=== PATIENT | female | born 1950 | race Caucasian/White ===

== ENCOUNTER 2017-04-03 13:59 | Outpatient (CLI) | payer MEDICARE | END 2017-04-03 14:00 | disposition home or self-care (01) | LOC: DTY/OP 13:59 | PROVIDERS: ATTEND Internal Medicine | DX: E11.59 Type 2 diabetes mellitus with other circulatory complications (principal) | CPT/HCPCS: 97802 ==

== ENCOUNTER 2017-09-07 11:53 | Inpatient (IN) | payer MEDICARE ==
[2017-09-07] MEDS ORDERED: Naloxone HCl 0.4 mg/ml Vial ONE (12:05)
[2017-09-07 12:20] LABS: #Eosinphils 0.2 thou/uL (0.0-0.7); #Lymphocytes 1.4 thou/uL (1.20-3.40); #Monocytes 0.6 thou/uL (0.11-0.59); #Neutrophils 5.9 thou/uL (1.40-6.50); %Basophils 0.2 % (0.0-1.0); %Eosinophils 2.1 % (0.0-10.0); %Lymphocytes 17.6 % (21.0-51.0); %Monocytes 7.4 % (0.0-10.0); %Neutrophils 72.7 % (42.0-75.0); Hemoglobin 11.9 g/dL (12.0-16.0); Mean Corpuscular HGB CONC 33.5 g/dL (32.0-36.0); Mean Corpuscular Hemoglobin 30.1 pg (27.0-31.0); Mean Corpuscular Volume 89.8 fl (81.0-99.0); Mean Platelet Volume 7.8 fL (7.4-10.4); Platelet Count 218 thou/uL (130-400); RBC Distribution Width 12.2 % (11.5-14.5); Red Blood Cell (RBC) Count 3.94 mill/uL (4.20-5.40); White Blood Cell (WBC) Count 8.1 thou/uL (4.8-10.8)
[2017-09-07 12:40] LABS: Prothrombin Time 13.1 SEC (12.0-14.7)
[2017-09-07 12:42] LABS: ALT (SGPT) 38 U/L (8-55); AST (SGOT) 39 U/L (5-34); Albumin 3.9 g/dL (3.4-4.8); Alkaline Phosphatase 139 U/L (40-150); Anion Gap 18 mmol/L (10-20); BUN (Urea Nitrogen) 17 mg/dL (9.8-20.1); Bilirubin, Total 0.5 mg/dL (0.2-1.2); Calc. Creatinine Clearance 0 mL/min (70-130); Carbon Dioxide 22 mmol/L (23-31); Chloride 100 mmol/L (98-107); Estimated GFR-MDRD 72; Globulin 3.6 g/dL (2.4-3.5); Glucose 199 mg/dL (80-115); Magnesium 1.6 mg/dL (1.6-2.6); Potassium 3.9 mmol/L (3.5-5.1); Protein, Total 7.5 g/dL (6.0-8.3); Sodium 136 mmol/L (136-145)
[2017-09-07 12:42] LABS: Actual Bicarbonate (HCO3a) 26.3 mEq/L (22-26); Base Excess (BEa) 0.7 mEq/L (0 (+/-) 2.5); CO2 Tension 46.1 mmHg (35.0-45.0); Hematocrit-ABG 37.2 % (36.0-47.0); Hemoglobin (Hb) 11.1 g/dL (12.0-16.0); pH, Arterial 7.37 (7.35-7.45)
[2017-09-07 12:43] LABS: ALV-art Gradient -28.385 (0-20); Analyzer IN Cardio ER; Calcium, Ionized 1.1 mmol/L (1.12-1.30); Puncture Site RRA
[2017-09-07 12:45] LABS: Bilirubin Negative (Negative); Blood, Urine Negative (Negative); Clarity CLEAR (Clear); Glucose, Urine (Dipstick) Negative (Negative); Leukocyte Negative (Negative); Nitrite Negative (Negative); Protein, Urine (Dipstick) Negative (Neg-Trace); Specific Gravity, Urine 1.011 (1.002-1.036); Urobilinogen 0.2 mg/dL (0.2-1.0); pH, Urine 6.5 (5.0-9.0)
[2017-09-07] MEDS ORDERED: Aspirin 300 MG Suppository ONE (13:43)
[2017-09-07 14:08] LABS: Amphetamine Not Detected (NotDetected); Barbiturates Screen Not Detected (NotDetected); Benzodiazepine Screen Not Detected (NotDetected); Cocaine Metabolite Screen Not Detected (NotDetected); Medtox Control Line Valid? VALID (VALID); Medtox Reader # READER 1; Methadone Not Detected (NotDetected); Methamphetamine Not Detected (NotDetected); Opiate Screen Not Detected (NotDetected); Oxycodone Screen Not Detected (NotDetected); Phencyclidine (PCP) Not Detected (NotDetected); THC/Cannabinoid Screen Not Detected (NotDetected); Tricyclic Screen Not Detected (NotDetected)
[2017-09-07 14:15] LABS: CKMB 0.7 ng/mL (0-6.6); Troponin I Less than 0.010 ng/mL (< 0.028)
--- NOTE | 2017-09-07 14:35 | CT ---
CT BRAIN: Date: 09-07-17 Comparison: 04-11-15 Technique: Noncontrast enhanced CT of the brain obtained. FINDINGS: There is interval encephalomalacia changes seen in the left occipital region where previous stroke wa s visualized. No evidence of acute intracranial masses, hemorrhages, or strokes seen. No evidence of sub or epidura l hematoma is seen. No evidence of subarachnoid hemorrhage is seen. No other intracranial masses or l esions seen. IMPRESSION: Left rib occipital stroke. Findings discussed with Dr. Browne at 12:16 p.m. on 09-07-17. Code CR POS: [facility]
--- NOTE | 2017-09-07 14:45 | RAD ---
AP CHEST: History: Mental status change. Syncope. Date: 09-07-17 Comparison: 08-14-16 FINDINGS: Sternotomy wires are seen. Cardiomegaly is noted. No evidence of effusions, pneumonia or pneumothorax seen. IMPRESSION: Cardiomegaly. No acute intrathoracic abnormalities seen. POS: [facility]
[2017-09-07] MEDS ORDERED: Ondansetron HCl/PF 4 MG/2 ML Vial IVP PRN (15:55)
[2017-09-07] MEDS ORDERED: Ondansetron ODT 4 MG TAB SL PRN (15:55)
[2017-09-07 15:58] VITALS: BMI 46.8
[2017-09-07 16:56] LABS: Troponin I Less than 0.010 ng/mL (< 0.028)
--- NOTE | 2017-09-07 17:29 | CON ---
DATE OF CONSULTATION: 09/07/2017 HISTORY OF PRESENT ILLNESS: Edmundo is a 67-year-old morbidly obese female who has seen Dr. Ngo in the past. He presents now with metabolic encephalopathy. History is difficult to assess, but ambulance brought here. She is living in [facility] and son was in denominational, he was notified after the patient was brought to the hospit al. He comes to the ER when we got additional information. He spoke to his mother yesterday. She a ppeared to be appropriate. Apparently, they were unable to wake her up today. In the ER, she was se en by the ER physician. Chest x-ray and CT of the head so far negative. Additional lab obtained, bl ood gas, pO2 is 169, pCO2 was 37. There is no respiratory acidosis. This is on 2 liters. Electroly kirill are normal. Blood sugar was 99. Liver function was normal. Thyroid function was normal. [place] ia level was normal. I reviewed all her past medical records. In fact, she was recently in the hosp ital over here about a year ago and saw Cardiology. 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 Patient is unable to give any information, stormou gh after a period of time, she did open her eyes, did move both extremities. PAST MEDICAL HISTORY: Diabetes, obesity, COPD, carotid disease, bypass, hypertension, hyperlipidemia , DVT in the past. PAST SURGICAL HISTORY: CABG, back surgery. Previous sternal dehiscence, treated conservatively, say s about a year ago. She apparently sees mainly doctors at [facility]. MEDICATIONS: Medicine from home includes atorvastatin, Ecotrin, aspirin, Tylenol #3, Prilosec, Norva sc 5, gabapentin 600, Coreg 12.5, tramadol, all from previous medical records. ALLERGIES: Apparently from previous medical records, none to speak of. SOCIAL HISTORY: History from previous records include that she has been smoking. REVIEW OF SYSTEMS: Otherwise unobtainable. PHYSICAL EXAMINATION: HEENT: Pupils are equal. GENERAL: Obese. VITAL SIGNS: Sats are 98% on O2, pulse 80, blood pressure 130/80. CHEST: No wheezing or crackles. CARDIAC: Normal S1, S2. No gallops. ABDOMEN: Soft. No masses. LABORATORY DATA: White count 8000, H and H 11 and 35, platelet count is normal. I do not see any bi g left shift. Blood gas as noted, pCO2 is 46, pH 7.37, pO2 169. Electrolytes normal. Glucose 93. IMPRESSION: 1. Metabolic encephalopathy. 2. Morbid obesity. 3. Sleep apnea. 4. Diabetes. 5. Coronary artery disease and coronary artery bypass grafting. 6. Sternal wound dehiscence. PLAN: Minimize sedation and was transferred to the ICU/MICU for close observation. Son is at the be dside. Continue nocturnal CPAP, BiPAP. May empirically put on antibiotics I doubt she is septic. C ontinue home medication. We will notify Dr. Ngo. Forty-five minutes critical care time.
[2017-09-07 19:10] LABS: Troponin I Less than 0.010 ng/mL (< 0.028)
--- NOTE | 2017-09-07 19:39 | CON ---
DATE OF CONSULTATION: 09/07/2017 CHIEF COMPLAINT: Difficulty with vision and also altered mental status. HISTORY OF PRESENT ILLNESS: The patient was actually able to give me full medical history when I saw her and I reviewed Dr. Garces's note from this afternoon when he stated that the patient was unable to give any history, she seems to have improved since this morning. This afternoon, the patient report s for the past few weeks, she has had difficulty with her vision and she is unable to focus her eyes and also has been losing her balance. She has an eye doctor who is looking after her and she was randy d that not much can be done for her eyes. 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 The patient stated to me that she has been feeling generalized weakness, which has got ten worse today and she was brought here by her family from the assisted living and her son nader tristan was at the hospital. He was not here at the time of my visit. The patient states that she has rosamaria e dizziness, but it is mostly her eyes feel like they are blurry and she feels like her head is disco nnected from her body. PREVIOUS MEDICAL HISTORY: Diabetes, COPD, carotid artery disease, coronary artery bypass with bello ry artery disease, hypertension, hyperlipidemia, DVT and CVA in 2014 in the left occipital area. PREVIOUS SURGICAL HISTORY: Coronary artery bypass graft and back surgery. MEDICATIONS: She is on atorvastatin, aspirin, Tylenol, Prilosec, Norvasc, gabapentin, Coreg. Curren tly, she has also received some naloxone earlier. FAMILY HISTORY: Her parents young. Father had congestive heart failure, at 75. Mo ther from massive coronary artery disease at the age of 62. SOCIAL HISTORY: She is in an assisted living facility. She does not smoke or drink. REVIEW OF SYSTEMS: Pulmonary: Positive for shortness of breath. Cardiac: Negative for any chest p ain or palpitations. Gastrointestinal: Normal. Genitourinary: Normal. Neurologic: Positive for vision issues, poor coordination, difficulty walking and ophthalmologic blindness in the right eye. Dermatologic: Normal. Endocrine: Normal. PHYSICAL EXAMINATION: GENERAL APPEARANCE: A well-built, well-nourished lady, slightly obese, appears to be short of breath . She is on oxygen. CHEST: Clear vesicular breathing. CARDIOVASCULAR: S1 and S2 heard. No murmurs. Carotids are clear. ABDOMEN: Soft and nontender. NEUROLOGICAL: Higher intellectual functions, normal orientation to time, place and person, appropria te conversation. Cranial nerve II difficult to assess even pupils. She closes her eye. They do not feel right when I shine the light and she is unable to track because of discomfort due to vision. N ormal sensation of face. No facial asymmetry. Normal hearing bilaterally. Normal elevation of makayla te. Tongue is midline. MOTOR: Bulk normal, tone normal, strength 5/5 in iliopsoas, hamstrings, quadriceps, ankle dorsiflexi on, plantar flexion, deltoid, biceps, triceps, wrist extension and flexion, finger extension and flex ion. There was slightly decreased effort in performing left ankle dorsiflexion. Deep tendon reflexe s were present at 1+. She complained of discomfort when I was testing left knee jerk. SENSORY: Normal touch, pinprick, proprioception, vibration and temperature except for slightly decre ased vibration distally in lower extremities. Cerebellar: Normal [id number] and iuxs-fg-[id number]. LABORATORY RESULTS: White count 8.1, hemoglobin 11.9, hematocrit 35.4 and platelet count 218. Sodiu m 136, potassium 3.9, chloride 100, bicarbonate 22, anion gap 18, BUN 17, creatinine 0.8, glucose 199 and her BNP is 135.7. IMPRESSION: The patient is a 67-year-old lady with prior occipital stroke. Her CT report states she has a left occipital stroke and she has been having some difficulty with her vision lately and also lack of coordination. She also reported to me she usually keeps her oxygen at all times. Today, she was not using her oxygen and then just felt she did not remember being disoriented, but she has had short term memory loss since her previous stroke and has had episodes of confusion on and off. Her n eurological examination shows deficits from her prior stroke, mainly left consistent with loss of vis ion in the right eye, but added problem at this time is difficulty to even track and focus her vision . I suspect she might have had another posterior circulation event, which needs to be explored furth er. RECOMMENDATIONS: 1. Continue aspirin for stroke prophylaxis for now. 2. MRI of the brain. 3. Complete her stroke workup including carotid Dopplers and echocardiogram and I will have my colle ague, Dr. Harrington, follow up from tomorrow.
[2017-09-07] MEDS: Enoxaparin Sodium 40 MG/0.4 ML SYRINGE SC SCH (20:41)
[2017-09-07] MEDS: Acetaminophen 325 MG TAB PO PRN (21:17)
--- NOTE | 2017-09-07 23:15 | ULT ---
CAROTID ARTERIAL DOPPLER ULTRASOUND: Date: 09-07-17 Comparison: None. History: Altered mental status. Technique: Multiplanar grayscale sonographic imaging of the arterial structures of the neck obtained with color flow and spectral analysis. FINDINGS: There is mild atherosclerotic plaque at the level of the proximal ICA bilaterally. Antegrade blood fl ow and normal arterial waveforms are documented within the carotid and vertebral system bilaterally. VESSEL PSV (CM/SEC) EDV (CM/SEC) Right CCA 95 19 Right ICA 85 24 Right ECA 83 7 Left CCA 98 20 Left ICA 59 19 Left ECA 59 7 ICA/CCA ratio is 0.9 on the right and 0.6 on the left. IMPRESSION: No hemodynamically significant stenosis on the basis of sonographic velocity criteria. POS: [facility]
--- NOTE | 2017-09-08 00:40 | HP ---
DATE OF ADMISSION: 09/07/2017 ADMITTING PHYSICIAN: Dr. Puneet Sagastume. PRIMARY CARE PHYSICIAN: Dr. Sofia. CHIEF COMPLAINT: Altered mental status, found down. HISTORY OF PRESENT ILLNESS: The patient is a 67-year-old patient, morbidly obese, history of CVA, CA D. The patient lives at [facility]. The patient complained of mental sta tus changes and was found down at the assisted living facility after the staff heard a loud crash. T he patient is completely lucid during my interview. She says she does not remember the loss of consc iousness. She denies chest pain, shortness of breath. She does report that she has been suffering f rom increased memory loss and fatigue lately. She is a patient of Dr. Sofia and is in the process o f a workup for cardiovascular disease. The patient was given Narcan in the emergency department and has increased alertness. She denies using any opiates with her home medication regimen. REVIEW OF SYSTEMS: The following complete review of systems was negative, unless otherwise mentioned in the HPI or below: Constitutional: Weight loss or gain, sense of well-being, ability to conduct usual activities, exerc ise tolerance. Skin/Breast: Rash, itching, changes in hair growth or loss, nail changes, breast lumps, tenderness, swelling, nipple discharge. Eyes: Vision, double vision, tearing, blind spots, pain. ENT/Mouth: Headaches (location, time of onset, duration, precipitating factors), vertigo, lightheade dness, injury. Vision, double vision, tearing, blind spots, pain, nose bleeding, colds, obstruction, discharge, dental difficulties, gingival bleeding, dentures, neck stiffness, pain, tenderness, masses in thyroid or other areas. Cardiovascular: Precordial pain, substernal distress, palpitations, syncope, dyspnea on exertion, or thopnea, nocturnal paroxysmal dyspnea, edema, cyanosis, hypertension, heart murmurs, varicosities, ph lebitis, claudication. Respiratory: Pain, shortness of breath, wheezing, stridor, cough, hemoptysis, fever or night sweats. Gastrointestinal: Poor appetite, dysphagia, indigestion, abdominal pain, heartburn, eructation, naus ea, vomiting, hematemesis, jaundice, constipation, or diarrhea, abnormal stools (kimberley-colored, tarry, bloody, greasy, foul smelling), flatulence, hemorrhoids, recent changes in bowel habits. Genitourinary: Urgency, frequency, dysuria, nocturia, hematuria, polyuria, oliguria, unusual (or javier nge in) color of urine, stones, hesitancy, change in size of stream, dribbling, acute retention or in continence, libido, potency. Musculoskeletal: Pain, swelling, redness or heat of muscles or joints, limitation, of motion, muscul ar weakness, atrophy, cramps. Neurologic/Psychiatric: Convulsions, paralyses, tremor, incoordination, paresthesias, difficulties w ith memory of speech, sensory or motor disturbances, or muscular coordination (ataxia, tremor), emoti onal problems, anxiety, depression, previous psychiatric care, unusual perceptions, hallucinations. Allergy/Immunologic: Skin rash, anemia, bleeding tendency, polydipsia, polyuria, intolerance to heat or cold. PAST MEDICAL HISTORY: Significant for morbid obesity, COPD, diabetes, carotid artery disease, CABG, hypertension, dyslipidemia, DVT in the past. PAST SURGICAL HISTORY: Positive for CABG with sternal dehiscence, multiple spinal surgeries. FAMILY HISTORY: Reviewed and noncontributory to this case. SOCIAL HISTORY: She lives in assisted living facility. Former smoker. No alcohol, no illicit drugs . ALLERGIES: No known drug allergies. HOME MEDICATIONS: Include Lipitor 10 mg q. day, aspirin 81 mg q. day, ascorbic acid 1 gram q. day, a mlodipine 5 mg q. day, Celexa 5 mg q. day, iron sulfate 325 mg q. day, Lasix 40 q. day, gabapentin 60 0 mg twice a day, albuterol Atrovent nebulizer b.i.d., metformin 1000 mg b.i.d., Exelon 1.5 mg b.i.d. , Ultram 50 mg b.i.d., Ambien 5 mg at bedtime. PHYSICAL EXAMINATION: VITAL SIGNS: Temperature 98.2, pulse 63, respirations 14, satting 97% on 2 liters, blood pressure 11 6/61. GENERAL: She is nontoxic. Alert and oriented x3. HEENT: Head: Normocephalic, atraumatic. Eyes: Pupils are equal, reactive to light. Extraocular m uscles are intact. CARDIAC: Systolic ejection murmur 2/6. Normal S1, S2. CHEST: No wheezing, no rhonchi, no crackles. ABDOMEN: Morbidly obese, nontender. EXTREMITIES: No clubbing, cyanosis or edema. NEUROLOGIC: Full range of motion of all extremities. Cranial nerves II-XII grossly intact. LABORATORY DATA AND IMAGES: CBC: White count 8.1, hemoglobin 11.9, hematocrit 35.4, platelets 218. Coag studies: PT 13.1, INR 1.0. Blood gas: A pH 7.37, pCO2 of 46, pO2 of 169. Chem-7: Sodium 13 6, potassium 3.9, chloride 100, CO2 of 22, BUN 17, creatinine 0.8, glucose 199. Lactic acid 2.3, AST 39, ALT 38, CK-MB of 0.7, troponin I of 0.01 less than, BNP of 135.7. Urinalysis: Yellow, clear, n egative for ketones, nitrites and leukocytes. Urine drug screen: No opiates, no oxycodone, no metha done, completely clear urine drug study. ASSESSMENT: 1. Possible medication overdose. 2. Morbid obesity. 3. Sleep apnea. 4. Diabetes. 5. Coronary artery disease and congestive heart failure. PLAN: The patient has been admitted to [facility]. She is completely lucid at this time. Nevertheless, w e will obtain an MRI to rule out an ischemic event. The patient has a history of carotid disease. S he will be seen and assessed by the Cardiology Service, Dr. Sofia, who is her social media content manager. We will let him decide if she needs a repeat carotids and echo. We will refrain from using any opiates for this patient and her chronic pain. We will place her on Accu-Cheks before meals and bedtime. We zamzam l have a PT/OT evaluation. Deep venous thrombosis prophylaxis with Lovenox.
[2017-09-08 05:02] LABS: Anion Gap 13 mmol/L (10-20); BUN (Urea Nitrogen) 16 mg/dL (9.8-20.1); Calc. Creatinine Clearance 148 mL/min (70-130); Calcium 8.2 mg/dL (7.8-10.44); Carbon Dioxide 25 mmol/L (23-31); Chloride 105 mmol/L (98-107); Estimated GFR-MDRD 81; Glucose 140 mg/dL (80-115); Potassium 3.5 mmol/L (3.5-5.1); Sodium 139 mmol/L (136-145)
[2017-09-08 05:16] LABS: Band 5 % (5-11); Eosinophils 3 % (0-10); Hemoglobin 10.7 g/dL (12.0-16.0); Lymphocytes 25 % (21-51); MDiff Complete? YES; Mean Corpuscular Hemoglobin 29.7 pg (27.0-31.0); Mean Platelet Volume 7.6 fL (7.4-10.4); Monocytes 5 % (0-10); Neutrophil 60 % (42-75); Platelet Count 190 thou/uL (130-400); RBC Distribution Width 12.2 % (11.5-14.5); White Blood Cell (WBC) Count 7.5 thou/uL (4.8-10.8)
--- NOTE | 2017-09-08 09:42 | PRG ---
DATE OF SERVICE: 09/08/2017 She is awake and alert, has no complaints. PHYSICAL EXAMINATION: VITAL SIGNS: Temperature 97.5, pulse 64, respirations 20, O2 sat 98%, blood pressure 126/64. HEENT: Unremarkable. NECK: No JVD. CHEST: Clear. CARDIAC: S1 and S2 regular. ABDOMEN: Soft. EXTREMITIES: No edema. LABORATORY DATA: White blood cell count 7.5, hematocrit 32.4, platelet count 190. Sodium 139, potas sium 3.5, chloride 105, CO2 25, BUN 16, creatinine 0.7, glucose 140. ASSESSMENT: 1. Altered mental status, etiology unclear, but problem seems to have resolved. 2. Obstructive sleep apnea with symptoms well controlled on CPAP. RECOMMENDATIONS: 1. Continue CPAP at 13 cm of water. Her vegetable cutter is Dr. Beltre at [facility]. She will follow up with him after discharge. 2. From my standpoint, she can be moved to the floor and discharged home anytime.
[2017-09-08] MEDS ORDERED: Clotrimazole/Betamethasone Cream 45 GM TUBE TOP PRN (10:47)
[2017-09-08] MEDS ORDERED: Zolpidem Tartrate 5 MG TAB PO PRN (10:47)
[2017-09-08] MEDS ORDERED: Nitroglycerin 0.4 MG TAB (25 Tab Bottle) SL PRN (10:47)
--- NOTE | 2017-09-08 10:56 | PDOC.PN ---
- Subjective Encounter Start Date: 09/08/17 Encounter Start Time: 10:53 Patient seen and examined, friend at bedside, states she feels well now, recently had an increase in her metformin to 1000mg po BID. Patient also states she was taking lorazepam, gabapentin, ambien and an SSRI. Patient currently states she feels much better but still remains weaker than normal. All questions answered. - Objective Resuscitation Status: Resuscitation Status FULL:Full Resuscitation MAR Reviewed: Yes Vital Signs & Weight: Vital Signs (12 hours) Temp Pulse Resp BP Pulse Ox 09/08/17 08:00 97.5 F L 64 22 H 98 09/08/17 07:38 97.5 F L 64 22 H 124/64 98 09/08/17 06:10 62 16 123/69 100 09/08/17 04:04 97.8 F 59 L 15 120/61 99 09/08/17 02:03 59 L 15 97 09/08/17 02:01 58 L 16 96/39 L 100 09/08/17 00:05 98.1 F 58 L 19 121/54 L 99 I&O: 09/07/17 09/08/17 09/09/17 06:59 06:59 06:59 Intake Total 1700 Output Total 1175 Balance 525 Result Diagrams: 09/08/17 04:33 09/08/17 04:33 Additional Labs: Accuchecks 09/08/17 09/07/17 09/07/17 06:11 21:19 16:42 POC Glucose 137 H 136 H 130 H Phys Exam - Physical Examination Constitutional: NAD obese HEENT: PERRLA, moist MMs Neck: no nodes, no JVD Respiratory: no wheezing, no rales, no rhonchi Cardiovascular: RRR, no significant murmur Gastrointestinal: soft, non-tender, no distention Musculoskeletal: pulses present, edema present (trace B/L LE) Neurological: non-focal, normal sensation Dx/Plan (1) Altered mental state Code(s): R41.82 - ALTERED MENTAL STATUS, UNSPECIFIED Status: Acute (2) Cardiomyopathy Code(s): I42.9 - CARDIOMYOPATHY, UNSPECIFIED Status: Chronic (3) Family history of diabetes mellitus (DM) Code(s): Z83.3 - FAMILY HISTORY OF DIABETES MELLITUS Status: Chronic (4) HLD (hyperlipidemia) Code(s): E78.5 - HYPERLIPIDEMIA, UNSPECIFIED Status: Chronic (5) HTN (hypertension) Code(s): I10 - ESSENTIAL (PRIMARY) HYPERTENSION Status: Chronic - Plan * Patient clinically stable * MRI done, if MRI negative can move to regular floor with telemetry monitoring * PT/OT evaluation * patient likely had multiple reasons for AMS, recent increase in metformin along with multiple agents which can cause neurological changes (gabapentin, zolpidem, benzodiazepines and SSRIs) monitor for now * labs in AM * DC plans in 24-48hrs if patient clinicalyl improved, image studies negative and labs are acceptable * case and plan d/w patient at length, she understands and agrees with this plan
[2017-09-08] MEDS: Gabapentin 300 MG CAP PO SCH ×4 (11:02→23:33)
--- NOTE | 2017-09-08 12:29 | MRI ---
BRAIN MRI WITHOUT CONTRAST: DATE: 09/08/17. COMPARISON: 04/10/15. HISTORY: Altered mental status, evaluate for acute infarction. TECHNIQUE: Multiplanar multisequence MR imaging of the brain is obtained without contrast. FINDINGS: The axial gradient echo imaging demonstrates no evidence for intracranial hemorrhage. There is encephalomalacia within the occipital lobe on the left, evidence of prior left occipital inf arction. Arterial flow voids at the axial level of the skull base appear unremarkable on the T2 weighted imagi ng. Regional bone marrow signal intensity appears within normal limits. Extensive multifocal periventricular deep and subcortical white matter T2 and FLAIR hyperintensity no landy, evidence of small-vessel disease. The diffusion weighted imaging demonstrates no evidence for acute infarction. IMPRESSION: Small-vessel disease and old left occipital infarction. No MR evidence of acute infarction or intrac ranial hemorrhage. POS: [facility]
--- NOTE | 2017-09-08 13:08 | CON ---
DATE OF CONSULTATION: 09/08/2017 CHIEF COMPLAINT: Altered mental status, concern for syncope. PRIMARY BARTENDER MANAGER: Christopher Sofia M.D. HISTORY OF PRESENT ILLNESS: Ms. Wyatt is a pleasant 67-year-old white female very well known to erika who comes to the hospital for being altered. She was found down at her home. She lives in assist ed living facility close to the hospital, she was brought in. She was still confused and she was bro ught in with normal blood sugars and normal heart rate and blood pressure. Cardiology is being consu lted to evaluate if this was syncope or cardiogenic syncope. She has significant history of coronary disease with bypass grafting in the past. More recently, she has had a heart catheterization that s howed severe diffuse disease distally, the bypass is non-revascularizable disease. No good options f or any other revascularization at that time. Her LV function had dropped a little bit at that point, but actually has been much better. Last time it was evaluated in 07/2016 and it was abo ut 40-50%. She denies any chest pain, tightness or pressure. She admits to being confused. She sta kirill she does not remember much of it. She is back to her baseline as I am talking to her right now, she looks exactly the same as she does when she comes to visit me in the office. PAST MEDICAL HISTORY: 1. Type 2 diabetes. 2. Chronic obstructive pulmonary disease. 3. Obstructive sleep apnea. 4. Morbid obesity. 5. Carotid artery disease, mild. 6. Coronary artery disease, status post bypass grafting. 7. Hypertension. 8. Hyperlipidemia. 9. Deep venous thrombosis in the past. 10. 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 PAST SURGICAL HISTORY: 1. Back surgery. 2. Coronary artery bypass grafting in 2014. 3. Sternal wound dehiscence since treated medically. OUTPATIENT MEDICATIONS: 1. Ambien. 2. Xyzal. 3. Rivastigmine. 4. Lorazepam. 5. Ketoconazole cream. 6. Vitamin C. 7. Gabapentin 600 mg t.i.d. 8. Stool softener p.r.n. 9. Ferrous sulfate 325 a day. 10. Flexeril 10 mg q.p.m. p.r.n. 11. Lotrisone cream. 12. Calcium carbonate. 13. Losartan 12.5 mg p.o. daily. 14. Tylenol with codeine. 15. Duloxetine 60 mg. 16. Coreg 12.5 mg p.o. b.i.d. 17. Atorvastatin 10 mg a day. 18. Aspirin 81 a day. 19. Vitamin C. 20. Amlodipine 5 mg a day. 21. Omeprazole 20 mg a day. 22. Lasix 40 mg a day. 23. Metformin recently increased to 1000 mg p.o. b.i.d. Her first dose of 1000 mg was about 12 hour s before her episode. ALLERGIES: IODINE, CODEINE and PENICILLIN. SOCIAL HISTORY: Former smoker. She used to be an ICU nurse. No alcohol or drugs. FAMILY HISTORY: Noncontributory. REVIEW OF SYSTEMS: A 12 point review of systems was done and is all negative unless stated in the hi story of present illness. PHYSICAL EXAMINATION: VITAL SIGNS: Temperature 97.6, pulse 62, respiration rate 20, satting 99% on 2 liters, blood pressur e 121/56. GENERAL: Awake, alert, oriented x3, in no distress. HEENT: Normocephalic. NECK: Supple. LUNGS: Lungs are clear. CARDIOVASCULAR: S1, S2. There is a grade 3/6 systolic murmur right upper sternal border. ABDOMEN: Prominent but soft. Positive bowel sounds. EXTREMITIES: No edema. SKIN: Warm and dry. LABORATORY WORK: Shows a white count of 8.1, hemoglobin of 11.9, hematocrit 35, platelet count 218. Coags were unremarkable. ABG was reviewed. Chemistries were reviewed. Troponins were negative x3. Lactic acid was a little bit high at 2.3. BNP was just under 35. Toxicology; UDS was unremarkable . ASSESSMENT AND PLAN: 1. Altered mental status, unlikely to be syncope, this sounds more like a metabolic encephalopathy. At this point I would recommend against restarting the metformin. She may need an alternative oral hypoglycemic regimen as this happened right after she increased her dose to 1000 twice a day. Feliberto sutherland, she is back to her normal baseline with really no therapies except holding her metformin. From the cardiac perspective she has been on telemetry while she was altered and showed normal sinus rhyth m, normal blood pressures, so this is again unlikely to be cardiogenic syncope, most likely a metabol ic encephalopathy. Would continue to treat as such. 2. Coronary artery disease, stable at this time and asymptomatic, non-revascularizable on most recen t catheterization about 2 years ago. 3. History of cerebrovascular accident: Her residual deficits from her occipital cerebrovascular ac cident are unchanged from my evaluation today. 4. MRI is pending at this time. Thank you for letting us participate in the care of your patient. We will follow.
--- NOTE | 2017-09-08 15:51 | PQF ---
DATE: 09-08-17 ATTN: DR. MAITE BARROW Please exercise your independent, professional judgment in responding to the clarification form. Clinical indicators are provided on the bottom of this form for your review Please check appropriate box(s): [ x ] Encephalopathy: Type: [ x ] Acute [ ] Subacute [ ] Chronic Etiology: [ x ] Metabolic [ ] Toxic [ x ] Drug induced: suspected secondary to metformin + gabapentin + SSRI + benzo [ ] Transient Alteration of Awareness [ ] Other diagnosis [ ] Unable to determine In addition, please specify: Present on Admission (POA): [ ] Yes [ ] No [ x ] Unable to determine For continuity of documentation, please document condition throughout progress notes and discharge summary. Thank You. CLINICAL INDICATORS - SIGNS / SYMPTOMS / LABS H&P: POSSIBLE MEDICATION OVERDOSE CONSULT NOTE DR. HADDAD 09-07-17: METABOLIC ENCEPHALOPATHY PN 09-08-17: AMS CONSULT NOTE DR. HICKMAN 09-08-17: UNLIKELY TO BE SYNCOPE, THIS SOUNDS MORE LIKE A METABOLIC ENCEPHALOPATHY RISK FACTORS: H&P: POSSIBLE MEDICATION OVERDOSE, HX OF DM2, CONSULT NOTE DR. HICKMAN 09-08-17: AT THIS POINT I WOULD RECOMMEND AGAINST RESTARTING THE METFORMIN TREATMENTS: CONSULT NEURO (ER) NS IVF (This form is maintained as a part of the permanent medical record) 2015 [employer]. All Rights Reserved [email or web address] Office: [phone] RAINE
[2017-09-08] MEDS: Ketoconazole 2% Cream 15 gm Tube TOP SCH (16:47)
--- NOTE | 2017-09-08 21:04 | PRG ---
DATE OF SERVICE: 09/08/2017 SUBJECTIVE: Ms. Wyatt is a pleasant 67-year-old with a prior history of stroke, presented with the a ltered mental status. The patient reported to me that she has a history of stroke in 2015 that resul landy in blindness in her right side. She lives in assisted living facility where she was planning to go eat, but she went inside in her room and back to her apartment, where she felt lightheaded and diz zy and then passed out. She was found by someone to be confused and disoriented, for which she was b rought to the hospital. She states that she has no recollection how she got to the hospital. She morrissey s no prior history of passing out or seizure-like episodes. She states that recently her primary car e physician, Dr. Love has increased her metformin due to her A1c level being too high and this even t happened after she had taken the metformin. PHYSICAL EXAMINATION: VITAL SIGNS: Blood pressure of 121/56, pulse of 62, temperature of 97.6, respirations are 20, and O2 sats of 99% on 2 liter nasal cannula. GENERAL: Well-developed, well-nourished female in no apparent distress. RESPIRATORY: Clear to auscultation bilaterally. CARDIOVASCULAR: Regular rate and rhythm. NEUROLOGICAL: Mental status: The patient is awake, alert, oriented x3. Speech and language: Fluen t speech. Cranial nerves: Pupils are 3 mm and reactive. She has a right homonymous hemianopsia. E xternal muscles are intact. Face is symmetric. Motor exam showed normal tone and bulk with a 5/5 st rength in lower extremities. IMAGING STUDIES: MRI brain without contrast was reviewed, which showed no acute intracranial abnorma lity. It showed encephalomalacia involving the left occipital region, which explains her right homon ymous hemianopsia. IMPRESSION: 1. Altered mental status, likely toxic metabolic encephalopathy. 2. Right homonymous hemianopsia secondary to prior stroke. ASSESSMENT AND PLAN: Ms. Wyatt is a pleasant 67-year-old female, who presented with the co nfusion and altered mental status. This has since been resolved. This is likely secondary to toxic metabolic encephalopathy. I have reviewed her MRI brain, which does not show any new acute ischemic event. I would recommend continuing current medical management. No further neurological workup need ed. I will sign off. Please call us if there are any questions or concern.
[2017-09-08] MEDS: Enoxaparin Sodium 40 MG/0.4 ML SYRINGE SC SCH (21:52)
[2017-09-08] MEDS: Carvedilol 6.25 MG TAB PO SCH (21:52)
[2017-09-08] MEDS: Rivastigmine 1.5 MG CAP PO SCH (21:53)
[2017-09-08] MEDS: Calcium Carbonate 600 MG TAB PO SCH (21:57)
[2017-09-09] MEDS: DULoxetine 60 MG CAP PO SCH (09:20)
[2017-09-09] MEDS: Ascorbic Acid 500 mg Chewable Tablet PO SCH (09:20)
[2017-09-09] MEDS: Atorvastatin Calcium 10 MG TAB PO SCH (09:20)
[2017-09-09] MEDS: Gabapentin 300 MG CAP PO SCH ×3 (09:20→20:47)
[2017-09-09] MEDS: Losartan 25 MG TAB PO SCH (09:21)
[2017-09-09] MEDS: Loratadine 10 MG TAB PO SCH (09:21)
[2017-09-09] MEDS: Docusate 100 MG CAP PO SCH (09:22)
[2017-09-09] MEDS: Carvedilol 6.25 MG TAB PO SCH ×3 (09:22→21:10)
[2017-09-09] MEDS: Furosemide 40 MG TAB PO SCH (09:23)
[2017-09-09] MEDS: Ferrous Sulfate 325 MG TAB PO SCH (09:23)
[2017-09-09] MEDS: Aspirin 81 mg Enteric Coated Tablet PO SCH (09:23)
[2017-09-09] MEDS: Amlodipine 5 MG TAB PO SCH (09:23)
[2017-09-09] MEDS: Calcium Carbonate 600 MG TAB PO SCH ×2 (09:23→20:53)
[2017-09-09] MEDS: Rivastigmine 1.5 MG CAP PO SCH ×2 (09:24→20:46)
--- NOTE | 2017-09-09 09:34 | PRG ---
DATE OF SERVICE: 09/09/2017 She feels well and has no complaints. She wants to go home. PHYSICAL EXAMINATION: VITAL SIGNS: Temperature is 97.5, pulse 61, respiration 22, O2 sat 97% on 2 liters, blood pressure 1 08/50. Currently, she is resting comfortably on her CPAP. HEENT: Unremarkable. NECK: No JVD. LUNGS: Clear. CARDIAC: S1 and S2 regular. ABDOMEN: Soft and nontender. EXTREMITIES: No edema. MRI showed no acute abnormality. She does have encephalomalacia involving her left occipital region which apparently is consistent with a prior stroke. ASSESSMENT: 1. Encephalopathy, which has improved. 2. Obstructive sleep apnea which is currently stable. PLAN: Okay to discharge from a pulmonary standpoint, no further recommendations. Please recall if f urther assistance needed.
[2017-09-09] MEDS: Acetaminophen 325 MG TAB PO PRN (09:36)
--- NOTE | 2017-09-09 15:49 | PDOC.PN ---
- Subjective Encounter Start Date: 09/09/17 Encounter Start Time: 10:00 Patient seen and eamined, no new issues or complaints, states she is stable today with no major complaints. - Objective Resuscitation Status: Resuscitation Status FULL:Full Resuscitation Vital Signs & Weight: Vital Signs (12 hours) Temp Pulse Pulse Pulse Resp BP BP 09/09/17 15:00 97.1 F L 63 17 09/09/17 11:23 60 76 142/74 H 09/09/17 11:00 98.1 F 67 19 09/09/17 09:23 72 09/09/17 09:22 154/62 H 09/09/17 08:00 97.5 F L 61 22 H 09/09/17 07:00 97.5 F L 61 22 H 09/09/17 05:31 09/09/17 04:00 98.1 F 63 20 BP BP Pulse Ox Pulse Ox Pulse Ox 09/09/17 15:00 139/63 100 09/09/17 11:23 119/65 98 94 L 09/09/17 11:00 114/64 98 09/09/17 09:23 09/09/17 09:22 09/09/17 08:00 97 09/09/17 07:00 108/50 L 97 09/09/17 05:31 98 09/09/17 04:00 135/76 98 Weight Admit Weight 272 lb 12.8 oz Weight 271 lb 2.697 oz I&O: 09/08/17 09/09/17 09/10/17 06:59 06:59 06:59 Intake Total 1700 350 Output Total 1175 1975 Balance 525 -1625 Result Diagrams: 09/08/17 04:33 09/08/17 04:33 Additional Labs: Accuchecks 09/09/17 09/09/17 09/08/17 10:56 05:37 21:52 POC Glucose 191 H 176 H 168 H 09/08/17 16:34 POC Glucose 145 H Phys Exam - Physical Examination Constitutional: NAD HEENT: PERRLA, moist MMs, sclera anicteric Neck: no nodes, no JVD, supple Respiratory: no wheezing, no rales, no rhonchi Cardiovascular: RRR, no significant murmur, no rub Gastrointestinal: soft, non-tender, no distention Musculoskeletal: pulses present, edema present (trace) Neurological: non-focal, normal sensation Dx/Plan (1) Altered mental state Code(s): R41.82 - ALTERED MENTAL STATUS, UNSPECIFIED Status: Acute (2) Cardiomyopathy Code(s): I42.9 - CARDIOMYOPATHY, UNSPECIFIED Status: Chronic (3) Family history of diabetes mellitus (DM) Code(s): Z83.3 - FAMILY HISTORY OF DIABETES MELLITUS Status: Chronic (4) HLD (hyperlipidemia) Code(s): E78.5 - HYPERLIPIDEMIA, UNSPECIFIED Status: Chronic (5) HTN (hypertension) Code(s): I10 - ESSENTIAL (PRIMARY) HYPERTENSION Status: Chronic - Plan * can move out of ICU today to regular telemetry floor * will repeat labs in AM * will hold off on restarting metformin for now * can likely DC in AM if cultures negative and cleared from cardio, ok to DC per neuro and critical care team * case and plan d/w patient at length, she understands and agrees with this plan
--- NOTE | 2017-09-09 17:16 | ULT ---
RIGHT UPPER QUADRANT ULTRASOUND 09/09/17 HISTORY: Abdominal pain. TECHNIQUE: Multiplanar crockett scale sonographic imaging of the right upper quadrant obtained. FINDINGS: The imaged pancreas is unremarkable. The distal body/tail is partially obscured by bowel gas. The hepatic parenchyma is echogenic and heterogeneous suggesting hepatocellular disease such as steat osis. This limits assessment for focal liver lesion and intrahepatic biliary dilatation. The CBD measures 5 mm, within normal limits. The gallbladder is surgically absent. Right kidney measu res 11.5 cm in craniocaudal dimension and demonstrates no stone, hydronephrosis or mass. IMPRESSION: Increased echogenicity of hepatic parenchyma suggests hepatocellular disease, such as steatosis. Gall bladder nonvisualized, consistent with the provided history of prior cholecystectomy. POS: GABRIELLE
--- NOTE | 2017-09-09 17:19 | PDOC.CTH ---
Cardiology Progress Note - Subjective No new issues. She is back to baseline. - Objective Vital Signs Temp Pulse Pulse Pulse Resp BP BP 09/09/17 15:00 97.1 F L 63 17 09/09/17 14:11 67 09/09/17 11:23 60 76 142/74 H 09/09/17 11:00 98.1 F 67 19 09/09/17 09:23 72 09/09/17 09:22 154/62 H 09/09/17 08:00 97.5 F L 61 22 H 09/09/17 07:00 97.5 F L 61 22 H 09/09/17 05:31 BP BP Pulse Ox Pulse Ox Pulse Ox 09/09/17 15:00 139/63 100 09/09/17 14:11 97 09/09/17 11:23 119/65 98 94 L 09/09/17 11:00 114/64 98 09/09/17 09:23 09/09/17 09:22 09/09/17 08:00 97 09/09/17 07:00 108/50 L 97 09/09/17 05:31 98 Admit Weight 272 lb 12.8 oz Weight 271 lb 2.697 oz 09/08/17 09/09/17 09/10/17 06:59 06:59 06:59 Intake Total 1700 350 Output Total 1175 1975 Balance 525 -1625 - Physical Examination General/Neuro: alert & oriented x3, NAD Neck: no JVD present Lungs: unlabored respirations Heart: RRR Abdomen: NT/ND Extremities: + edema B (trace) - Telemetry Telemetry Rhythm: S Homer - Labs Result Diagrams: 09/08/17 04:33 09/08/17 04:33 Troponin/CKMB CK-MB (CK-2) 0.7 ng/mL (0-6.6) 09/07/17 12:22 Troponin I Less than 0.010 ng/mL (< 0.028) 09/07/17 18:35 - Assessment/Plan 1. AMS 2. CAD 3. S/P CABG 4. S/P CVA, occipital with residual right eye blindness. PLAN: - No new cardiac issues identified. - May discharge at any time from cardiac perspective.
[2017-09-09] MEDS: Enoxaparin Sodium 40 MG/0.4 ML SYRINGE SC SCH (20:53)
[2017-09-10] MEDS: Calcium Carbonate 600 MG TAB PO SCH (08:45)
[2017-09-10] MEDS: Loratadine 10 MG TAB PO SCH (08:45)
[2017-09-10] MEDS: DULoxetine 60 MG CAP PO SCH (08:45)
[2017-09-10] MEDS: Docusate 100 MG CAP PO SCH (08:45)
[2017-09-10] MEDS: Rivastigmine 1.5 MG CAP PO SCH (08:45)
[2017-09-10] MEDS: Gabapentin 300 MG CAP PO SCH (08:45)
[2017-09-10] MEDS: Atorvastatin Calcium 10 MG TAB PO SCH (08:45)
[2017-09-10] MEDS: Ferrous Sulfate 325 MG TAB PO SCH (08:45)
[2017-09-10] MEDS: Ascorbic Acid 500 mg Chewable Tablet PO SCH (08:45)
[2017-09-10] MEDS: Aspirin 81 mg Enteric Coated Tablet PO SCH (08:45)
[2017-09-10] MEDS: Furosemide 40 MG TAB PO SCH (08:45)
[2017-09-10] MEDS: Ketoconazole 2% Cream 15 gm Tube TOP SCH (08:46)
[2017-09-10] MEDS: Amlodipine 5 MG TAB PO SCH (08:49)
[2017-09-10] MEDS: Losartan 25 MG TAB PO SCH (08:49)
[2017-09-10] MEDS: Carvedilol 6.25 MG TAB PO SCH (08:49)
--- NOTE | 2017-09-10 10:29 | PDOC.PN ---
- Subjective Encounter Start Date: 09/10/17 Encounter Start Time: 10:28 CC; Altered mental status sub: Pt - Objective Resuscitation Status: Resuscitation Status FULL:Full Resuscitation Vital Signs & Weight: Vital Signs (12 hours) Temp Pulse Resp BP BP BP Pulse Ox 09/10/17 08:49 59 L 114/58 L 09/10/17 08:00 97.3 F L 59 L 18 96 09/10/17 07:28 97.3 F L 59 L 23 H 110/42 L 100 09/10/17 04:00 96.8 F L 58 L 24 H 107/57 L 98 09/10/17 02:35 15 09/10/17 00:26 97.3 F L 66 20 116/57 L 100 Weight Admit Weight 272 lb 12.8 oz Weight 270 lb 6.4 oz I&O: 09/09/17 09/10/17 09/11/17 06:59 06:59 06:59 Intake Total 350 2650 Output Total 1975 2110 550 Balance -1625 540 -550 Result Diagrams: 09/08/17 04:33 09/08/17 04:33 Additional Labs: Accuchecks 09/10/17 09/09/17 09/09/17 06:11 20:22 16:33 POC Glucose 156 H 167 H 136 H 09/09/17 10:56 POC Glucose 191 H Dx/Plan - Plan Constitutional: NAD HEENT: PERRLA, moist MMs, sclera anicteric Neck: no nodes, no JVD, supple Respiratory: no wheezing, no rales, no rhonchi Cardiovascular: RRR, no significant murmur, no rub Gastrointestinal: soft, non-tender, no distention Musculoskeletal: pulses present, edema present (trace) Neurological: non-focal, normal sensation Dx/Plan (1) Altered mental state Code(s): R41.82 - ALTERED MENTAL STATUS, UNSPECIFIED Status: Acute (2) Cardiomyopathy Code(s): I42.9 - CARDIOMYOPATHY, UNSPECIFIED Status: Chronic (3) Family history of diabetes mellitus (DM) Code(s): Z83.3 - FAMILY HISTORY OF DIABETES MELLITUS Status: Chronic (4) HLD (hyperlipidemia) Code(s): E78.5 - HYPERLIPIDEMIA, UNSPECIFIED Status: Chronic (5) HTN (hypertension) Code(s): I10 - ESSENTIAL (PRIMARY) HYPERTENSION Status: Chronic - Plan * can move out of ICU today to regular telemetry floor * will repeat labs in AM * will hold off on restarting metformin for now * can likely DC in AM if cultures negative and cleared from cardio, ok to DC per neuro and critical care team * case and plan d/w patient at length, she understands and agrees with this plan
[2017-09-10 11:11] VITALS: BP 113/60; TEMP 97.4
[2017-09-10 11:30] LABS: Anion Gap 14 mmol/L (10-20); BUN (Urea Nitrogen) 12 mg/dL (9.8-20.1); Calc. Creatinine Clearance 141 mL/min (70-130); Calcium 9.7 mg/dL (7.8-10.44); Carbon Dioxide 25 mmol/L (23-31); Chloride 101 mmol/L (98-107); Estimated GFR-MDRD 77; Glucose 252 mg/dL (80-115); Sodium 136 mmol/L (136-145)
--- NOTE | 2017-09-10 15:18 | DIS ---
DATE OF ADMISSION: 09/07/2017 DATE OF DISCHARGE: 09/10/2017 DISCHARGE DIAGNOSES: 1. Altered mental status probably secondary to the medication. 2. Obstructive sleep apnea. 3. History of hypertension. 4. Cardiomyopathy. 5. Hyperlipidemia. 6. History of hypertension. DISCHARGE CONDITION: Stable. DISPOSITION: Home. DISCHARGE MEDICATION: See med rec form. HISTORY OF PRESENT ILLNESS: See HPI. CONSULTANTS DURING THE HOSPITAL STAY: 1. Pulmonary. 2. Cardiology. PROCEDURES DURING HOSPITAL STAY: 1. MRI brain. 2. CT head. 3. Carotid ultrasound. CULTURES: No growth seen. HOSPITAL COURSE: The patient is a 67-year-old female admitted with altered mental status. 1. Altered mental status. The patient had a CT head done, which which showed possible stroke, so john vargas had MRI brain done, which was negative for an acute stroke and showed old occipital infarct, so patient was advised to follow up as outpatient. Mental status is improved at the time of discharge and advised to follow with Neurology as an outpatient. 2. Status post coronary artery bypass graft. Patient was seen by Cardiology in the hospital. They recommended no further treatment and okay to discharge the patient home. 3. Obstructive sleep apnea and the patient was seen by Pulmonary regional engagement consultant and the patient was uli landy with CPAP. The patient is stable at the time of discharge. PHYSICAL EXAMINATION: VITAL SIGNS: On the day of discharge, temperature 97.4, heart rate 58, respiration rate 18, pulse ox 96 on 2 liters. GENERAL: The patient appears comfortable. HEENT: ENT patent. Nose normal. Ears normal. CARDIOVASCULAR: S1, S2 present. Regular rate and rhythm. RESPIRATORY: No wheezing, no rhonchi. GASTROINTESTINAL: Abdomen is soft, nontender, no guarding. MUSCULOSKELETAL: No edema. CRANIAL NERVOUS SYSTEM: Awake, follows commands. The patient is stable at the time of discharge. DISCHARGE CONDITION: Stable. DISPOSITION: To senior living. Discharge time 40 minutes.
== END 2017-09-10 14:16 | disposition home health service (06) | DRG 92 ==
LOC: ERS 11:53 → IMCU/EMU 13:56
PROVIDERS: ADMIT Internal Medicine Addiction Medicine; ATTEND Internal Medicine Addiction Medicine
PROC: 5A09357 Assistance with Respiratory Ventilation, Less than 24 Consecutive Hours, Continuous Positive Airway Pressure (ICD-10-PCS; principal; 2017-09-07)
DX: G92 Toxic encephalopathy (principal); Z68.42 Body mass index [BMI] 45.0-49.9, adult; I42.9 Cardiomyopathy, unspecified; E66.01 Morbid (severe) obesity due to excess calories; I69.398 Other sequelae of cerebral infarction; H53.461 Homonymous bilateral field defects, right side; T38.3X5A Adverse effect of insulin and oral hypoglycemic [antidiabetic] drugs, initial encounter; E11.9 Type 2 diabetes mellitus without complications; I25.10 Atherosclerotic heart disease of native coronary artery without angina pectoris; G47.33 Obstructive sleep apnea (adult) (pediatric); E78.5 Hyperlipidemia, unspecified; J44.9 Chronic obstructive pulmonary disease, unspecified; I10 Essential (primary) hypertension; Z87.891 Personal history of nicotine dependence; Z88.5 Allergy status to narcotic agent; Z88.0 Allergy status to penicillin; Z88.8 Allergy status to other drugs, medicaments and biological substances; Z79.84 Long term (current) use of oral hypoglycemic drugs; Z79.82 Long term (current) use of aspirin; Z79.899 Other long term (current) drug therapy; Z95.1 Presence of aortocoronary bypass graft
CPT/HCPCS: 36415; 36416; 51702; 70450; 70551; 71045; 76705; 80048; 80053; 80306; 81003; 82140; 82553; 82805; 83605; 83735; 83880; 84443; 84484; 85007; 85025; 85027; 85610; 87040; 87086; 93005; 93880; 94660; 96361; 96374; G8978-GP-CK; G8979-GP-CI; G8987-GO-CJ; G8988-GO-CI; G8996-GN-CI; G8996-GN-CJ; G8997-GN-CI; J2310; J7620

== ENCOUNTER 2017-10-08 14:52 | Observation (INO) | payer MEDICARE ==
[2017-10-08 16:18] LABS: #Eosinphils 0.2 thou/uL (0.0-0.7); #Lymphocytes 1.5 thou/uL (1.20-3.40); #Monocytes 0.7 thou/uL (0.11-0.59); #Neutrophils 6.3 thou/uL (1.40-6.50); %Basophils 0.5 % (0.0-1.0); %Eosinophils 2.7 % (0.0-10.0); %Lymphocytes 16.6 % (21.0-51.0); %Monocytes 7.6 % (0.0-10.0); %Neutrophils 72.6 % (42.0-75.0); Hemoglobin 10.9 g/dL (12.0-16.0); Mean Corpuscular Hemoglobin 29.5 pg (27.0-31.0); Mean Corpuscular Volume 89.5 fl (81.0-99.0); Mean Platelet Volume 7.6 fL (7.4-10.4); Platelet Count 217 thou/uL (130-400); RBC Distribution Width 12.3 % (11.5-14.5); White Blood Cell (WBC) Count 8.7 thou/uL (4.8-10.8)
[2017-10-08 16:40] LABS: ALT (SGPT) 40 U/L (8-55); AST (SGOT) 42 U/L (5-34); Albumin 3.9 g/dL (3.4-4.8); Alkaline Phosphatase 126 U/L (40-150); Anion Gap 15 mmol/L (10-20); BUN (Urea Nitrogen) 12 mg/dL (9.8-20.1); Bilirubin, Total 0.4 mg/dL (0.2-1.2); Calc. Creatinine Clearance 0 mL/min (70-130); Calcium 9.3 mg/dL (7.8-10.44); Carbon Dioxide 27 mmol/L (23-31); Chloride 99 mmol/L (98-107); Estimated GFR-MDRD 71; Globulin 3.2 g/dL (2.4-3.5); Glucose 172 mg/dL (80-115); Potassium 3.8 mmol/L (3.5-5.1); Protein, Total 7.1 g/dL (6.0-8.3); Sodium 137 mmol/L (136-145)
[2017-10-08] MEDS ORDERED: Promethazine HCl 25 MG/ML VIAL ONE ×2 (18:25→19:30)
[2017-10-08] MEDS ORDERED: diphenhydrAMINE 50 MG/ML VIAL ONE ×2 (18:25→19:30)
[2017-10-08 18:42] LABS: CKMB 0.7 ng/mL (0-6.6); Troponin I Less than 0.010 ng/mL (< 0.028)
[2017-10-08 18:59] LABS: Bilirubin Negative (Negative); Blood, Urine Negative (Negative); Clarity CLEAR (Clear); Glucose, Urine (Dipstick) Negative (Negative); Leukocyte Small (Negative); Nitrite Negative (Negative); Protein, Urine (Dipstick) Negative (Neg-Trace); Specific Gravity, Urine 1.009 (1.002-1.036); Urobilinogen 0.2 mg/dL (0.2-1.0); pH, Urine 6.5 (5.0-9.0)
[2017-10-08 19:03] LABS: Bacteria/HPF 3+ HPF (None Seen); Hyaline Casts/LPF 0-3 HYALINE CAST LPF (0-3 Hyaline); RBC/HPF 0-3 HPF (0-3); Squamous Epithelial 0-3 HPF (0-3)
[2017-10-08] MEDS ORDERED: methylPREDNISolone Sod Succ/PF 125 MG/2 ML VIAL ONE (20:20)
[2017-10-08] MEDS ORDERED: Magnesium Sulfate 2 GM/100 ML BAG ONE (20:21)
--- NOTE | 2017-10-08 20:42 | CT ---
CT OF THE BRAIN WITHOUT CONTRAST 10/08/17 INDICATION: History of headache. COMPARISON: Prior exam dated 09/07/17. FINDINGS: No acute infarct, hemorrhage, or hydrocephalus is present. There is a stable occipital lobe infarct w ith associated encephalomalacia. Septum pellucidum and third ventricle are midline. Skull and extracr anial soft tissues are normal appearing. IMPRESSION: 1. No acute osseous abnormality. 2. Stable remote appearing left occipital infarct with encephalomalacia. POS: GABRIELLE
[2017-10-08] MEDS ORDERED: Gabapentin 300 MG CAP PO SCH (21:00)
[2017-10-08] MEDS ORDERED: Morphine 4 MG/ML VIAL ONE (23:46)
[2017-10-09] MEDS ORDERED: Ketorolac Tromethamine 10 MG TAB PO SCH (01:30)
[2017-10-09 01:55] LABS: CSF Source CSF; Clarity Clear (Clear); Tube # 3
[2017-10-09 01:56] LABS: RBC Count - Manual 890 /cumm (None Seen); WBC/NonHematics Count - Manual 2 /cumm (0-5)
[2017-10-09] MEDS ORDERED: HYDROcodone/Acetaminophen 10/325 mg Tablet ONE (03:07)
[2017-10-09] MEDS ORDERED: Ondansetron ODT 4 MG TAB SL PRN (06:12)
[2017-10-09] MEDS ORDERED: Ondansetron HCl/PF 4 MG/2 ML Vial IVP PRN (06:12)
[2017-10-09] MEDS ORDERED: Sodium Chloride 0.9% 1,000 ML IV SCH (06:12)
[2017-10-09] MEDS ORDERED: Ketorolac Tromethamine 30 MG/ML VIAL IVP PRN ×2 (06:13→07:29)
[2017-10-09 06:22] VITALS: BMI 47.7
[2017-10-09] MEDS ORDERED: Ondansetron ODT 4 MG TAB PO PRN (07:28)
[2017-10-09] MEDS ORDERED: Acetaminophen 325 MG TAB PO PRN (07:28)
[2017-10-09] MEDS ORDERED: Zolpidem Tartrate 5 MG TAB PO PRN (07:28)
[2017-10-09] MEDS ORDERED: Dextrose 5% in Water 1,000 ML IV PRN (07:32)
[2017-10-09] MEDS ORDERED: Dextrose 50% Abboject 50 ML SYRINGE SLOW IVP PRN (07:32)
--- NOTE | 2017-10-09 08:32 | HP ---
PRIMARY CARE PROVIDER: Chanda Love. Referred to the [facility] by [facility] after referral from Dr. Love's office. HISTORY OF PRESENT ILLNESS: The patient states she had 2 or 3 syncopal episodes over 24 hours. She had feelings of weakness. She is unable to give any history of falling, trauma, or incontinence. It started during lunch yesterday. A friend helped her back to her room. She eventually was at Dr. James graves's office. leg man were called. She believes she was only out for a few minutes. She states she h as had a frontal headache for the past 12-18 hours, pressure sensation, photophobia. It is pertinent that she is blind in the right eye, occurred during coronary artery bypass graft 2-3 years ago. She states she has had a low-grade fever of 99.8. PAST MEDICAL HISTORY: Pertinent for coronary artery disease, post-coronary artery bypass graft; COPD ; former smoker; diabetes mellitus, type 2, on oral hypoglycemic agents; hypertension; dyslipidemia; past history of DVT. PAST SURGICAL HISTORY: Includes coronary artery bypass graft, cholecystectomy, hysterectomy; dental implants, lumbar surgery x4. CURRENT MEDICATIONS: Metformin at 1000 mg twice a day, albuterol, ipratropium 3 mL nebs b.i.d., Neur ontin 600 mg 3 a day, Lipitor 10 mg a day, aspirin 81 mg a day, amlodipine 5 mg a day, Ambien 5 mg at bedtime, rivastigmine 3 mg twice a day, omeprazole 20 mg a day, losartan 12.5 mg a day, lorazepam 1 mg in the evening, Lasix 40 mg a day, escitalopram 5 mg a day, Cymbalta 60 mg a day, Flexeril 10 mg q .p.m. p.r.n., Coreg 12.5 mg twice a day, Tylenol with Codeine #3 one every 6 hours as needed. ALLERGIES: CODEINE, PENICILLIN G., IODINE, causing an allergic reaction. FAMILY HISTORY: Mother of coronary artery disease in her 60s. Father of coronary artery d isease in his 70s. SOCIAL HISTORY: , stopped smoking in 2014, drinks no alcohol. CODE STATUS: FULL CODE status. Her son, Jose Luis Marshall, is next of kin. REVIEW OF SYSTEMS: See present illness. General: Syncopal episodes, weak, fever of 99.8. Eyes: B nini in the right eye, blurry vision on the left at times. No flashing lights. Ears, Nose, and Thro at: No ear pain or drainage. No nasal bleeding. No trouble swallowing. Cardiac: No chest pain, o rthopnea, or paroxysmal nocturnal dyspnea. Respirations: Always short of breath, worse with exertio n, on O2 24/7. Occasional dry cough. Gastrointestinal: Nausea yesterday, no emesis, no abdominal p ain, diarrhea, or melena. Genitourinary: Some dysuria, no hematuria. Musculoskeletal: Off and on swelling in her legs. She has neuropathic pain in her legs, for which she takes gabapentin. Neurolo gical: Stroke in the past during coronary artery bypass graft that left her blind in the right eye. No focal weakness. No seizures. Psychiatric: Anxiety. Skin: No bruises or bleeding. She has a yeast infection in her groin, which is being improved with therapy. Heme/Lymph: No tender or swolle n lymph nodes in axilla, inguinal, or cervical area. PHYSICAL EXAMINATION: GENERAL: She is an alert, cooperative, photophobic. VITAL SIGNS: Blood pressure 130/68, O2 sat 97 on 2 liters per nasal cannula, respirations 18, pulse 80, temperature 98.2. HEENT: Examination of her head, eyes, ears, nose, and throat reveals she is blind in the right eye. Pupils are equal and round. Extraocular movements are grossly intact. Sclerae white. Tympanic mem branes are clear. Nose is clear. Oral mucous membranes are wet. NECK: No jugular venous distention, adenopathy, or thyromegaly. CHEST: Clear to auscultation and percussion. HEART: Regular rate and rhythm. First and second heart sounds are clear, but diminished. No apprec iated murmurs or gallops. ABDOMEN: Soft, protuberant. No hepatosplenomegaly, masses, rebound, or bruits. EXTREMITIES: Reveal trace edema with no cyanosis or clubbing in her legs. PULSES: Carotid, radial, femoral pulses intact. Pedal pulses diminished symmetrically. SKIN: Warm and dry. She does have a rash consistent with monilia in her groin and under her pannicu becky. HEME/LYMPH: No tender or swollen lymph nodes palpable in the axillary, inguinal, or cervical area. NEUROLOGICAL: Blind in the right eye. Facies symmetric. Extraocular movements are intact. Cranial nerve 7 function intact. Hearing intact. Deep tendon reflexes grossly symmetric, markedly diminish ed. Moves all extremities. Decreased sensation in her legs. STUDIES: Brain CT, reviewed by me, no acute infarct, large area of encephalomalacia, left occipital area. EKG: Regular rate and rhythm. First-degree block, no acute ST-T abnormality, reviewed by me. LABORATORY DATA: CSF fluid, glucose 88, protein 39, red blood cells 90, white cells 2. Fluid color colorless, clarity clear. Urine, 4-6 white cells with small leukocyte esterase and negative nitrite. Comprehensive metabolic profile, blood sugar 172, AST 42, otherwise normal. Alkaline phosphatase n ormal. CBC: White count 8.7, hemoglobin 10.9, platelet count 217. ADMITTING DIAGNOSES: 1. Syncope. 2. Headache. 3. Probably traumatic/bloody spinal tap. 4. Diabetes mellitus, type 2, uncontrolled. 5. Hypertension. 6. Coronary artery disease. 7. Chronic obstructive pulmonary disease. 8. Chronic respiratory failure, hypoxemic, on O2 at home. PLAN: The patient recently in the hospital with altered mental status, secondary to medications. Sh e will be placed in the hospital. Carotid ultrasounds will be done. Neurology has been consulted. Urine drug screen will be done. Accu-Cheks will be done. Selected home medicines will be continued. Toradol will be used for headache. Because of the bloody tap. Aspirin will be held for right now.
[2017-10-09] MEDS: Amlodipine 5 MG TAB PO SCH (08:57)
[2017-10-09] MEDS: Atorvastatin Calcium 10 MG TAB PO SCH (08:58)
[2017-10-09] MEDS: Gabapentin 300 MG CAP PO SCH ×3 (08:58→20:55)
[2017-10-09] MEDS: metFORMIN XR 500 MG TAB PO SCH ×2 (08:58→20:55)
--- NOTE | 2017-10-09 10:26 | RAD ---
FLUOROSCOPIC GUIDED LUMBAR PUNCTURE: INDICATIONS: Headache with photophobia. TECHNIQUE: Informed consent was obtained. Pre-procedure marine firer images were performed of the lumbar spine. The s ite was prepped and draped in the usual sterile fashion. Buffered 1% Lidocaine was administered to t he overlying subcutaneous tissues. Under fluoroscopic guidance, an initial attempt was made to asses s the L2-L3 intervertebral level, which proved to be difficult due to adjacent segment degeneration. Intrathecal access could not be obtained. Following this, an attempt was then made to access the th ecal sac via a laminectomy defect at L4-L5. A 22 gauge spinal needle was guided down through the weeks inectomy defect into the thecal sac, with spontaneous return of normal appearing CSF (12 mL of CSF wa s obtained). The CSF was normal in color. The inner stylet was replaced, and the needle was removed . The patient's needle access sites were cleansed and bandaged. Total fluoroscopic time was 1.8 min utes. Total exposure was 4833.6 mGy per m2. FINDINGS: There are small riblets at the suspected T12 level. There are five lumbar type vertebrae. There are laminectomy defects at L4, L5, and S1. There are bilateral pedicle screws extending from L3 through S1. There are intervertebral disk cages at L3-L4 and at L5-S1 with solid osseous incorporation. Th ere is prominent adjacent segment degeneration at L2-L3, consisting of facet osteoarthritic change, p ars defects, and facet osteoarthritic change. There is very slight retrolisthesis of L2 on L3. Ther e are scattered vascular calcifications. There is mild degenerative change of both SI joints. There are multiple phleboliths in the lower pelvis. There are cholecystectomy clips within the right uppe r quadrant of the abdomen. IMPRESSION: 1. Successful fluoroscopic guided lumbar puncture with retrieval of 12 mL of normal appearing cerebr ospinal fluid. 2. Postoperative lumbar spine, consisting of an L3 through S1 interbody fusion. There is advanced a djacent segment degeneration at L2-L3 with bilateral pars defects at L2-L3. There is mild retrolisth esis of L2 on L3. No acute fracture is demonstrated. POS: BH
--- NOTE | 2017-10-09 10:41 | ULT ---
ULTRASOUND DOPPLER DUPLEX CAROTID: Date: 10/09/17 HISTORY: 67-year-old female with syncope. TECHNIQUE: Sahu scale, color flow, and spectral analysis of major arteries of the neck. FINDINGS: There is a small, focal calcified plaque at the right carotid bulb, at the origin of the right senior internal auditor al carotid artery. There is mild plaque, both calcified and noncalcified, in the left proximal senior internal auditor al carotid artery. The highest peak systolic velocities in the internal carotid arteries are 75 cm/sec on the right and 65 cm/sec on the left. The ICA/CCA ratios are 1.0 on the right and 0.9 on the left. The vertebral artery flow is antegrade bilaterally. IMPRESSION: 1. Mild atherosclerosis of bilateral proximal internal carotid arteries. 2. No evidence of hemodynamically significant stenosis. POS: GABRIELLE
[2017-10-09] MEDS: HumaLOG 300 UNITS/3 ML VIAL SC PRN ×3 (10:48→23:57)
[2017-10-09 14:07] LABS: Amphetamine Not Detected (NotDetected); Barbiturates Screen Not Detected (NotDetected); Benzodiazepine Screen Not Detected (NotDetected); Cocaine Metabolite Screen Not Detected (NotDetected); Medtox Control Line Valid? VALID (VALID); Medtox Reader # READER 4; Methadone Not Detected (NotDetected); Methamphetamine Not Detected (NotDetected); Opiate Screen Detected (NotDetected); Oxycodone Screen Not Detected (NotDetected); Phencyclidine (PCP) Not Detected (NotDetected); THC/Cannabinoid Screen Not Detected (NotDetected); Tricyclic Screen Not Detected (NotDetected)
[2017-10-09] MEDS ORDERED: Dexamethasone 10 MG/ML VIAL SLOW IVP SCH (17:00)
[2017-10-09] MEDS ORDERED: Metoclopramide HCl 10 MG/2 ML VIAL IVP SCH (17:00)
[2017-10-09] MEDS: Dihydroergotamine Mesylate 1 MG/ML AMP SLOW IVP SCH (17:34)
--- NOTE | 2017-10-09 22:58 | CON ---
DATE OF CONSULTATION: 10/09/2017 CONSULTING PHYSICIAN: Hospitalist Service. HISTORY OF PRESENT ILLNESS: Ms. Wyatt is a past patient of Dr. Alfaro. She has a history of prior o ccipital infarct. Over the last few days, she has had several syncopal episodes while sitting down o n most occasions. When she awakens from these, she is having severe right-sided headache. This is a ssociated with some nausea, dizziness, light and sound sensitivity. She reports having at least 5 bl ackouts before coming to the hospital. She has no reported witnessed seizure activity. She had a CT scan of the brain done on admission showing her old left occipital stroke. A carotid ultrasound was unremarkable. Her lab work was all in normal limits. Her CSF showed 2 white cells and 890 red cell s with a protein of 39. She has past history of diabetes and her CSF sugar was a bit elevated. NEUROLOGIC: She is alert and appropriate. Her speech is fluent and clear. She has a right homonomo us field cut. Her exam is otherwise nonfocal. SUMMARY: She is wearing sunglasses while keeping the lights off in the room. I suspect that she is having a migraine headache, it is possible temporal arteritis would be a consid eration that needs to be ruled out. She may or may not be having some non-convulsive seizures relate d to her prior stroke, which could be an instigating factor for the headaches as well. I will start her on valproic acid in the Eric protocol.
[2017-10-10] MEDS: Dihydroergotamine Mesylate 1 MG/ML AMP SLOW IVP SCH ×2 (00:33→06:06)
[2017-10-10 05:22] LABS: #Lymphocytes 0.9 thou/uL (1.20-3.40); #Monocytes 0.3 thou/uL (0.11-0.59); #Neutrophils 9.8 thou/uL (1.40-6.50); %Eosinophils 0.3 % (0.0-10.0); %Lymphocytes 8.1 % (21.0-51.0); %Monocytes 2.3 % (0.0-10.0); %Neutrophils 89.3 % (42.0-75.0); Hemoglobin 11.5 g/dL (12.0-16.0); Mean Corpuscular HGB CONC 32.1 g/dL (32.0-36.0); Mean Corpuscular Hemoglobin 29.4 pg (27.0-31.0); Mean Corpuscular Volume 91.8 fl (81.0-99.0); Mean Platelet Volume 7.7 fL (7.4-10.4); Platelet Count 253 thou/uL (130-400); RBC Distribution Width 12.5 % (11.5-14.5); Red Blood Cell (RBC) Count 3.92 mill/uL (4.20-5.40); White Blood Cell (WBC) Count 10.9 thou/uL (4.8-10.8)
[2017-10-10 05:37] LABS: Anion Gap 14 mmol/L (10-20); BUN (Urea Nitrogen) 17 mg/dL (9.8-20.1); Calc. Creatinine Clearance 138 mL/min (70-130); Calcium 9.5 mg/dL (7.8-10.44); Carbon Dioxide 24 mmol/L (23-31); Chloride 104 mmol/L (98-107); Estimated GFR-MDRD 70; Glucose 285 mg/dL (80-115); Potassium 4.6 mmol/L (3.5-5.1); Sodium 137 mmol/L (136-145)
[2017-10-10] MEDS: HumaLOG 300 UNITS/3 ML VIAL SC PRN (06:07)
[2017-10-10 07:32] VITALS: TEMP 97.9
--- NOTE | 2017-10-10 08:45 | DIS ---
TRANSFER OF CARE NOTE PRIMARY CARE PROVIDER: Dr. Chanda Love DATE OF ADMISSION: 10/09/2017 DATE OF DISCHARGE: 10/10/2017 DISCHARGE DISPOSITION: Discharged home. FINAL DIAGNOSES: 1. Syncope. 2. Migraine headache. 3. Diabetes mellitus type 2. 4. Hypertension. 5. Coronary artery disease. 6. Dyslipidemia. 7. Sleep apnea. DISCHARGE MEDICATIONS: Same as her home medicines, Lasix 40 mg a day, escitalopram 5 mg a day, docus ate 100 mg a day, duloxetine 60 mg a day, Coreg 12.5 mg twice a day, Tylenol #3 with codeine 1 every 6 hours as needed for pain, losartan 12.5 mg twice a day, lorazepam 1 mg at bedtime p.r.n., Ambien 5 mg at bedtime p.r.n., rivastigmine 3 mg p.o. b.i.d., omeprazole 20 mg a day, DuoNeb 3 mL twice a day p.r.n., Neurontin 600 mg 3 times a day, Lipitor 10 mg a day, aspirin 81 mg a day, amlodipine 5 mg a d ay, metformin 1000 mg a day. ALLERGIES: PENICILLIN, CODEINE, and IODINE. PENDING AT TIME OF DISCHARGE: Nothing. CODE STATUS: FULL. HOSPITAL COURSE: The patient admitted to the [facility] through [facility] to the observation status after being referred from Dr. Love's office for 2-3 syncopal e pisodes. She had a headache at the time of arrival. In the emergency room, she had a spinal tap whi ch revealed clear fluid, 2 white cells, 890 red cells. Blood sugar 88 with a CSF protein 39. At the time of her LP her blood sugars were running in the 300 range. Comp metabolic profile was normal ex cept for an AST of 42 and a blood sugar 172. Her white count 8.7, hemoglobin 10.9, platelet count 21 7. Toxicology revealed opiates. She is on Tylenol #3. Urine was unremarkable. Dr. Mg was con sulted. The patient received dihydroergotamine 0.5 mL q.6h. for headache, dexamethasone 10 mg once I V push and valproic acid 2000. Her photophobic headache is resolved. She has some neck pain. Her r hythm has been normal. Her carotid Doppler is unremarkable. She is being discharged at this time fo r follow up with Dr. Love in 1 week, to have followup arranged with Dr. Mg. PROCEDURES: No procedures were done.
[2017-10-10] MEDS: metFORMIN XR 500 MG TAB PO SCH (08:53)
[2017-10-10] MEDS: Amlodipine 5 MG TAB PO SCH (08:53)
[2017-10-10] MEDS: Atorvastatin Calcium 10 MG TAB PO SCH (08:53)
[2017-10-10] MEDS: Gabapentin 300 MG CAP PO SCH (08:54)
[2017-10-10] MEDS ORDERED: DULoxetine 60 MG CAP PO SCH (09:00)
[2017-10-10] MEDS ORDERED: Aspirin 81 mg Enteric Coated Tablet PO SCH (09:00)
[2017-10-10] MEDS ORDERED: Furosemide 40 MG TAB PO SCH (09:00)
[2017-10-10] MEDS ORDERED: Carvedilol 6.25 MG TAB PO SCH (09:00)
[2017-10-10] MEDS ORDERED: Docusate 100 MG CAP PO SCH (09:00)
[2017-10-10] MEDS ORDERED: Losartan 25 MG TAB PO SCH (09:00)
[2017-10-10 13:52] VITALS: BP 141/73
== END 2017-10-10 10:28 | disposition home or self-care (01) ==
LOC: ERS 14:52 → ERHOLD 10-09 00:35 → 2SE 10-09 06:07
PROVIDERS: ADMIT Internal Medicine; ATTEND Internal Medicine
DX: R55 Syncope and collapse (principal); G43.909 Migraine, unspecified, not intractable, without status migrainosus; I10 Essential (primary) hypertension; I25.10 Atherosclerotic heart disease of native coronary artery without angina pectoris; E78.5 Hyperlipidemia, unspecified; G47.30 Sleep apnea, unspecified; J44.9 Chronic obstructive pulmonary disease, unspecified; E11.65 Type 2 diabetes mellitus with hyperglycemia; J96.11 Chronic respiratory failure with hypoxia; Z79.84 Long term (current) use of oral hypoglycemic drugs; Z79.82 Long term (current) use of aspirin; Z79.899 Other long term (current) drug therapy; Z99.81 Dependence on supplemental oxygen; Z88.0 Allergy status to penicillin; Z88.5 Allergy status to narcotic agent; Z91.041 Radiographic dye allergy status; Z95.1 Presence of aortocoronary bypass graft; Z90.49 Acquired absence of other specified parts of digestive tract; Z90.710 Acquired absence of both cervix and uterus; Z98.890 Other specified postprocedural states; Z87.891 Personal history of nicotine dependence; Z86.718 Personal history of other venous thrombosis and embolism
CPT/HCPCS: 62270; 70450; 80048; 80053; 80306; 82550; 82553; 82945; 82962 ×2; 83605; 84157; 84484; 85025 ×2; 87070; 87205; 89051; 93005; 93880; 94640 ×2; 96365; 96366; 96367 ×2; 96375 ×2; 96376 ×3; 97116 ×2; 97139 ×2; 97530 ×3; 99285; G0378; G8978; G8979; G8987; G8988; 36415; 36416; 81003; 81015; G8996-GN-CH; G8997-GN-CH; G8998-GN-CH; J1100; J1110; J1200; J1885; J2270; J2550; J2765; J2930; J3475; J7050; J7620

== ENCOUNTER 2017-10-23 00:44 | Inpatient (IN) | payer MEDICARE ==
[2017-10-23 01:13] LABS: Actual Bicarbonate (HCO3a) 30.1 mEq/L (22-26); Base Excess (BEa) 5.1 mEq/L (0 (+/-) 2.5); CO2 Tension 46.3 mmHg (35.0-45.0); O2 Tension (PaO2) 97.6 mmHg (80.0-100.0); pH, Arterial 7.43 (7.35-7.45)
[2017-10-23 01:14] LABS: Hematocrit-ABG 35.8 % (36.0-47.0); Hemoglobin (Hb) 10.8 g/dL (12.0-16.0)
[2017-10-23 01:15] LABS: ALV-art Gradient 42.765 (0-20); Analyzer IN Cardio ER; Calcium, Ionized 1.2 mmol/L (1.12-1.30); Puncture Site RRA
[2017-10-23 01:35] LABS: #Eosinphils 0.1 thou/uL (0.0-0.7); #Lymphocytes 1.5 thou/uL (1.20-3.40); #Monocytes 0.6 thou/uL (0.11-0.59); #Neutrophils 5.6 thou/uL (1.40-6.50); %Basophils 0.2 % (0.0-1.0); %Eosinophils 1.7 % (0.0-10.0); %Lymphocytes 19.1 % (21.0-51.0); %Monocytes 7.2 % (0.0-10.0); %Neutrophils 71.8 % (42.0-75.0); Hemoglobin 11.2 g/dL (12.0-16.0); Mean Corpuscular HGB CONC 33.9 g/dL (32.0-36.0); Mean Corpuscular Hemoglobin 30.2 pg (27.0-31.0); Mean Corpuscular Volume 89.1 fl (81.0-99.0); Mean Platelet Volume 7.5 fL (7.4-10.4); Platelet Count 245 thou/uL (130-400); Red Blood Cell (RBC) Count 3.71 mill/uL (4.20-5.40); White Blood Cell (WBC) Count 7.8 thou/uL (4.8-10.8)
[2017-10-23 01:38] LABS: Base Excess-Venous 6.3 mmol/L (0 (+/- 2.5)); Bicarbonate (HCO3v) 31.7 mmol/L (1.0-85.0); Calcium, Ionized 1.11 mmol/L (1.12-1.32); Hemoglobin - Calc 11.6 g/dL (12.0-18.0); O2 Tension (PvO2) 97.2 mmHg (35.0-45.0); Potassium 3.3 mmol/L (3.4-4.7); T. Carbon Dioxide 33.2 mmol/L (1.0-85.0); pH (Venous) 7.428 (7.35-7.45); vO2 Saturation-calc 97.6 % (94-98)
[2017-10-23 01:50] LABS: ALT (SGPT) 35 U/L (8-55); AST (SGOT) 31 U/L (5-34); Acetaminophen Less than 6.0 mcg/mL (10.0-30.0); Albumin 3.8 g/dL (3.4-4.8); Alcohol Less than 10 mg/dL (Less than 10); Alkaline Phosphatase 106 U/L (40-150); Anion Gap 11 mmol/L (10-20); BUN (Urea Nitrogen) 12 mg/dL (9.8-20.1); Bilirubin, Total 0.8 mg/dL (0.2-1.2); CK (CPK) 33 U/L (29-168); Calc. Creatinine Clearance 0 mL/min (70-130); Calcium 9.1 mg/dL (7.8-10.44); Carbon Dioxide 30 mmol/L (23-31); Chloride 98 mmol/L (98-107); Estimated GFR-MDRD 83; Globulin 3.2 g/dL (2.4-3.5); Glucose 135 mg/dL (80-115); Lipase 23 U/L (8-78); Potassium 3.3 mmol/L (3.5-5.1); Salicylate Less than 8.0 mg/dL (15.0-30.0); Sodium 136 mmol/L (136-145)
[2017-10-23 01:52] LABS: CKMB 0.6 ng/mL (0-6.6); Troponin I Less than 0.010 ng/mL (< 0.028)
[2017-10-23] MEDS ORDERED: EPINEPHrine 1 MG/10 ML Abboject SYRINGE ONE (01:57)
[2017-10-23] MEDS ORDERED: EPINEPHrine 1 MG/ML AMP ONE (01:57)
[2017-10-23] MEDS ORDERED: Norepinephrine 8 MG in Sodium Chloride 0.9% 250 ML 250 ML IVPB PRN (02:03)
[2017-10-23] MEDS ORDERED: Dexamethasone 10 MG/ML VIAL ONE (02:05)
[2017-10-23 02:21] LABS: Bilirubin Negative (Negative); Blood, Urine Negative (Negative); Clarity CLEAR (Clear); Glucose, Urine (Dipstick) Negative (Negative); Leukocyte Trace (Negative); Nitrite Negative (Negative); Protein, Urine (Dipstick) Negative (Neg-Trace); Specific Gravity, Urine 1.008 (1.002-1.036); pH, Urine 6.5 (5.0-9.0)
[2017-10-23 02:23] LABS: Bacteria/HPF None Seen HPF (None Seen); Hyaline Casts/LPF 0-3 HYALINE CAST LPF (0-3 Hyaline); Pathc Cast-AUWi Flag 0.72 (0-2.49); RBC/HPF 0-3 HPF (0-3); Squamous Epithelial 0-3 HPF (0-3); WBC/HPF 0-3 HPF (0-3)
[2017-10-23 02:35] LABS: Amphetamine Not Detected (NotDetected); Barbiturates Screen Not Detected (NotDetected); Benzodiazepine Screen Detected (NotDetected); Cocaine Metabolite Screen Not Detected (NotDetected); Medtox Control Line Valid? VALID (VALID); Medtox Reader # READER 1; Methadone Not Detected (NotDetected); Methamphetamine Not Detected (NotDetected); Opiate Screen Not Detected (NotDetected); Oxycodone Screen Not Detected (NotDetected); Phencyclidine (PCP) Not Detected (NotDetected); THC/Cannabinoid Screen Not Detected (NotDetected); Tricyclic Screen Not Detected (NotDetected)
[2017-10-23] MEDS ORDERED: Acetaminophen 650 MG Suppository PR PRN (03:37)
[2017-10-23] MEDS ORDERED: Bisacodyl 5 MG TAB PO PRN (03:37)
[2017-10-23] MEDS ORDERED: Bisacodyl 10 MG SUPP PR PRN (03:37)
[2017-10-23] MEDS ORDERED: VANCOMYCIN/ RENALLY ADJUST ANTIBIOTICS IVPB PRN (03:48)
[2017-10-23] MEDS ORDERED: Norepinephrine 8 MG in Sodium Chloride 0.9% 250 ML 250 ML IVPB SCH (04:00)
[2017-10-23] MEDS ORDERED: Dextrose 5% in Water 1,000 ML IV PRN (04:08)
[2017-10-23] MEDS ORDERED: Dextrose 50% Abboject 50 ML SYRINGE SLOW IVP PRN (04:08)
[2017-10-23 04:54] LABS: CKMB 0.7 ng/mL (0-6.6); Troponin I Less than 0.010 ng/mL (< 0.028)
[2017-10-23] MEDS: Sodium Chloride 0.9% 1,000 ML IV SCH ×2 (05:00→23:58)
--- NOTE | 2017-10-23 05:03 | HP ---
PRIMARY CARE PROVIDER: Chanda Love M.D. CHIEF COMPLAINT: Altered mental status. HISTORY OF PRESENT ILLNESS: Ms. Wyatt is a 67-year-old lady who was seen at [facility] on 10/23/2017. She was hospitalized at this facility in 09/2017 for syncope and migraine. Her dog 3 days ago. She was last seen to be doing well 2 days ago. Yesterday, her neighbors we re concerned because she did not come out of the house. EMS was called. She was brought to the [facility] room for altered mental status. The patient is sleepy, but arousable, unable to provide any history. REVIEW OF SYSTEMS: Could not be obtained secondary to the patient's altered mental status. Collateral history was obtained from emergency room physician as well as review of medical records. PAST MEDICAL HISTORY: Significant for coronary artery disease, coronary artery bypass graft, chronic obstructive pulmonary disease, diabetes mellitus type 2, hypertension, dyslipidemia, and history of DVT. PAST SURGICAL HISTORY: Coronary artery bypass graft with sternal dehiscence, multiple spinal surgeri es, cholecystectomy, dental implants, and hysterectomy. FAMILY HISTORY: Mother of coronary artery disease in her 60s. Father of coronary artery d isease in his 70s. SOCIAL HISTORY: No history of tobacco use, alcohol use, or recreational drug use. CODE STATUS: Unable to obtain given patient's altered mental status. We will need to attempt to hellen ch family during the daytime. ALLERGIES: CODEINE, PENICILLIN G, and IODINE. CURRENT MEDICATIONS: Metformin 1000 mg 2 times a day, DuoNebs p.r.n., Neurontin 600 mg 3 times a day , Lipitor 10 mg daily, aspirin 81 mg daily, amlodipine 5 mg daily, Ambien 5 mg at bedtime, rivastigmi ne 300 mg twice a day, omeprazole 20 mg daily, losartan 12.5 mg daily, lorazepam 1 mg in the evening, Lasix 40 mg daily, escitalopram 5 mg daily, Cymbalta 60 mg daily, Flexeril 10 mg as needed, Coreg 12 .5 mg 2 times a day and Tylenol No. 3 p.r.n. PHYSICAL EXAMINATION: GENERAL: On examination, Ms. Wyatt is lethargic, waking up to painful stimuli, but falling asleep ri ght away. VITAL SIGNS: Blood pressure is 116/58 on Levophed drip, pulse is 69. She is breathing at rate of 22 and saturating 100% on 2 liters of oxygen. She did have hypotension earlier, with lowest blood pres sure recorded of 58/38. She was never tachycardic. She is afebrile. She is obese. EYES: No scleral icterus, no conjunctival pallor. Pupils are 3 mm bilaterally, reactive to light. ENT: Moist mucosal membranes, no oropharyngeal erythema or exudates. NECK: Nontender, trachea is midline. RESPIRATORY: Accessory muscles of breathing are not active. Chest wall movements are symmetric bila terally. LUNGS: Clear to auscultation without wheeze, rhonchi or crepitations. CARDIOVASCULAR: S1, S2 are heard, regular. Peripheral pulses palpable. No carotid bruit, no perica rdial rub. ABDOMEN: Soft, distended, nontender, bowel sounds heard, no hepatomegaly, no splenomegaly. NEUROLOGIC: Full neurologic examination not possible secondary to patient's noncooperation. Pupils as described above. The patient is moving all 4 extremities. There is no facial droop. Deep tendon reflexes are 2+. Plantar reflexes are downgoing bilaterally. MUSCULOSKELETAL: The patient is moving all 4 extremities. SKIN: Warm and dry, no rashes. LYMPHATIC: No cervical lymphadenopathy. PSYCHIATRIC: Normal mood, normal affect, oriented to person, tells me she is in a hospital, but unab le to tell me which hospital, not oriented to time. LABORATORY DATA: Ms. Wyatt's labs and investigations were reviewed. I reviewed her electrocardiogra m, she is in normal sinus rhythm, no ST changes to suggest an acute coronary syndrome. I also review ed her chest x-ray, which does not show any pulmonary infiltrates. She also had noncontrast CT scan of the brain, by my review, there is no bleed. She has normal white count, normocytic anemia with he moglobin 11.2, normal platelet count, normal sodium, decreased potassium of 3.3, normal creatinine, n ormal liver function tests, normal TSH, normal troponin I, urinalysis with trace leukocyte esterase, urine drug screen positive for benzodiazepines, and arterial blood gases showing pH of 7.43, pCO2 of 46.3 and pO2 of 97.6. ASSESSMENT AND PLAN: Ms. Wyatt is a 67-year-old lady who was seen at [facility] on 10/23/2017. Her problem list includes: 1. Acute encephalopathy: Etiology unclear at this time. She was hypotensive in the emergency room, septic shock is a possibility. Could also be secondary to medications. The patient will be admitte d to the hospital for further workup. 2. Septic shock: Suspected. No evidence of urinary tract infection or pneumonia. We will continue patient on vancomycin. We will start patient on cefepime, which she has received in the past withou t any problems. We will await blood cultures. She has a left IJ line and is currently on a Levophed drip. 3. Diabetes mellitus type 2: Start Accu-Cheks, insulin sliding scale. 4. Hypertension: Monitor vital signs, titrate antihypertensives as needed. 5. Coronary artery disease: Trend troponins to rule out acute coronary syndrome as a cause of acute encephalopathy. Many thanks for allowing me to participate in your patient's care. Please feel free to contact me wi th any questions or concerns. LEVEL OF RISK: High. LEVEL OF COMPLEXITY: High.
[2017-10-23 05:44] VITALS: BMI 47.7
[2017-10-23] MEDS: HumaLOG 300 UNITS/3 ML VIAL SC PRN ×3 (07:09→21:35)
[2017-10-23 08:44] LABS: CKMB 0.8 ng/mL (0-6.6); Troponin I Less than 0.010 ng/mL (< 0.028)
[2017-10-23] MEDS: Enoxaparin Sodium 40 MG/0.4 ML SYRINGE SC SCH (08:55)
[2017-10-23] MEDS ORDERED: Cefepime 2 GM in Sodium Chloride 0.9% 100 ML IVPB SCH (09:00)
--- NOTE | 2017-10-23 09:06 | RAD ---
FRONTAL VIEW CHEST: COMPARISON: 09/07/17. INDICATION: Altered mental status, central line placement. FINDINGS: There is a left internal jugular venous catheter with the tip terminating at the SVC region. There i s marked enlargement of the cardiac silhouette and congestion of the pulmonary vasculature with bilat eral interstitial and alveolar opacities. The left lower lung zone is obscured by the enlarged cardi ac silhouette. No obvious effusion is seen. The chest is otherwise similar. IMPRESSION: 1. Left internal jugular venous catheter present. No discrete postprocedural pneumothorax visualize d. 2. Decompensated congestive heart failure. Correlate with clinical status as well as recommend imag ing followup. POS: GABRIELLE
[2017-10-23] MEDS: Cefepime 2 GM, Syringe 2.5 ML in Sterile Water 10 ML SLOW IVP SCH ×2 (09:27→21:19)
--- NOTE | 2017-10-23 10:03 | CON ---
DATE OF SERVICE: 10/23/2017 SERVICE: Pulmonary Medicine. REASON FOR CONSULTATION: ICU patient. HISTORY OF PRESENT ILLNESS: The patient is a 67-year-old white female with past medical history significant for obstructive sleep apnea and volume overload state. She was in her usual state of health until about 2 days ago. Her neighbors realized that she had been out of her house for over 2 days. As such, EMS was called. She was found to be confused and sleepy, but arousable. She was unable to provide any history. She was found to be hypotensive. A central line was placed after a little bit of fluid was given. Overnight, urine output has been beautiful. She still remains a little encephalopathic. With stimulation, she will wake up and ask for some coffee and food. That being said, as soon as she stop stimulating her, she will fall back asleep. She uses CPAP at home. She has not been using this recently. PAST MEDICAL HISTORY: 1. Coronary artery disease. 2. Chronic obstructive pulmonary disease, possible. 3. Type 2 diabetes mellitus. 4. Hypertension. 5. Dyslipidemia. 6. History of DVT. 7. Chronic diastolic heart failure (08/23). 8. Chronic systolic heart failure. 9. Moderate mitral regurgitation. FAMILY HISTORY: Noncontributory. SOCIAL HISTORY: Negative for tobacco, alcohol or illicit drug use apparently. I cannot assess anything else. ALLERGIES: CODEINE, PENICILLIN, and IODINE. MEDICATIONS: List of her inpatient medications were reviewed. A couple of small updates were made. Of note, she is on benzodiazepine, Flexeril, and narcotic pain medications at home. REVIEW OF SYSTEMS: This cannot be obtained because of the patient's encephalopathy. PHYSICAL EXAMINATION: VITAL SIGNS: Afebrile, pulse 80, blood pressure 112/64, respirations 21, saturation 98% on 2 liters nasal cannula. GENERAL: The patient is awake and alert, in no apparent distress. LUNGS: Decent air entry. There is absolutely no prolonged expiratory phase. I do not appreciate wheezing, rhonchi, or crackles today. HEART: Normal rate and regular. ABDOMEN: Soft, nontender, nondistended. Bowel sounds are positive. MUSCULOSKELETAL: No cyanosis or clubbing. There is no pitting in the bilateral lower extremities. NEUROLOGIC: Grossly nonfocal. She has global encephalopathy present. LABORATORY DATA: WBC 7.8, hemoglobin 11.2, platelets 454,000. PH 7.43, pCO2 46 , pO2 of 97 on 2 liters nasal cannula at that time. Urinalysis is unremarkable. Urine drug screen is positive for benzodiazepines. Alcohol, acetaminophen, and salicylate are all unremarkable. IMAGING: CT of brain demonstrates no acute intracranial abnormality, based on my review, but radiology opinion is currently pending. I certainly do not see any obvious bleeding issue. The left occipital cortex has a large deficit. This is consistent with old left occipital infarction that was identified on the previous MRI. ASSESSMENT: 1. Metabolic encephalopathy. 2. Morbid obesity. 3. Obstructive sleep apnea. 4. Chronic hypoxic respiratory failure. PLAN: She says that she is on 13 cm of water pressure delivered via CPAP. As such, we will provide her with essentially her BiPAP while sleeping. I will put her on . We wait for whatever toxins she ingested to get out of her system. My suspicion is the patient was simply dehydrated and that is why she had low blood pressures. I am not convinced that she has an infectious issue. That being said, empiric antibiotics will be continued while we await culture results. Pressors will be weaned away as tolerated. When she is off of them, she can be transitioned to the medical unit. 70 minutes have been devoted to this patient in various activities. I personally reviewed all imaging studies and laboratory data noted within this document. For fifty percent of this time, I was interacting with the patient at the bedside or coordinating care with the care team. For the remainder of the time I was immediately available to the patient in the hospital unit. RAINE
--- NOTE | 2017-10-23 11:06 | CT ---
PRELIMINARY REPORT/[facility]/EMERGENTY AFTER-HOURS PROCEDURE CT Head Without Intravenous Contrast EXAM DATE/TIME: Exam ordered 10/23/2017 2:58 AM CLINICAL HISTORY: 67 years old, female; Signs and symptoms; Coma or unconsciousness; Patient HX: Last seen normal yeste rday. Neighbors were concerned because she did not come out of the house today. TECHNIQUE: Axial computed tomography images of the head/brain without intravenous contrast. COMPARISON: No relevant prior studies available. FINDINGS: Brain: There is hypoattenuation involving the LEFT occipital lobe compatible with encephalomalacia fr om chronic infarction. There are scattered foci of hypoattenuation within the periventricular and sub cortical white matter compatible with mild chronic microvascular ischemic change. No hemorrhage. Ventricles: Normal. No ventriculomegaly. Bones/joints: Normal. No acute fracture. Soft tissues: Normal. Sinuses: Unremarkable as visualized. No acute sinusitis. Mastoid air cells: Unremarkable as visualized. No mastoid effusion. IMPRESSION: No acute intracranial hemorrhage. Chronic LEFT occipital lobe infarct. Thank you for allowing us to participate in the care of your patient. Dictated and Authenticated by: Gregg Wilhelm MD 10/23/2017 3:44 AM Central Time ([place] & [place]) FINAL REPORT CT BRAIN WITHOUT CONTRAST: Final interpretation is in agreement with the preliminary report. No acute intracranial hemorrhage or mass effect. Moderate-sized left occipital encephalomalacia with ex vacuo dilatation of ventricular system, superi mposed upon mild chronic microvascular ischemic disease. POS: [facility]
--- NOTE | 2017-10-23 15:43 | PDOC.PN ---
- Subjective Encounter Start Date: 10/23/17 Encounter Start Time: 15:30 Subjective: f/u for AMS, metabolic encephalopathy and hypotension likely due to -: dehydration and Benzodiazepine use. Overall feels better and more alert -: Empiric abx for ?sepsis but cx not conclusive. - Objective MAR Reviewed: Yes Vital Signs & Weight: Vital Signs (12 hours) Temp Pulse Resp BP Pulse Ox 10/23/17 08:00 98.4 F 73 21 H 100 10/23/17 06:21 69 32 H 99/71 99 10/23/17 06:11 69 30 H 119/63 100 10/23/17 06:01 62 20 130/46 L 93 L 10/23/17 06:00 97.6 F 10/23/17 05:51 64 20 122/52 L 95 10/23/17 05:41 74 27 H 82/40 L 94 L 10/23/17 05:30 73 21 H 96/57 L 99 10/23/17 05:24 74 25 H 99/53 L 95 10/23/17 05:20 97.6 F 72 17 100 10/23/17 05:06 75 17 109/58 L 99 10/23/17 04:50 97.6 F 72 17 109/58 L 100 10/23/17 04:48 97.6 F Weight Weight 269 lb 10.005 oz Most Recent Monitor Data Heart Rate from ECG 94 NIBP 147/84 NIBP BP-Mean 109 Respiration from ECG 19 SpO2 100 I&O: 10/22/17 10/23/17 10/24/17 06:59 06:59 06:59 Intake Total 180.7 220 Output Total 300 295 Balance -119.3 -75 Result Diagrams: 10/23/17 01:17 10/23/17 01:17 Additional Labs: Accuchecks 10/23/17 10/23/17 11:01 06:29 POC Glucose 255 H 262 H Microbiology 10/23/17 01:23 Urine Straight Catheter Urine Culture - Preliminary Gram Negative [place] Laboratory Tests 05/10/15 10/23/17 10/23/17 08:48 01:17 01:17 Lactic Acid 0.9 Ammonia 26 B-Natriuretic Peptide TSH 3rd Generation Vancomycin Trough 15.1 U Benzodiazepines Scrn Plasma Alcohol 10/23/17 10/23/17 10/23/17 01:17 01:17 01:17 Lactic Acid Ammonia B-Natriuretic Peptide 99.6 TSH 3rd Generation 1.4785 Vancomycin Trough U Benzodiazepines Scrn Plasma Alcohol Less than 10 10/23/17 01:23 Lactic Acid Ammonia B-Natriuretic Peptide TSH 3rd Generation Vancomycin Trough U Benzodiazepines Scrn Detected H Plasma Alcohol Radiology Reviewed by me: Yes (CT brain - no acute process) EKG Reviewed by me: Yes (Tele - SR) Phys Exam - Physical Examination Constitutional: NAD HEENT: PERRLA, moist MMs, sclera anicteric, oral pharynx no lesions Neck: no nodes, no JVD, supple diminished in bases Respiratory: no wheezing, no rales, no rhonchi S1, S2 Cardiovascular: RRR, no significant murmur, no rub, gallop Gastrointestinal: soft, non-tender, no distention, positive bowel sounds Musculoskeletal: no edema, pulses present Neurological: non-focal, normal sensation, moves all 4 limbs A x O x 1 Skin: no rash, normal turgor, cap refill <2 seconds Dx/Plan (1) Acute metabolic encephalopathy Code(s): G93.41 - METABOLIC ENCEPHALOPATHY Status: Acute Comment: Likely multifactorial given dehydration and concurrent Benzodiazepine use, improved, supportive mgmt, IVF's (2) Hypotension Status: Acute Comment: Secondary to dehydration, resolving, encourage po intake free-H2O, hold antihypertensives (3) Dehydration Code(s): E86.0 - DEHYDRATION Status: Acute Comment: Resolving with IVF's and volume replacement (4) Hypokalemia Code(s): E87.6 - HYPOKALEMIA Status: Acute Comment: IV NS with 40meq KCL infusion, repeat K+ level in am (5) DM2 (diabetes mellitus, type 2) Status: Chronic Qualifiers: Diabetes mellitus termite renewal inspector insulin use: without fdc use Diabetes mellitus complication status: with hyperglycemia Qualified Code(s): E11.65 - Type 2 diabetes mellitus with hyperglycemia Comment: ISS, hold Metformin another 24h due to dehydration and limited po intake (6) HTN (hypertension) Code(s): I10 - ESSENTIAL (PRIMARY) HYPERTENSION Status: Chronic Qualifiers: Hypertension type: essential hypertension Qualified Code(s): I10 - Essential (primary) hypertension Comment: Resume Norvasc and Losartan, monitor trend (7) Sleep apnea Code(s): G47.30 - SLEEP APNEA, UNSPECIFIED Status: Chronic Comment: Nocturnal BiPAP - Plan continue antibiotics, PT/OT, medical social consultant, respiratory therapy, DVT proph w/ SCDs Stable overall -: Continue Cefepime and Vancomycin pending final Ucx/blood cx -: KCL replacement with IVF NS with KCL -: PT evaluation for functional assessment -: CM for dispo planning, ? safe return home * AM lab: BMP, CBC, Cortisol
[2017-10-23] MEDS: NS 0.9% w/ 40 MEQ KCL 1,000 ML IV SCH ×2 (15:59→21:27)
[2017-10-23] MEDS: Vancomycin HCl 1.75 GM in Sodium Chloride 0.9% 500 ML IVPB SCH (17:48)
[2017-10-23] MEDS: Gabapentin 300 MG CAP PO SCH (21:18)
[2017-10-24] MEDS: Vancomycin HCl 1.75 GM in Sodium Chloride 0.9% 500 ML IVPB SCH (03:57)
[2017-10-24 05:20] LABS: #Lymphocytes 1.2 thou/uL (1.20-3.40); #Monocytes 0.7 thou/uL (0.11-0.59); %Basophils 0.1 % (0.0-1.0); %Eosinophils 0.3 % (0.0-10.0); %Lymphocytes 12.2 % (21.0-51.0); %Monocytes 6.8 % (0.0-10.0); %Neutrophils 80.6 % (42.0-75.0); Hemoglobin 9.4 g/dL (12.0-16.0); Mean Corpuscular HGB CONC 32.6 g/dL (32.0-36.0); Mean Corpuscular Hemoglobin 28.9 pg (27.0-31.0); Mean Corpuscular Volume 88.7 fl (81.0-99.0); Mean Platelet Volume 7.4 fL (7.4-10.4); Platelet Count 215 thou/uL (130-400); RBC Distribution Width 12.1 % (11.5-14.5); Red Blood Cell (RBC) Count 3.26 mill/uL (4.20-5.40)
[2017-10-24 05:31] LABS: Anion Gap 8 mmol/L (10-20); BUN (Urea Nitrogen) 11 mg/dL (9.8-20.1); Calc. Creatinine Clearance 148 mL/min (70-130); Calcium 8.5 mg/dL (7.8-10.44); Carbon Dioxide 26 mmol/L (23-31); Chloride 109 mmol/L (98-107); Estimated GFR-MDRD 82; Glucose 167 mg/dL (80-115); Potassium 3.9 mmol/L (3.5-5.1); Sodium 139 mmol/L (136-145)
[2017-10-24] MEDS: HumaLOG 300 UNITS/3 ML VIAL SC PRN ×2 (06:33→10:23)
[2017-10-24] MEDS: NS 0.9% w/ 40 MEQ KCL 1,000 ML IV SCH (06:34)
--- NOTE | 2017-10-24 09:01 | PRG ---
DATE OF SERVICE: 10/24/2017 The patient is doing well, has no acute complaints. PHYSICAL EXAMINATION: VITAL SIGNS: Temperature 96.7, pulse 74, respirations 16, O2 stat 99%, blood pressure 122/67. HEENT: Unremarkable. NECK: No adenopathy, no JVD. LUNGS: Clear without wheezing or rhonchi. CARDIOVASCULAR: S1, S2 regular. ABDOMEN: Soft, nontender. EXTREMITIES: No edema. LABORATORY DATA: Sodium 139, potassium 3.9, chloride 109, CO2 26, BUN 11, creatinine 0.7, glucose 16 7, white blood cell count 10, hematocrit 28.9, platelet count 215. ASSESSMENT: 1. Obstructive sleep apnea - currently stable. 2. Metabolic encephalopathy which is improved. 3. Morbid obesity. PLAN: 1. Discontinue the vancomycin since only E. coli is growing from cultures. 2. Discontinue central line. 3. Decrease IV fluids. 4. Up with physical therapy. 5. Hopefully home by tomorrow.
[2017-10-24] MEDS: Enoxaparin Sodium 40 MG/0.4 ML SYRINGE SC SCH (10:19)
[2017-10-24] MEDS: Cefepime 2 GM, Syringe 2.5 ML in Sterile Water 10 ML SLOW IVP SCH ×2 (10:21→21:20)
[2017-10-24] MEDS: Losartan 25 MG TAB PO SCH (10:21)
[2017-10-24] MEDS: Aspirin 81 mg Enteric Coated Tablet PO SCH (10:22)
[2017-10-24] MEDS: Docusate 100 MG CAP PO SCH (10:22)
[2017-10-24] MEDS: DULoxetine 60 MG CAP PO SCH (10:22)
[2017-10-24] MEDS: Amlodipine 5 MG TAB PO SCH (10:22)
[2017-10-24] MEDS: Gabapentin 300 MG CAP PO SCH ×3 (10:22→20:33)
[2017-10-24] MEDS: Sodium Chloride 0.9% 1,000 ML IV SCH (10:23)
[2017-10-24] MEDS: Acetaminophen 325 MG TAB PO PRN ×2 (14:26→21:23)
--- NOTE | 2017-10-24 17:51 | PDOC.PN ---
- Subjective Encounter Start Date: 10/24/17 Encounter Start Time: 17:25 Subjective: f/u for AMS, UTI with E. coli and metabolic encephalopathy due to suspected -: dehydration and Benzodiazepine use. Overall improved with evaluation -: by [facility] recommending return to home. - Objective MAR Reviewed: Yes Vital Signs & Weight: Vital Signs (12 hours) Temp Pulse Pulse Pulse Resp BP BP 10/24/17 15:50 98.5 F 71 20 10/24/17 12:12 93 28 H 10/24/17 11:43 98.7 F 81 26 H 10/24/17 11:40 96 96 158/96 H 166/87 H 10/24/17 10:22 74 10/24/17 08:14 96.7 F L 74 16 10/24/17 08:02 10/24/17 08:00 96.7 F L 74 20 10/24/17 07:59 88 24 H BP Pulse Ox 10/24/17 15:50 150/87 H 95 10/24/17 12:12 96 10/24/17 11:43 142/92 H 94 L 10/24/17 11:40 10/24/17 10:22 10/24/17 08:14 122/67 99 10/24/17 08:02 96 10/24/17 08:00 99 10/24/17 07:59 99 Weight Weight 271 lb 1 oz Most Recent Monitor Data Heart Rate from ECG 72 NIBP 178/75 NIBP BP-Mean 88 Respiration from ECG 23 SpO2 94 I&O: 10/23/17 10/24/17 10/25/17 06:59 06:59 06:59 Intake Total 180.7 2750 Output Total 300 1690 Balance -119.3 1060 Result Diagrams: 10/24/17 05:08 10/24/17 05:08 Additional Labs: Accuchecks 10/24/17 10/24/17 10/24/17 16:18 10:15 06:08 POC Glucose 150 H 214 H 167 H 10/23/17 21:29 POC Glucose 207 H Microbiology 10/23/17 02:34 Central Line - Left Internal Jugular Vein Blood Culture - Preliminary Specimen has been received and culture in progress. No Growth to date. 10/23/17 01:23 Urine Straight Catheter Urine Culture - Preliminary Presumptive Escherichia coli 10/23/17 01:23 Urine Straight Catheter Urine Culture - Preliminary Gram Negative [place] 10/23/17 01:16 Venous blood - Left Hand Blood Culture - Preliminary Specimen has been received and culture in progress. No Growth to date. Laboratory Tests 05/10/15 10/23/17 10/23/17 08:48 01:17 01:17 Hgb Lactic Acid 0.9 Ammonia 26 B-Natriuretic Peptide TSH 3rd Generation Cortisol Vancomycin Trough 15.1 U Benzodiazepines Scrn Plasma Alcohol 10/23/17 10/23/17 10/23/17 01:17 01:17 01:17 Hgb 11.2 L Lactic Acid Ammonia B-Natriuretic Peptide 99.6 TSH 3rd Generation Cortisol Vancomycin Trough U Benzodiazepines Scrn Plasma Alcohol Less than 10 10/23/17 10/23/17 10/24/17 01:17 01:23 05:08 Hgb Lactic Acid Ammonia B-Natriuretic Peptide TSH 3rd Generation 1.4785 Cortisol Less than 1.00 Vancomycin Trough U Benzodiazepines Scrn Detected H Plasma Alcohol EKG Reviewed by me: Yes (Tele - SR in 80's) Phys Exam - Physical Examination Constitutional: NAD alert, anxious and tearful HEENT: PERRLA, moist MMs, sclera anicteric, oral pharynx no lesions Neck: no nodes, no JVD, supple Respiratory: no wheezing, no rales, no rhonchi, clear to auscultation bilateral S1, S2 Cardiovascular: RRR, no significant murmur, no rub, gallop Gastrointestinal: soft, non-tender, no distention, positive bowel sounds Musculoskeletal: no edema, pulses present Neurological: non-focal, normal sensation, moves all 4 limbs anxious and tearful Psychiatric: A&O x 3 Skin: no rash, normal turgor, cap refill <2 seconds Deviation from normal: Estevez with clear urine Dx/Plan (1) Acute metabolic encephalopathy Code(s): G93.41 - METABOLIC ENCEPHALOPATHY Status: Acute Comment: Likely multifactorial given dehydration and concurrent Benzodiazepine use, improved, supportive mgmt, IVF's (2) Hypotension Status: Acute Comment: Secondary to dehydration, resolving, encourage po intake free-H2O (3) Dehydration Code(s): E86.0 - DEHYDRATION Status: Acute Comment: Resolving with IVF's and volume replacement, encourage increased free-H2O intake (4) Hypokalemia Code(s): E87.6 - HYPOKALEMIA Status: Acute Comment: IV NS with 40meq KCL infusion, improved, serial K+ assessment (5) E. coli UTI Code(s): N39.0 - URINARY TRACT INFECTION, SITE NOT SPECIFIED; B96.20 - UNSP ESCHERICHIA COLI THE CAUSE OF DISEASES CLASSD ELSWHR Status: Acute Comment: Continue Cefepime 2mg IV q12h, await final sensitivities (6) DM2 (diabetes mellitus, type 2) Status: Chronic Qualifiers: Diabetes mellitus terminal gauger insulin use: without terminal gauger use Diabetes mellitus complication status: with hyperglycemia Qualified Code(s): E11.65 - Type 2 diabetes mellitus with hyperglycemia Comment: ISS, hold Metformin another 24h due to dehydration and limited po intake (7) HTN (hypertension) Code(s): I10 - ESSENTIAL (PRIMARY) HYPERTENSION Status: Chronic Qualifiers: Hypertension type: essential hypertension Qualified Code(s): I10 - Essential (primary) hypertension Comment: Resume Norvasc and Losartan, monitor trend (8) Sleep apnea Code(s): G47.30 - SLEEP APNEA, UNSPECIFIED Status: Chronic Comment: Nocturnal BiPAP - Plan continue antibiotics, manager social, out of bed/ambulate, DVT proph w/SCDs Stable currently -: [facility] recommending return home at discharge -: Continue Cefepime for UTI -: IVF's with NS 70ml/h -: OOB/ambulate * AM lab: BMP, CBC * Transfer to telemetry
[2017-10-25] MEDS: Sodium Chloride 0.9% 1,000 ML IV SCH (00:48)
[2017-10-25 05:38] LABS: #Eosinphils 0.1 thou/uL (0.0-0.7); #Lymphocytes 1.7 thou/uL (1.20-3.40); #Monocytes 0.7 thou/uL (0.11-0.59); #Neutrophils 7.9 thou/uL (1.40-6.50); %Basophils 0.3 % (0.0-1.0); %Lymphocytes 15.9 % (21.0-51.0); %Monocytes 7.2 % (0.0-10.0); %Neutrophils 75.6 % (42.0-75.0); Mean Corpuscular HGB CONC 32.7 g/dL (32.0-36.0); Mean Corpuscular Hemoglobin 29.2 pg (27.0-31.0); Mean Corpuscular Volume 89.3 fl (81.0-99.0); Mean Platelet Volume 7.2 fL (7.4-10.4); Platelet Count 226 thou/uL (130-400); RBC Distribution Width 12.4 % (11.5-14.5); Red Blood Cell (RBC) Count 3.43 mill/uL (4.20-5.40); White Blood Cell (WBC) Count 10.4 thou/uL (4.8-10.8)
[2017-10-25 05:56] LABS: Anion Gap 9 mmol/L (10-20); BUN (Urea Nitrogen) 8 mg/dL (9.8-20.1); Calc. Creatinine Clearance 158 mL/min (70-130); Calcium 8.2 mg/dL (7.8-10.44); Carbon Dioxide 26 mmol/L (23-31); Chloride 108 mmol/L (98-107); Estimated GFR-MDRD 88; Glucose 128 mg/dL (80-115); Potassium 3.4 mmol/L (3.5-5.1); Sodium 140 mmol/L (136-145)
[2017-10-25] MEDS: DULoxetine 60 MG CAP PO SCH (08:22)
[2017-10-25] MEDS: Losartan 25 MG TAB PO SCH (08:22)
[2017-10-25] MEDS: Aspirin 81 mg Enteric Coated Tablet PO SCH (08:23)
[2017-10-25] MEDS: Gabapentin 300 MG CAP PO SCH ×3 (08:23→20:07)
[2017-10-25] MEDS: Amlodipine 5 MG TAB PO SCH (08:23)
[2017-10-25] MEDS: Docusate 100 MG CAP PO SCH ×2 (08:24→20:06)
[2017-10-25] MEDS: Acetaminophen 325 MG TAB PO PRN ×2 (08:24→12:55)
[2017-10-25] MEDS: Enoxaparin Sodium 40 MG/0.4 ML SYRINGE SC SCH (08:25)
[2017-10-25] MEDS: Cefepime 2 GM, Syringe 2.5 ML in Sterile Water 10 ML SLOW IVP SCH (09:00)
[2017-10-25] MEDS ORDERED: Nitrofurantoin Monohyd/M-Cryst 100 MG CAP PO SCH (09:45)
[2017-10-25] MEDS: HumaLOG 300 UNITS/3 ML VIAL SC PRN (12:46)
--- NOTE | 2017-10-25 14:02 | PDOC.PN ---
- Subjective Encounter Start Date: 10/25/17 Encounter Start Time: 07:45 Subjective: has cough, no chest pain -: has not amb yet -: c/o constipation and throat pain - Objective MAR Reviewed: Yes Vital Signs & Weight: Vital Signs (12 hours) Temp Pulse Resp BP BP Pulse Ox 10/25/17 11:52 99.5 F 90 24 H 146/69 H 93 L 10/25/17 09:48 97 10/25/17 09:47 92 16 10/25/17 08:23 89 10/25/17 08:00 98.9 F 92 16 10/25/17 07:52 98.9 F 89 23 H 155/85 H 99 10/25/17 04:00 97.9 F 76 20 129/88 96 10/25/17 02:36 82 Weight Weight 274 lb 1 oz Most Recent Monitor Data Heart Rate from ECG 72 NIBP 178/75 NIBP BP-Mean 88 Respiration from ECG 23 SpO2 94 I&O: 10/24/17 10/25/17 10/26/17 06:59 06:59 06:59 Intake Total 2750 2880 550 Output Total 1690 3900 Balance 1060 -1020 550 Result Diagrams: 10/25/17 05:15 10/25/17 05:15 Additional Labs: Accuchecks 10/25/17 10/25/17 10/24/17 10:35 05:20 20:54 POC Glucose 173 H 128 H 161 H 10/24/17 16:18 POC Glucose 150 H Phys Exam - Physical Examination HEENT: PERRLA, sclera anicteric Neck: no JVD, supple Respiratory: no wheezing, no rales Cardiovascular: RRR, no significant murmur Gastrointestinal: soft, non-tender, positive bowel sounds Musculoskeletal: no edema, pulses present Neurological: non-focal, moves all 4 limbs Psychiatric: A&O x 3 Dx/Plan (1) Acute metabolic encephalopathy Code(s): G93.41 - METABOLIC ENCEPHALOPATHY Status: Acute (2) E. coli UTI Code(s): N39.0 - URINARY TRACT INFECTION, SITE NOT SPECIFIED; B96.20 - UNSP ESCHERICHIA COLI THE CAUSE OF DISEASES CLASSD ELSWHR Status: Acute (3) CAD (coronary artery disease) Code(s): I25.10 - ATHSCL HEART DISEASE OF [place] CORONARY ARTERY W/O ANG PCTRS Status: Chronic Qualifiers: Coronary Disease-Associated Artery/Lesion type: bypass graft [place] vs. transplanted heart: [place] heart Associated angina: without angina Qualified Code(s): I25.810 - Atherosclerosis of coronary artery bypass graft(s) without angina pectoris Comment: h/o CABG 05/07 (4) DM2 (diabetes mellitus, type 2) Status: Chronic Qualifiers: Diabetes mellitus termite helper insulin use: without usp use Diabetes mellitus complication status: with unspecified complications Qualified Code(s) : E11.8 - Type 2 diabetes mellitus with unspecified complications (5) HLD (hyperlipidemia) Code(s): E78.5 - HYPERLIPIDEMIA, UNSPECIFIED Status: Chronic Qualifiers: Hyperlipidemia type: unspecified Qualified Code(s): E78.5 - Hyperlipidemia , unspecified (6) HTN (hypertension) Code(s): I10 - ESSENTIAL (PRIMARY) HYPERTENSION Status: Chronic Qualifiers: Hypertension type: essential hypertension Qualified Code(s): I10 - Essential (primary) hypertension (7) Sleep apnea Code(s): G47.30 - SLEEP APNEA, UNSPECIFIED Status: Chronic Qualifiers: Sleep apnea type: unspecified type Qualified Code(s): G47.30 - Sleep apnea , unspecified Comment: Nocturnal BiPAP (8) Morbid obesity with BMI of 45.0-49.9, adult Code(s): E66.01 - MORBID (SEVERE) OBESITY DUE TO EXCESS CALORIES; Z68.42 - BODY MASS INDEX (BMI) 45.0-49.9, ADULT Status: Chronic (9) Chronic anemia Code(s): D64.9 - ANEMIA, UNSPECIFIED Status: Chronic - Plan dc iv fluids, encourage po intake -: dc green, to amb with PT today as tolerated -: macrobid, dc cefepime -: stool softeners/amb for constipation, may give suppository/enema if needed -: she normally walks with a walker and lives alone, son around 20miles from h * . dc plan when she can ambulate and remains stable. Review of Systems - Medications/Allergies Allergies/Adverse Reactions: Allergies Allergy/AdvReac Type Severity Reaction Status Date / Time iodine Allergy Severe ANAPHYLACTIC Verified 03/29/15 13:19 REACTION codeine Allergy Intermediate Verified 08/14/16 17:05 penicillin G Allergy Verified 04/22/15 20:33 Medications: Current Medications Acetaminophen (Tylenol) 650 mg PO Q4H PRN PRN Reason: Headache/Fever or Pain Last Admin: 10/25/17 12:55 Dose: 650 mg Acetaminophen (Tylenol) 650 mg RI Q4H PRN PRN Reason: Headache/Fever or Pain Albuterol/Ipratropium (Duoneb) 3 ml NEB [id number] [facility] Last Admin: 10/25/17 09:47 Dose: 3 ml Amlodipine Besylate (Norvasc) 5 mg PO DAILY [facility] Last Admin: 10/25/17 08:23 Dose: 5 mg Aspirin (Ecotrin) 81 mg PO DAILY [facility] Last Admin: 10/25/17 08:23 Dose: 81 mg Bisacodyl (Dulcolax) 10 mg PO DAILYPRN PRN PRN Reason: Constipation Bisacodyl (Dulcolax) 10 mg RI Q24H PRN PRN Reason: Constipation Dextrose/Water (Dextrose 50%) 25 gm SLOW IVP PRN PRN PRN Reason: Hypoglycemia Docusate Sodium (Colace) 100 mg PO BID [facility] Duloxetine HCl (Cymbalta) 60 mg PO DAILY [facility] Last Admin: 10/25/17 08:22 Dose: 60 mg Enoxaparin Sodium (Lovenox) 40 mg SC 0900 [facility] Last Admin: 10/25/17 08:25 Dose: 40 mg Gabapentin (Neurontin) 600 mg PO TID [facility] Last Admin: 10/25/17 08:23 Dose: 600 mg Glucagon (Glucagon) 1 mg IM PRN PRN PRN Reason: Hypoglycemia Dextrose/Water (D5w) 1,000 mls @ 0 mls/hr IV .Q0M PRN; As Directed PRN Reason: Hypoglycemia Insulin Human Lispro (Humalog) 0 units SC .MILD SLIDING SCALE PRN PRN Reason: Mild Correctional Scale Last Admin: 10/25/17 12:46 Dose: 2 unit Losartan Potassium (Cozaar) 12.5 mg PO DAILY [facility] Last Admin: 10/25/17 08:22 Dose: 12.5 mg Nitrofurantoin Macrocrystals (Macrobid) 100 mg PO BID [facility] Polyethylene Glycol (Miralax) 17 gm PO DAILY [facility] Sodium Chloride (Flush - Normal Saline) 10 ml IVF Q12HR [facility] Last Admin: 10/25/17 08:24 Dose: 10 ml Sodium Chloride (Flush - Normal Saline) 10 ml IVF PRN PRN PRN Reason: Saline Flush Tramadol HCl (Ultram) 50 mg PO Q6H PRN PRN Reason: Pain Last Admin: 10/25/17 00:00 Dose: 50 mg
--- NOTE | 2017-10-25 14:02 | PRG ---
DATE OF SERVICE: 10/25/2017 SUBJECTIVE: This morning, awake, alert and responsive. Denies difficulty breathing. OBJECTIVE: VITAL SIGNS: Blood pressure 155/86, sats are 98% on 2 liters, respirations 23, temperature 98. CHEST: No wheezing or crackles. CARDIAC: Normal S1, S2, no gallops. ABDOMEN: Soft. No masses. LABORATORY DATA: Electrolytes are normal. White count 10,000, hemoglobin and hematocrit and platele t count is normal. IMPRESSION: 1. Escherichia coli sepsis. 2. Hypertension. 3. Sleep apnea. 4. Morbid obesity. PLAN: Continue antibiotics for urinary tract infection. PT and supportive care. She can probably b e transferred out of the MICU.
[2017-10-25] MEDS: traMADol HCl 50 MG TAB PO PRN ×3 (16:13→22:01)
[2017-10-25] MEDS ORDERED: Mag-Al 1200 mg/1200 mg/30 ML UDCUP PO PRN (19:44)
[2017-10-25] MEDS: Famotidine 20 MG TAB PO SCH (20:06)
[2017-10-25] MEDS: Nitrofurantoin Monohyd/M-Cryst 100 MG CAP PO SCH (20:07)
[2017-10-26] MEDS ORDERED: traMADol HCl 50 MG TAB PO SCH (02:15)
[2017-10-26] MEDS: traMADol HCl 50 MG TAB PO PRN ×3 (05:04→18:37)
[2017-10-26 05:11] LABS: #Eosinphils 0.2 thou/uL (0.0-0.7); #Lymphocytes 1.3 thou/uL (1.20-3.40); #Monocytes 0.6 thou/uL (0.11-0.59); #Neutrophils 4.1 thou/uL (1.40-6.50); %Basophils 0.5 % (0.0-1.0); %Eosinophils 3.4 % (0.0-10.0); %Lymphocytes 21.3 % (21.0-51.0); %Neutrophils 64.8 % (42.0-75.0); Hemoglobin 9.9 g/dL (12.0-16.0); Mean Corpuscular HGB CONC 33.8 g/dL (32.0-36.0); Mean Corpuscular Hemoglobin 30.5 pg (27.0-31.0); Mean Corpuscular Volume 90.5 fl (81.0-99.0); Mean Platelet Volume 7.6 fL (7.4-10.4); Platelet Count 196 thou/uL (130-400); RBC Distribution Width 12.4 % (11.5-14.5); Red Blood Cell (RBC) Count 3.25 mill/uL (4.20-5.40); White Blood Cell (WBC) Count 6.3 thou/uL (4.8-10.8)
[2017-10-26 05:21] LABS: Anion Gap 10 mmol/L (10-20); BUN (Urea Nitrogen) 8 mg/dL (9.8-20.1); Calc. Creatinine Clearance 173 mL/min (70-130); Calcium 8.2 mg/dL (7.8-10.44); Carbon Dioxide 25 mmol/L (23-31); Chloride 105 mmol/L (98-107); Estimated GFR-MDRD Greater than 90; Glucose 123 mg/dL (80-115); Potassium 3.4 mmol/L (3.5-5.1); Sodium 137 mmol/L (136-145)
[2017-10-26] MEDS: Acetaminophen 325 MG TAB PO PRN ×2 (08:03→20:29)
[2017-10-26] MEDS: Losartan 25 MG TAB PO SCH (08:07)
[2017-10-26] MEDS: Gabapentin 300 MG CAP PO SCH ×3 (08:09→20:29)
[2017-10-26] MEDS: DULoxetine 60 MG CAP PO SCH (08:09)
[2017-10-26] MEDS: Nitrofurantoin Monohyd/M-Cryst 100 MG CAP PO SCH ×2 (08:10→20:30)
[2017-10-26] MEDS: Famotidine 20 MG TAB PO SCH ×2 (08:10→20:29)
[2017-10-26] MEDS: Amlodipine 5 MG TAB PO SCH (08:10)
[2017-10-26] MEDS: Polyethylene Glycol 3350 17 GM Packet PO SCH (08:10)
[2017-10-26] MEDS: Docusate 100 MG CAP PO SCH (08:10)
[2017-10-26] MEDS: Aspirin 81 mg Enteric Coated Tablet PO SCH (08:10)
[2017-10-26] MEDS: Enoxaparin Sodium 40 MG/0.4 ML SYRINGE SC SCH (08:11)
[2017-10-26] MEDS: HumaLOG 300 UNITS/3 ML VIAL SC PRN (12:04)
--- NOTE | 2017-10-26 13:48 | PRG ---
DATE OF SERVICE: 10/26/2017 SUBJECTIVE: This morning, she is complaining of urination pain and discomfort. OBJECTIVE: VITAL SIGNS: Blood pressure 150/90, temperature is 98, sats are 98% on room air. CHEST: Bilateral rhonchi. CARDIAC: Normal S1, S2, no gallops. ABDOMEN: Soft, no masses. LABORATORY DATA: UA is growing E. coli, sensitive to several different antibiotics, but resistant to quinolones. White count is 6000. IMPRESSION: 1. Urinary tract infection. 2. Chronic obstructive pulmonary disease. 3. Morbid obesity. 4. Sleep apnea. PLAN: Adjust antibiotic for UTI. We will follow.
--- NOTE | 2017-10-26 16:08 | RAD ---
RIGHT HIP TWO VIEWS: HISTORY: A 67-year-old female with right hip pain. FINDINGS/IMPRESSION: Minimal degenerative changes, right hip joint. No acute fracture or dislocation. POS: [facility]
[2017-10-26] MEDS: Potassium Chloride 20 MEQ TAB PO SCH (17:17)
[2017-10-26] MEDS: Cefdinir 300 MG CAP PO SCH (20:29)
[2017-10-26] MEDS: Senokot S 8.6-50 MG TAB PO SCH (20:30)
--- NOTE | 2017-10-26 23:31 | PDOC.PN ---
- Subjective Encounter Start Date: 10/26/17 Encounter Start Time: 15:00 Patient seen and examined for Encephalopathy/Resp failure. Rt hip pain - worse on movement. No CP/SOB. No new complaints. No overnight events - Objective MAR Reviewed: Yes Vital Signs & Weight: Vital Signs (12 hours) Temp Pulse Resp BP Pulse Ox 10/26/17 20:00 98.4 F 90 20 131/78 95 10/26/17 19:10 99 10/26/17 19:08 81 20 99 10/26/17 13:41 88 20 98 10/26/17 11:54 98.7 F 83 18 158/90 H 98 Weight Weight 271 lb 8 oz Most Recent Monitor Data Heart Rate from ECG 72 NIBP 178/75 NIBP BP-Mean 88 Respiration from ECG 23 SpO2 94 I&O: 10/25/17 10/26/17 10/27/17 06:59 06:59 06:59 Intake Total 2880 1954 1880 Output Total 3900 800 Balance -1020 1954 1080 Result Diagrams: 10/26/17 04:38 10/26/17 04:38 Additional Labs: Accuchecks 10/26/17 10/26/17 10/26/17 19:47 16:09 11:42 POC Glucose 146 H 124 H 166 H 10/26/17 04:15 POC Glucose 122 H Phys Exam - Physical Examination Constitutional: NAD Respiratory: no wheezing, no rhonchi Cardiovascular: RRR, no rub Gastrointestinal: soft, non-tender, positive bowel sounds Musculoskeletal: no edema Dx/Plan - Plan DVT proph w/SCDs IMPRESSION/PLAN: 1. Toxic Metabolic Encephalopathy/Hypotensive shock requring pressors- multifactorial (dehydration/Benzos/Ecoli UTI) Patient recently restarted Benzos for anxiety Mentation improved 2. Morbid Obesity BMI 48.1 - Counselled. 3. DM2 Cont sliding scale 4. Hypokalemia Replace Potassium 5. SVETA on CPAP 6. Rt hip pain XR Rt hip 7. Disposition: Probably in 24 hr if stable DC Central line at dc Review of Systems - Review of Systems Respiratory: SOB with Excertion. negative: Cough, Dry, Shortness of Breath, Hemoptysis, Pleuritic Pain, Sputum, Wheezing Cardiovascular: negative: chest pain, palpitations, orthopnea, paroxysmal nocturnal dyspnea, edema, light headedness, other Gastrointestinal: negative: Nausea, Vomiting, Abdominal Pain, Diarrhea, Constipation, Melena, Hematochezia, Other - Medications/Allergies Allergies/Adverse Reactions: Allergies Allergy/AdvReac Type Severity Reaction Status Date / Time iodine Allergy Severe ANAPHYLACTIC Verified 03/29/15 13:19 REACTION codeine Allergy Intermediate Verified 08/14/16 17:05 penicillin G Allergy Verified 04/22/15 20:33 Medications: Current Medications Acetaminophen (Tylenol) 650 mg PO Q4H PRN PRN Reason: Headache/Fever or Pain Last Admin: 10/26/17 20:29 Dose: 650 mg Acetaminophen (Tylenol) 650 mg IN Q4H PRN PRN Reason: Headache/Fever or Pain Al Hydroxide/Mg Hydroxide (Maalox) 30 ml PO Q6H PRN PRN Reason: Indigestion Last Admin: 10/25/17 20:07 Dose: 30 ml Albuterol/Ipratropium (Duoneb) 3 ml NEB [id number] [facility] Last Admin: 10/26/17 19:08 Dose: 3 ml Amlodipine Besylate (Norvasc) 5 mg PO DAILY [facility] Last Admin: 10/26/17 08:10 Dose: 5 mg Aspirin (Ecotrin) 81 mg PO DAILY [facility] Last Admin: 10/26/17 08:10 Dose: 81 mg Bisacodyl (Dulcolax) 10 mg PO DAILYPRN PRN PRN Reason: Constipation Last Admin: 10/26/17 20:30 Dose: 10 mg Bisacodyl (Dulcolax) 10 mg IN Q24H PRN PRN Reason: Constipation Cefdinir (Omnicef) 300 mg PO BID [facility] Last Admin: 10/26/17 20:29 Dose: 300 mg Dextrose/Water (Dextrose 50%) 25 gm SLOW IVP PRN PRN PRN Reason: Hypoglycemia Duloxetine HCl (Cymbalta) 60 mg PO DAILY [facility] Last Admin: 10/26/17 08:09 Dose: 60 mg Enoxaparin Sodium (Lovenox) 40 mg SC 0900 [facility] Last Admin: 10/26/17 08:11 Dose: 40 mg Famotidine (Pepcid) 20 mg PO BID [facility] Last Admin: 10/26/17 20:29 Dose: 20 mg Furosemide (Lasix) 40 mg PO DAILY[facility] Gabapentin (Neurontin) 600 mg PO TID [facility] Last Admin: 10/26/17 20:29 Dose: 600 mg Glucagon (Glucagon) 1 mg IM PRN PRN PRN Reason: Hypoglycemia Dextrose/Water (D5w) 1,000 mls @ 0 mls/hr IV .Q0M PRN; As Directed PRN Reason: Hypoglycemia Insulin Human Lispro (Humalog) 0 units SC .MILD SLIDING SCALE PRN PRN Reason: Mild Correctional Scale Last Admin: 10/26/17 12:04 Dose: 2 unit Losartan Potassium (Cozaar) 12.5 mg PO DAILY [facility] Last Admin: 10/26/17 08:07 Dose: 12.5 mg Nitrofurantoin Macrocrystals (Macrobid) 100 mg PO BID [facility] Last Admin: 10/26/17 20:30 Dose: 100 mg Polyethylene Glycol (Miralax) 17 gm PO DAILY [facility] Last Admin: 10/26/17 08:10 Dose: 17 gm Potassium Chloride (K-Dur) 20 meq PO BID-[facility] Last Admin: 10/26/17 17:17 Dose: 20 meq Senna/Docusate Sodium (Senokot S) 2 tab PO BID [facility] Last Admin: 10/26/17 20:30 Dose: 2 tab Sodium Chloride (Flush - Normal Saline) 10 ml IVF Q12HR [facility] Last Admin: 10/26/17 08:11 Dose: 10 ml Sodium Chloride (Flush - Normal Saline) 10 ml IVF PRN PRN PRN Reason: Saline Flush Tramadol HCl (Ultram) 50 mg PO Q6H PRN PRN Reason: Pain Last Admin: 10/26/17 18:37 Dose: 50 mg
[2017-10-27] MEDS: traMADol HCl 50 MG TAB PO PRN (05:35)
[2017-10-27] MEDS: Acetaminophen 325 MG TAB PO PRN (06:48)
[2017-10-27] MEDS ORDERED: Furosemide 40 MG TAB PO SCH (07:30)
[2017-10-27] MEDS: Losartan 25 MG TAB PO SCH (08:31)
[2017-10-27] MEDS: Senokot S 8.6-50 MG TAB PO SCH (08:32)
[2017-10-27] MEDS: Cefdinir 300 MG CAP PO SCH (08:33)
[2017-10-27] MEDS: DULoxetine 60 MG CAP PO SCH (08:33)
[2017-10-27] MEDS: Gabapentin 300 MG CAP PO SCH ×2 (08:33→14:59)
[2017-10-27] MEDS: Aspirin 81 mg Enteric Coated Tablet PO SCH (08:34)
[2017-10-27] MEDS: Potassium Chloride 20 MEQ TAB PO SCH ×2 (08:34→17:36)
[2017-10-27] MEDS: Famotidine 20 MG TAB PO SCH (08:34)
[2017-10-27] MEDS: Amlodipine 5 MG TAB PO SCH (08:34)
[2017-10-27] MEDS: Polyethylene Glycol 3350 17 GM Packet PO SCH (08:35)
[2017-10-27] MEDS: Enoxaparin Sodium 40 MG/0.4 ML SYRINGE SC SCH (08:35)
[2017-10-27] MEDS: Nitrofurantoin Monohyd/M-Cryst 100 MG CAP PO SCH (08:35)
--- NOTE | 2017-10-27 09:18 | PRG ---
DATE OF SERVICE: 10/27/2017 The patient is doing well, had no complaints. PHYSICAL EXAMINATION: VITAL SIGNS: Temperature 98.4, pulse 98, blood pressure 130/89, O2 sat 98%. HEENT: Unremarkable. NECK: No JVD. LUNGS: Clear. CARDIAC: S1 and S2 regular. ABDOMEN: Soft. EXTREMITIES: No edema. ASSESSMENT: 1. Obstructive sleep apnea, stable. 2. Metabolic encephalopathy. 3. Urosepsis, which has improved. RECOMMENDATIONS: From a pulmonary standpoint, she is stable to go home. No further recommendations. We will sign off the case. Please recall if further assistance needed.
--- NOTE | 2017-10-27 12:58 | PQF ---
CLINICAL DOCUMENTATION IMPROVEMENT CLARIFICATION FORM: ICD-10 Updated PLEASE DO AN ADDENDUM TO THE PROGRESS NOTE WITH ANY DOCUMENTATION UPDATES OR ADDITIONS AND CARRY THROUGH TO DC SUMMARY. THANK YOU. DATE: 10/27/17 ATTN: Dr. Espinoza Please exercise your independent, professional judgment in responding to the clarification form. Clinical indicators are provided on the bottom of this form for your review Please check appropriate box(s) to clarify if the following diagnosis has been ruled in or ruled out: ESCHERICHIA COLI SEPSIS. (Plulm. pn 5) [ ] Ruled in diagnosis [ ] Continue to treat [ ] Resolved [ ] Ruled out diagnosis [ ] Cannot rule out diagnosis [ ] Other diagnosis [ ] Unable to determine In addition, please specify: Present on Admission (POA): [ ] Yes [ ] No [ ] Unable to determine For continuity of documentation, please document condition throughout progress notes and discharge summary. Thank You. CLINICAL INDICATORS - SIGNS / SYMPTOMS / LABS PULMONARY PN 5/: ESCHERICHIA COLI SEPSIS. CONTINUES ANTIBIOTICS FOR UTI. RISKS: H&P: ALTERED MENTAL STATUS. HX COPD, DM2. ACUTE ENCEPHALOPATHY. SEPTIC SHOCK: SUSPECTED. TREATMENT: CPOE 5/3: CEFEPIME 2 G IV Q 12HR. DC'D 10/25/17 CPOE 5/5: MACROBID 100 MG PO BID CPOE 5/6: OMNICEF 300MG PO BID Thank you, Laurita (This form is maintained as a part of the permanent medical record) 2015 [employer], [employer]. All Rights Reserved Laurita Amin RN, BSN [email or web address] Office: [phone] [facility]
[2017-10-27 16:27] VITALS: BP 150/85; TEMP 98.6
--- NOTE | 2017-10-27 16:54 | DIS ---
DATE OF ADMISSION: 10/23/2017 DATE OF DISCHARGE: 10/27/2017 PRIMARY CARE PHYSICIAN: Chanda Love MD DISCHARGE DIAGNOSES: 1. Acute on chronic hypoxic respiratory failure. 2. Accidental benzodiazepine overdose. 3. Depression. 4. Severe obesity. 5. Metabolic encephalopathy, resolved. 6. Urinary tract infection with multidrug resistant Escherichia coli. 7. Diabetes mellitus type 2 without complications. CONSULTATIONS: Pulmonary Critical Care, Dr. Neal Olmos, on 10/23/[address] Wiley del cid and ultimately Dr. Matt Garces. PROCEDURES: None. HISTORY AND PHYSICAL: Ms. Wyatt is a 67-year-old severely obese female with the above history, who p resents to the Emergency Department on the day of admission 10/23/2017 with altered mental status. S he had recently been in our facility in the previous month for syncope and migraine. Three days prior to admission, the patient noted that her dog that she was very close to passed, had been doing well, but not sleeping well for up to 2 days prior to admission. She did not come out of the house and neighbors became concerned, so EMS was called. She was brought to the Emergency Depart ment, where she was found mostly unresponsive. Her workup in the Emergency Department was largely un remarkable. PH was 7.43, pCO2 of 46, pO2 of 97.6. We were subsequently called for admit. The patient was seen and examined, placed in inpatient status by Dr. Gregg Motta. Labs are fairly no rmal, electrocardiogram was unremarkable and showed sinus rhythm with no ST-T changes. Chest x-ray d id not show any pulmonary infiltrates or volume overload, white count was normal and hemoglobin was 1 1.2. After admission from 10/23/2017 to 10/24/2017, the patient was seen by Dr. Neal Olmos later that morning. He confirmed Dr. Motta's plans and recommended continuing CPAP at 13 cm of water and change d to BiPAP . To the course today, she woke up and was more awake and alert. On 10/24/2017, was improved. Urinary culture positive for gram negative rods again, she did not have antibiotics and M HMR evaluation was done and recommended her return home. There was no intent to harm herself. On 10/25/2017, she was improving further and was more awake and alert. She was taken home by Dr. Mitch adkins, who noted that she is only complaining of constipation and throat pain and had not walked m uch yet. PT, OT consultation was ordered. She was taken off of cefepime and transitioned to Macrobi d. She was placed on Omnicef by Pulmonary Critical Care. On 10/26/2017, she was able to get up and walk. She still not had an effective bowel movement, but w as weaned on her home levels of oxygen. Mental status was back to her baseline. She had no new over night events. On 10/27/2017, she was able to walk 50 feet with physical therapy. She was on 2 liters of oxygen sat ting 98%, rehab screen was requested, but the patient did not qualify and subsequently transferred ho sc with [facility] with physical therapy and occupational therapy. PHYSICAL EXAMINATION: The patient was seen and examined on day of discharge. Discharge plan and dis position was discussed with the patient face to face at the bedside. DISCHARGE MEDICATIONS: NEW PRESCRIPTIONS: 1. Omnicef 300 mg p.o. b.i.d. for 7 more days. 2. MiraLax 17 grams p.o. daily. PRESCRIPTION SENT HOME MEDICINES TO RESUME: 1. Amlodipine 5 mg p.o. daily. 2. Aspirin 81 mg daily. 3. Duloxetine 60 mg p.o. daily. 4. Gabapentin 600 mg p.o. t.i.d. 5. DuoNebs 3 mL nebulized b.i.d. 6. Losartan 12.5 mg p.o. daily. 7. Tylenol No. 3 one p.o. q.6 hours p.r.n. 8. Atorvastatin 10 mg p.o. at bedtime. 9. Carvedilol 12.5 mg p.o. b.i.d. 10. Lotrisone cream topically p.r.n. itching. 11. Flexeril 10 mg p.o. q.p.m. p.r.n. muscle spasm. 12. Docusate 100 mg p.o. daily. 13. Celexa 5 mg p.o. daily. 14. Lasix 40 mg p.o. daily. 15. Ketoconazole topically as needed. 16. Ativan 1 mg p.o. q.p.m. p.r.n. anxiety or insomnia. 17. Metformin 1000 mg p.o. b.i.d. 18. Nitroglycerin sublingual p.r.n. 19. Omeprazole 20 mg daily. 20. Rivastigmine 3 mg p.o. b.i.d. with meals. 21. Ambien 5 mg p.o. at bedtime. FOLLOWUP APPOINTMENTS: 1. Primary care physician within a week. 2. Pulmonary Critical Care as scheduled. DISCHARGE CONDITION: Stable. DISPOSITION: She will be discharged home via private vehicle with [facility] with y sical therapy and occupational therapy. DISCHARGE ACTIVITY: Per cardiopulmonary limits. DISCHARGE DIET: Heart healthy, diabetic diet recommended.
--- NOTE | 2017-10-29 10:54 | PQF ---
[employer] [id number] U-C01 [id number] CLINICAL DOCUMENTATION IMPROVEMENT CLARIFICATION FORM: ICD-10 Updated PLEASE DO AN ADDENDUM TO THE PROGRESS NOTE WITH ANY DOCUMENTATION UPDATES OR ADDITIONS AND CARRY THROUGH TO DC SUMMARY. THANK YOU. DATE: 10/27/17 ATTN: Dr. Espinoza Please exercise your independent, professional judgment in responding to the clarification form. Clinical indicators are provided on the bottom of this form for your review Please check appropriate box(s) to clarify if the following diagnosis has been ruled in or ruled out: ESCHERICHIA COLI SEPSIS. (Pulm. pn 10/25) [ x ] Ruled in diagnosis [ ] Continue to treat [ x ] Resolved [ ] Ruled out diagnosis [ ] Cannot rule out diagnosis [ ] Other diagnosis [ ] Unable to determine In addition, please specify: Present on Admission (POA): [ x ] Yes [ ] No [ ] Unable to determine For continuity of documentation, please document condition throughout progress notes and discharge summary. Thank You. CLINICAL INDICATORS - SIGNS / SYMPTOMS / LABS PULMONARY PN 10/25: ESCHERICHIA COLI SEPSIS. CONTINUES ANTIBIOTICS FOR UTI. RISKS: H&P: ALTERED MENTAL STATUS. HX COPD, DM2. ACUTE ENCEPHALOPATHY. SEPTIC SHOCK: SUSPECTED. TREATMENT: CPOE 5/3: CEFEPIME 2 G IV Q 12HR. DC'D 10/25/17 CPOE 5/5: MACROBID 100 MG PO BID CPOE 5/6: OMNICEF 300MG PO BID THANK YOU, ADY (This form is maintained as a part of the permanent medical record) 2015 [employer], [employer]. All Rights Reserved Laurita Amin RN, BSN [email or web address] Office: [phone] [facility]
--- NOTE | 2017-10-31 20:25 | PQF ---
I do not believe I was involved in this patient's care. Thanks. GOOD LISASHAHEEN [id number] U-C01 [id number] CLINICAL DOCUMENTATION CLARIFICATION FORM: POST DISCHARGE Addendum to original discharge summary date: ____ Late entry note date: __ DATE: 10/31/17 ATTN: Please exercise your independent, professional judgment in responding to the clarification form. Clinical indicators are provided on the bottom of this form for your review Please check appropriate box(s): [ ] Encephalopathy: Etiology: [ ] Drug induced: [ ] Unspecified [ ] in the setting of underlying dementia [ ] Other (please specify) [ ] Transient Alteration of Awareness [ ] Other diagnosis [ ] Unable to determine In addition, please specify: Present on Admission (POA): [ ] Yes [ ] No [ ] Unable to determine For continuity of documentation, please document condition throughout progress notes and discharge summary. Thank You. CLINICAL INDICATORS - SIGNS / SYMPTOMS / LABS Altered mental status / confusion improving once cause is corrected (acute) Alttered mental state RISK FACTORS Benzo overdose noted on discharge summary TREATMENTS: Neuro checks / neurology consult MTDD
== END 2017-10-27 18:46 | disposition home or self-care (01) | DRG 917 ==
LOC: ERS 00:44 → CCU 03:15 → IMCU/EMU 16:42 → T4-B 10-25 13:58
PROVIDERS: ADMIT Internal Medicine; ATTEND Internal Medicine
DX: T42.4X1A Poisoning by benzodiazepines, accidental (unintentional), initial encounter (principal); A41.51 Sepsis due to Escherichia coli [E. coli]; J96.21 Acute and chronic respiratory failure with hypoxia; G93.41 Metabolic encephalopathy; Z68.42 Body mass index [BMI] 45.0-49.9, adult; N39.0 Urinary tract infection, site not specified; I50.22 Chronic systolic (congestive) heart failure; E66.01 Morbid (severe) obesity due to excess calories; Z79.899 Other long term (current) drug therapy; I25.10 Atherosclerotic heart disease of native coronary artery without angina pectoris; Z95.1 Presence of aortocoronary bypass graft; J44.9 Chronic obstructive pulmonary disease, unspecified; E11.9 Type 2 diabetes mellitus without complications; I10 Essential (primary) hypertension; E78.5 Hyperlipidemia, unspecified; Z86.718 Personal history of other venous thrombosis and embolism; Z88.5 Allergy status to narcotic agent; Z88.0 Allergy status to penicillin; Z91.048 Other nonmedicinal substance allergy status; Z79.84 Long term (current) use of oral hypoglycemic drugs; Z79.82 Long term (current) use of aspirin; G47.33 Obstructive sleep apnea (adult) (pediatric); F32.9 Major depressive disorder, single episode, unspecified; I34.0 Nonrheumatic mitral (valve) insufficiency; D64.9 Anemia, unspecified; I95.9 Hypotension, unspecified; E86.0 Dehydration
CPT/HCPCS: 36415; 36416; 51701; 70450; 71045; 80048; 80053; 80306; 80307; 81003; 81015; 82140; 82330; 82533; 82550; 82553; 82803; 82805; 83605; 83690; 83880; 84443; 84484; 85025; 87040; 87077; 87086; 87186; 93005; 94640; 94660; 96361; 96365; 96367; 96368; 96374; A4216; A4353; G8978-GP-CL; G8979-GP-CI; G8987-GO-CK; G8988-GO-CJ; J0171; J0692; J1100; J1650; J1956; J3370; J7050; J7620

== ENCOUNTER 2017-10-29 13:04 | Observation (INO) | payer MEDICARE ==
[2017-10-29] MEDS ORDERED: Acetaminophen 500 MG TAB ONE ×2 (13:13→13:15)
[2017-10-29 13:41] LABS: #Eosinphils 0.1 thou/uL (0.0-0.7); #Lymphocytes 0.9 thou/uL (1.20-3.40); #Monocytes 1.2 thou/uL (0.11-0.59); %Basophils 0.4 % (0.0-1.0); %Eosinophils 0.9 % (0.0-10.0); %Monocytes 10.5 % (0.0-10.0); %Neutrophils 80.3 % (42.0-75.0); Hemoglobin 11.3 g/dL (12.0-16.0); Mean Corpuscular Hemoglobin 29.6 pg (27.0-31.0); Mean Corpuscular Volume 89.7 fl (81.0-99.0); Mean Platelet Volume 7.6 fL (7.4-10.4); Platelet Count 268 thou/uL (130-400); RBC Distribution Width 12.8 % (11.5-14.5); White Blood Cell (WBC) Count 11.2 thou/uL (4.8-10.8)
[2017-10-29] MEDS ORDERED: Cefepime 2 GM, Syringe 2.5 ML in Sterile Water 10 ML SLOW IVP SCH (14:00)
[2017-10-29] MEDS ORDERED: cefOXitin 2 GM, Syringe 1 ML in Sterile Water 10 ML SLOW IVP SCH (14:00)
[2017-10-29 14:03] LABS: ALT (SGPT) 27 U/L (8-55); AST (SGOT) 25 U/L (5-34); Albumin 3.9 g/dL (3.4-4.8); Alkaline Phosphatase 113 U/L (40-150); Anion Gap 12 mmol/L (10-20); BUN (Urea Nitrogen) 12 mg/dL (9.8-20.1); Bilirubin, Total 0.9 mg/dL (0.2-1.2); Calc. Creatinine Clearance 0 mL/min (70-130); Calcium 9.2 mg/dL (7.8-10.44); Carbon Dioxide 24 mmol/L (23-31); Chloride 102 mmol/L (98-107); Estimated GFR-MDRD 77; Globulin 3.5 g/dL (2.4-3.5); Glucose 172 mg/dL (80-115); Potassium 4.1 mmol/L (3.5-5.1); Protein, Total 7.4 g/dL (6.0-8.3); Sodium 134 mmol/L (136-145)
[2017-10-29 14:08] LABS: CKMB 0.3 ng/mL (0-6.6)
[2017-10-29] MEDS ORDERED: GENTAMICIN SULFATE IVPB SCH (14:15)
[2017-10-29] MEDS ORDERED: SODIUM CHLORIDE IVPB SCH (14:15)
[2017-10-29] MEDS ORDERED: ADMIXTURE FEE IVPB SCH (14:15)
[2017-10-29 14:22] LABS: Bilirubin Negative (Negative); Blood, Urine Negative (Negative); Clarity CLEAR (Clear); Glucose, Urine (Dipstick) Negative (Negative); Leukocyte Negative (Negative); Nitrite Negative (Negative); Protein, Urine (Dipstick) Trace mg/dL (Neg-Trace); Specific Gravity, Urine 1.019 (1.002-1.036); pH, Urine 7.5 (5.0-9.0)
--- NOTE | 2017-10-29 15:07 | RAD ---
SINGLE VIEW CHEST: Date: 10/29/17 COMPARISON: 10/23/17. HISTORY: Pneumonia. FINDINGS: Single view of the chest shows an enlarged cardiomediastinal silhouette. However, this has improved i n size compared to the prior examination. There is atherosclerotic calcification of the aorta. The pa tient is status post sternotomy. There is no evidence of consolidation, mass, or pleural effusion. IMPRESSION: Cardiomegaly without evidence of acute cardiopulmonary disease. POS: JANEH
[2017-10-29] MEDS ORDERED: Dextrose 5% in Water 1,000 ML IV PRN (16:47)
[2017-10-29] MEDS ORDERED: Cyclobenzaprine 10 MG TAB PO PRN (16:47)
[2017-10-29] MEDS ORDERED: Dextrose 50% Abboject 50 ML SYRINGE SLOW IVP PRN (16:47)
[2017-10-29] MEDS ORDERED: HYDROcodone/Acetaminophen 5/325 mg Tablet PO PRN ×2 (16:47)
[2017-10-29] MEDS ORDERED: Ondansetron ODT 4 MG TAB PO PRN (16:47)
[2017-10-29] MEDS ORDERED: Clindamycin/D5W 300 MG/50 ML BAG IVPB SCH (16:47)
[2017-10-29] MEDS ORDERED: Ondansetron HCl/PF 4 MG/2 ML Vial IVP PRN (16:47)
[2017-10-29] MEDS ORDERED: Albuterol Sulfate 2.5 mg/3 ml Neb NEB PRN (16:47)
[2017-10-29] MEDS ORDERED: Lorazepam 1 MG TAB PO PRN (16:47)
[2017-10-29] MEDS ORDERED: Acetaminophen 325 MG TAB PO PRN (16:47)
[2017-10-29 16:58] VITALS: BMI 45.8
[2017-10-29] MEDS ORDERED: Fluticasone Propionate Nasal Spray 16 gm Bottle NASAL SCH (17:00)
[2017-10-29] MEDS ORDERED: Enoxaparin Sodium 40 MG/0.4 ML SYRINGE SC SCH (17:00)
[2017-10-29] MEDS ORDERED: predniSONE 20 MG TAB PO SCH (17:00)
[2017-10-29] MEDS: cefTRIAXone\\ROCEPHIN 2 GM in Sodium Chloride 0.9% 100 ML IVPB SCH (17:58)
[2017-10-29] MEDS: Rivastigmine 1.5 MG CAP PO SCH (17:59)
[2017-10-29] MEDS: Clindamycin/D5W 900 MG in Premix Bag 1 BAG IVPB SCH (19:41)
[2017-10-29] MEDS: Famotidine 20 MG TAB PO SCH (19:42)
[2017-10-29] MEDS: metFORMIN XR 500 MG TAB PO SCH (19:42)
[2017-10-29] MEDS: Carvedilol 6.25 MG TAB PO SCH (19:42)
[2017-10-29] MEDS ORDERED: Gabapentin 300 MG CAP PO SCH (22:15)
[2017-10-30] MEDS: Clindamycin/D5W 900 MG in Premix Bag 1 BAG IVPB SCH ×3 (04:13→19:49)
[2017-10-30 04:54] LABS: #Lymphocytes 0.7 thou/uL (1.20-3.40); #Monocytes 0.3 thou/uL (0.11-0.59); #Neutrophils 3.9 thou/uL (1.40-6.50); %Basophils 0.4 % (0.0-1.0); %Eosinophils 0.4 % (0.0-10.0); %Lymphocytes 14.6 % (21.0-51.0); %Monocytes 5.9 % (0.0-10.0); %Neutrophils 78.8 % (42.0-75.0); Hemoglobin 10.1 g/dL (12.0-16.0); Mean Corpuscular HGB CONC 32.7 g/dL (32.0-36.0); Mean Corpuscular Hemoglobin 29.3 pg (27.0-31.0); Mean Corpuscular Volume 89.6 fl (81.0-99.0); Mean Platelet Volume 7.4 fL (7.4-10.4); Platelet Count 224 thou/uL (130-400); RBC Distribution Width 12.4 % (11.5-14.5); Red Blood Cell (RBC) Count 3.43 mill/uL (4.20-5.40); White Blood Cell (WBC) Count 4.9 thou/uL (4.8-10.8)
[2017-10-30] MEDS: HumaLOG 300 UNITS/3 ML VIAL SC PRN ×3 (05:07→17:03)
[2017-10-30 05:11] LABS: Anion Gap 8 mmol/L (10-20); BUN (Urea Nitrogen) 11 mg/dL (9.8-20.1); Calc. Creatinine Clearance 145 mL/min (70-130); Calcium 8.5 mg/dL (7.8-10.44); Carbon Dioxide 24 mmol/L (23-31); Chloride 107 mmol/L (98-107); Estimated GFR-MDRD 81; Glucose 220 mg/dL (80-115); Potassium 4.2 mmol/L (3.5-5.1); Sodium 135 mmol/L (136-145)
[2017-10-30] MEDS: Rivastigmine 1.5 MG CAP PO SCH ×2 (08:27→16:33)
[2017-10-30] MEDS: metFORMIN XR 500 MG TAB PO SCH ×2 (08:28→19:51)
[2017-10-30] MEDS: Carvedilol 6.25 MG TAB PO SCH ×2 (08:28→19:51)
[2017-10-30] MEDS: Famotidine 20 MG TAB PO SCH ×2 (08:30→19:49)
[2017-10-30] MEDS: Aspirin 81 mg Enteric Coated Tablet PO SCH (08:30)
[2017-10-30] MEDS: Losartan 25 MG TAB PO SCH (08:30)
[2017-10-30] MEDS: DULoxetine 60 MG CAP PO SCH (08:31)
[2017-10-30] MEDS: Atorvastatin Calcium 10 MG TAB PO SCH (08:31)
[2017-10-30] MEDS: predniSONE 20 MG TAB PO SCH (08:31)
[2017-10-30] MEDS: Amlodipine 5 MG TAB PO SCH (08:32)
[2017-10-30] MEDS: Escitalopram Oxalate 10 mg Tablet PO SCH (08:32)
[2017-10-30] MEDS: Gabapentin 300 MG CAP PO SCH ×3 (08:32→19:50)
[2017-10-30] MEDS: Enoxaparin Sodium 40 MG/0.4 ML SYRINGE SC SCH ×2 (08:33→11:41)
[2017-10-30] MEDS: Furosemide 40 MG TAB PO SCH (08:33)
[2017-10-30] MEDS: Polyethylene Glycol 3350 17 GM Packet PO SCH (08:35)
[2017-10-30] MEDS: Fluticasone Propionate Nasal Spray 16 gm Bottle NASAL SCH (08:36)
--- NOTE | 2017-10-30 10:24 | RAD ---
TWO VIEWS CHEST: HISTORY: Cough. Fever. Dyspnea. COMPARISON: 10/29/2017 and 03/30/2015 FINDINGS: There are stable sternotomy wires. Atherosclerosis of the aorta is identified. Normal cardiac silho uette. The pulmonary vessels and hilum are normal. The costophrenic angles are clear. No consolida tion or mass. No pneumothorax or osseous abnormalities. IMPRESSION: 1. No acute cardiopulmonary process. 2. Atherosclerosis. POS: GABRIELLE
--- NOTE | 2017-10-30 13:27 | HP ---
DATE OF ADMISSION: 10/29/2017 PRIMARY CARE PHYSICIAN: Chanda Love M.D. TIME OF SERVICE: 10:05 CHIEF COMPLAINT: Fever and pneumonia. HISTORY OF PRESENT ILLNESS: Ms. Wyatt is a 67-year-old female whom I know from a recent hospital sta y. During that time, she was admitted from 10/22/2017-10/27/2017 for accidental benzodiazepine overd ose, UTI and possible aspiration pneumonia. She had respiratory failure with acute on chronic hypoxe [place] and possible pneumonia. She discharged home on Omnicef and was at her baseline. Since going home on , she has continued to have cough that seemed to be worsening. She had presen landy to Dr. Love's office on 10/29/2017 for evaluation. There, she was febrile reportedly to 102.6 and chest x-ray done showing a possible left lower lobe infiltrate, so she was sent straight to the e mergency department. In the emergency department, temperature 102.6 was verified, chest x-ray was completely clear. We we re subsequently called for admit. White blood cell count was just above normal at 11.2, but her hemo globin and platelet count were also of about 10% compared to discharge values couple of days ago. She did complain of cough that is nonproductive. No fevers, chills or night sweats prior to these el evated readings today. She denies any nausea, vomiting, no diarrhea or constipation, no increased dy spnea on exertion. Workup in the emergency department is otherwise negative. PAST MEDICAL HISTORY: 1. Coronary artery disease. 2. Status post coronary artery bypass grafting in the past. 3. Chronic obstructive pulmonary disease. 4. Diabetes mellitus type 2. 5. Hypertension. 6. Hyperlipidemia. 7. History of DVT. 8. Severe obesity. 9. Physical decondition. PAST SURGICAL HISTORY: Include, 1. Coronary artery bypass grafting. 2. Sternal wound dehiscence. 3. Multiple spinal surgeries. 4. Cholecystectomy. 5. Dental implants. 6. Hysterectomy. HOME MEDICATIONS: 1. Amlodipine 5 mg daily. 2. Aspirin 81 mg daily. 3. Duloxetine 60 mg p.o. daily. 4. Gabapentin 600 mg p.o. t.i.d. 5. DuoNeb 3 mL nebulized b.i.d. 6. Losartan 12.5 mg p.o. daily. 7. Tylenol #3 q.6 hours p.r.n. 8. Atorvastatin 10 mg p.o. at bedtime. 9. Carvedilol 12.5 mg p.o. b.i.d. 10. Lotrisone cream topically p.r.n. itching. 11. Flexeril 10 mg p.o. p.r.n. muscle spasm. 12. Docusate 100 mg p.o. daily. 12. Celexa 5 mg daily. 13. Lasix 40 mg daily. 14. Ketaconazole topically p.r.n. 15. Ativan 1 mg p.o. q.p.m. p.r.n. anxiety or insomnia. 16. Metformin 1000 mg p.o. b.i.d. 17. Nitroglycerin sublingual p.r.n. 18. Omeprazole 20 mg daily. 19. Rivastigmine 3 mg p.o. b.i.d. with meals. 20. Ambien 5 mg p.o. at bedtime p.r.n. insomnia. ALLERGIES: IODINE, CODEINE and PENICILLIN G. FAMILY HISTORY: Negative for clotting or bleeding disorder. No immune dysfunction. No premature co ronary artery disease. SOCIAL HISTORY: Negative for habits x3. She [place] alone [place] town. She recently suffered the lo ss of her pet dog just prior to her sleeping issues that prompted accidental overdose of benzodiazepi homer on 10/22/2017. REVIEW OF SYSTEMS: All systems were reviewed and negative except as stated as above. PHYSICAL EXAMINATION: VITAL SIGNS: Temperature on arrival to the ER was 102.6, currently 96.6, pulse 75, even with fever, blood pressure 121/33, respiratory rate 20, satting 100% on 2 liters. She is chronically on 2-3 lite rs of oxygen at home via nasal cannula. GENERAL: She is awake. She is alert. She is oriented x3. She is chronically ill appearing, severe ly obese white female who is in no distress. HEENT: Normocephalic, atraumatic. Pupils equal, round, reactive to light bilaterally, mucous membra homer are moist. She has no visible lesions except for posterior cobblestoning. She has no thrush. NECK: Obese. I cannot appreciate JVD. I did not palpate any lymphadenopathy. She has no stridor. LUNGS: Have diffuse inspiratory and expiratory wheezes. She has poor air movement. She has no crac kles. CARDIOVASCULAR: She has normal cardiac and regular. Normal S1 and S2. She has a faint 2/6 systolic ejection murmur in the right upper sternal border. ABDOMEN: Severely obese. It is nontender and nondistended with good bowel sounds. She has no rebou nd, rigidity or guarding. I cannot palpate internal organs. EXTREMITIES: Show 1-2+ edema in the bilateral lower extremities to mid tibia level. SKIN: Warm, moist, and well perfused without any other rashes or lesions. MUSCULOSKELETAL: Normal to inspection. No joint inflammation. Adequate range of motion and nontend er. NEUROLOGIC: Cranial nerves II-XII are grossly intact. She has 5/5 strength, no focal neurologic def icits. LABORATORY DATA: Sodium 134, potassium 4.1, chloride 102, bicarbonate 24, BUN 12, creatinine 0.75, g lucose 172, and calcium 9.2. Liver functions within normal limits. CBC showed white count of 11.2, hemoglobin 11.3, hematocrit of 34.1, platelet count is 268,000. She has 80% granulocytes with 8% bands and 11% lymphocytes. CK-MB is normal at 0.3, troponin I 0.010 and urinalysis was completely negative. IMAGING DATA: Chest x-ray shows a possible left lower lobe opacity done to Dr. Love's office. [facility] x-ray done here showed no acute cardiopulmonary disease. ASSESSMENT AND PLAN: 1. Fever. 2. Acute exacerbation of chronic obstructive pulmonary disease. 3. Chronic hypoxic respiratory failure, currently stable. 4. Recent accidental benzodiazepine with possible aspiration pneumonia. 5. Severe obesity. 6. Diabetes mellitus type 2. 7. Hypertension. We will place the patient in observation overnight. We will continue her antibiot ics, we will start her on a steroid taper, we will use q.4 hour DuoNebs. B.i.d. is probably not adeq uate to control her, q.2 hour p.r.n. albuterol available. Her lung doctors [facility] in [facility] oes not come to this hospital. She has no fevers, labs look better and her 2-view chest x-ray in the morning is clear and would like to go home in the morning. Would more recommend to get more data av ailable. We will continue her home medications otherwise and add sliding scale insulin for her sugar s.
[2017-10-30] MEDS: guaiFENesin/DM ER PO SCH (16:33)
[2017-10-30] MEDS: cefTRIAXone\\ROCEPHIN 2 GM in Sodium Chloride 0.9% 100 ML IVPB SCH (16:36)
[2017-10-30] MEDS: Zolpidem Tartrate 5 MG TAB PO PRN (22:25)
[2017-10-31] MEDS: Clindamycin/D5W 900 MG in Premix Bag 1 BAG IVPB SCH ×3 (04:30→21:13)
[2017-10-31] MEDS: Gabapentin 300 MG CAP PO SCH ×3 (08:53→21:13)
[2017-10-31] MEDS: predniSONE 20 MG TAB PO SCH (08:53)
[2017-10-31] MEDS: guaiFENesin/DM ER PO SCH ×2 (08:53→21:12)
[2017-10-31] MEDS: Famotidine 20 MG TAB PO SCH ×2 (08:53→21:13)
[2017-10-31] MEDS: Aspirin 81 mg Enteric Coated Tablet PO SCH (08:54)
[2017-10-31] MEDS: metFORMIN XR 500 MG TAB PO SCH ×2 (08:54→21:12)
[2017-10-31] MEDS: Amlodipine 5 MG TAB PO SCH (08:54)
[2017-10-31] MEDS: Carvedilol 6.25 MG TAB PO SCH ×2 (08:54→21:13)
[2017-10-31] MEDS: DULoxetine 60 MG CAP PO SCH (08:55)
[2017-10-31] MEDS: Furosemide 40 MG TAB PO SCH (08:55)
[2017-10-31] MEDS: Rivastigmine 1.5 MG CAP PO SCH ×2 (08:55→17:27)
[2017-10-31] MEDS: Losartan 25 MG TAB PO SCH (08:55)
[2017-10-31] MEDS: Escitalopram Oxalate 10 mg Tablet PO SCH (08:56)
[2017-10-31] MEDS: Polyethylene Glycol 3350 17 GM Packet PO SCH (08:57)
[2017-10-31] MEDS: Atorvastatin Calcium 10 MG TAB PO SCH (08:58)
[2017-10-31] MEDS: Fluticasone Propionate Nasal Spray 16 gm Bottle NASAL SCH (08:58)
[2017-10-31] MEDS: Enoxaparin Sodium 40 MG/0.4 ML SYRINGE SC SCH (08:58)
[2017-10-31] MEDS: Benzonatate 100 MG CAP PO PRN (13:58)
[2017-10-31] MEDS: cefTRIAXone\\ROCEPHIN 2 GM in Sodium Chloride 0.9% 100 ML IVPB SCH (17:27)
[2017-10-31] MEDS: HumaLOG 300 UNITS/3 ML VIAL SC PRN (17:32)
--- NOTE | 2017-10-31 21:10 | PDOC.PN ---
- Subjective Encounter Start Date: 10/30/17 Encounter Start Time: 14:00 Patient seen and examined. No new complaints. No overnight events. Breathing is better, much less wheezing, but continues to hace hacking non-productive cough. No Fevers or chills, no N/V/D/C, no CP All systems reviewed and neg except as above - Objective Resuscitation Status: Resuscitation Status FULL:Full Resuscitation MAR Reviewed: Yes Vital Signs & Weight: Vital Signs (12 hours) Temp Pulse Resp BP Pulse Ox 10/31/17 18:50 98 10/31/17 18:48 98 10/31/17 16:03 98.2 F 70 16 115/70 94 L 10/31/17 14:08 70 14 10/31/17 11:40 98.6 F 64 16 118/71 94 L Weight Weight 267 lb I&O: 10/30/17 10/31/17 11/01/17 06:59 06:59 06:59 Intake Total 625 240 174 Balance 625 240 174 Result Diagrams: 10/30/17 04:15 10/30/17 04:15 Additional Labs: Accuchecks 10/31/17 10/31/17 10/31/17 16:08 11:44 04:43 POC Glucose 228 H 138 H 190 H 10/30/17 19:49 POC Glucose 230 H Radiology Reviewed by me: Yes (2v CXR CLEAR) Phys Exam - Physical Examination Constitutional: NAD HEENT: PERRLA, moist MMs, sclera anicteric, oral pharynx no lesions Neck: no nodes, no JVD, supple, full ROM Respiratory: no wheezing, no rales, no rhonchi, clear to auscultation bilateral Cardiovascular: RRR, no significant murmur, no rub Gastrointestinal: soft, non-tender, no distention, positive bowel sounds Musculoskeletal: pulses present, edema present Neurological: non-focal, normal sensation, moves all 4 limbs Lymphatic: no nodes Psychiatric: normal affect, A&O x 3 Dx/Plan (1) Fever Code(s): R50.9 - FEVER, UNSPECIFIED Status: Resolved Qualifiers: Fever type: unspecified Qualified Code(s): R50.9 - Fever, unspecified (2) CAD (coronary artery disease) Code(s): I25.10 - ATHSCL HEART DISEASE OF [place] CORONARY ARTERY W/O ANG PCTRS Status: Chronic Qualifiers: Coronary Disease-Associated Artery/Lesion type: bypass graft [place] vs. transplanted heart: [place] heart Associated angina: without angina Qualified Code(s): I25.810 - Atherosclerosis of coronary artery bypass graft(s) without angina pectoris Comment: h/o CABG 05/07 (3) Chronic anemia Code(s): D64.9 - ANEMIA, UNSPECIFIED Status: Chronic (4) Chronic diastolic CHF (congestive heart failure) Code(s): I50.32 - CHRONIC DIASTOLIC (CONGESTIVE) HEART FAILURE Status: Chronic Comment: Last ECHO 10/06 EF 45-50%.Mild TR (5) DM2 (diabetes mellitus, type 2) Status: Chronic Qualifiers: Diabetes mellitus correction insulin use: without terminal supervisor use Diabetes mellitus complication status: with unspecified complications Qualified Code(s) : E11.8 - Type 2 diabetes mellitus with unspecified complications (6) HLD (hyperlipidemia) Code(s): E78.5 - HYPERLIPIDEMIA, UNSPECIFIED Status: Chronic Qualifiers: Hyperlipidemia type: unspecified Qualified Code(s): E78.5 - Hyperlipidemia , unspecified (7) HTN (hypertension) Code(s): I10 - ESSENTIAL (PRIMARY) HYPERTENSION Status: Chronic Qualifiers: Hypertension type: essential hypertension Qualified Code(s): I10 - Essential (primary) hypertension (8) Morbid obesity with BMI of 45.0-49.9, adult Code(s): E66.01 - MORBID (SEVERE) OBESITY DUE TO EXCESS CALORIES; Z68.42 - BODY MASS INDEX (BMI) 45.0-49.9, ADULT Status: Chronic (9) Sleep apnea Code(s): G47.30 - SLEEP APNEA, UNSPECIFIED Status: Chronic Qualifiers: Sleep apnea type: unspecified type Qualified Code(s): G47.30 - Sleep apnea , unspecified Comment: Nocturnal BiPAP (10) COPD (chronic obstructive pulmonary disease) Status: Acute Qualifiers: COPD type: unspecified COPD Qualified Code(s): J44.9 - Chronic obstructive pulmonary disease, unspecified Comment: much better on QID duonebs and prednsone, Add in flonase and Guaifen DM for cough. Pt was to be discharged, but wanted to go to rehab, so case managementis working on it. D/C when arranged. Appropriate per PT/OT - Plan cont current plan of care, continue antibiotics, PT/OT, social media community manager, respiratory therapy, out of bed/ambulate * .
--- NOTE | 2017-10-31 21:18 | PDOC.PN ---
- Subjective Encounter Start Date: 10/31/17 Encounter Start Time: 07:55 pt doing better, cough a little better, still waiting on rehab approval. Given inurance carrier, may take a few days No F/C, no N/V/D/C, no CP except when coughing, ambulating with PT All systems reviewed and neg x as above - Objective Resuscitation Status: Resuscitation Status FULL:Full Resuscitation MAR Reviewed: Yes Vital Signs & Weight: Vital Signs (12 hours) Temp Pulse Resp BP Pulse Ox 10/31/17 18:50 98 10/31/17 18:48 98 10/31/17 16:03 98.2 F 70 16 115/70 94 L 10/31/17 14:08 70 14 10/31/17 11:40 98.6 F 64 16 118/71 94 L Weight Weight 267 lb I&O: 10/30/17 10/31/17 11/01/17 06:59 06:59 06:59 Intake Total 625 240 174 Balance 625 240 174 Result Diagrams: 10/30/17 04:15 10/30/17 04:15 Additional Labs: Accuchecks 10/31/17 10/31/17 10/31/17 16:08 11:44 04:43 POC Glucose 228 H 138 H 190 H 10/30/17 19:49 POC Glucose 230 H Phys Exam - Physical Examination Constitutional: NAD HEENT: PERRLA, moist MMs, sclera anicteric, oral pharynx no lesions Neck: no nodes, no JVD, supple, full ROM Respiratory: no wheezing, no rales, no rhonchi, clear to auscultation bilateral Cardiovascular: RRR, no rub Gastrointestinal: soft, non-tender, no distention, positive bowel sounds Musculoskeletal: pulses present, edema present Neurological: non-focal, normal sensation, moves all 4 limbs Lymphatic: no nodes Psychiatric: normal affect, A&O x 3 Skin: no rash, normal turgor, cap refill <2 seconds Dx/Plan (1) Fever Code(s): R50.9 - FEVER, UNSPECIFIED Status: Resolved Qualifiers: Fever type: unspecified Qualified Code(s): R50.9 - Fever, unspecified (2) CAD (coronary artery disease) Code(s): I25.10 - ATHSCL HEART DISEASE OF [place] CORONARY ARTERY W/O ANG PCTRS Status: Chronic Qualifiers: Coronary Disease-Associated Artery/Lesion type: bypass graft [place] vs. transplanted heart: [place] heart Associated angina: without angina Qualified Code(s): I25.810 - Atherosclerosis of coronary artery bypass graft(s) without angina pectoris Comment: h/o CABG 05/07 (3) Chronic anemia Code(s): D64.9 - ANEMIA, UNSPECIFIED Status: Chronic (4) Chronic diastolic CHF (congestive heart failure) Code(s): I50.32 - CHRONIC DIASTOLIC (CONGESTIVE) HEART FAILURE Status: Chronic Comment: Last ECHO 10/06 EF 45-50%.Mild TR (5) DM2 (diabetes mellitus, type 2) Status: Chronic Qualifiers: Diabetes mellitus detention insulin use: without detention use Diabetes mellitus complication status: with unspecified complications Qualified Code(s) : E11.8 - Type 2 diabetes mellitus with unspecified complications (6) HLD (hyperlipidemia) Code(s): E78.5 - HYPERLIPIDEMIA, UNSPECIFIED Status: Chronic Qualifiers: Hyperlipidemia type: unspecified Qualified Code(s): E78.5 - Hyperlipidemia , unspecified (7) HTN (hypertension) Code(s): I10 - ESSENTIAL (PRIMARY) HYPERTENSION Status: Chronic Qualifiers: Hypertension type: essential hypertension Qualified Code(s): I10 - Essential (primary) hypertension (8) Morbid obesity with BMI of 45.0-49.9, adult Code(s): E66.01 - MORBID (SEVERE) OBESITY DUE TO EXCESS CALORIES; Z68.42 - BODY MASS INDEX (BMI) 45.0-49.9, ADULT Status: Chronic (9) Sleep apnea Code(s): G47.30 - SLEEP APNEA, UNSPECIFIED Status: Chronic Qualifiers: Sleep apnea type: unspecified type Qualified Code(s): G47.30 - Sleep apnea , unspecified Comment: Nocturnal BiPAP (10) COPD (chronic obstructive pulmonary disease) Status: Acute Qualifiers: COPD type: unspecified COPD Qualified Code(s): J44.9 - Chronic obstructive pulmonary disease, unspecified Comment: much better on QID duonebs and prednsone, Add in flonase and Guaifen DM for cough. Pt was to be discharged, but wanted to go to rehab, so case managementis working on it. D/C when arranged. Appropriate per PT/OT - Plan * .
[2017-10-31] MEDS: Zolpidem Tartrate 5 MG TAB PO PRN (23:37)
[2017-11-01] MEDS: Benzonatate 100 MG CAP PO PRN ×3 (04:28→22:59)
[2017-11-01] MEDS: Clindamycin/D5W 900 MG in Premix Bag 1 BAG IVPB SCH ×3 (04:51→20:37)
[2017-11-01] MEDS: metFORMIN XR 500 MG TAB PO SCH ×2 (08:57→20:49)
[2017-11-01] MEDS: Gabapentin 300 MG CAP PO SCH ×3 (08:57→20:37)
[2017-11-01] MEDS: Amlodipine 5 MG TAB PO SCH (08:57)
[2017-11-01] MEDS: Aspirin 81 mg Enteric Coated Tablet PO SCH (08:57)
[2017-11-01] MEDS: Losartan 25 MG TAB PO SCH (08:58)
[2017-11-01] MEDS: Carvedilol 6.25 MG TAB PO SCH ×2 (08:58→20:37)
[2017-11-01] MEDS: DULoxetine 60 MG CAP PO SCH (08:58)
[2017-11-01] MEDS: predniSONE 20 MG TAB PO SCH (08:59)
[2017-11-01] MEDS: guaiFENesin/DM ER PO SCH ×2 (08:59→20:45)
[2017-11-01] MEDS: Escitalopram Oxalate 10 mg Tablet PO SCH (08:59)
[2017-11-01] MEDS: Famotidine 20 MG TAB PO SCH ×2 (09:00→20:37)
[2017-11-01] MEDS: Rivastigmine 1.5 MG CAP PO SCH ×2 (09:00→17:51)
[2017-11-01] MEDS: Furosemide 40 MG TAB PO SCH (09:00)
[2017-11-01] MEDS: Enoxaparin Sodium 40 MG/0.4 ML SYRINGE SC SCH (09:01)
[2017-11-01] MEDS: Polyethylene Glycol 3350 17 GM Packet PO SCH (09:01)
[2017-11-01] MEDS: Atorvastatin Calcium 10 MG TAB PO SCH (09:01)
[2017-11-01] MEDS: Fluticasone Propionate Nasal Spray 16 gm Bottle NASAL SCH (09:01)
[2017-11-01] MEDS: HumaLOG 300 UNITS/3 ML VIAL SC PRN ×2 (13:23→17:52)
[2017-11-01] MEDS: cefTRIAXone\\ROCEPHIN 2 GM in Sodium Chloride 0.9% 100 ML IVPB SCH (17:52)
[2017-11-01] MEDS: Zolpidem Tartrate 5 MG TAB PO PRN (22:59)
[2017-11-02] MEDS: Clindamycin/D5W 900 MG in Premix Bag 1 BAG IVPB SCH ×3 (04:47→20:31)
[2017-11-02] MEDS: Fluticasone Propionate Nasal Spray 16 gm Bottle NASAL SCH (04:47)
[2017-11-02 07:40] LABS: #Eosinphils 0.1 thou/uL (0.0-0.7); #Lymphocytes 2.2 thou/uL (1.20-3.40); #Monocytes 1.1 thou/uL (0.11-0.59); #Neutrophils 5.4 thou/uL (1.40-6.50); %Basophils 0.2 % (0.0-1.0); %Eosinophils 0.8 % (0.0-10.0); %Lymphocytes 25.3 % (21.0-51.0); %Neutrophils 61.7 % (42.0-75.0); Hemoglobin 10.8 g/dL (12.0-16.0); Mean Corpuscular HGB CONC 32.9 g/dL (32.0-36.0); Mean Corpuscular Hemoglobin 29.2 pg (27.0-31.0); Mean Corpuscular Volume 88.6 fl (81.0-99.0); Mean Platelet Volume 7.7 fL (7.4-10.4); Platelet Count 268 thou/uL (130-400); RBC Distribution Width 12.5 % (11.5-14.5); White Blood Cell (WBC) Count 8.8 thou/uL (4.8-10.8)
[2017-11-02 07:54] LABS: Anion Gap 14 mmol/L (10-20); BUN (Urea Nitrogen) 15 mg/dL (9.8-20.1); Calc. Creatinine Clearance 145 mL/min (70-130); Calcium 8.6 mg/dL (7.8-10.44); Carbon Dioxide 24 mmol/L (23-31); Chloride 103 mmol/L (98-107); Estimated GFR-MDRD 81; Glucose 104 mg/dL (80-115); Potassium 3.6 mmol/L (3.5-5.1); Sodium 137 mmol/L (136-145)
[2017-11-02] MEDS: guaiFENesin/DM ER PO SCH ×2 (08:44→20:30)
[2017-11-02] MEDS: Polyethylene Glycol 3350 17 GM Packet PO SCH (08:44)
[2017-11-02] MEDS: Losartan 25 MG TAB PO SCH (08:45)
[2017-11-02] MEDS: DULoxetine 60 MG CAP PO SCH (08:45)
[2017-11-02] MEDS: metFORMIN XR 500 MG TAB PO SCH ×2 (08:45→20:30)
[2017-11-02] MEDS: predniSONE 20 MG TAB PO SCH (08:45)
[2017-11-02] MEDS: Gabapentin 300 MG CAP PO SCH ×3 (08:46→20:30)
[2017-11-02] MEDS: Aspirin 81 mg Enteric Coated Tablet PO SCH (08:46)
[2017-11-02] MEDS: Rivastigmine 1.5 MG CAP PO SCH ×2 (08:46→17:13)
[2017-11-02] MEDS: Escitalopram Oxalate 10 mg Tablet PO SCH (08:46)
[2017-11-02] MEDS: Atorvastatin Calcium 10 MG TAB PO SCH (08:47)
[2017-11-02] MEDS: Famotidine 20 MG TAB PO SCH ×2 (08:47→20:30)
[2017-11-02] MEDS: Carvedilol 6.25 MG TAB PO SCH ×2 (08:47→20:31)
[2017-11-02] MEDS: Furosemide 40 MG TAB PO SCH (08:47)
[2017-11-02] MEDS: Amlodipine 5 MG TAB PO SCH (08:48)
[2017-11-02] MEDS: Enoxaparin Sodium 40 MG/0.4 ML SYRINGE SC SCH (08:48)
[2017-11-02] MEDS: Benzonatate 100 MG CAP PO PRN ×2 (11:08→20:30)
--- NOTE | 2017-11-02 13:57 | PDOC.PN ---
- Subjective Encounter Start Date: 11/01/17 Encounter Start Time: 15:00 Pt states about the same, but did not cough the entire time i was in the room. Still awaiting insurance approval for IPR. no f/c, no n/v/d/c, no CP except when actively coughing, no hemoptysis, minimal sputum Pt up walking in room and gan with PT. all systems reviewed and neg x as per HPI - Objective Resuscitation Status: Resuscitation Status FULL:Full Resuscitation MAR Reviewed: Yes Vital Signs & Weight: Vital Signs (12 hours) Temp Pulse Resp BP BP Pulse Ox 11/02/17 10:44 98 11/02/17 10:42 68 16 11/02/17 08:48 68 134/73 11/02/17 08:47 134/73 11/02/17 08:00 97.7 F 68 16 134/73 135/83 98 11/02/17 03:57 95 Weight Weight 266 lb 15.9 oz I&O: 11/01/17 11/02/17 11/03/17 06:59 06:59 06:59 Intake Total 174 750 Balance 174 750 Result Diagrams: 11/02/17 07:24 11/02/17 07:24 Additional Labs: Accuchecks 11/02/17 11/02/17 11/01/17 12:22 05:58 20:50 POC Glucose 166 H 129 H 236 H 11/01/17 16:51 POC Glucose 239 H Phys Exam - Physical Examination Constitutional: NAD HEENT: PERRLA, moist MMs, sclera anicteric, oral pharynx no lesions Neck: no nodes, no JVD, supple, full ROM Respiratory: no wheezing, no rales, no rhonchi, clear to auscultation bilateral Cardiovascular: RRR, no significant murmur, no rub Gastrointestinal: soft, non-tender, no distention, positive bowel sounds Musculoskeletal: pulses present, edema present Neurological: non-focal, normal sensation, moves all 4 limbs Lymphatic: no nodes Psychiatric: normal affect, A&O x 3 Skin: no rash, normal turgor, cap refill <2 seconds Dx/Plan (1) COPD (chronic obstructive pulmonary disease) Status: Acute Qualifiers: COPD type: unspecified COPD Qualified Code(s): J44.9 - Chronic obstructive pulmonary disease, unspecified Comment: much better on QID duonebs and prednsone, Added in flonase and Guaifen DM for cough. Pt was to be discharged, but wanted to go to rehab, so case management is working on it. D/C when arranged. Appropriate per PT/OT (2) CAD (coronary artery disease) Code(s): I25.10 - ATHSCL HEART DISEASE OF [place] CORONARY ARTERY W/O ANG PCTRS Status: Chronic Qualifiers: Coronary Disease-Associated Artery/Lesion type: bypass graft [place] vs. transplanted heart: [place] heart Associated angina: without angina Qualified Code(s): I25.810 - Atherosclerosis of coronary artery bypass graft(s) without angina pectoris Comment: h/o CABG 05/07 (3) Chronic anemia Code(s): D64.9 - ANEMIA, UNSPECIFIED Status: Chronic (4) Chronic diastolic CHF (congestive heart failure) Code(s): I50.32 - CHRONIC DIASTOLIC (CONGESTIVE) HEART FAILURE Status: Chronic Comment: Last ECHO 10/06 EF 45-50%.Mild TR (5) DM2 (diabetes mellitus, type 2) Status: Chronic Qualifiers: Diabetes mellitus extermination supervisor insulin use: without retirement use Diabetes mellitus complication status: with unspecified complications Qualified Code(s) : E11.8 - Type 2 diabetes mellitus with unspecified complications (6) HLD (hyperlipidemia) Code(s): E78.5 - HYPERLIPIDEMIA, UNSPECIFIED Status: Chronic Qualifiers: Hyperlipidemia type: unspecified Qualified Code(s): E78.5 - Hyperlipidemia , unspecified (7) HTN (hypertension) Code(s): I10 - ESSENTIAL (PRIMARY) HYPERTENSION Status: Chronic Qualifiers: Hypertension type: essential hypertension Qualified Code(s): I10 - Essential (primary) hypertension (8) Morbid obesity with BMI of 45.0-49.9, adult Code(s): E66.01 - MORBID (SEVERE) OBESITY DUE TO EXCESS CALORIES; Z68.42 - BODY MASS INDEX (BMI) 45.0-49.9, ADULT Status: Chronic (9) Sleep apnea Code(s): G47.30 - SLEEP APNEA, UNSPECIFIED Status: Chronic Qualifiers: Sleep apnea type: unspecified type Qualified Code(s): G47.30 - Sleep apnea , unspecified Comment: Nocturnal BiPAP (10) Fever Code(s): R50.9 - FEVER, UNSPECIFIED Status: Resolved Qualifiers: Fever type: unspecified Qualified Code(s): R50.9 - Fever, unspecified - Plan * .
--- NOTE | 2017-11-02 13:59 | PDOC.PN ---
- Subjective Encounter Start Date: 11/02/17 Encounter Start Time: 14:30 no events, improving slowly, randy activity a little better, no changes regarding placement, dont expect to hear anything until tomorrow no F/C, no n/V/D/C,no CP, less cough,no hemoptysis. edema to BLE stable, no falls All systems reviewed and neg x as per HPI - Objective Resuscitation Status: Resuscitation Status FULL:Full Resuscitation MAR Reviewed: Yes Vital Signs & Weight: Vital Signs (12 hours) Temp Pulse Resp BP BP Pulse Ox 11/02/17 10:44 98 11/02/17 10:42 68 16 11/02/17 08:48 68 134/73 11/02/17 08:47 134/73 11/02/17 08:00 97.7 F 68 16 134/73 135/83 98 11/02/17 03:57 95 Weight Weight 266 lb 15.9 oz I&O: 11/01/17 11/02/17 11/03/17 06:59 06:59 06:59 Intake Total 174 750 Balance 174 750 Result Diagrams: 11/02/17 07:24 11/02/17 07:24 Additional Labs: Accuchecks 11/02/17 11/02/17 11/01/17 12:22 05:58 20:50 POC Glucose 166 H 129 H 236 H 11/01/17 16:51 POC Glucose 239 H Phys Exam - Physical Examination Constitutional: NAD HEENT: PERRLA, moist MMs, sclera anicteric, oral pharynx no lesions Neck: no nodes, no JVD, supple, full ROM Respiratory: no wheezing, no rales, no rhonchi, clear to auscultation bilateral Cardiovascular: RRR, no significant murmur, no rub Gastrointestinal: soft, non-tender, no distention, positive bowel sounds Musculoskeletal: pulses present, edema present Neurological: non-focal, normal sensation, moves all 4 limbs Lymphatic: no nodes Psychiatric: normal affect, A&O x 3 Skin: no rash, normal turgor, cap refill <2 seconds Dx/Plan (1) COPD (chronic obstructive pulmonary disease) Status: Acute Qualifiers: COPD type: unspecified COPD Qualified Code(s): J44.9 - Chronic obstructive pulmonary disease, unspecified Comment: much better on QID duonebs and prednsone, Added in flonase and Guaifen DM for cough. Pt was to be discharged, but wanted to go to rehab, so case management is working on it. D/C when arranged. Appropriate per PT/OT. no changes today (2) CAD (coronary artery disease) Code(s): I25.10 - ATHSCL HEART DISEASE OF [place] CORONARY ARTERY W/O ANG PCTRS Status: Chronic Qualifiers: Coronary Disease-Associated Artery/Lesion type: bypass graft [place] vs. transplanted heart: [place] heart Associated angina: without angina Qualified Code(s): I25.810 - Atherosclerosis of coronary artery bypass graft(s) without angina pectoris Comment: h/o CABG 05/07 (3) Chronic anemia Code(s): D64.9 - ANEMIA, UNSPECIFIED Status: Chronic (4) Chronic diastolic CHF (congestive heart failure) Code(s): I50.32 - CHRONIC DIASTOLIC (CONGESTIVE) HEART FAILURE Status: Chronic Comment: Last ECHO 10/06 EF 45-50%.Mild TR (5) DM2 (diabetes mellitus, type 2) Status: Chronic Qualifiers: Diabetes mellitus group home insulin use: without emt intermediate use Diabetes mellitus complication status: with unspecified complications Qualified Code(s) : E11.8 - Type 2 diabetes mellitus with unspecified complications (6) HLD (hyperlipidemia) Code(s): E78.5 - HYPERLIPIDEMIA, UNSPECIFIED Status: Chronic Qualifiers: Hyperlipidemia type: unspecified Qualified Code(s): E78.5 - Hyperlipidemia , unspecified (7) HTN (hypertension) Code(s): I10 - ESSENTIAL (PRIMARY) HYPERTENSION Status: Chronic Qualifiers: Hypertension type: essential hypertension Qualified Code(s): I10 - Essential (primary) hypertension (8) Morbid obesity with BMI of 45.0-49.9, adult Code(s): E66.01 - MORBID (SEVERE) OBESITY DUE TO EXCESS CALORIES; Z68.42 - BODY MASS INDEX (BMI) 45.0-49.9, ADULT Status: Chronic (9) Sleep apnea Code(s): G47.30 - SLEEP APNEA, UNSPECIFIED Status: Chronic Qualifiers: Sleep apnea type: unspecified type Qualified Code(s): G47.30 - Sleep apnea , unspecified Comment: Nocturnal BiPAP (10) Fever Code(s): R50.9 - FEVER, UNSPECIFIED Status: Resolved Qualifiers: Fever type: unspecified Qualified Code(s): R50.9 - Fever, unspecified - Plan * .
[2017-11-02] MEDS: cefTRIAXone\\ROCEPHIN 2 GM in Sodium Chloride 0.9% 100 ML IVPB SCH (17:14)
[2017-11-02] MEDS: HumaLOG 300 UNITS/3 ML VIAL SC PRN (17:15)
[2017-11-02] MEDS: Zolpidem Tartrate 5 MG TAB PO PRN (23:00)
[2017-11-03] MEDS: Clindamycin/D5W 900 MG in Premix Bag 1 BAG IVPB SCH ×3 (04:26→20:12)
[2017-11-03] MEDS: Losartan 25 MG TAB PO SCH (08:29)
[2017-11-03] MEDS: predniSONE 20 MG TAB PO SCH (08:29)
[2017-11-03] MEDS: guaiFENesin/DM ER PO SCH ×2 (08:30→20:14)
[2017-11-03] MEDS: Carvedilol 6.25 MG TAB PO SCH ×2 (08:30→20:13)
[2017-11-03] MEDS: Escitalopram Oxalate 10 mg Tablet PO SCH (08:30)
[2017-11-03] MEDS: Atorvastatin Calcium 10 MG TAB PO SCH (08:30)
[2017-11-03] MEDS: Furosemide 40 MG TAB PO SCH (08:30)
[2017-11-03] MEDS: DULoxetine 60 MG CAP PO SCH (08:30)
[2017-11-03] MEDS: Famotidine 20 MG TAB PO SCH ×2 (08:30→20:13)
[2017-11-03] MEDS: Amlodipine 5 MG TAB PO SCH (08:30)
[2017-11-03] MEDS: Gabapentin 300 MG CAP PO SCH ×3 (08:30→20:13)
[2017-11-03] MEDS: Aspirin 81 mg Enteric Coated Tablet PO SCH (08:31)
[2017-11-03] MEDS: Enoxaparin Sodium 40 MG/0.4 ML SYRINGE SC SCH (08:31)
[2017-11-03] MEDS: Polyethylene Glycol 3350 17 GM Packet PO SCH (08:31)
[2017-11-03] MEDS: Rivastigmine 1.5 MG CAP PO SCH ×2 (08:31→16:27)
[2017-11-03] MEDS: metFORMIN XR 500 MG TAB PO SCH ×2 (08:32→20:14)
[2017-11-03] MEDS: Fluticasone Propionate Nasal Spray 16 gm Bottle NASAL SCH (08:32)
[2017-11-03] MEDS: Benzonatate 100 MG CAP PO PRN ×2 (08:40→20:14)
--- NOTE | 2017-11-03 11:24 | PDOC.PN ---
- Subjective Encounter Start Date: 11/03/17 Encounter Start Time: 11:00 Subjective: Patient with continued weakness, requiring standby assist, not able to -: ambulate very far with PT this AM. Dyspnea on exertion unchanged. No -: new complaints. - Objective Resuscitation Status: Resuscitation Status FULL:Full Resuscitation MAR Reviewed: Yes Vital Signs & Weight: Vital Signs (12 hours) Temp Pulse Resp BP BP Pulse Ox 11/03/17 10:25 73 16 96 11/03/17 08:30 73 131/68 11/03/17 08:14 98.4 F 73 20 149/95 H 96 11/03/17 08:00 98.4 F 73 20 11/03/17 06:41 67 16 94 L 11/03/17 02:58 95 11/03/17 02:50 78 16 95 Weight Weight 266 lb 15.888 oz I&O: 11/02/17 11/03/17 11/04/17 06:59 06:59 06:59 Intake Total 750 200 700 Balance 750 200 700 Result Diagrams: 11/02/17 07:24 11/02/17 07:24 Additional Labs: Accuchecks 11/03/17 11/02/17 11/02/17 05:07 19:08 16:59 POC Glucose 140 H 229 H 264 H 11/02/17 12:22 POC Glucose 166 H Phys Exam - Physical Examination Constitutional: NAD HEENT: moist MMs Respiratory: no wheezing, no rales, no rhonchi increased WOB after ambulation, on O2 Cardiovascular: RRR, no significant murmur Gastrointestinal: soft, positive bowel sounds Neurological: non-focal, moves all 4 limbs Psychiatric: normal affect, A&O x 3 Dx/Plan (1) COPD (chronic obstructive pulmonary disease) Status: Acute Qualifiers: COPD type: unspecified COPD Qualified Code(s): J44.9 - Chronic obstructive pulmonary disease, unspecified Comment: much better on QID duonebs and prednsone, Added in flonase and Guaifen DM for cough. Pt was to be discharged, but wanted to go to rehab, insurance denied by rehab, patient doesn't think strong enough to go home so will set up SNF (2) CAD (coronary artery disease) Code(s): I25.10 - ATHSCL HEART DISEASE OF [place] CORONARY ARTERY W/O ANG PCTRS Status: Chronic Qualifiers: Coronary Disease-Associated Artery/Lesion type: bypass graft [place] vs. transplanted heart: [place] heart Associated angina: without angina Qualified Code(s): I25.810 - Atherosclerosis of coronary artery bypass graft(s) without angina pectoris Comment: h/o CABG 05/07 (3) Chronic anemia Code(s): D64.9 - ANEMIA, UNSPECIFIED Status: Chronic (4) Chronic diastolic CHF (congestive heart failure) Code(s): I50.32 - CHRONIC DIASTOLIC (CONGESTIVE) HEART FAILURE Status: Chronic Comment: Last ECHO 10/06 EF 45-50%.Mild TR (5) DM2 (diabetes mellitus, type 2) Status: Chronic Qualifiers: Diabetes mellitus long-term insulin use: without local intermodal truck driver use Diabetes mellitus complication status: with unspecified complications Qualified Code(s) : E11.8 - Type 2 diabetes mellitus with unspecified complications (6) HLD (hyperlipidemia) Code(s): E78.5 - HYPERLIPIDEMIA, UNSPECIFIED Status: Chronic Qualifiers: Hyperlipidemia type: unspecified Qualified Code(s): E78.5 - Hyperlipidemia , unspecified (7) HTN (hypertension) Code(s): I10 - ESSENTIAL (PRIMARY) HYPERTENSION Status: Chronic Qualifiers: Hypertension type: essential hypertension Qualified Code(s): I10 - Essential (primary) hypertension (8) Morbid obesity with BMI of 45.0-49.9, adult Code(s): E66.01 - MORBID (SEVERE) OBESITY DUE TO EXCESS CALORIES; Z68.42 - BODY MASS INDEX (BMI) 45.0-49.9, ADULT Status: Chronic (9) Sleep apnea Code(s): G47.30 - SLEEP APNEA, UNSPECIFIED Status: Chronic Qualifiers: Sleep apnea type: unspecified type Qualified Code(s): G47.30 - Sleep apnea , unspecified Comment: Nocturnal BiPAP (10) Fever Code(s): R50.9 - FEVER, UNSPECIFIED Status: Resolved Qualifiers: Fever type: unspecified Qualified Code(s): R50.9 - Fever, unspecified - Plan cont current plan of care, PT/OT, respiratory therapy To SNF when approved * . - Discharge Day Encounter end time: 11:35
[2017-11-03] MEDS: HumaLOG 300 UNITS/3 ML VIAL SC PRN ×3 (12:10→20:20)
[2017-11-03] MEDS: cefTRIAXone\\ROCEPHIN 2 GM in Sodium Chloride 0.9% 100 ML IVPB SCH (18:14)
[2017-11-03] MEDS: Zolpidem Tartrate 5 MG TAB PO PRN (20:15)
[2017-11-04] MEDS: Clindamycin/D5W 900 MG in Premix Bag 1 BAG IVPB SCH ×2 (04:04→12:05)
[2017-11-04 07:47] VITALS: BP 122/61; TEMP 97.6
[2017-11-04] MEDS: predniSONE 20 MG TAB PO SCH (09:26)
[2017-11-04] MEDS: metFORMIN XR 500 MG TAB PO SCH (09:27)
[2017-11-04] MEDS: Losartan 25 MG TAB PO SCH (09:27)
[2017-11-04] MEDS: Rivastigmine 1.5 MG CAP PO SCH (09:27)
[2017-11-04] MEDS: Escitalopram Oxalate 10 mg Tablet PO SCH (09:27)
[2017-11-04] MEDS: Famotidine 20 MG TAB PO SCH (09:29)
[2017-11-04] MEDS: Aspirin 81 mg Enteric Coated Tablet PO SCH (09:29)
[2017-11-04] MEDS: guaiFENesin/DM ER PO SCH (09:29)
[2017-11-04] MEDS: DULoxetine 60 MG CAP PO SCH (09:29)
[2017-11-04] MEDS: Furosemide 40 MG TAB PO SCH (09:29)
[2017-11-04] MEDS: Enoxaparin Sodium 40 MG/0.4 ML SYRINGE SC SCH (09:29)
[2017-11-04] MEDS: Atorvastatin Calcium 10 MG TAB PO SCH (09:29)
[2017-11-04] MEDS: Amlodipine 5 MG TAB PO SCH (09:29)
[2017-11-04] MEDS: Gabapentin 300 MG CAP PO SCH (09:29)
[2017-11-04] MEDS: Polyethylene Glycol 3350 17 GM Packet PO SCH (09:30)
[2017-11-04] MEDS: Fluticasone Propionate Nasal Spray 16 gm Bottle NASAL SCH (09:30)
[2017-11-04] MEDS: Carvedilol 6.25 MG TAB PO SCH (09:34)
[2017-11-04] MEDS: Benzonatate 100 MG CAP PO PRN (09:41)
--- NOTE | 2017-11-04 09:45 | PDOC.PN ---
- Subjective Encounter Start Date: 11/04/17 Encounter Start Time: 12:00 Subjective: Patient without new complaint. Cough getting sputum up -: a bit better. No chest pain. ARRIOLA is stable. - Objective Resuscitation Status: Resuscitation Status FULL:Full Resuscitation MAR Reviewed: Yes Vital Signs & Weight: Vital Signs (12 hours) Temp Pulse Resp BP BP Pulse Ox 11/04/17 09:34 122/61 11/04/17 09:29 61 122/61 11/04/17 07:44 97.6 F 61 20 122/61 97 11/04/17 07:37 60 18 96 11/04/17 01:42 67 18 99 11/04/17 00:00 97.9 F 67 20 121/73 99 11/03/17 22:15 63 16 94 L Weight Weight 266 lb 15.888 oz I&O: 11/03/17 11/04/17 11/05/17 06:59 06:59 06:59 Intake Total 200 2240 Balance 200 2240 Result Diagrams: 11/02/17 07:24 11/02/17 07:24 Additional Labs: Accuchecks 11/04/17 11/03/17 11/03/17 04:42 19:17 16:23 POC Glucose 133 H 268 H 316 H 11/03/17 11:10 POC Glucose 190 H Phys Exam - Physical Examination Constitutional: NAD HEENT: moist MMs Respiratory: no rales, no rhonchi coarse breath sounds bilaterally, decent air movement throughout Cardiovascular: RRR, no significant murmur Gastrointestinal: soft, positive bowel sounds Neurological: non-focal, moves all 4 limbs Psychiatric: normal affect, A&O x 3 Dx/Plan (1) COPD (chronic obstructive pulmonary disease) Status: Acute Qualifiers: COPD type: unspecified COPD Qualified Code(s): J44.9 - Chronic obstructive pulmonary disease, unspecified Comment: much better on QID duonebs and prednsone, Added in flonase and Guaifen DM for cough. Pt was to be discharged, but wanted to go to rehab, insurance denied by rehab, patient doesn't think strong enough to go home so will set up SNF, finished 7 days of Rocephin and Clindamycin, d/c'ing (2) CAD (coronary artery disease) Code(s): I25.10 - ATHSCL HEART DISEASE OF [place] CORONARY ARTERY W/O ANG PCTRS Status: Chronic Qualifiers: Coronary Disease-Associated Artery/Lesion type: bypass graft [place] vs. transplanted heart: [place] heart Associated angina: without angina Qualified Code(s): I25.810 - Atherosclerosis of coronary artery bypass graft(s) without angina pectoris Comment: h/o CABG 05/07 (3) Chronic anemia Code(s): D64.9 - ANEMIA, UNSPECIFIED Status: Chronic (4) Chronic diastolic CHF (congestive heart failure) Code(s): I50.32 - CHRONIC DIASTOLIC (CONGESTIVE) HEART FAILURE Status: Chronic Comment: Last ECHO 10/06 EF 45-50%.Mild TR (5) DM2 (diabetes mellitus, type 2) Status: Chronic Qualifiers: Diabetes mellitus nursing home insulin use: without long term care pharmacist use Diabetes mellitus complication status: with unspecified complications Qualified Code(s) : E11.8 - Type 2 diabetes mellitus with unspecified complications (6) HLD (hyperlipidemia) Code(s): E78.5 - HYPERLIPIDEMIA, UNSPECIFIED Status: Chronic Qualifiers: Hyperlipidemia type: unspecified Qualified Code(s): E78.5 - Hyperlipidemia , unspecified (7) HTN (hypertension) Code(s): I10 - ESSENTIAL (PRIMARY) HYPERTENSION Status: Chronic Qualifiers: Hypertension type: essential hypertension Qualified Code(s): I10 - Essential (primary) hypertension (8) Morbid obesity with BMI of 45.0-49.9, adult Code(s): E66.01 - MORBID (SEVERE) OBESITY DUE TO EXCESS CALORIES; Z68.42 - BODY MASS INDEX (BMI) 45.0-49.9, ADULT Status: Chronic (9) Sleep apnea Code(s): G47.30 - SLEEP APNEA, UNSPECIFIED Status: Chronic Qualifiers: Sleep apnea type: unspecified type Qualified Code(s): G47.30 - Sleep apnea , unspecified Comment: Nocturnal BiPAP (10) Fever Code(s): R50.9 - FEVER, UNSPECIFIED Status: Resolved Qualifiers: Fever type: unspecified Qualified Code(s): R50.9 - Fever, unspecified - Plan cont current plan of care d/c when SNF arranged * . - Discharge Day Encounter end time: 12:20
[2017-11-04] MEDS: HumaLOG 300 UNITS/3 ML VIAL SC PRN (15:42)
--- NOTE | 2017-11-05 02:44 | DIS ---
PRIMARY CARE PHYSICIAN: Dr. Chanda Love. REASON FOR ADMISSION: Chronic obstructive pulmonary disease exacerbation with fever. DISCHARGE DIAGNOSES: 1. Chronic obstructive pulmonary disease exacerbation. 2. Coronary artery disease. 3. Chronic anemia. 4. Chronic diastolic congestive heart failure. 5. Diabetes mellitus type 2. 6. Hyperlipidemia. 7. Hypertension. 8. Morbid obesity. 9. Sleep apnea. 10. Fever, resolved. PROCEDURES: None. CONSULTATIONS: None. SUMMARY OF HOSPITAL COURSE: This is a 67-year-old female with known COPD, who has been recently admi tted for accidental benzodiazepine overdose, UTI, possible aspiration pneumonia. The patient was dis charged home on antibiotics. She had persistent coughing that seemed to be worsening at home and the n was reportedly febrile to 102, and had a chest x-ray showing a possible left lower lobe infiltrate in Dr. Love's office. She was sent to the Emergency Department. In the ER, she did have a fever o f 102. Chest x-ray however was clear and white blood cell count was just 11. The patient was put on observation in the hospital. She had no further fevers overnight and her breathing was at baseline, so she was considered clear for discharge. However, the patient was very weak and has trouble ambul ating because of her obesity and generalized weakness from her COPD, and so she was evaluated for dre abilitation. Insurance denied rehabilitation; however, the patient did not feel safe going home, giv en her difficulty with ambulation after recent hospitalization, and so she is being discharged to a [facility] facility. DISCHARGE MANAGEMENT: Discharged to [facility]. ACTIVITY: As tolerated. DIET: Healthy heart, low-sodium diet. THERAPY: Occupational and physical therapy. TREATMENTS: CPAP, nebulizer treatments, and oxygen. MEDICATIONS: 1. Amlodipine 5 mg daily. 2. Aspirin 81 mg daily. 3. Atorvastatin 10 mg daily. 4. Carvedilol 12.5 mg twice a day. 5. Duloxetine 60 mg daily. 6. Furosemide 40 mg daily. 7. Gabapentin 600 mg 3 times a day. 8. Losartan 12.5 mg daily. 9. Metformin 500 mg twice a day. 10. Prilosec 20 mg daily. 11. Rivastigmine 3 mg twice a day. 12. Albuterol neb q.2 hours as needed. 13. Vitamin C 1000 mg daily. 14. Tessalon Perles 200 mg 3 times a day as needed for cough. 15. Calcium carbonate 600 mg twice a day. 16. Flexeril 10 mg at night. 17. Docusate 100 mg daily. 18. Lexapro 5 mg daily. 19. Ferrous sulfate 325 mg daily. 20. Flonase 2 puffs in each nostril daily. 21. DuoNeb q.6 hours scheduled. 22. Xyzal 5 mg daily. 23. Lorazepam 1 mg at night. 24. RPR as needed. 25. MiraLax 17 grams daily. 26. Ambien 5 mg at night as needed. The patient is to follow up with Dr. Love as needed.
--- NOTE | 2017-11-08 17:05 | EKG ---
Test Reason : Blood Pressure : / mmHG Vent. Rate : 083 BPM Atrial Rate : 083 BPM P-R Int : 204 ms QRS Dur : 086 ms QT Int : 402 ms P-R-T Axes : 020 -03 072 degrees QTc Int : 472 ms Normal sinus rhythm Low voltage QRS Possible Anterolateral infarct , age undetermined Abnormal ECG Confirmed by MYLES HOOK ([id number]), editorial intern SUZETTE SERRANO ([id number]) on 11/08/2017 5:04:53 PM Referred By: Confirmed By:MYLES HOOK
== END 2017-11-04 15:47 ==
LOC: ERS 13:04 → T4-A 16:44
PROVIDERS: ADMIT Internal Medicine Infectious Disease; ATTEND Internal Medicine Infectious Disease
DX: J44.1 Chronic obstructive pulmonary disease with (acute) exacerbation (principal); J96.11 Chronic respiratory failure with hypoxia; I25.10 Atherosclerotic heart disease of native coronary artery without angina pectoris; E78.5 Hyperlipidemia, unspecified; I11.0 Hypertensive heart disease with heart failure; I50.32 Chronic diastolic (congestive) heart failure; G47.30 Sleep apnea, unspecified; F03.90 Unspecified dementia, unspecified severity, without behavioral disturbance, psychotic disturbance, mood disturbance, and anxiety; F32.9 Major depressive disorder, single episode, unspecified; E11.42 Type 2 diabetes mellitus with diabetic polyneuropathy; G43.909 Migraine, unspecified, not intractable, without status migrainosus; D53.9 Nutritional anemia, unspecified; R50.9 Fever, unspecified; E66.01 Morbid (severe) obesity due to excess calories; Z68.42 Body mass index [BMI] 45.0-49.9, adult; Z86.73 Personal history of transient ischemic attack (TIA), and cerebral infarction without residual deficits; Z86.718 Personal history of other venous thrombosis and embolism; Z79.82 Long term (current) use of aspirin; Z79.84 Long term (current) use of oral hypoglycemic drugs; Z79.899 Other long term (current) drug therapy; Z88.0 Allergy status to penicillin; Z88.5 Allergy status to narcotic agent; Z91.041 Radiographic dye allergy status
CPT/HCPCS: 51701; 71045; 71046; 80048 ×2; 80053; 81003; 82553; 82962 ×7; 83605; 83735 ×2; 84484; 85025 ×3; 87040; 87086; 93005; 94640 ×7; 96361; 96365; 96366 ×8; 96367 ×2; 96372 ×7; 96374; 97116 ×3; 97139 ×2; 97530 ×2; 99285; G0378 ×2; G8978; G8979; G8987; G8988; 36415; 36416; A4216; A4353; J0692; J0696; J1580; J1650; J3370; J3490; J7050; J7506; J7620

== ENCOUNTER 2018-01-12 15:01 | Observation (INO) | payer MEDICARE ==
[2018-01-12 15:44] LABS: #Eosinphils 0.3 thou/uL (0.0-0.7); #Lymphocytes 1.6 thou/uL (1.20-3.40); #Monocytes 0.9 thou/uL (0.11-0.59); #Neutrophils 7.7 thou/uL (1.40-6.50); %Basophils 0.2 % (0.0-1.0); %Eosinophils 2.7 % (0.0-10.0); %Lymphocytes 15.3 % (21.0-51.0); %Monocytes 8.7 % (0.0-10.0); %Neutrophils 73.2 % (42.0-75.0); Hemoglobin 11.2 g/dL (12.0-16.0); Mean Corpuscular HGB CONC 34.5 g/dL (32.0-36.0); Mean Corpuscular Hemoglobin 29.9 pg (27.0-31.0); Mean Corpuscular Volume 86.7 fL (78.0-98.0); Mean Platelet Volume 7.4 fL (7.4-10.4); Platelet Count 238 thou/uL (130-400); RBC Distribution Width 12.3 % (11.5-14.5); Red Blood Cell (RBC) Count 3.73 mill/uL (4.20-5.40); White Blood Cell (WBC) Count 10.5 thou/uL (4.8-10.8)
--- NOTE | 2018-01-12 15:55 | RAD ---
PORTABLE AP CHEST XRAY: DATE: 01/12/18. History Chest pain, left groin and inguinal pain for 4 months. COMPARISON: 10/30/17. FINDINGS: Postsurgical changes related to CABG are noted. There are fractured sternal wires again present. Ca rdiac silhouette is magnified by projection. Pulmonary vasculature is within normal limits. The aletha gs are clear. There has been no significant interval change compared to the prior exam. IMPRESSION: Stable chest without evidence of an acute cardiopulmonary process. POS: GABRIELLE
[2018-01-12 16:06] LABS: ALT (SGPT) 22 U/L (8-55); AST (SGOT) 24 U/L (5-34); Alkaline Phosphatase 91 U/L (40-150); Anion Gap 20 mmol/L (10-20); BUN (Urea Nitrogen) 32 mg/dL (9.8-20.1); Bilirubin, Total 0.6 mg/dL (0.2-1.2); CK (CPK) 55 U/L (29-168); Calc. Creatinine Clearance 0 mL/min (70-130); Calcium 9.4 mg/dL (7.8-10.44); Carbon Dioxide 25 mmol/L (23-31); Chloride 93 mmol/L (98-107); Estimated GFR-MDRD 43; Globulin 3.3 g/dL (2.4-3.5); Glucose 103 mg/dL (80-115); Lipase 39 U/L (8-78); Potassium 4.1 mmol/L (3.5-5.1); Protein, Total 7.3 g/dL (6.0-8.3); Sodium 134 mmol/L (136-145)
[2018-01-12 16:10] LABS: Troponin I Less than 0.010 ng/mL (< 0.028)
[2018-01-12] MEDS ORDERED: Ondansetron ODT 4 MG TAB ONE (17:21)
[2018-01-12] MEDS ORDERED: Nitroglycerin 2% Ointment 1 INCH/1 GM Packet ONE (17:39)
[2018-01-12 18:56] LABS: Troponin I Less than 0.010 ng/mL (< 0.028)
[2018-01-12] MEDS ORDERED: Ondansetron HCl/PF 4 MG/2 ML Vial IVP PRN (19:44)
[2018-01-12] MEDS ORDERED: Acetaminophen 325 MG TAB PO PRN (19:44)
[2018-01-12] MEDS ORDERED: Benzonatate 100 MG CAP PO PRN (19:47)
[2018-01-12] MEDS ORDERED: Albuterol Sulfate 2.5 mg/3 ml Neb NEB PRN (19:47)
[2018-01-12] MEDS ORDERED: Cyclobenzaprine 10 MG TAB PO PRN (19:47)
[2018-01-12] MEDS ORDERED: Zolpidem Tartrate 5 MG TAB PO PRN (19:47)
[2018-01-12 21:58] LABS: Troponin I Less than 0.010 ng/mL (< 0.028)
[2018-01-12] MEDS ORDERED: Zolpidem Tartrate 5 MG TAB ONE (22:41)
[2018-01-13] MEDS: Gabapentin 300 MG CAP PO SCH ×3 (01:07→16:26)
[2018-01-13] MEDS: Calcium Carbonate 600 MG TAB PO SCH ×2 (01:07→09:05)
[2018-01-13] MEDS: Carvedilol 6.25 MG TAB PO SCH ×2 (01:07→09:03)
[2018-01-13 02:32] VITALS: BMI 44.6
[2018-01-13 05:31] LABS: #Eosinphils 0.3 thou/uL (0.0-0.7); #Lymphocytes 1.5 thou/uL (1.20-3.40); #Monocytes 0.7 thou/uL (0.11-0.59); %Basophils 0.6 % (0.0-1.0); %Eosinophils 4.1 % (0.0-10.0); %Lymphocytes 23.1 % (21.0-51.0); %Monocytes 10.2 % (0.0-10.0); Hemoglobin 10.2 g/dL (12.0-16.0); Mean Corpuscular HGB CONC 33.2 g/dL (32.0-36.0); Mean Corpuscular Hemoglobin 28.9 pg (27.0-31.0); Mean Corpuscular Volume 87.1 fL (78.0-98.0); Mean Platelet Volume 7.8 fL (7.4-10.4); Platelet Count 211 thou/uL (130-400); RBC Distribution Width 12.2 % (11.5-14.5); Red Blood Cell (RBC) Count 3.52 mill/uL (4.20-5.40); White Blood Cell (WBC) Count 6.4 thou/uL (4.8-10.8)
[2018-01-13 06:04] LABS: Anion Gap 18 mmol/L (10-20); BUN (Urea Nitrogen) 35 mg/dL (9.8-20.1); Calc. Creatinine Clearance 91 mL/min (70-130); Calcium 8.8 mg/dL (7.8-10.44); Carbon Dioxide 28 mmol/L (23-31); Chloride 92 mmol/L (98-107); Estimated GFR-MDRD 49; Glucose 117 mg/dL (80-115); Potassium 3.2 mmol/L (3.5-5.1); Sodium 135 mmol/L (136-145)
[2018-01-13] MEDS ORDERED: Atorvastatin Calcium 10 MG TAB PO SCH (09:00)
[2018-01-13] MEDS ORDERED: Enoxaparin Sodium 40 MG/0.4 ML SYRINGE SC SCH (09:00)
[2018-01-13] MEDS ORDERED: Aspirin 81 mg Enteric Coated Tablet PO SCH (09:00)
[2018-01-13] MEDS ORDERED: Fluticasone Propionate Nasal Spray 16 gm Bottle NASAL SCH (09:00)
[2018-01-13] MEDS: Rivastigmine 1.5 MG CAP PO SCH ×2 (09:00→16:26)
[2018-01-13] MEDS ORDERED: Losartan 25 MG TAB PO SCH (09:00)
[2018-01-13] MEDS ORDERED: Escitalopram Oxalate 10 mg Tablet PO SCH (09:00)
[2018-01-13] MEDS ORDERED: Loratadine 10 MG TAB PO SCH (09:00)
[2018-01-13] MEDS ORDERED: DULoxetine 60 MG CAP PO SCH (09:00)
[2018-01-13] MEDS ORDERED: Prevnar 13-Val Conj/PF 0.5 ML SYRINGE IM ONE (09:00)
[2018-01-13] MEDS ORDERED: Ferrous Sulfate 325 MG TAB PO SCH (09:00)
[2018-01-13] MEDS ORDERED: Docusate 100 MG CAP PO SCH (09:00)
[2018-01-13] MEDS ORDERED: Amlodipine 5 MG TAB PO SCH (09:00)
[2018-01-13] MEDS ORDERED: ALPRAZolam 0.25 MG TAB PO PRN (12:01)
[2018-01-13 15:42] VITALS: BP 94/65; TEMP 97.6
--- NOTE | 2018-01-13 19:05 | CON ---
DATE OF CONSULTATION: 01/13/2018 REASON FOR CONSULTATION: Chest pain, hypertension. HISTORY OF PRESENT ILLNESS: Mrs. Wyatt is a very pleasant 67-year-old white female very well known t o myself who comes to the hospital for low blood pressure. She recently had her Lasix and torsemide switched over as she was gaining some weight from her cardiomyopathy and she managed to lose 10 pound s. She was feeling fine and her home health nurse came by and noted that her blood pressure was in t he 80s/40s, so asked her to come to the hospital. Here, her blood pressure has been still borderline , but much better in the 90s/60s and she is feeling back to normal. She has a dehiscence of her ster nal bone and she has chronic mid sternal chest pain. She mentioned chest when she was admitted for r ule out. She states that the pain is the same as it has always been. PAST MEDICAL HISTORY: 1. Type 2 diabetes. 2. Chronic obstructive pulmonary disease. 3. SVETA. 4. Morbid obesity. 5. Carotid artery disease, mild. 6. Coronary artery disease, status post bypass grafting. 7. Hypertension. 8. Hyperlipidemia. 9. DVT in the past. 10. 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 PAST SURGICAL HISTORY: 1. Back surgery. 2. Coronary artery bypass grafting in 2014. 3. Sternal wound dehiscence treated medically. OUTPATIENT MEDICATIONS: Reviewed: 1. Insulin. 2. Metformin. 3. Torsemide at 4 mg a day. 4. Potassium chloride 20 mEq a day. 5. Omeprazole. 6. Losartan 25 mg a day. 7. Gabapentin. 8. Ferrous sulfate. 9. Aricept. 10. Docusate. 11. Depakote. 12. Cymbalta. 13. Carvedilol 6.25 b.i.d. 14. Calcium. 15. Atorvastatin 10 mg a day. 16. Aspirin 81 a day. 17. Vitamin C. 18. Amlodipine 5 mg a day. ALLERGIES: IODINE, CODEINE, PENICILLIN. SOCIAL HISTORY: Former smoker, no alcohol, drugs. FAMILY HISTORY: Noncontributory. REVIEW OF SYSTEMS: Twelve-point review of systems is also negative unless stated in the history of p resent illness. PHYSICAL EXAMINATION: VITAL SIGNS: Temperature 97.6, pulse 68, respiration rate 16, satting 97% on room air, blood pressur e 94/65. GENERAL: Awake, alert, oriented x3, in no distress. HEENT: Normocephalic. NECK: Supple. LUNGS: Clear. CARDIOVASCULAR: S1, S2, no S3, S4, no murmurs. ABDOMEN: Soft with good bowel sounds. EXTREMITIES: 1+ edema. SKIN: Warm and dry. LABORATORY WORK: Reviewed. Sodium 135, potassium 3.2, chloride 92, BUN of 35, creatinine 1.12, whic h is close to her baseline which is 1.24 on arrival, her baseline is 0.75. Troponin is negative x3. BNP was 78. Chest x-ray was reviewed. ASSESSMENT AND PLAN: 1. Hypotension, likely related to over diuresis. Much better now. We will ask her to skip her tors emide and only use it as needed for now, until if she gains 3 pounds, she may start taking it to try to get that weight off. 2. She may be discharged home today, she has inoperable coronary artery disease. At this time, no p lizett on any interventions or catheterization. Thank you for letting us to participate in the care of patient.
--- NOTE | 2018-01-17 11:12 | EKG ---
Test Reason : Blood Pressure : / mmHG Vent. Rate : 065 BPM Atrial Rate : 065 BPM P-R Int : 256 ms QRS Dur : 100 ms QT Int : 470 ms P-R-T Axes : 050 -40 086 degrees QTc Int : 488 ms Sinus rhythm with 1st degree A-V block with occasional Premature ventricular complexes Left axis deviation Low voltage QRS Inferior infarct , age undetermined Anterolateral infarct , age undetermined Abnormal ECG Confirmed by AIRAM GÓMEZ M.D. ([id number]), international editorial producer SUZET[employer] SERRANO ([id number]) on 01/17/2018 11:11:56 AM Referred By: Confirmed By:AIRAM GÓMEZ M.D.
--- NOTE | 2018-01-17 11:29 | EKG ---
Test Reason : CP Blood Pressure : / mmHG Vent. Rate : 072 BPM Atrial Rate : 072 BPM P-R Int : 244 ms QRS Dur : 092 ms QT Int : 444 ms P-R-T Axes : 043 -31 080 degrees QTc Int : 486 ms Sinus rhythm with 1st degree A-V block Left axis deviation Low voltage QRS Inferior infarct , age undetermined Anterolateral infarct , age undetermined Abnormal ECG Confirmed by KELSEY GARCÍA DO ([id number]), editor newspaper [employer] SERRANO ([id number]) on 01/17/2018 11:29:24 AM Referred By: Confirmed By:KELSEY GARCÍA DO
== END 2018-01-13 17:39 | disposition home or self-care (01) ==
LOC: ERS 15:01 → ERHOLD 17:39 → 2SE 01-13 00:43
PROVIDERS: ADMIT Internal Medicine Infectious Disease; ATTEND Internal Medicine Infectious Disease
DX: I95.9 Hypotension, unspecified (principal); G47.33 Obstructive sleep apnea (adult) (pediatric); E66.01 Morbid (severe) obesity due to excess calories; I25.10 Atherosclerotic heart disease of native coronary artery without angina pectoris; I10 Essential (primary) hypertension; E78.5 Hyperlipidemia, unspecified; E11.9 Type 2 diabetes mellitus without complications; J44.9 Chronic obstructive pulmonary disease, unspecified; Z68.41 Body mass index [BMI] 40.0-44.9, adult; Z87.891 Personal history of nicotine dependence; Z79.82 Long term (current) use of aspirin; Z79.4 Long term (current) use of insulin; Z79.899 Other long term (current) drug therapy; Z88.5 Allergy status to narcotic agent; Z88.0 Allergy status to penicillin; Z91.041 Radiographic dye allergy status; Z86.73 Personal history of transient ischemic attack (TIA), and cerebral infarction without residual deficits
CPT/HCPCS: 71045; 80048; 80053; 82550; 82553; 82962; 83690; 83880; 84484 ×2; 85025 ×2; 93005; 93306; 94640 ×2; 94660 ×3; 94760 ×2; 96372; 96374; 99285; G0378 ×2; 36415; 36416; 90471; 90670; G0009; J1650; J2270; J7620; Q0162

== ENCOUNTER 2018-04-01 12:42 | Outpatient (CLI) | payer MEDICARE ==
--- NOTE | 2018-04-01 15:35 | CT ---
CT CHEST WITHOUT CONTRAST: 04/01/19 Multiple axial tomograms obtained through the chest without IV enhancement. Low dose screening protoc ol was followed. INDICATION: History of tobacco use times 40 years. FINDINGS: Lungs are well aerated and clear. No infiltrate or effusion. A tiny 2 to 3 mm nodule seen right upper lobe. A tiny 3 mm nodule in the posterior left lower lobe. The mediastinum is unremarkable. IMPRESSION: Findings are LR-2 category. Recommend one year followup low dose screening chest CT. POS: [facility]
== END 2018-04-01 12:43 | disposition home or self-care (01) ==
LOC: CT 12:42
PROVIDERS: ATTEND Internal Medicine
DX: Z87.891 Personal history of nicotine dependence (principal)
CPT/HCPCS: G0297

== ENCOUNTER 2018-04-23 16:47 | Emergency (ER) | payer MEDICARE ==
[2018-04-23 18:13] LABS: #Eosinphils 0.2 thou/uL (0.0-0.7); #Lymphocytes 1.4 thou/uL (1.20-3.40); #Monocytes 0.8 thou/uL (0.11-0.59); #Neutrophils 5.3 thou/uL (1.40-6.50); %Basophils 0.3 % (0.0-1.0); %Eosinophils 2.5 % (0.0-10.0); %Lymphocytes 17.8 % (21.0-51.0); %Monocytes 10.6 % (0.0-10.0); %Neutrophils 68.9 % (42.0-75.0); Hemoglobin 10.1 g/dL (12.0-16.0); Mean Corpuscular HGB CONC 33.4 g/dL (32.0-36.0); Mean Corpuscular Hemoglobin 29.7 pg (27.0-31.0); Mean Corpuscular Volume 88.9 fL (78.0-98.0); Mean Platelet Volume 7.5 fL (7.4-10.4); Platelet Count 223 thou/uL (130-400); RBC Distribution Width 13.2 % (11.5-14.5); Red Blood Cell (RBC) Count 3.39 mill/uL (4.20-5.40); White Blood Cell (WBC) Count 7.7 thou/uL (4.8-10.8)
[2018-04-23] MEDS ORDERED: Morphine 2 MG/ML SYRINGE ONE ×2 (18:16→18:18)
[2018-04-23 18:36] LABS: ALT (SGPT) 16 U/L (8-55); AST (SGOT) 20 U/L (5-34); Albumin 4.1 g/dL (3.4-4.8); Alkaline Phosphatase 85 U/L (40-150); Anion Gap 13 mmol/L (10-20); BUN (Urea Nitrogen) 15 mg/dL (9.8-20.1); Bilirubin, Total 0.4 mg/dL (0.2-1.2); Calc. Creatinine Clearance 0 mL/min (70-130); Calcium 9.7 mg/dL (7.8-10.44); Carbon Dioxide 31 mmol/L (23-31); Chloride 98 mmol/L (98-107); Estimated GFR-MDRD 55; Globulin 3.3 g/dL (2.4-3.5); Glucose 86 mg/dL (80-115); Lipase 31 U/L (8-78); Potassium 4.2 mmol/L (3.5-5.1); Protein, Total 7.4 g/dL (6.0-8.3); Sodium 138 mmol/L (136-145)
[2018-04-23 18:47] LABS: Bilirubin Negative (Negative); Blood, Urine Negative (Negative); Clarity CLEAR (Clear); Glucose, Urine (Dipstick) Negative (Negative); Leukocyte Negative (Negative); Nitrite Negative (Negative); Protein, Urine (Dipstick) Negative (Neg-Trace); Specific Gravity, Urine 1.009 (1.002-1.036); Urobilinogen 0.2 mg/dL (0.2-1.0); pH, Urine 5.5 (5.0-9.0)
--- NOTE | 2018-04-23 20:53 | RAD ---
SINGLE VIEW OF THE CHEST AND TWO VIEWS OF THE ABDOMEN 04/23/18 COMPARISON: None. HISTORY: Abdominal obstruction with abdominal pain. FINDINGS: Supine and upright views of the abdomen and upright views of the chest shows a nonspecific, nonobstru ctive bowel gas pattern. Air is seen in the right colon. Cholecystectomy clips are seen. Postsurgical changes are seen in the spine. No free air or air fluid levels are seen on upright examination. The heart is normal in size. The patient is status post sternotomy. There is no evidence of consolida tion, mass or pleural effusion. IMPRESSION: No evidence of obstruction. POS: [facility]
--- NOTE | 2018-04-23 21:40 | CT ---
CT ABDOMEN WITHOUT CONTRAST CT PELVIS WITHOUT CONTRAST 04/23/18 HISTORY: Midline abdominal pain. Patient states he stomach feels like a knot. Distention and pain. FINDINGS: ABDOMEN CT: Chronic changes in the lung bases. Heart is enlarged and there are coronary artery calcifications. No significant pericardial fluid. The descending thoracic aorta and abdominal aorta demonstrate atheros clerosis. No aneurysm or periaortic fat stranding. Gallbladder is surgically absent. Limited evaluation of the solid organs due to the lack of IV contra st administration. Grossly, the liver, spleen, pancreas, and adrenal glands have appropriate attenuat ion. No gastro hepatic, retrocrural or periportal lymphadenopathy. No mesenteric mass, lymphadenopathy, free air or free fluid. Limited evaluation of the alimentary canal by lack of oral contrast. Gastric mucosa, duodenum and mul tiple normal caliber small bowel loops are noted. Ileocecal junction is normal. Appendix is not appre ciated. No inflammation of the cecal apex. Occasional diverticula throughout the colon. No diverticul itis. No evidence of colonic obstruction. Bilaterally, no hydronephrosis or perinephric fat stranding. There is a 1 mm nonobstructing calculus in the lower pole of the left kidney. Small right extrarenal pelvis is noted. Bilateral ureters have a normal caliber. No hydroureter, periureteral fat stranding or ureterolithiasis. PELVIC CT: Uterus is surgically absent. No mass, lymphadenopathy, free air or free fluid in the pelvis. Unremark able urinary bladder. No lytic or blastic lesions in the osseous structures. Lumbar fusion hardware is noted. IMPRESSION: 1. Nonobstructing calculus in the lower pole of the left kidney. Bilaterally, no obstructive uro codi. 2. No evidence of bowel obstruction. POS: [facility]
== END 2018-04-23 20:37 | disposition home or self-care (01) ==
LOC: ERS 16:47
DX: R10.13 Epigastric pain (principal); Z86.73 Personal history of transient ischemic attack (TIA), and cerebral infarction without residual deficits; I25.10 Atherosclerotic heart disease of native coronary artery without angina pectoris; E11.9 Type 2 diabetes mellitus without complications; E78.5 Hyperlipidemia, unspecified; I10 Essential (primary) hypertension; K21.9 Gastro-esophageal reflux disease without esophagitis; Z79.899 Other long term (current) drug therapy; Z79.82 Long term (current) use of aspirin; Z79.84 Long term (current) use of oral hypoglycemic drugs
CPT/HCPCS: 51701; 74022; 74176; 80053; 81003; 83690; 85025; 96374; A4353; J2270

== ENCOUNTER 2018-06-24 09:42 | Day surgery (SDC) | payer MEDICARE, OTHER ==
[2018-06-19 11:10] VITALS: BMI 42.0
[2018-06-24] MEDS ORDERED: Benzocaine/Menthol 20-0.5% 60 ML CAN TOP PRN (13:15)
[2018-06-24] MEDS ORDERED: Zinc Oxide 20% Oint 30 GM TUBE TOP PRN (13:17)
--- NOTE | 2018-06-24 13:40 | OP ---
DATE OF PROCEDURE: 06/24/2018 GI ENDOSCOPY NOTE REFERRING PHYSICIAN: Chanda Love MD SORTING AND FOLDING SUPERVISOR SURGEON: None. PROCEDURE PERFORMED: Esophagogastroduodenoscopy with biopsies. INDICATIONS: 1. Epigastric pain. 2. Right upper quadrant pain. 3. Abdominal bloating. MEDICATIONS: See Anesthesia record. FINDINGS: After discussion of the risks, benefits, and alternatives of the procedure, informed consent was obtained and witnessed. Pre-endoscopic cardiopulmonary examination was satisfactory. Time-out was performed before sedation was achieved. Sedation was achieved with Anesthesia assistance in the endoscopy unit. A Pentax adult upper endoscope was placed into the oropharynx and passed through the cricopharyngeus under direct visualization. The esophageal mucosa appeared normal throughout with a normal-appearing Z-line. The endoscope was advanced into the stomach. Forward and retroflexed views of the entire gastric mucosa were obtained. The gastric mucosa appeared normal in the fundus and proximal body. In the distal body and antrum, there is some mild patchy erythema, no evidence of any erosions or ulcerations. Biopsies were obtained from the gastric antrum and body to rule out H. pylori infection. The endoscope was passed through the pylorus and into the first and second portions of the duodenum, which appeared normal. The upper endoscope was then completely withdrawn, and the patient was allowed to recover. The patient tolerated the procedure well. There were no immediate postprocedure complications. IMPRESSION: 1. Mild antral gastritis, biopsied to rule out Helicobacter pylori. 2. Otherwise normal esophagogastroduodenoscopy. RECOMMENDATIONS: 1. Follow up pathology and the gastric biopsies. 2. If the biopsies are negative for H. pylori infection, then the next step in investigation would be a gastric emptying scan. 3. Continue current medications for now. Job ID: [id number]
[2018-06-25] MEDS ORDERED: Torsemide 20 MG TAB PO SCH (09:00)
[2018-06-25] MEDS ORDERED: Potassium Chloride 20 MEQ TAB PO SCH (09:00)
== END 2018-06-24 13:58 | disposition home or self-care (01) ==
LOC: SDC 09:42
PROVIDERS: ATTEND Internal Medicine
PROC: 0DB68ZZ Excision of Stomach, Via Natural or Artificial Opening Endoscopic (ICD-10-PCS; principal; 2018-06-24)
DX: K29.50 Unspecified chronic gastritis without bleeding (principal); Z91.09 Other allergy status, other than to drugs and biological substances; Z88.5 Allergy status to narcotic agent; Z88.0 Allergy status to penicillin; Z79.82 Long term (current) use of aspirin; Z79.84 Long term (current) use of oral hypoglycemic drugs; Z79.899 Other long term (current) drug therapy
CPT/HCPCS: 88305; 88312; 93005; 93010

== ENCOUNTER 2018-07-03 15:11 | Emergency (ER) | payer MEDICARE, OTHER ==
[2018-07-03 16:05] LABS: #Basophils 0.1 thou/uL (0.0-0.2); #Eosinphils 0.2 thou/uL (0.0-0.7); #Lymphocytes 1.3 thou/uL (1.20-3.40); #Monocytes 0.7 thou/uL (0.11-0.59); #Neutrophils 5.5 thou/uL (1.40-6.50); %Basophils 0.7 % (0.0-1.0); %Eosinophils 3.1 % (0.0-10.0); %Monocytes 9.1 % (0.0-10.0); %Neutrophils 71.1 % (42.0-75.0); Hemoglobin 10.4 g/dL (12.0-16.0); Mean Corpuscular HGB CONC 32.8 g/dL (32.0-36.0); Mean Corpuscular Hemoglobin 28.6 pg (27.0-31.0); Mean Corpuscular Volume 87.1 fL (78.0-98.0); Mean Platelet Volume 7.5 fL (7.4-10.4); Platelet Count 238 thou/uL (130-400); RBC Distribution Width 13.1 % (11.5-14.5); Red Blood Cell (RBC) Count 3.63 mill/uL (4.20-5.40); White Blood Cell (WBC) Count 7.8 thou/uL (4.8-10.8)
[2018-07-03 16:28] LABS: ALT (SGPT) 12 U/L (8-55); AST (SGOT) 20 U/L (5-34); Albumin 4.1 g/dL (3.4-4.8); Alkaline Phosphatase 95 U/L (40-150); Anion Gap 16 mmol/L (10-20); BUN (Urea Nitrogen) 12 mg/dL (9.8-20.1); Bilirubin, Total 0.4 mg/dL (0.2-1.2); Calc. Creatinine Clearance 0 mL/min (70-130); Calcium 9.4 mg/dL (7.8-10.44); Carbon Dioxide 24 mmol/L (23-31); Chloride 103 mmol/L (98-107); Estimated GFR-MDRD 61; Globulin 3.3 g/dL (2.4-3.5); Glucose 128 mg/dL (80-115); Lipase 37 U/L (8-78); Potassium 4.1 mmol/L (3.5-5.1); Protein, Total 7.4 g/dL (6.0-8.3); Sodium 139 mmol/L (136-145)
[2018-07-03] MEDS ORDERED: Lidocaine Viscous Sol 2% 15 ml UD Cup ONE (16:59)
[2018-07-03] MEDS ORDERED: Mag-Al 1200 mg/1200 mg/30 ML UDCUP ONE (17:00)
[2018-07-03] MEDS ORDERED: Pantoprazole 40 MG VIAL ONE (17:00)
== END 2018-07-03 17:46 | disposition home or self-care (01) ==
LOC: ERS 15:11
DX: R10.10 Upper abdominal pain, unspecified (principal); I10 Essential (primary) hypertension
CPT/HCPCS: 80053; 83690; 85025; 93005; 96374; C9113

== ENCOUNTER 2019-03-09 08:48 | Day surgery (SDC) | payer MEDICARE ==
[2019-03-08 12:02] VITALS: BMI 43.6
--- NOTE | 2019-03-09 13:28 | OP ---
DATE OF PROCEDURE: 03/09/2019 PRIMARY CARE PHYSICIAN: Chanda Love MD ROOFING FOREMAN SURGEON: None. PROCEDURES PERFORMED: Colonoscopy with snare polypectomy and colon biopsies. INDICATION: Chronic diarrhea, last colonoscopy was in 2015 elsewhere, with history of colon polyps. MEDICATIONS: See Anesthesia record. FINDINGS: After discussion of the risks, benefits, and alternatives of the procedure, informed consent was obtained and witnessed. Pre-endoscopic cardiopulmonary examination was satisfactory. Time-out was performed before sedation was achieved. Sedation was achieved with Anesthesia assistance in the endoscopy unit. Digital rectal exam was performed, which was unremarkable. A Pentax adult colonoscope was inserted into the anus and passed forward to the cecum in the usual fashion. The cecal base was identified by the appendiceal orifice as well as the ileocecal valve. The terminal ileum was not intubated. The colonoscope was slowly withdrawn in a gradual and circumferential manner with careful examination of the entire colonic mucosa. The quality of the prep was good. There is diffuse diverticulosis throughout the colon, most prominent in the left side of the colon. The colonic mucosa appears normal throughout. Random biopsies were obtained from the right and left side of the colon to rule out microscopic colitis. In the ascending colon, there are two sessile polyps, one measuring about 7 mm and the other measuring about 12 mm. These were both completely removed with hot snare and retrieved for pathology. Retroflexion in the rectum demonstrated internal hemorrhoids. The colonoscope was completely withdrawn and the patient allowed to recover. The patient tolerated the procedure well. There were no immediate postprocedure complications. IMPRESSION: 1. Two sessile polyps in the ascending colon, measuring 7 mm and 12 mm, both completely removed with hot snare and retrieved for pathology. 2. Normal colonic mucosa throughout, with random colon biopsies obtained to rule out microscopic colitis. 3. Diverticulosis throughout the colon. 4. Internal hemorrhoids. RECOMMENDATIONS: 1. Follow up pathology results on the polyps and random colon biopsies. 2. Repeat colonoscopy for surveillance in 3 years. 3. If the random colon biopsies are normal, we will treat with 2 weeks of oral rifaximin. 4. She can use Imodium p.r.n. 5. Follow up in the GI clinic in about six weeks. Job ID: [id number]
== END 2019-03-09 13:50 | disposition home or self-care (01) ==
LOC: SDC 08:48
PROVIDERS: ATTEND Internal Medicine
PROC: 0DBK8ZZ Excision of Ascending Colon, Via Natural or Artificial Opening Endoscopic (ICD-10-PCS; principal; 2019-03-09)
PROC: 0DBE8ZZ Excision of Large Intestine, Via Natural or Artificial Opening Endoscopic (ICD-10-PCS; 2019-03-09)
DX: D12.2 Benign neoplasm of ascending colon (principal); K52.9 Noninfective gastroenteritis and colitis, unspecified; K57.30 Diverticulosis of large intestine without perforation or abscess without bleeding; K64.8 Other hemorrhoids; K29.70 Gastritis, unspecified, without bleeding; I11.0 Hypertensive heart disease with heart failure; I50.9 Heart failure, unspecified; E11.9 Type 2 diabetes mellitus without complications; I25.10 Atherosclerotic heart disease of native coronary artery without angina pectoris; F32.9 Major depressive disorder, single episode, unspecified; J44.9 Chronic obstructive pulmonary disease, unspecified; E66.9 Obesity, unspecified; Z86.010 Personal history of colon polyps; Z68.41 Body mass index [BMI] 40.0-44.9, adult; Z79.82 Long term (current) use of aspirin; Z79.84 Long term (current) use of oral hypoglycemic drugs; Z79.899 Other long term (current) drug therapy; Z87.891 Personal history of nicotine dependence; Z88.0 Allergy status to penicillin; Z88.5 Allergy status to narcotic agent; Z91.041 Radiographic dye allergy status; Z95.1 Presence of aortocoronary bypass graft
CPT/HCPCS: 88305

== ENCOUNTER 2019-03-30 08:44 | Outpatient (CLI) | payer MEDICARE ==
--- NOTE | 2019-03-30 10:12 | MMO ---
Bilateral MAMMO Bilat Screen DDI+THEE. CLINICAL HISTORY: Patient is 68 years old and is seen for screening. The patient has no family history of breast cancer. The patient has no personal history of cancer. The patient has a history of left Excisional Biopsy in ? - benign. VIEWS: The views performed were: bilateral craniocaudal; bilateral craniocaudal with tomosynthesis; bilateral mediolateral oblique with tomosynthesis; and left exaggerated craniocaudal. This study has been interpreted with the assistance of computer-aided detection. MAMMOGRAM FINDINGS: There are scattered fibroglandular densities. Benign calcifications are noted bilaterally. There are no suspicious masses, suspicious calcifications, or new areas of architectural distortion. IMPRESSION: THERE IS NO MAMMOGRAPHIC EVIDENCE OF MALIGNANCY. A ROUTINE FOLLOW-UP MAMMOGRAM IN 1 YEAR IS RECOMMENDED. THE RESULTS OF THIS EXAM WERE SENT TO THE PATIENT. ACR BI-RADS Category 2 - Benign finding MAMMOGRAPHY NOTE: 1. A negative mammogram report should not delay a biopsy if a dominant of clinically suspicious mass is present. 2. Approximately 10% to 15% of breast cancers are not detected by mammography. 3. Adenosis and dense breasts may obscure an underlying neoplasm. Reported by: ELLEN VALLEJO MD Electonically Signed: [id number]
--- NOTE | 2019-03-30 11:00 | RAD ---
XR Cerv Sp Ap Lat STANDARD HISTORY: Neck pain. COMPARISON: None. FINDINGS: Patient was not able to hold still for this examination. The vertebral bodies are normal in height there is marked degenerative disc narrowing at the C5-6 and C6-7 levels. Motion artifact is present on the lateral view. Moderate degenerative facet changes are present. Bilateral carotid bulb calcifications are also noted. IMPRESSION: Marked arthritic changes of the lower cervical spine.
--- NOTE | 2019-03-30 11:20 | BD ---
BONE DENSITOMETRY USING DEXA: HISTORY: Postmenopausal screening for osteoporosis. Other disorders of bone density and structure, unspecified . FINDINGS: BMD (g/cm2) T-SCORE Z-SCORE RIGHT HIP 0.572 -2.5 -0.8 TOTAL 0.780 -1.3 0.1 LEFT HIP 0.618 -2.1 -0.3 TOTAL 0.881 -0.5 0.9 IMPRESSION: Osteoporosis. POS: [facility]
== END 2019-03-30 08:45 | disposition home or self-care (01) ==
LOC: BICMAMMO 08:44
PROVIDERS: ATTEND Internal Medicine
DX: Z12.31 Encounter for screening mammogram for malignant neoplasm of breast (principal); M85.80 Other specified disorders of bone density and structure, unspecified site; M54.2 Cervicalgia; M47.812 Spondylosis without myelopathy or radiculopathy, cervical region; M81.0 Age-related osteoporosis without current pathological fracture
CPT/HCPCS: 72040; 77063; 77067; 77080

== ENCOUNTER 2019-04-13 10:06 | Outpatient (CLI) | payer MEDICARE ==
--- NOTE | 2019-04-13 11:38 | MRI ---
MRI CERVICAL SPINE WITHOUT CONTRAST: INDICATIONS: Cervical pain. Degenerative disk disease. FINDINGS: The cervical vertebrae maintain height and alignment. There are mild to moderate degenerative changes . Anterior osteophytes are prominent at C4, C5 and C6, Degenerative disk changes at C5-C6 and C6-C7. No significant disk bulge or spondylosis seen at C2-C3. At C3-C4 mild disk bulge and spondylosis efface the anterior subarachnoid space. No central canal or foraminal stenosis. At C4-C5 mild posterior disk bulge and spondylosis abut the anterior cord. Spondylitic change appears slightly more pronounced paracentrally to the left. There is evidence of left foraminal stenosis sec ondary to hypertrophic change. At C5-C6 disk bulge and spondylosis impinge on the anterior cord producing slight flattening of the a nterior cord. Evidence of bilateral foraminal stenosis, more pronounced on the left due to facet and uncinate hypertrophy. At C6-C7 mild disk bulge and spondylosis flatten the thecal sac and mildly efface the anterior subara chnoid space. No definite foraminal stenosis. Cord signal appears normally preserved. Exam is somewhat degraded due to motion artifact. IMPRESSION: Mild posterior disk bulge and spondylitic changes at C3-C4, C4-C5 and C5-C6 as described. Due to alberto on artifact CT cervical spine may be of benefit to better assess the hypertrophic bone changes. POS: [facility]
== END 2019-04-13 10:07 | disposition home or self-care (01) ==
LOC: BICMRI 10:06
PROVIDERS: ATTEND Internal Medicine
DX: M50.30 Other cervical disc degeneration, unspecified cervical region (principal); M50.21 Other cervical disc displacement, high cervical region; M47.812 Spondylosis without myelopathy or radiculopathy, cervical region
CPT/HCPCS: 36415; 72141; 80053; 82043; 82728; 83036; 83540; 83550; 85025

== ENCOUNTER 2020-02-27 05:18 | Inpatient (IN) | payer MEDICARE, OTHER ==
[2020-02-27] MEDS ORDERED: Ketorolac Tromethamine 30 MG/ML VIAL ONE (05:56)
[2020-02-27] MEDS ORDERED: Ondansetron PF 4 MG/2 ML Vial ONE (05:56)
[2020-02-27 06:25] LABS: Bacteria/HPF 3+ HPF (None Seen); Bilirubin Negative (Negative); Blood, Urine 1+ (Negative); Clarity Clear (Clear); Glucose, Urine (Dipstick) Normal (Negative); Ketone, Urine Negative (Negative); Leukocyte Negative Leu/uL (Negative); Mucous/LPF Rare LPF (<2+); Nitrite Negative (Negative); Protein, Urine (Dipstick) 100 mg/dL (Neg-Trace); RBC/HPF 0-3 HPF (0-3); Squamous Epithelial None Seen HPF (0-3); Urobilinogen Normal mg/dL (Less than 2); WBC/HPF 0-3 HPF (0-3); pH, Urine 5.5 (5.0-9.0)
[2020-02-27 06:46] LABS: Hemoglobin 7.3 g/dL (12.0-16.0); Red Blood Cell (RBC) Count 3.66 mill/uL (4.20-5.40); White Blood Cell (WBC) Count 10.4 thou/uL (4.8-10.8)
[2020-02-27 06:53] LABS: ALT (SGPT) 105 U/L (8-55); AST (SGOT) 111 U/L (5-34); Albumin 3.9 g/dL (3.4-4.8); Alkaline Phosphatase 70 U/L (40-110); Anion Gap 17 mmol/L (10-20); BUN (Urea Nitrogen) 33 mg/dL (9.8-20.1); Bilirubin, Total 0.9 mg/dL (0.2-1.2); Calc. Creatinine Clearance 0 mL/min (70-130); Calcium 8.7 mg/dL (7.8-10.44); Carbon Dioxide 29 mmol/L (23-31); Chloride 96 mmol/L (98-107); Estimated GFR-MDRD 51; Glucose 140 mg/dL (80-115); Lipase 19 U/L (8-78); Potassium 3.8 mmol/L (3.5-5.1); Protein, Total 6.9 g/dL (6.0-8.3); Sodium 138 mmol/L (136-145)
[2020-02-27 07:00] LABS: Hypochromia SLIGHT = 6-15 cells (100X) (0-5/hpf); Lymphocytes 4 % (21-51); MDiff Complete? YES; Mean Corpuscular HGB CONC 29.6 g/dL (32.0-36.0); Mean Corpuscular Volume 67.7 fL (78.0-98.0); Mean Platelet Volume 9.5 fL (7.4-10.4); Monocytes 11 % (0-10); Neutrophil 85 % (42-75); Platelet Count 392 thou/uL (130-400); Platelet Morphology Comment Appears Adequate; RBC Distribution Width 16.9 % (11.5-14.5)
[2020-02-27 07:16] LABS: CKMB 2.1 ng/mL (0-6.6)
[2020-02-27] MEDS ORDERED: Furosemide 40 MG/4 ML VIAL ONE (07:34)
[2020-02-27] MEDS ORDERED: Nitroglycerin 2% Ointment 1 INCH/1 GM Packet ONE (07:34)
[2020-02-27] MEDS ORDERED: Pantoprazole 40 MG VIAL ONE (07:45)
--- NOTE | 2020-02-27 08:34 | CT ---
CT ABDOMEN AND PELVIS WITHOUT CONTRAST: HISTORY: Nausea, lower abdominal pain, and difficulty urinating. COMPARISON: 04/23/2018. FINDINGS: Absence of oral and IV contrast reduces the sensitivity of the exam, particularly for evaluation of s olid organs involved. There is a tiny right pleural effusion. There are changes of cholecystectomy, appendectomy, hysterectomy, and posterior fusion surgery at L4, L5, S1 levels. No free air or free fluid is seen in the abdomen or pelvis. No calculi are noted in the kidneys, ureters, or the urinary bladder. No hydroureteral nephrosis is seen on either side. There is colonic diverticulosis withou t diverticulitis. The small bowel loops are not abnormally dilated. There are vascular calcificatio ns without evidence of aneurysmal dilatation of the abdominal aorta. IMPRESSION: 1. No CT evidence of urinary tract calculi or obstruction. 2. Colonic diverticulosis. POS: OFF
[2020-02-27 09:12] LABS: Reticulocyte Count 2.7 % (0.5-1.5)
--- NOTE | 2020-02-27 10:55 | RAD ---
PORTABLE CHEST 1 VIEW: DATE: 02/27/2020. TIME: 6:29 AM. HISTORY: Dyspnea. COMPARISON: Comparison is made with the exam of 01/12/2018. FINDINGS/IMPRESSION: Changes of median sternotomy are again seen. The fractured sternal wires are again noted. The heart is enlarged. The lungs are expanded with mild prominence of the pulmonary vascularity. No lobar co nsolidation, pneumothoraces, or pleural effusions are seen. POS: [facility]
[2020-02-27 11:00] LABS: Troponin I 0.059 ng/mL (< 0.028)
[2020-02-27] MEDS ORDERED: Morphine 2 MG/ML VIAL SLOW IVP PRN (11:53)
[2020-02-27] MEDS ORDERED: Fentanyl 100 MCG/2 ML VIAL SLOW IVP PRN (11:54)
[2020-02-27] MEDS ORDERED: Fentanyl 100 MCG/2 ML VIAL SLOW IVP SCH (12:00)
[2020-02-27] MEDS ORDERED: Iron Sucrose Complex 100 MG in Sodium Chloride 0.9% 100 ML IVPB SCH (12:00)
[2020-02-27] MEDS ORDERED: Iron, Sodium Ferric Gluconate 125 MG in Sodium Chloride 0.9% 100 ML IVPB SCH (12:15)
[2020-02-27] MEDS: Dicyclomine 10 MG CAP PO SCH ×3 (12:18→20:59)
[2020-02-27 13:08] LABS: Lactic Acid 1.5 mmol/L (0.5-2.2)
[2020-02-27 13:16] LABS: Troponin I 0.074 ng/mL (< 0.028)
[2020-02-27] MEDS: Morphine 2 MG/ML VIAL SLOW IVP PRN ×2 (13:57→17:36)
[2020-02-27] MEDS: Gabapentin 300 MG CAP PO SCH ×2 (13:58→21:00)
[2020-02-27] MEDS ORDERED: Ondansetron PF 4 MG/2 ML Vial IVP PRN (14:17)
[2020-02-27] MEDS ORDERED: Potassium Chloride 20 MEQ TAB PO SCH (17:30)
[2020-02-27] MEDS: Gabapentin 400 MG CAP PO SCH ×2 (17:37→21:00)
[2020-02-27] MEDS: Pantoprazole 40 MG VIAL IVP SCH (20:58)
[2020-02-27] MEDS ORDERED: Carvedilol 6.25 MG TAB PO SCH (21:00)
[2020-02-27] MEDS: Donepezil HCl 5 MG TAB PO SCH (21:00)
[2020-02-27] MEDS: Morphine ER 15 MG TAB PO SCH (21:01)
[2020-02-27] MEDS: Zolpidem Tartrate 5 MG TAB PO SCH (21:02)
[2020-02-28 00:19] LABS: Anion Gap 12 mmol/L (10-20); Carbon Dioxide 31 mmol/L (23-31); Chloride 97 mmol/L (98-107); Magnesium 2.2 mg/dL (1.6-2.6); Potassium 3.9 mmol/L (3.5-5.1); Sodium 136 mmol/L (136-145)
--- NOTE | 2020-02-28 01:37 | HP ---
CHIEF COMPLAINT: Multiple complaints of abdominal pain, shortness of breath and some chest pain. HOSPITAL COURSE: The patient is a 69-year-old female, with a past medical history of diabetes, coronary artery disease, GERD, hypertension, obesity, and sleep apnea, who presents to the hospital with complaints of chest pain, shortness of breath, and abdominal pain going on for the past couple days. The patient really was unable to tell me a very good history. She does reside in a detention, I believe this is [place]. The patient actually was on hospice. She states that she has been having abdominal pain going on for the past couple of days and since she was unable to reach the hospice services, she decided to come into the hospital for further evaluation. The patient states that she has been nauseated and has been complaining of some generalized abdominal pain more to on the right lower quadrant. She also states that she has been having some subjective fevers and some chills. She has been having some nausea, but no vomiting. She also states for the past couple days she has been having some loose yellow stool. Upon reviewing her records, she has had an EGD and a colonoscopy in the past, which did not indicate any specific abnormalities. In the ED, patient was noted to have an elevated BNP and also some mildly elevated troponins and a low H and H and at this time, she was admitted to the hospital for further evaluation. The patient initially was on hospice services. I did ask her, if she would like to continue treatment versus go back to hospice, she stated that she currently wanted her abdominal pain to be treated. PAST MEDICAL HISTORY: As of the followin. Coronary disease. 2. COPD. 3. Diabetes. 4. Hypertension. 5. Hyperlipidemia. 6. bypass. 7. History of DVT. 8. Severe obesity. 9. Physical deconditioning. PAST SURGICAL HISTORY: She has had a bypass, sternal wound dehiscence, multiple spinal surgeries, cholecystectomy, dental implants and hysterectomy. HOME MEDICATIONS: As of the followin. She is on Depakote 500 mg at bedtime. 2. Aricept 5 mg at bedtime. 3. She is on torsemide 20 mg daily. 4. She is on omeprazole 20 mg as needed. 5. She is on morphine 15 mg twice daily. 6. She is on iron 106 mg daily. 7. She is on Lexapro 10 mg daily. ALLERGIES: SHE IS ALLERGIC TO IODINE, CODEINE AND PENICILLIN. FAMILY HISTORY: Negative for heart disease or strokes. SOCIAL HISTORY: She lives in a detention currently. Denies any alcohol use or drug use or smoking history. She is a former smoker. REVIEW OF SYSTEMS: All negative except for the ones mentioned above in the HPI. PHYSICAL EXAMINATION: VITAL SIGNS: As of the following; temperature of 97.7, 61, 18, 100% on 2 L, blood pressure of 101/49. GENERAL: She is awake, alert, and oriented x3. Does not appear in distress CV: S1, S2 present. She is sinus. ABDOMEN: Soft. Bowel sounds are present x2. Initially when I palpated her abdomen, she started having pain all over. However, when she relaxed when I pushed on her abdomen, she did not have that pain, which was surprising. LUNGS: Clear to auscultation. No rhonchi or wheezes noted. EXTREMITIES: She has some mild 1+ lower extremity edema. NEUROVASCULAR: No focal deficits noted. SKIN: No cuts, lesions or bruises noted. LABORATORY RESULTS: As of the following; WBCs of 10.4, hemoglobin of 7.3, hematocrit of 24.8. Her platelets are 392. Chemistry: Sodium of 138, potassium of 3.8, BUN of 32, creatinine 1.06. Her BNP was 3222, and her troponin was 0.069. She did have a CT of abdomen and pelvis, which did not indicate any acute abnormalities, just indicated colonic diverticulosis. ASSESSMENT AND PLAN: The patient is a very pleasant 69-year-old female, who presents to the hospital for abdominal pain. 1. Abdominal pain, unclear etiology at this time. It could be possibly gastric ulcers versus gastrointestinal bleed versus abdominal cramping versus constipation. She did drop her H and H significantly. We will check a stool for guaiac. We will type and screen her. May have to transfuse her 1 unit of packed red blood cells. We will start her on proton pump inhibitor for now. If her guaiac is positive, most likely we will get GI to come by and see her. She has had an EGD and colonoscopy in the past. I believe this was in 2019. 2. Anemia appears to be iron deficiency anemia. Her iron level was low. We will start her on some IV iron. Also may require transfusion. 3. Elevated BNP. She has not had an echo cardiogram for sometime. We will get an echocardiogram to see what her EF is since on chest x-ray, her heart appears to have some mild cardiomegaly. 4. Mildly elevated troponins. We will get an echocardiogram. If her troponins continue to trend up, we will get Cardiology to see her. 5. Hypertension. The patient's blood pressure has been on the lower side. We will hold off on the blood pressure medications. 6. Deep venous thrombosis prophylaxis. We will put the patient on subcu heparin or Lovenox. Job ID: [id number]
[2020-02-28] MEDS ORDERED: Losartan 25 MG TAB PO SCH (09:00)
[2020-02-28] MEDS ORDERED: Amlodipine 5 MG TAB PO SCH (09:00)
[2020-02-28] MEDS ORDERED: DULoxetine 60 MG CAP PO SCH (09:00)
[2020-02-28 09:48] LABS: ALT (SGPT) 103 U/L (8-55); AST (SGOT) 75 U/L (5-34); Albumin 3.7 g/dL (3.4-4.8); Alkaline Phosphatase 68 U/L (40-110); Anion Gap 14 mmol/L (10-20); BUN (Urea Nitrogen) 29 mg/dL (9.8-20.1); Bilirubin, Total 0.9 mg/dL (0.2-1.2); Calc. Creatinine Clearance 81 mL/min (70-130); Calcium 8.6 mg/dL (7.8-10.44); Carbon Dioxide 33 mmol/L (23-31); Chloride 96 mmol/L (98-107); Estimated GFR-MDRD 50; Globulin 2.8 g/dL (2.4-3.5); Glucose 126 mg/dL (80-115); Potassium 3.5 mmol/L (3.5-5.1); Protein, Total 6.5 g/dL (6.0-8.3); Sodium 139 mmol/L (136-145)
[2020-02-28] MEDS: Aspirin Chewable 81 MG TAB PO SCH (09:53)
[2020-02-28] MEDS: Morphine ER 15 MG TAB PO SCH ×2 (09:53→21:00)
[2020-02-28] MEDS: Atorvastatin Calcium 10 MG TAB PO SCH (09:54)
[2020-02-28] MEDS: Escitalopram Oxalate 10 mg Tablet PO SCH (09:54)
[2020-02-28] MEDS: Oxybutynin 5 MG TAB PO SCH (09:55)
[2020-02-28] MEDS: Cyanocobalamin (Vitamin B-12) 1,000 MCG TAB PO SCH (09:55)
[2020-02-28] MEDS: Furosemide 40 MG/4 ML VIAL SLOW IVP SCH (09:55)
[2020-02-28] MEDS: Ferrous Sulfate 325 MG TAB PO SCH (09:55)
[2020-02-28] MEDS: Pantoprazole 40 MG VIAL IVP SCH ×2 (09:55→21:11)
[2020-02-28] MEDS: Gabapentin 400 MG CAP PO SCH ×4 (09:56→21:01)
[2020-02-28 09:58] LABS: #Eosinphils 0.1 thou/uL (0.0-0.7); #Lymphocytes 1.4 thou/uL (1.20-3.40); #Monocytes 1.2 thou/uL (0.11-0.59); #Neutrophils 8.8 thou/uL (1.40-6.50); %Basophils 0.1 % (0.0-1.0); %Eosinophils 0.7 % (0.0-10.0); %Monocytes 10.2 % (0.0-10.0); %Neutrophils 77.1 % (42.0-75.0); Hemoglobin 7.9 g/dL (12.0-16.0); Mean Corpuscular Hemoglobin 21.3 pg (27.0-31.0); Mean Corpuscular Volume 71.2 fL (78.0-98.0); Mean Platelet Volume 9.1 fL (7.4-10.4); Platelet Count 267 thou/uL (130-400); RBC Distribution Width 17.7 % (11.5-14.5); Red Blood Cell (RBC) Count 3.72 mill/uL (4.20-5.40); White Blood Cell (WBC) Count 11.4 thou/uL (4.8-10.8)
[2020-02-28] MEDS: Dicyclomine 10 MG CAP PO SCH ×4 (10:15→21:11)
[2020-02-28] MEDS: Gabapentin 300 MG CAP PO SCH (11:46)
[2020-02-28] MEDS: Sodium Chloride 0.9% 10 ML ONE ×2 (13:03→18:11)
[2020-02-28] MEDS: Morphine 2 MG/ML VIAL SLOW IVP PRN ×3 (13:04→22:59)
[2020-02-28] MEDS ORDERED: Fleet Enema 133 ML BOT PR SCH (13:30)
[2020-02-28] MEDS ORDERED: Bisacodyl 5 MG TAB PO SCH (13:30)
--- NOTE | 2020-02-28 17:13 | CON ---
DATE OF CONSULTATION: 02/28/2020 REASON FOR CONSULTATION: Nonsustained VT. HISTORY OF PRESENT ILLNESS: Ms. Wyatt is a very pleasant 69-year-old white female, who comes to the hospital for abdominal pain. She comes in for her abdominal pain, this is being evaluated by primary team. She was placed on telemetry monitoring and was found to have a run of nonsustained ventricular tachycardia 4 to 5 beats worth, so Cardiology has been consulted for this. Ms. Wyatt has significant history of coronary artery disease. She had a heart catheterization that showed multivessel disease and underwent coronary artery bypass grafting x4 with a SCHERER to the LAD, vein graft to an OM, free radial to an OM, and a vein graft to RPL. She actually had a repeat catheterization about 3 or 4 months after her bypass that showed patent bypass. She had some dehiscence of her sternum and has had chronic chest pain since. She is not here for chest pain. She actually is here for abdominal pain. She has had low EF since then. Her EF runs about 35% to 40% in the past. On echo done recently, her EF is down to about 30% to 35%. PAST MEDICAL HISTORY: 1. Ischemic cardiomyopathy, EF most recently at 30% to 35% on echocardiogram done just yesterday. 2. Coronary artery disease as above. 3. Sleep apnea. 4. History of hypertension. 5. The patient had a stroke post-bypass surgery. 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 PAST SURGICAL HISTORY: 1. Back surgery. 2. Cholecystectomy. 3. Hysterectomy. 4. Coronary artery bypass grafting x4 as above. 5. Colonoscopy with polypectomies. SOCIAL HISTORY: No alcohol, tobacco, or drugs. She was recently wanting to be on hospice care as she thought this was going to help her cope with her everyday situations. She is fairly depressed at home as this has been so for some time now, but she does not feel that if this will help and she wants everything done at this time. FAMILY HISTORY: Noncontributory. OUTPATIENT MEDICATIONS: 1. Atorvastatin. 2. [place] p.r.n. 3. Lasix. 4. Morphine extended release. 5. Ambien. 6. Lexapro. 7. Anoro Ellipta. 8. Pantoprazole 40 mg a day. 9. Triamcinolone ointment. 10. Calcium carbonate. 11. Vitamin B12. 12. Albuterol inhaler p.r.n. 13. Dicyclomine 10 mg t.i.d. and p.r.n. 14. Combivent sprays. 15. Senna p.r.n. 16. Levsin p.r.n. 17. Fosamax 70 mg q.weekly. 18. Haldol p.r.n. 19. Torsemide 20 mg a day. 20. Guaifenesin p.r.n. 21. Lorazepam p.r.n. 22. Tramadol p.r.n. 23. Aspirin 81 a day. 24. Oxybutynin 10 mg a day. 25. Metformin 1000 mg b.i.d. 26. Potassium chloride 20 mEq daily. 27. Depakote 500 mg at bedtime. 28. Gabapentin q.i.d. 29. Ferrous sulfate. 30. Donepezil 5 mg at bedtime. ALLERGIES: 1. IODINE. 2. CODEINE. 3. PENICILLIN. REVIEW OF SYSTEMS: A 12-point review of systems was done and was found to be negative other than stated in the history of present illness. PHYSICAL EXAMINATION: VITAL SIGNS: Temperature 97.8, pulse 72, respiratory rate 18, saturating 100% on 3 L nasal cannula, blood pressure 128/61. GENERAL: Awake, alert, oriented x3, in no distress. HEENT: Normocephalic, atraumatic. NECK: Supple. LUNGS: Clear. CARDIOVASCULAR: S1 and S2. No S3 or S4. No murmurs. ABDOMEN: Soft. Positive bowel sounds. EXTREMITIES: No edema. SKIN: Warm and dry. LABORATORY WORK: Reviewed. White count of 10, hemoglobin of 7.3, hematocrit of 24, platelet count of 292. Chemistry showed a sodium of 139, potassium 3.5, chloride 96, carbon dioxide of 33, anion gap of 14, BUN 29, creatinine 1.09. AST and ALT are mildly elevated, alkaline phosphatase 68. BNP 3222. Troponin was 0.06, 0.05, 0.07 in the indeterminate range. UA showed 1+ blood, 3+ bacteria, and 7 to 10 hyaline cast. Valproic acid was a little low. Most recent echocardiogram was done yesterday shows an EF of about 30% to 35%. Telemetry was reviewed. ASSESSMENT: 1. Abdominal pain, unknown cause. CT of the abdomen and pelvis unremarkable. 2. Nonsustained ventricular tachycardia, only 3 to 4 beats worth. 3. Ischemic cardiomyopathy, ejection fraction of 30% to 35%. 4. Stable coronary artery disease, currently asymptomatic. PLAN: 1. At this point, secondary to her nonsustained VT and her EF being 30% to 35%, she would be a candidate for an AICD. We will consult Electrophysiology for consideration of an AICD in the next few days. 2. Continue other medications for now. 3. We will start on a very low-dose beta evangelist. She has never tolerated blood pressure medicines too well due to hypotension. Thank you for letting us to participate in the care of your patient. We will follow. Job ID: [id number] RAINE
--- NOTE | 2020-02-28 18:09 | PDOC.HOSPP ---
- Subjective Encounter Date: 02/28/20 Encounter Time: 12:30 Subjective: pt up in bed states she feels well today. - Objective Vital Signs & Weight: Vital Signs (12 hours) Temp Pulse Resp BP BP Pulse Ox 02/28/20 16:00 98.5 F 72 16 146/61 H 100 02/28/20 13:42 68 18 100 02/28/20 11:55 97.8 F 72 18 128/61 100 02/28/20 08:10 97.5 F L 69 18 103/59 L 98 02/28/20 06:52 55 L 20 100 Weight Admit Weight 233 lb 6 oz Weight 233 lb 6 oz I&O: 02/27/20 02/28/20 02/29/20 06:59 06:59 06:59 Intake Total 1550 Output Total 420 Balance 1550 -420 Result Diagrams: 02/28/20 09:09 02/28/20 09:09 Additional Labs: Accuchecks 02/28/20 02/28/20 02/28/20 16:45 10:53 05:45 POC Glucose 159 H 148 H 111 H 02/27/20 20:28 POC Glucose 162 H Hospitalist ROS - Review of Systems Cardiovascular: denies: chest pain, palpitations, orthopnea, paroxysmal noc. dyspnea, edema, light headedness, other Gastrointestinal: denies: nausea, vomiting, abdominal pain, diarrhea, constipation, melena, hematochezia, other Genitourinary: denies: dysuria, frequency, incontinence, hematuria, retention, other - Medication Medications: Active Medications Generic Name Dose Route Start Last Admin Trade Name Saleemq PRN Reason Stop Dose Admin Albuterol/Ipratropium 3 ml 02/27/20 19:00 02/28/20 13:42 Duoneb NEB 3 ml [id number] JOSE Administration Aspirin 81 mg 02/28/20 09:00 02/28/20 09:53 Aspirin Chewable PO 81 mg DAILY JOSE Administration Atorvastatin Calcium 10 mg 02/28/20 09:00 02/28/20 09:54 Lipitor PO 10 mg DAILY JOSE Administration Cyanocobalamin 1,000 mcg 02/28/20 09:00 02/28/20 09:55 Vitamin B-12 PO 1,000 mcg DAILY JOSE Administration Dicyclomine HCl 10 mg 02/27/20 13:00 02/28/20 16:51 Bentyl PO 10 mg QID JOSE Administration Divalproex Sodium 500 mg 02/27/20 21:00 02/27/20 20:59 Depakote Er PO 500 mg HS JOSE Administration Donepezil HCl 5 mg 02/27/20 21:00 02/27/20 21:00 Aricept PO 5 mg HS JOSE Administration Escitalopram Oxalate 10 mg 02/28/20 09:00 02/28/20 09:54 Lexapro PO 10 mg DAILY JOSE Administration Ferrous Sulfate 325 mg 02/28/20 09:00 02/28/20 09:55 Feosol PO 325 mg DAILY JOSE Administration Furosemide 40 mg 02/28/20 09:00 02/28/20 09:55 Lasix SLOW IVP 40 mg DAILY JOSE Administration Gabapentin 800 mg 02/27/20 17:00 02/28/20 16:51 Neurontin PO 800 mg QID JOSE Administration Morphine Sulfate 2 mg 02/27/20 12:18 02/28/20 13:04 Morphine SLOW IVP 2 mg Q4H PRN Administration Pain Morphine Sulfate 15 mg 02/27/20 21:00 02/28/20 09:53 Ms Contin PO 15 mg BID JOSE Administration Oxybutynin Chloride 10 mg 02/28/20 09:00 02/28/20 09:55 Ditropan PO 10 mg DAILY JOSE Administration Pantoprazole Sodium 40 mg 02/27/20 21:00 02/28/20 09:55 Protonix IVP 40 mg Q12HR JOSE Administration Zolpidem Tartrate 10 mg 02/27/20 21:00 02/27/20 21:02 Ambien PO 10 mg HS JOSE Administration - Exam Heart: negative: RRR, no murmur, no gallops, no rubs, normal peripheral pulses, irregular, diminshed peripheral pulses, murmur present, II/IV, III/IV Respiratory: negative: CTAB, no wheezes, no rales, no ronchi, normal chest expansion, no tachypnea, normal percussion, rales, rhonchi, tachypneic, wheezes Gastrointestinal: negative: soft, non-tender, non-distended, normal bowel sounds , no palpable masses, no hepatomegaly, no splenomegaly, no bruit, no guarding, no rigidity, tender to palpation, distended, diminished bowl sounds, voluntary guarding Extremities: 1+ LE edema Hosp A/P (1) V tach Code(s): I47.2 - VENTRICULAR TACHYCARDIA Status: Acute (2) Pain in the abdomen Code(s): R10.9 - UNSPECIFIED ABDOMINAL PAIN Status: Acute (3) Elevated troponin Code(s): R79.89 - OTHER SPECIFIED ABNORMAL FINDINGS OF BLOOD CHEMISTRY Status : Acute (4) Chest pain Code(s): R07.9 - CHEST PAIN, UNSPECIFIED Status: Acute (5) Systolic CHF, acute on chronic Code(s): I50.23 - ACUTE ON CHRONIC SYSTOLIC (CONGESTIVE) HEART FAILURE Status : Acute - Plan will continue lasix for now. Her hh is low will monitor if she drops again dominic will consult gi. she has been complaining of some pain around her genitals area. Most jessika bartholin cyst. will get some silver nitrate to see if this helps.
[2020-02-28] MEDS: Zolpidem Tartrate 5 MG TAB PO SCH (21:00)
[2020-02-28] MEDS: Donepezil HCl 5 MG TAB PO SCH ×2 (21:01→21:02)
[2020-02-28] MEDS: Senokot S 8.6-50 MG TAB PO SCH (21:01)
[2020-02-28] MEDS: Polyethylene Glycol 3350 17 GM Packet PO SCH (21:11)
[2020-02-28] MEDS: Silver Nitrate Application 1 EACH TOP SCH (21:12)
[2020-02-29 04:55] LABS: #Eosinphils 0.1 thou/uL (0.0-0.7); #Lymphocytes 1.7 thou/uL (1.20-3.40); #Monocytes 1.5 thou/uL (0.11-0.59); #Neutrophils 15.8 thou/uL (1.40-6.50); %Eosinophils 0.7 % (0.0-10.0); %Lymphocytes 8.8 % (21.0-51.0); %Monocytes 7.9 % (0.0-10.0); %Neutrophils 82.8 % (42.0-75.0); Hemoglobin 7.3 g/dL (12.0-16.0); Mean Corpuscular HGB CONC 30.1 g/dL (32.0-36.0); Mean Corpuscular Hemoglobin 21.1 pg (27.0-31.0); Mean Corpuscular Volume 70.3 fL (78.0-98.0); Mean Platelet Volume 9.5 fL (7.4-10.4); Platelet Count 282 thou/uL (130-400); RBC Distribution Width 18.1 % (11.5-14.5); Red Blood Cell (RBC) Count 3.47 mill/uL (4.20-5.40); White Blood Cell (WBC) Count 19.1 thou/uL (4.8-10.8)
[2020-02-29 05:19] LABS: Anion Gap 17 mmol/L (10-20); BUN (Urea Nitrogen) 20 mg/dL (9.8-20.1); Calc. Creatinine Clearance 93 mL/min (70-130); Calcium 8.4 mg/dL (7.8-10.44); Carbon Dioxide 26 mmol/L (23-31); Chloride 94 mmol/L (98-107); Estimated GFR-MDRD 58; Glucose 97 mg/dL (80-115); Potassium 3.5 mmol/L (3.5-5.1); Sodium 133 mmol/L (136-145)
[2020-02-29] MEDS: Morphine ER 15 MG TAB PO SCH ×2 (07:47→20:56)
[2020-02-29] MEDS ORDERED: Iron Sucrose Complex 100 MG in Sodium Chloride 0.9% 100 ML IVPB SCH (08:00)
[2020-02-29] MEDS ORDERED: Iron, Sodium Ferric Gluconate 125 MG in Sodium Chloride 0.9% 100 ML IVPB SCH (08:00)
[2020-02-29] MEDS: Aspirin Chewable 81 MG TAB PO SCH (08:01)
[2020-02-29] MEDS: Atorvastatin Calcium 10 MG TAB PO SCH (08:01)
[2020-02-29] MEDS: Cyanocobalamin (Vitamin B-12) 1,000 MCG TAB PO SCH (08:01)
[2020-02-29] MEDS: Dicyclomine 10 MG CAP PO SCH ×2 (08:02→12:17)
[2020-02-29] MEDS: Escitalopram Oxalate 10 mg Tablet PO SCH (08:04)
[2020-02-29] MEDS: Gabapentin 400 MG CAP PO SCH ×4 (08:04→20:57)
[2020-02-29] MEDS: Furosemide 40 MG/4 ML VIAL SLOW IVP SCH (08:04)
[2020-02-29] MEDS: Oxybutynin 5 MG TAB PO SCH (08:04)
[2020-02-29] MEDS: Ferrous Sulfate 325 MG TAB PO SCH (08:04)
[2020-02-29] MEDS: Senokot S 8.6-50 MG TAB PO SCH ×2 (08:05→20:58)
[2020-02-29] MEDS: Pantoprazole 40 MG VIAL IVP SCH ×2 (08:05→20:58)
[2020-02-29] MEDS: Polyethylene Glycol 3350 17 GM Packet PO SCH ×2 (08:05→20:58)
[2020-02-29] MEDS: Silver Nitrate Application 1 EACH TOP SCH ×2 (08:32→20:58)
[2020-02-29] MEDS: cefTRIAXone\\ROCEPHIN 1 GM in Sodium Chloride 0.9% 100 ML IVPB SCH (09:55)
[2020-02-29] MEDS ORDERED: Sodium Chloride 0.9% 500 ML IVPB SCH (10:30)
--- NOTE | 2020-02-29 11:45 | CON ---
DATE OF CONSULTATION: 02/29/2020 PROBLEM LIST: 1. Chronic systolic congestive heart failure with ischemic cardiomyopathy. a. Prior history of coronary artery bypass grafting surgery. 2. Chronically reduced left ventricular ejection fraction. a. 2D echo from 01/13/2018 reveals left ventricular ejection fraction of 35% to 40%. b. Left ventricular ejection fraction reduced to 30% to 35% on the most recent echocardiogram per Dr. Sofia. c. Elevated BNP of 3222 on admission with likely fluid overload. 3. Pulmonary disease. a. History of chronic obstructive pulmonary disease. b. History of fractured sternal wires. 4. Depression. 5. Type 2 diabetes. 6. 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 7. Valvular heart disease 8. Osteoporosis. 9. Obesity. ALLERGIES: IODINE, CODEINE, PENICILLIN. MEDICATIONS: At home, included: 1. Torsemide. 2. Metformin. 3. K-Dur. 4. Omeprazole. 5. Aricept. 6. Depakote. 7. Aspirin. 8. Lipitor. 9. Ditropan. 10. [place]. 11. Lasix. 12. Morphine. 13. Ambien. 14. Lexapro. 15. Anoro Ellipta. 16. Protonix. 17. Triamcinolone. 18. Potassium. 19. Vitamin B12. 20. ProAir. 21. Dicyclomine. 22. Combivent. 23. Senna. 24. Levsin. 25. Fosamax. 26. Haldol. 27. Tussin. 28. Loprazolam. 29. Tramadol. 30. Neurontin. 31. Ferretts. SUBJECTIVE: Ms. Wyatt is here with general weakness, also feeling short of breath, abdominal discomfort is noted on admitting H and P. She was noted to have markedly elevated BNP and nonsustained ventricular tachycardic runs were noted on classroom monitor. Dr. Sofia consulted me for consideration of ICD implant. Currently, she is feeling somewhat uncomfortable in the bed, but is able to lay down. She has received IV diuretics for diuresis. She does not pass out. No stroke-like symptoms. No neurological deficits are noted. No fever, chills, or cough. No PND or orthopnea at this point. She does have some left lower extremity redness and cellulitis is of concern. REVIEW OF SYSTEMS: Rest of 12-point review of systems is otherwise unremarkable. PAST HISTORY: As above. 1. She has severe physical deconditioning. 2. Remote history of ruptured ectopic . 3. Endometriosis. 4. COPD. 5. 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 6. History of stroke with right eye blindness. 7. Coronary artery disease. 8. She also had some EGD and colonoscopy in the past without any specific abnormalities. ADDITIONAL SURGICAL HISTORY: Includin. Tonsillectomy. 2. Back surgery. 3. Stent placement in 1999. 4. Bypass surgery in 2014. 5. Cholecystectomy. 6. OLGA . 7. Cataract surgery. 8. Bladder repair. 9. Unilateral salpingectomy with ectopic . 10. Oophorectomy due to endometriosis. SOCIAL HISTORY: She quit smoking after 40 years of smoking. She denies EtOH or drug use. She is a retired nurse. She is , has 3 children. FAMILY HISTORY: Significant for father at age 72 due to melanoma and CHF. Mother at age 63 with diabetes and hypertension. Siblings alive. OBJECTIVE DATA: VITAL SIGNS: Blood pressure is 128/60, heart rate 89, respiratory rate 20, and temperature 99.8 degrees Fahrenheit. GENERAL: This is an alert and oriented woman, in no apparent distress. NECK: Supple. Jugular veins not distended, although difficult to visualize. CHEST: Coarse. No crackles. HEART: Sounds are regular to rate and rhythm. No murmur or gallop. ABDOMEN: Benign. Bowel sounds are positive. EXTREMITIES: Lower extremities without edema, clubbing, or cyanosis. Pulses are adequate. NEUROLOGIC: The patient is nonfocal. MUSCULOSKELETAL: Without joint swelling or deformity. SKIN: Without rash. DATABASE: EKG is reviewed on admit, revealing sinus rhythm, occasional PVCs, nonspecific ST-T changes. Subsequent telemetry strips revealed continued moderate PVC burden, nonsustained wide-complex arrhythmia runs noted about 4 to 5 beats in duration. Idioventricular rhythm also seen and multifocal atrial tachycardia also noted up to 9 seconds. LABORATORY DATA: Sodium 132, potassium 3.5, BUN is 20, creatinine 0.95, glucose 197. White cell count is 9.1, hemoglobin 7.3, and platelet count is 282. BNP was elevated over 3000 on admit. Chest x-ray showed fractured sternal wires, enlarged heart size, prominent vascularity in the lungs. ASSESSMENT AND PLAN: 1. Ms. Wyatt is a pleasant 69-year-old woman with prior history of congestive heart failure, ischemic cardiomyopathy, [id number] reduced left ventricular ejection fraction, evidence of fluid overload on this admit with congestive heart failure exacerbation, also has nonsustained ventricular arrhythmias and [id number] frequency of premature ventricular contractions. We discussed the utility of prophylactic pacemaker defibrillator on her in her condition. She could be considered for a pacemaker defibrillator implant in near future. Concerning her white cell count rise and redness on lower extremity for cellulitis, she is receiving antibiotics. If improvement is seen, ICD implant could be a consideration after recovery is noted. She is still pending further evaluation for her reduced hemoglobin. We will follow up with you for consideration for implantable cardiac defibrillator implant inpatient or outpatient. 2. Coronary artery disease, currently stable as per Dr. Sofia for management of congestive heart failure as well. 3. Premature ventricular contractions. For now, monitor. Continue beta-evangelist therapy if tolerated. 4. Chronic obstructive pulmonary disease and sternal dehiscence. As per primary team. 5. Cellulitis. As per primary team. On antibiotics. Job ID: [id number] MTDD
--- NOTE | 2020-02-29 15:11 | PQF ---
CLINICAL DOCUMENTATION CLARIFICATION FORM: Dear Dr. Pickens Date: 02/29/20 Please exercise your independent, professional judgment in responding to the clarification form. Clinical indicators are provided on the bottom of this form for your review. Please check appropriate box(es): [ ] Acute On Chronic Respiratory Failure: [ ] with Hypoxia [ ] with Hypercapnia [ ] Chronic Respiratory Failure only [ ] with Hypoxia [ ] with Hypercapnia [ x ] Other diagnosis __acute on chronic systolic heart failure [ ] Unable to determine In addition, please specify: Present on Admission (POA): [ x ] Yes [ ] No [ ] Unable to determine I HAVE DOCUMENTED THIS IN MY NOTE ER NOTE: 'NORMALLY WEARS 2L OF OXYGEN" RISKS: BNP 3222 (02/26) H/O CAD (ER NOTE) H/O VT (ER NOTE) CHF EXACERBATION (ER) TREATMENT: SUPPLEMENTAL OXYGEN (ER NOTE) IV LASIX (ER) TELEMETRY MONITORING For continuity of documentation, please document condition throughout progress notes and discharge summary. Thank You. Acute Respiratory Failure: ABG pH < 7.35 or > 7.45; Decreased oxygen saturation (<90% room air or < 95% on oxygen); PCO2 > 50 mm Hg; PO2 < 60 mm Hg; Labored or rapid respirations ARDS: Dx Criteria [[place] ARDS]: Respiratory symptoms within one week of a known clinical insult (e.g. shock, infection, surgery, trauma) Bilateral opacities in CXR/Chest CT not due to CHF or fluid CDS Signature: Leah Avilez RN Phone #: [phone] Date: 02/29/20 This is a permanent part of the Medical Record [facility]
[2020-02-29] MEDS: Morphine 2 MG/ML VIAL SLOW IVP PRN ×2 (16:14→20:59)
--- NOTE | 2020-02-29 17:02 | PDOC.CPN ---
- Subjective Date: 02/29/20 Time: 16:57 Interval history: No angina. Still SOB but better. - Review of Systems General: reports: fatigue. denies: fever/chills, weight/appetite/sleep changes , night sweats Respiratory: reports: shortness of breath. denies: cough, congestion, exercise intolerance Cardiovascular: denies: chest pain, palpitation, edema, paroxysmal nocturnal dyspnea, orthopnea Gastrointestinal: denies: nausea, vomiting, diarrhea, constipation, abd pain, GI bleeding Musculoskeletal: denies: pain, tenderness, stiffness, swelling, arthritis/ arthralgias Neurological: denies: numbness, syncope, seizure, weakness - Objective Allergies/Adverse Reactions: Allergies Allergy/AdvReac Type Severity Reaction Status Date / Time iodine Allergy Severe ANAPHYLACTIC Verified 02/27/20 10:14 REACTION codeine Allergy Intermediate Verified 02/27/20 10:14 penicillin G Allergy Verified 02/27/20 10:14 Visit Medications: Current Medications Albuterol/Ipratropium (Duoneb) 3 ml NEB [id number] [facility] Last Admin: 02/29/20 12:52 Dose: 3 ml Aspirin (Aspirin Chewable) 81 mg PO DAILY [facility] Last Admin: 02/29/20 08:01 Dose: 81 mg Atorvastatin Calcium (Lipitor) 10 mg PO DAILY [facility] Last Admin: 02/29/20 08:01 Dose: 10 mg Cyanocobalamin (Vitamin B-12) 1,000 mcg PO DAILY [facility] Last Admin: 02/29/20 08:01 Dose: 1,000 mcg Divalproex Sodium (Depakote Er) 500 mg PO [facility] Last Admin: 02/28/20 21:11 Dose: 500 mg Donepezil HCl (Aricept) 5 mg PO HS [facility] Last Admin: 02/28/20 21:02 Dose: 5 mg Escitalopram Oxalate (Lexapro) 10 mg PO DAILY [facility] Last Admin: 02/29/20 08:04 Dose: 10 mg Ferrous Sulfate (Feosol) 325 mg PO DAILY [facility] Last Admin: 02/29/20 08:04 Dose: 325 mg Furosemide (Lasix) 40 mg SLOW IVP 0600,1400 [facility] Gabapentin (Neurontin) 800 mg PO QID [facility] Last Admin: 02/29/20 16:14 Dose: 800 mg Haloperidol (Haldol) 0.5 mg PO Q6H PRN PRN Reason: Anxiety Ceftriaxone Sodium 1 gm/ (Sodium Chloride) 100 mls @ 200 mls/hr IVPB Q24HR [facility] Last Admin: 02/29/20 09:55 Dose: 100 mls Lorazepam (Ativan) 0.5 mg PO Q6H PRN PRN Reason: Anxiety Metoprolol Succinate (Toprol Xl) 12.5 mg PO DAILY [facility] Last Admin: 02/29/20 08:05 Dose: 12.5 mg Morphine Sulfate (Morphine) 2 mg SLOW IVP Q4H PRN PRN Reason: Pain Last Admin: 02/29/20 16:14 Dose: 2 mg Morphine Sulfate (Ms Contin) 15 mg PO BID [facility] Last Admin: 02/29/20 07:47 Dose: 15 mg Ondansetron HCl (Zofran) 4 mg IVP Q6H PRN PRN Reason: Nausea/Vomiting Oxybutynin Chloride (Ditropan) 10 mg PO DAILY [facility] Last Admin: 02/29/20 08:04 Dose: 10 mg Pantoprazole Sodium (Protonix) 40 mg IVP Q12HR [facility] Last Admin: 02/29/20 08:05 Dose: 40 mg Polyethylene Glycol (Miralax) 17 gm PO BID [facility] Last Admin: 02/29/20 08:05 Dose: 17 gm Senna/Docusate Sodium (Senokot S) 1 tab PO BID [facility] Last Admin: 02/29/20 08:05 Dose: 1 tab Silver Nitrate (Silver Nitrate Application) 1 each TOP BID [facility] Last Admin: 02/29/20 08:32 Dose: 1 each Zolpidem Tartrate (Ambien) 10 mg PO [facility] Last Admin: 02/28/20 21:00 Dose: 10 mg Vital Signs & Weight: Vital Signs Temp Pulse Resp BP BP Pulse Ox 02/29/20 16:08 98.8 F 76 16 130/61 99 02/29/20 12:52 76 16 02/29/20 11:21 98.4 F 80 16 111/56 L 97 02/29/20 07:37 99.8 F H 89 20 128/60 95 02/29/20 07:15 89 20 Admit Weight 233 lb 6 oz Weight 234 lb 1.6 oz - Physical Exam General: alert & oriented x3 HEENT: mucus membranes moist Neck: supple neck Cardiac: regular rate and rhythm Lungs: normal breath sounds Neuro: grossly intact Abdomen: active bowel sounds Extremities: no edema Skin: clear Musculoskeletal: no pain - Labs Result Diagrams: 02/29/20 04:03 02/29/20 04:03 Troponin/CKMB CK-MB (CK-2) 2.1 ng/mL (0-6.6) 02/27/20 06:23 Troponin I 0.074 ng/mL (< 0.028) H 02/27/20 12:41 - Telemetry Sinus rhythms and dysrhythmias: sinus rhythm - Assessment/Plan Assessment/Plan: 1. Abdominal pain, unknown cause. 2. Nonsustained ventricular tachycardia, only 3 to 4 beats worth. 3. Ischemic cardiomyopathy, ejection fraction of 30% to 35%. 4. Stable coronary artery disease, currently asymptomatic. 5. Anemia. PLAN: - EP for AICD. - Would recommend transfusion to keep blood closer to 10. - Continue IV lasix - Abdominal pain improved with diuresis. - Will follow.
--- NOTE | 2020-02-29 17:10 | PDOC.HOSPP ---
- Subjective Encounter Date: 02/29/20 Encounter Time: 11:15 Subjective: Pt up in bed feels weak today - Objective Vital Signs & Weight: Vital Signs (12 hours) Temp Pulse Resp BP BP Pulse Ox 02/29/20 16:08 98.8 F 76 16 130/61 99 02/29/20 12:52 76 16 02/29/20 11:21 98.4 F 80 16 111/56 L 97 02/29/20 07:37 99.8 F H 89 20 128/60 95 02/29/20 07:15 89 20 Weight Admit Weight 233 lb 6 oz Weight 234 lb 1.6 oz I&O: 02/28/20 02/29/20 03/01/20 06:59 06:59 06:59 Intake Total 1550 800 Output Total 420 Balance 1550 380 Result Diagrams: 02/29/20 04:03 02/29/20 04:03 Additional Labs: Accuchecks 02/29/20 02/29/20 02/29/20 16:22 11:19 06:00 POC Glucose 129 H 133 H 139 H 02/28/20 20:31 POC Glucose 144 H Hospitalist ROS - Review of Systems Constitutional: reports: other (generalized weakness) Cardiovascular: denies: chest pain, palpitations, orthopnea, paroxysmal noc. dyspnea, edema, light headedness, other Gastrointestinal: denies: nausea, vomiting, abdominal pain, diarrhea, constipation, melena, hematochezia, other - Medication Medications: Active Medications Generic Name Dose Route Start Last Admin Trade Name Freq PRN Reason Stop Dose Admin Albuterol/Ipratropium 3 ml 02/27/20 19:00 02/29/20 12:52 Duoneb NEB 3 ml [id number] JOSE Administration Aspirin 81 mg 02/28/20 09:00 02/29/20 08:01 Aspirin Chewable PO 81 mg DAILY JOSE Administration Atorvastatin Calcium 10 mg 02/28/20 09:00 02/29/20 08:01 Lipitor PO 10 mg DAILY JOSE Administration Cyanocobalamin 1,000 mcg 02/28/20 09:00 02/29/20 08:01 Vitamin B-12 PO 1,000 mcg DAILY JOSE Administration Divalproex Sodium 500 mg 02/27/20 21:00 02/28/20 21:11 Depakote Er PO 500 mg HS JOSE Administration Donepezil HCl 5 mg 02/27/20 21:00 02/28/20 21:02 Aricept PO 5 mg HS JOSE Administration Escitalopram Oxalate 10 mg 02/28/20 09:00 02/29/20 08:04 Lexapro PO 10 mg DAILY JOSE Administration Ferrous Sulfate 325 mg 02/28/20 09:00 02/29/20 08:04 Feosol PO 325 mg DAILY JOSE Administration Gabapentin 800 mg 02/27/20 17:00 02/29/20 16:14 Neurontin PO 800 mg QID JOSE Administration Ceftriaxone Sodium 1 gm/ 100 mls @ 200 mls/hr 02/29/20 09:00 02/29/20 09:55 Sodium Chloride IVPB 100 mls Q24HR JOSE Administration Metoprolol Succinate 12.5 mg 02/29/20 09:00 02/29/20 08:05 Toprol Xl PO 12.5 mg DAILY JOSE Administration Morphine Sulfate 2 mg 02/27/20 12:18 02/29/20 16:14 Morphine SLOW IVP 2 mg Q4H PRN Administration Pain Morphine Sulfate 15 mg 02/27/20 21:00 02/29/20 07:47 Ms Contin PO 15 mg BID JOSE Administration Oxybutynin Chloride 10 mg 02/28/20 09:00 02/29/20 08:04 Ditropan PO 10 mg DAILY JOSE Administration Pantoprazole Sodium 40 mg 02/27/20 21:00 02/29/20 08:05 Protonix IVP 40 mg Q12HR JOSE Administration Polyethylene Glycol 17 gm 02/28/20 21:00 02/29/20 08:05 Miralax PO 17 gm BID JOSE Administration Senna/Docusate Sodium 1 tab 02/28/20 21:00 02/29/20 08:05 Senokot S PO 1 tab BID JOSE Administration Silver Nitrate 1 each 02/28/20 21:00 02/29/20 08:32 Silver Nitrate Application TOP 1 each BID JOSE Administration Zolpidem Tartrate 10 mg 02/27/20 21:00 02/28/20 21:00 Ambien PO 10 mg HS JOSE Administration - Exam Heart: negative: RRR, no murmur, no gallops, no rubs, normal peripheral pulses, irregular, diminshed peripheral pulses, murmur present, II/IV, III/IV Respiratory: negative: CTAB, no wheezes, no rales, no ronchi, normal chest expansion, no tachypnea, normal percussion, rales, rhonchi, tachypneic, wheezes Gastrointestinal: negative: soft, non-tender, non-distended, normal bowel sounds , no palpable masses, no hepatomegaly, no splenomegaly, no bruit, no guarding, no rigidity, tender to palpation, distended, diminished bowl sounds, voluntary guarding Extremities: 1+ LE edema Extremities - other findings: left lower leg erythema Hosp A/P (1) V tach Code(s): I47.2 - VENTRICULAR TACHYCARDIA Status: Acute (2) Pain in the abdomen Code(s): R10.9 - UNSPECIFIED ABDOMINAL PAIN Status: Acute (3) Elevated troponin Code(s): R79.89 - OTHER SPECIFIED ABNORMAL FINDINGS OF BLOOD CHEMISTRY Status : Acute (4) Chest pain Code(s): R07.9 - CHEST PAIN, UNSPECIFIED Status: Acute (5) Systolic CHF, acute on chronic Code(s): I50.23 - ACUTE ON CHRONIC SYSTOLIC (CONGESTIVE) HEART FAILURE Status : Acute - Plan will continue lasix for now. Her hh is low will monitor if she drops again dominic will consult gi. she has been complaining of some pain around her genitals area. Most likley bartholin cyst. will get some silver nitrate to see if this helps. 02/28 pt feels weak today will give her some fluids. pt consult gi since her hh has been trending down. will start pt on abx given her left lower leg swelling. pt evaluated for AICD.
--- NOTE | 2020-02-29 20:53 | CON ---
DATE OF CONSULTATION: 02/29/2020 CHIEF COMPLAINT: Anemia. HISTORY OF PRESENT ILLNESS: Ms. Wyatt is a 69-year-old woman, who was admitted a couple of days ago with lower abdominal pain and anemia. She has cellulitis of the left lower extremity and significant tenderness with that. She had been on hospice, but wanted to come to the hospital; however, leg swelling and pain evaluated. She was evaluated by Dr. Mckeon previously for anemia. Esophagogastroduodenoscopy was performed back in June of 2018, which showed some gastritis and biopsies were negative for H. pylori. Colonoscopy was performed in February of 2019, by Dr. Mckeon and this exam revealed diverticulosis throughout the colon and internal hemorrhoids. Two polyps were removed from the colon from the ascending colon measuring 7 mm and 12 mm, these were both removed. The polyp did show focal high-grade dysplasia. Currently, the patient reports that she has had some lower abdominal pain. Nursing reports that her last bowel movement was a couple of days ago with a couple of hard golf ball like stools. She had a CT scan of the abdomen and pelvis performed on presentation without contrast, which was unremarkable. Echocardiogram showed restrictive filling pattern of her left ventricle and severe aortic stenosis and globally decreased systolic function previously with the EF of 30% to 35% on recent echocardiogram. She has had no visible blood in the stool that she recalls. She has dementia and is unable to contribute completely the history. She is oriented to her name and the city, not to the year. She is somewhat confuse now and is wanting the get out of bed and go to her home. PAST MEDICAL HISTORY: Cardiomyopathy with an EF of 30% to 35%, severe aortic stenosis, restrictive filling on her echocardiogram as well, COPD, diabetes mellitus, hypertension, hyperlipidemia, history of DVT, and obesity. PAST SURGICAL HISTORY: Coronary artery bypass graft and sternal wound dehiscence, back surgeries, cholecystectomy, hysterectomy. She had EGD and colonoscopy in 2019. FAMILY HISTORY: Negative for GI malignancy. SOCIAL HISTORY: She lives in a fci and was on hospice up until transfer to the hospital now. No alcohol or drugs. Past smoker. ALLERGIES: IODINE, CODEINE, AND PENICILLIN. CURRENT INPATIENT MEDICATIONS: Include; 1. Ceftriaxone. 2. Atorvastatin. 3. Aspirin. 4. B12. 5. Dicyclomine four times daily scheduled. 6. Depakote. 7. Donepezil. 8. Ferrous sulfate. 9. Escitalopram. 10. Furosemide. 11. Gabapentin. 12. Haloperidol. 13. Metoprolol. 14. Morphine. 15. MS Contin scheduled 15 mg twice daily. 16. Pantoprazole. 17. MiraLAX. 18. Ambien. REVIEW OF SYSTEMS: Negative x10 systems reviewed except as stated in the history of present illness. PHYSICAL EXAMINATION: VITAL SIGNS: Temperature 99.8, pulse 76, and blood pressure 111/56. GENERAL: She is in no acute distress. Oriented x2. HEENT: Eyes have no scleral icterus. Oropharynx is clear without lesions. NECK: No cervical or supraclavicular lymphadenopathy. LUNGS: Clear to auscultation bilaterally. HEART: Regular rate and rhythm without murmur. ABDOMEN: Soft and nondistended. Minimal tenderness in the lower abdomen without guarding. Bowel sounds are present. EXTREMITIES: She has erythema of the left lower extremity with tenderness and mild pitting edema. LABORATORY DATA: White blood cell count 19.1, hemoglobin 7.3, and platelets 282. INR 1.0. Creatinine 0.95, bilirubin 0.9, AST 75, ALT 103, alkaline phosphatase 68, and albumin 3.7. IMPRESSION: 1. Lower abdominal pain. She has no stool in the rectal vault by digital exam currently. Her last bowel movement; however, was a couple of days ago with hard golf ball like stools. She has been on chronic opioids with MS Contin and diuretics and beta blockers and immobility and iron, all which could be contributing to her constipation. She has been started on MiraLAX twice daily here. If this is inadequate, then Movantik could be added to counteract the MS Contin. I will stop the scheduled dicyclomine as this could be worsening the constipation. 2. Anemia. She underwent upper and lower endoscopy to evaluate anemia back in 2019. Her upper and lower endoscopy were negative; however, she did have a large polyp removed from the ascending colon with focal high-grade dysplasia. She has had no overt bleeding. Her hemoglobin has dropped down from baseline a year ago of 11 down to 7.3 now. Her iron is low with upper normal TIBC on lower normal ferritin, which is consistent with iron deficiency overall. 3. Constipation. 4. Severe aortic stenosis with cardiomyopathy. 5. Dementia. 6. Chronic obstructive pulmonary disease. 7. Obesity. 8. She had been on hospice up until this hospital stay. RECOMMENDATIONS: 1. Proton pump inhibitor. She is currently receiving pantoprazole twice daily. If she does have a peptic ulcer. This will be the primary treatment. She tested negative for H. pylori biopsy previously. Upper endoscopy will not likely contribute significantly to the treatment plan currently. 2. She received IV iron today. 3. MiraLAX twice daily. If this ultimately that she is in an inadequate response, then we could add Movantik as well 25 mg daily. 4. Discontinue dicyclomine. 5. We will continue to follow the trend of her hemoglobin. We will see how she responds to iron and laxatives. We will not plan for endoscopy at this point given her multiple comorbidities. Job ID: [id number]
[2020-02-29] MEDS: Zolpidem Tartrate 5 MG TAB PO SCH (20:57)
[2020-03-01 04:42] LABS: #Basophils 0.1 thou/uL (0.0-0.2); #Eosinphils 0.2 thou/uL (0.0-0.7); #Lymphocytes 1.6 thou/uL (1.20-3.40); #Monocytes 1.1 thou/uL (0.11-0.59); #Neutrophils 13.7 thou/uL (1.40-6.50); %Basophils 0.4 % (0.0-1.0); %Eosinophils 0.9 % (0.0-10.0); %Lymphocytes 9.8 % (21.0-51.0); %Monocytes 6.3 % (0.0-10.0); %Neutrophils 82.7 % (42.0-75.0); Mean Corpuscular Hemoglobin 20.9 pg (27.0-31.0); Mean Corpuscular Volume 69.7 fL (78.0-98.0); Mean Platelet Volume 10.1 fL (7.4-10.4); Platelet Count 235 thou/uL (130-400); RBC Distribution Width 18.3 % (11.5-14.5); Red Blood Cell (RBC) Count 3.36 mill/uL (4.20-5.40); White Blood Cell (WBC) Count 16.6 thou/uL (4.8-10.8)
[2020-03-01 05:02] LABS: Anion Gap 13 mmol/L (10-20); BUN (Urea Nitrogen) 13 mg/dL (9.8-20.1); Calc. Creatinine Clearance 111 mL/min (70-130); Calcium 8.2 mg/dL (7.8-10.44); Carbon Dioxide 31 mmol/L (23-31); Chloride 96 mmol/L (98-107); Estimated GFR-MDRD 70; Glucose 96 mg/dL (80-115); Potassium 3.4 mmol/L (3.5-5.1); Sodium 137 mmol/L (136-145)
[2020-03-01] MEDS: Furosemide 40 MG/4 ML VIAL SLOW IVP SCH ×2 (05:44→14:42)
[2020-03-01] MEDS: Aspirin Chewable 81 MG TAB PO SCH (08:53)
[2020-03-01] MEDS: Polyethylene Glycol 3350 17 GM Packet PO SCH ×2 (08:54→21:06)
[2020-03-01] MEDS: Morphine ER 15 MG TAB PO SCH ×2 (08:54→21:05)
[2020-03-01] MEDS: Escitalopram Oxalate 10 mg Tablet PO SCH (08:55)
[2020-03-01] MEDS: Oxybutynin 5 MG TAB PO SCH (08:55)
[2020-03-01] MEDS: Senokot S 8.6-50 MG TAB PO SCH ×2 (08:55→21:06)
[2020-03-01] MEDS: Atorvastatin Calcium 10 MG TAB PO SCH (08:55)
[2020-03-01] MEDS: Gabapentin 400 MG CAP PO SCH ×4 (08:56→21:05)
[2020-03-01] MEDS: Ferrous Sulfate 325 MG TAB PO SCH (08:56)
--- NOTE | 2020-03-01 09:16 | PDOC.EP ---
- Subjective Date: 03/01/20 Time: 09:13 Interval History: Feel fair today but weak. She has no cardiac complaints today - Review of Systems Constitutional: denies: chills, fever, malaise, sweats, weakness Respiratory: denies: cough, dry, hemoptysis, pleuritic pain, shortness of breath , SOB with excertion, sputum, wheezing Cardiology: denies: chest pain, edema, light headedness, orthopnea, paroxysmal noc. dyspnea Gastrointestinal: denies: abdominal pain, constipation, diarrhea - Objective Allergies/Adverse Reactions: Allergies Allergy/AdvReac Type Severity Reaction Status Date / Time iodine Allergy Severe ANAPHYLACTIC Verified 02/27/20 10:14 REACTION codeine Allergy Intermediate Verified 02/27/20 10:14 penicillin G Allergy Verified 02/27/20 10:14 Current Medications Albuterol/Ipratropium (Duoneb) 3 ml NEB [id number] [facility] Last Admin: 03/01/20 08:09 Dose: 3 ml Aspirin (Aspirin Chewable) 81 mg PO DAILY [facility] Last Admin: 03/01/20 08:53 Dose: 81 mg Atorvastatin Calcium (Lipitor) 10 mg PO DAILY [facility] Last Admin: 03/01/20 08:55 Dose: 10 mg Cyanocobalamin (Vitamin B-12) 1,000 mcg PO DAILY [facility] Last Admin: 02/29/20 08:01 Dose: 1,000 mcg Divalproex Sodium (Depakote Er) 500 mg PO HS [facility] Last Admin: 02/29/20 20:56 Dose: 500 mg Donepezil HCl (Aricept) 5 mg PO HS [facility] Last Admin: 02/28/20 21:02 Dose: 5 mg Escitalopram Oxalate (Lexapro) 10 mg PO DAILY [facility] Last Admin: 03/01/20 08:55 Dose: 10 mg Ferrous Sulfate (Feosol) 325 mg PO DAILY [facility] Last Admin: 03/01/20 08:56 Dose: 325 mg Furosemide (Lasix) 40 mg SLOW IVP 0600,1400 [facility] Last Admin: 03/01/20 05:44 Dose: 40 mg Gabapentin (Neurontin) 800 mg PO QID [facility] Last Admin: 03/01/20 08:56 Dose: 800 mg Haloperidol (Haldol) 0.5 mg PO Q6H PRN PRN Reason: Anxiety Ceftriaxone Sodium 1 gm/ (Sodium Chloride) 100 mls @ 200 mls/hr IVPB Q24HR [facility] Last Admin: 02/29/20 09:55 Dose: 100 mls Lorazepam (Ativan) 0.5 mg PO Q6H PRN PRN Reason: Anxiety Metoprolol Succinate (Toprol Xl) 12.5 mg PO DAILY [facility] Last Admin: 03/01/20 08:56 Dose: 12.5 mg Morphine Sulfate (Morphine) 2 mg SLOW IVP Q4H PRN PRN Reason: Pain Last Admin: 02/29/20 20:59 Dose: 2 mg Morphine Sulfate (Ms Contin) 15 mg PO BID [facility] Last Admin: 03/01/20 08:54 Dose: 15 mg Ondansetron HCl (Zofran) 4 mg IVP Q6H PRN PRN Reason: Nausea/Vomiting Oxybutynin Chloride (Ditropan) 10 mg PO DAILY [facility] Last Admin: 03/01/20 08:55 Dose: 10 mg Pantoprazole Sodium (Protonix) 40 mg IVP Q12HR [facility] Last Admin: 02/29/20 20:58 Dose: 40 mg Polyethylene Glycol (Miralax) 17 gm PO BID [facility] Last Admin: 03/01/20 08:54 Dose: 17 gm Senna/Docusate Sodium (Senokot S) 1 tab PO BID [facility] Last Admin: 03/01/20 08:55 Dose: 1 tab Silver Nitrate (Silver Nitrate Application) 1 each TOP BID [facility] Last Admin: 02/29/20 20:58 Dose: Not Given Zolpidem Tartrate (Ambien) 10 mg PO HS [facility] Last Admin: 02/29/20 20:57 Dose: 10 mg Vital Signs & Weight: Vital Signs Temp Pulse Resp BP Pulse Ox 03/01/20 08:48 97.8 F 75 20 134/63 93 L 03/01/20 08:09 61 14 96 03/01/20 03:30 97.9 F 62 18 119/63 94 L Admit Weight 233 lb 6 oz Weight 237 lb 4.8 oz I/O: I/O 02/29/20 03/01/20 03/02/20 06:59 06:59 06:59 Intake Total 800 1540 Output Total 420 Balance 380 1540 - Physical Exam General: alert & oriented x3, appears well, no apparent distress, speech clear, affect appropriate HEENT: mucus membranes moist, normocephaly Neck: supple neck, midline trachea, no JVD/HJR Cardiology: regular rate and rhythm, no murmur, regular rate Lungs: clear to auscultation, normal breath sounds Neurology: cranial nerve 2-12 intact, grossly intact Extremities: dry, strong pulses, warm, erythema (LLE) - Labs Result Diagrams: 03/01/20 04:17 03/02/20 14:11 - EKG Interpretation EKG Method: Telemetry EKG shows: Sinus rhythm - Assessment/Plan Assessment/Plan: PROBLEM LIST: 1. Chronic systolic congestive heart failure with ischemic cardiomyopathy. a. Prior history of coronary artery bypass grafting surgery. b. NYHA functional class 3 2. Chronically reduced left ventricular ejection fraction. a. 2D echo from 01/13/2018 reveals left ventricular ejection fraction of 35% to 40%. b. Left ventricular ejection fraction reduced to 30% to 35% on the most recent echocardiogram per Dr. Sofia. c. Elevated BNP of 3222 on admission with likely fluid overload. 3. Cellulitis a. treatment with IV anbx b. leukocytosis, now trending down: 02/28= 19 03/01= 16 4. Anemia 5. Non sustained VT At risk for device infection with ongoing infection and leukocytosis. If infectious status continues to improve she may be a candidate for ICD implant by Friday. Shared decision making tool was used to aid in the discussion about ICD therapies. Risks were discussed and she consents to ICD implant whenever deemed medically advisable. Will continue to follow.
[2020-03-01] MEDS: Pantoprazole 40 MG VIAL IVP SCH ×2 (09:47→21:06)
[2020-03-01] MEDS: Cyanocobalamin (Vitamin B-12) 1,000 MCG TAB PO SCH (09:47)
[2020-03-01] MEDS: cefTRIAXone\\ROCEPHIN 1 GM in Sodium Chloride 0.9% 100 ML IVPB SCH (09:47)
[2020-03-01] MEDS: Silver Nitrate Application 1 EACH TOP SCH ×2 (11:22→21:06)
[2020-03-01] MEDS ORDERED: Vancomycin 1.5 GRAM/300 ML BAG 1.5 GM in Premix Bag 1 BAG IVPB SCH (12:00)
[2020-03-01] MEDS ORDERED: Vancomycin HCl 1.5 GM in Sodium Chloride 0.9% 250 ML 250 ML IVPB SCH (12:00)
[2020-03-01] MEDS ORDERED: Vancomycin HCl 1.5 GM in Sodium Chloride 0.9% 250 ML 300 ML IVPB SCH (12:00)
[2020-03-01] MEDS: Morphine 2 MG/ML VIAL SLOW IVP PRN (12:09)
--- NOTE | 2020-03-01 16:08 | PDOC.HOSPP ---
- Subjective Encounter Date: 03/01/20 Encounter Time: 11:45 Subjective: pt up in bed complains of pain to her left lower leg - Objective Vital Signs & Weight: Vital Signs (12 hours) Temp Pulse Resp BP Pulse Ox 03/01/20 15:25 98.4 F 71 20 115/59 L 99 03/01/20 13:29 64 18 100 03/01/20 11:14 98.1 F 66 17 133/93 H 99 03/01/20 08:54 93 L 03/01/20 08:48 97.8 F 75 20 134/63 93 L 03/01/20 08:09 61 14 96 Weight Admit Weight 233 lb 6 oz Weight 237 lb 4.8 oz I&O: 02/29/20 03/01/20 03/02/20 06:59 06:59 06:59 Intake Total 800 1540 Output Total 420 Balance 380 1540 Result Diagrams: 03/01/20 04:17 03/01/20 04:17 Additional Labs: Accuchecks 03/01/20 02/29/20 02/29/20 05:25 20:41 16:22 POC Glucose 101 145 H 129 H Hospitalist ROS - Review of Systems Cardiovascular: denies: chest pain, palpitations, orthopnea, paroxysmal noc. dyspnea, edema, light headedness, other Gastrointestinal: denies: nausea, vomiting, abdominal pain, diarrhea, constipation, melena, hematochezia, other Musculoskeletal: reports: leg pain - Medication Medications: Active Medications Generic Name Dose Route Start Last Admin Trade Name Freq PRN Reason Stop Dose Admin Albuterol/Ipratropium 3 ml 02/27/20 19:00 03/01/20 13:29 Duoneb NEB 3 ml [id number] JOSE Administration Aspirin 81 mg 02/28/20 09:00 03/01/20 08:53 Aspirin Chewable PO 81 mg DAILY JOSE Administration Atorvastatin Calcium 10 mg 02/28/20 09:00 03/01/20 08:55 Lipitor PO 10 mg DAILY JOSE Administration Cyanocobalamin 1,000 mcg 02/28/20 09:00 03/01/20 09:47 Vitamin B-12 PO 1,000 mcg DAILY JOSE Administration Divalproex Sodium 500 mg 02/27/20 21:00 02/29/20 20:56 Depakote Er PO 500 mg HS JOSE Administration Donepezil HCl 5 mg 02/27/20 21:00 02/28/20 21:02 Aricept PO 5 mg HS JOSE Administration Escitalopram Oxalate 10 mg 02/28/20 09:00 03/01/20 08:55 Lexapro PO 10 mg DAILY JOSE Administration Ferrous Sulfate 325 mg 02/28/20 09:00 03/01/20 08:56 Feosol PO 325 mg DAILY JOSE Administration Furosemide 40 mg 03/01/20 06:00 03/01/20 14:42 Lasix SLOW IVP 40 mg 0600,1400 JOSE Administration Gabapentin 800 mg 02/27/20 17:00 03/01/20 12:16 Neurontin PO 800 mg QID JOSE Administration Levofloxacin 500 mg/ Device 100 mls @ 100 mls/hr 03/01/20 14:00 03/01/20 14: 59 IVPB 100 mls 1400 JOSE Administration Metoprolol Succinate 12.5 mg 02/29/20 09:00 03/01/20 08:56 Toprol Xl PO 12.5 mg DAILY JOSE Administration Morphine Sulfate 15 mg 02/27/20 21:00 03/01/20 08:54 Ms Contin PO 15 mg BID JOSE Administration Oxybutynin Chloride 10 mg 02/28/20 09:00 03/01/20 08:55 Ditropan PO 10 mg DAILY JOSE Administration Pantoprazole Sodium 40 mg 02/27/20 21:00 03/01/20 09:47 Protonix IVP 40 mg Q12HR JOSE Administration Polyethylene Glycol 17 gm 02/28/20 21:00 03/01/20 08:54 Miralax PO 17 gm BID JOSE Administration Senna/Docusate Sodium 1 tab 02/28/20 21:00 03/01/20 08:55 Senokot S PO 1 tab BID JOSE Administration Silver Nitrate 1 each 02/28/20 21:00 03/01/20 11:22 Silver Nitrate Application TOP Not Given BID JOSE Zolpidem Tartrate 10 mg 02/27/20 21:00 02/29/20 20:57 Ambien PO 10 mg HS JOSE Administration - Exam Neck: negative: supple, symmetric, no JVD, no thyromegaly, no lymphadenopathy, no carotid bruit, JVD Heart: negative: RRR, no murmur, no gallops, no rubs, normal peripheral pulses, irregular, diminshed peripheral pulses, murmur present, II/IV, III/IV Respiratory: negative: CTAB, no wheezes, no rales, no ronchi, normal chest expansion, no tachypnea, normal percussion, rales, rhonchi, tachypneic, wheezes Gastrointestinal: negative: soft, non-tender, non-distended, normal bowel sounds , no palpable masses, no hepatomegaly, no splenomegaly, no bruit, no guarding, no rigidity, tender to palpation, distended, diminished bowl sounds, voluntary guarding Extremities: 1+ LE edema Extremities - other findings: left lower ext erythema a bit worse Hosp A/P (1) V tach Code(s): I47.2 - VENTRICULAR TACHYCARDIA Status: Acute (2) Pain in the abdomen Code(s): R10.9 - UNSPECIFIED ABDOMINAL PAIN Status: Acute (3) Elevated troponin Code(s): R79.89 - OTHER SPECIFIED ABNORMAL FINDINGS OF BLOOD CHEMISTRY Status : Acute (4) Chest pain Code(s): R07.9 - CHEST PAIN, UNSPECIFIED Status: Acute (5) Systolic CHF, acute on chronic Code(s): I50.23 - ACUTE ON CHRONIC SYSTOLIC (CONGESTIVE) HEART FAILURE Status : Acute - Plan will continue lasix for now. Her hh is low will monitor if she drops again dominic will consult gi. she has been complaining of some pain around her genitals area. Most likley bartholin cyst. will get some silver nitrate to see if this helps. 02/28 pt feels weak today will give her some fluids. pt consult gi since her hh has been trending down. will start pt on abx given her left lower leg swelling. pt evaluated for AICD. 03/01 pt's left lower ext erythema is a bit worse but her wbc has improved, no fever. will change abx to vaco and levo. pt has some erythema around her vaginal area will monitor.
--- NOTE | 2020-03-01 16:10 | ULT ---
EXAM: Left lower extremity venous Doppler US HISTORY: left lower extremity edema and pain FINDINGS: Grayscale, color-flow, Doppler evaluation, spectral analysis of the left lower extremity venous struc tures is performed with 2-D imaging. The left common femoral, superficial femoral, popliteal, posterior tibial, proximal greater saphenous and profunda femoral veins are imaged. There is normal luminal compressibility, flow, and augmentation the visualized deep venous structures of the left lower extremity. IMPRESSION: No evidence of a deep vein thrombosis in the left lower extremity.
[2020-03-01] MEDS ORDERED: Enoxaparin Sodium 40 MG/0.4 ML SYRINGE SC SCH (16:15)
[2020-03-01] MEDS ORDERED: Magnesium Citrate 300 ML BOT PO SCH (16:15)
[2020-03-01] MEDS ORDERED: Potassium Chloride 20 MEQ TAB PO SCH (16:15)
--- NOTE | 2020-03-01 16:29 | PRG ---
DATE OF SERVICE: 03/01/2020 SUBJECTIVE: Ms. Wyatt is confused today. She keeps stating she keeps forgetting where she is. She does have some generalized migratory abdominal discomfort, but does not otherwise appear in distress. She cannot recall having any bowel movements earlier today despite MiraLAX twice daily. She has received morphine. Hemoglobin trended down slightly to 7.0. There has been no report of any overt bleeding. OBJECTIVE: VITAL SIGNS: Temperature 98.4, pulse 71, blood pressure 115/59, and 99% oxygen saturation on 3.5 L nasal cannula. GENERAL: Confused, in no acute distress. HEART: Regular rate and rhythm. LUNGS: Clear to auscultation bilaterally. ABDOMEN: Bowel sounds present. Soft. Tender to palpation in the left lower quadrant, left upper quadrant, and right lower quadrant. No guarding or rebound tenderness. EXTREMITIES: No peripheral edema. VESSELS: Radial pulses 2+ bilaterally. LABORATORY STUDIES: Hemoglobin 7.0, WBC 16.6, and platelets 235. Sodium 137, potassium 3.4, BUN 13, creatinine 0.81, and glucose 101. ASSESSMENT AND PLAN: 1. Iron-deficiency anemia. Hemoglobin is down from baseline. Note, she did have endoscopic workup last year, which was essentially unremarkable, which has 2 colon polyps removed at that time. We are not planning on any repeat endoscopic investigation, particularly in the absence of any overt bleeding. She has received iron infusion. Continue to trend hemoglobin and hematocrit. 2. Constipation. 3. Generalized abdominal pain. She has been receiving morphine while here. She has not had any bowel movement yet despite the addition of MiraLAX twice daily. We will give her a dose of magnesium citrate today. Hopefully, with a good bowel movement, her abdominal discomfort will improve. Notably, admission CT of the abdomen and pelvis was essentially unremarkable. Job ID: [id number]
--- NOTE | 2020-03-01 17:02 | RAD ---
Portable frontal chest radiograph: 03/01/2020 COMPARISON: 02/27/2020 HISTORY: Shortness of breath, cough FINDINGS: Stable enlargement of the cardiac silhouette. Stable midline sternotomy wires. No lobar con solidation or alveolar edema. If symptoms persist, CT may be beneficial. IMPRESSION: Stable appearance of the chest as detailed above.
--- NOTE | 2020-03-01 18:25 | PDOC.CPN ---
- Subjective Date: 03/01/20 Time: 18:23 Interval history: She continues to feel SOB. Her leg erythema is significantly improved. - Review of Systems General: denies: fever/chills, weight/appetite/sleep changes, night sweats, fatigue Respiratory: reports: shortness of breath. denies: cough, congestion, exercise intolerance Cardiovascular: denies: chest pain, palpitation, edema, paroxysmal nocturnal dyspnea, orthopnea Gastrointestinal: denies: nausea, vomiting, diarrhea, constipation, abd pain, GI bleeding Musculoskeletal: denies: pain, tenderness, stiffness, swelling, arthritis/ arthralgias Neurological: denies: numbness, syncope, seizure, weakness - Objective Allergies/Adverse Reactions: Allergies Allergy/AdvReac Type Severity Reaction Status Date / Time iodine Allergy Severe ANAPHYLACTIC Verified 02/27/20 10:14 REACTION codeine Allergy Intermediate Verified 02/27/20 10:14 penicillin G Allergy Verified 02/27/20 10:14 Visit Medications: Current Medications Albuterol/Ipratropium (Duoneb) 3 ml NEB [id number] [facility] Last Admin: 03/01/20 13:29 Dose: 3 ml Aspirin (Aspirin Chewable) 81 mg PO DAILY [facility] Last Admin: 03/01/20 08:53 Dose: 81 mg Atorvastatin Calcium (Lipitor) 10 mg PO DAILY [facility] Last Admin: 03/01/20 08:55 Dose: 10 mg Cyanocobalamin (Vitamin B-12) 1,000 mcg PO DAILY [facility] Last Admin: 03/01/20 09:47 Dose: 1,000 mcg Divalproex Sodium (Depakote Er) 500 mg PO [facility] Last Admin: 02/29/20 20:56 Dose: 500 mg Donepezil HCl (Aricept) 5 mg PO HS [facility] Last Admin: 02/28/20 21:02 Dose: 5 mg Enoxaparin Sodium (Lovenox) 40 mg SC 0900 [facility] Escitalopram Oxalate (Lexapro) 10 mg PO DAILY [facility] Last Admin: 03/01/20 08:55 Dose: 10 mg Ferrous Sulfate (Feosol) 325 mg PO DAILY [facility] Last Admin: 03/01/20 08:56 Dose: 325 mg Furosemide (Lasix) 40 mg SLOW IVP 0600,1400 [facility] Last Admin: 03/01/20 14:42 Dose: 40 mg Gabapentin (Neurontin) 800 mg PO QID [facility] Last Admin: 03/01/20 17:11 Dose: 800 mg Haloperidol (Haldol) 0.5 mg PO Q6H PRN PRN Reason: Anxiety Levofloxacin 500 mg/ Device 100 mls @ 100 mls/hr IVPB 1400 [facility] Last Admin: 03/01/20 14:59 Dose: 100 mls Vancomycin HCl 1.5 gm/ Device 300 mls @ 200 mls/hr IVPB 1200,2359 [facility] Lorazepam (Ativan) 0.5 mg PO Q6H PRN PRN Reason: Anxiety Metoprolol Succinate (Toprol Xl) 12.5 mg PO DAILY [facility] Last Admin: 03/01/20 08:56 Dose: 12.5 mg Miscellaneous Medication (Pharmacy To Dose) 1 each IVPB PRN PRN PRN Reason: Pharmacy to dose Morphine Sulfate (Ms Contin) 15 mg PO BID [facility] Last Admin: 03/01/20 08:54 Dose: 15 mg Ondansetron HCl (Zofran) 4 mg IVP Q6H PRN PRN Reason: Nausea/Vomiting Oxybutynin Chloride (Ditropan) 10 mg PO DAILY [facility] Last Admin: 03/01/20 08:55 Dose: 10 mg Pantoprazole Sodium (Protonix) 40 mg IVP Q12HR [facility] Last Admin: 03/01/20 09:47 Dose: 40 mg Polyethylene Glycol (Miralax) 17 gm PO BID [facility] Last Admin: 03/01/20 08:54 Dose: 17 gm Senna/Docusate Sodium (Senokot S) 1 tab PO BID [facility] Last Admin: 03/01/20 08:55 Dose: 1 tab Silver Nitrate (Silver Nitrate Application) 1 each TOP BID [facility] Last Admin: 03/01/20 11:22 Dose: Not Given Zolpidem Tartrate (Ambien) 10 mg PO HS [facility] Last Admin: 02/29/20 20:57 Dose: 10 mg Vital Signs & Weight: Vital Signs Temp Pulse Resp BP Pulse Ox 03/01/20 15:25 98.4 F 71 20 115/59 L 99 03/01/20 13:29 64 18 100 03/01/20 11:14 98.1 F 66 17 133/93 H 99 03/01/20 08:54 93 L 03/01/20 08:48 97.8 F 75 20 134/63 93 L 03/01/20 08:09 61 14 96 Admit Weight 233 lb 6 oz Weight 237 lb 4.8 oz - Physical Exam General: alert & oriented x3 HEENT: mucus membranes moist Neck: supple neck Cardiac: regular rate and rhythm Lungs: decreased breath sounds Neuro: grossly intact Abdomen: active bowel sounds Extremities: 1+ LE edema Skin: clear Musculoskeletal: no pain - Labs Result Diagrams: 03/01/20 04:17 03/01/20 04:17 Troponin/CKMB CK-MB (CK-2) 2.1 ng/mL (0-6.6) 02/27/20 06:23 Troponin I 0.074 ng/mL (< 0.028) H 02/27/20 12:41 - Telemetry Sinus rhythms and dysrhythmias: sinus rhythm - Assessment/Plan Assessment/Plan: 1. Abdominal pain, unknown cause. 2. Nonsustained ventricular tachycardia, only 3 to 4 beats worth. 3. Ischemic cardiomyopathy, ejection fraction of 30% to 35%. 4. Stable coronary artery disease, currently asymptomatic. 5. Anemia. 6. Acute on chronic systolic CHF. 7. Left leg cellulitis. PLAN: - EP for AICD once infection controlled. - She is scheduled to have 1 unit PRBC, would order a second unit. - Continue IV lasix, will increasse dose due to increase volume with blood transfusion. - Abdominal pain resolved. - IV abx per primary team. - Will follow.
[2020-03-01] MEDS ORDERED: Furosemide 40 MG/4 ML VIAL SLOW IVP SCH (18:30)
[2020-03-01] MEDS: Zolpidem Tartrate 5 MG TAB PO SCH (21:04)
[2020-03-01] MEDS: Donepezil HCl 5 MG TAB PO SCH (21:05)
[2020-03-01] MEDS: Lorazepam 0.5 MG TAB PO PRN (23:41)
[2020-03-02] MEDS: Furosemide 40 MG/4 ML VIAL SLOW IVP SCH ×2 (02:07→15:10)
[2020-03-02] MEDS: Vancomycin 1.5 GRAM/300 ML BAG 1.5 GM in Premix Bag 1 BAG IVPB SCH ×2 (02:08→13:41)
--- NOTE | 2020-03-02 08:24 | PDOC.CPN ---
- Subjective Date: 03/02/20 Time: 08:22 Interval history: She feels a lot better today. She had 2 units of blood yesterday and lasix in between and she has diuresed well. - Review of Systems General: denies: fever/chills, weight/appetite/sleep changes, night sweats, fatigue Respiratory: denies: cough, congestion, shortness of breath, exercise intolerance Cardiovascular: denies: chest pain, palpitation, edema, paroxysmal nocturnal dyspnea, orthopnea Gastrointestinal: denies: nausea, vomiting, diarrhea, constipation, abd pain, GI bleeding Musculoskeletal: denies: pain, tenderness, stiffness, swelling, arthritis/ arthralgias Neurological: denies: numbness, syncope, seizure, weakness - Objective Allergies/Adverse Reactions: Allergies Allergy/AdvReac Type Severity Reaction Status Date / Time iodine Allergy Severe ANAPHYLACTIC Verified 02/27/20 10:14 REACTION codeine Allergy Intermediate Verified 02/27/20 10:14 penicillin G Allergy Verified 02/27/20 10:14 Visit Medications: Current Medications Albuterol/Ipratropium (Duoneb) 3 ml NEB [id number] [facility] Last Admin: 03/02/20 07:00 Dose: 3 ml Aspirin (Aspirin Chewable) 81 mg PO DAILY [facility] Last Admin: 03/01/20 08:53 Dose: 81 mg Atorvastatin Calcium (Lipitor) 10 mg PO DAILY [facility] Last Admin: 03/01/20 08:55 Dose: 10 mg Cyanocobalamin (Vitamin B-12) 1,000 mcg PO DAILY [facility] Last Admin: 03/01/20 09:47 Dose: 1,000 mcg Divalproex Sodium (Depakote Er) 500 mg PO HS [facility] Last Admin: 03/01/20 21:05 Dose: 500 mg Donepezil HCl (Aricept) 5 mg PO HS [facility] Last Admin: 03/01/20 21:05 Dose: 5 mg Enoxaparin Sodium (Lovenox) 40 mg SC 09 [facility] Escitalopram Oxalate (Lexapro) 10 mg PO DAILY [facility] Last Admin: 03/01/20 08:55 Dose: 10 mg Ferrous Sulfate (Feosol) 325 mg PO DAILY [facility] Last Admin: 03/01/20 08:56 Dose: 325 mg Furosemide (Lasix) 80 mg SLOW IVP 0600,1400 [facility] Last Admin: 09/10/20 02:07 Dose: 80 mg Gabapentin (Neurontin) 800 mg PO QID [facility] Last Admin: 03/01/20 21:05 Dose: 800 mg Haloperidol (Haldol) 0.5 mg PO Q6H PRN PRN Reason: Anxiety Levofloxacin 500 mg/ Device 100 mls @ 100 mls/hr IVPB 1400 [facility] Last Admin: 03/01/20 14:59 Dose: 100 mls Vancomycin HCl 1.5 gm/ Device 300 mls @ 200 mls/hr IVPB 1200,2359 [facility] Last Admin: 03/02/20 02:08 Dose: 300 mls Lorazepam (Ativan) 0.5 mg PO Q6H PRN PRN Reason: Anxiety Last Admin: 03/01/20 23:41 Dose: 0.5 mg Metoprolol Succinate (Toprol Xl) 12.5 mg PO DAILY [facility] Last Admin: 03/01/20 08:56 Dose: 12.5 mg Miscellaneous Medication (Pharmacy To Dose) 1 each IVPB PRN PRN PRN Reason: Pharmacy to dose Morphine Sulfate (Ms Contin) 15 mg PO BID [facility] Last Admin: 03/01/20 21:05 Dose: 15 mg Ondansetron HCl (Zofran) 4 mg IVP Q6H PRN PRN Reason: Nausea/Vomiting Oxybutynin Chloride (Ditropan) 10 mg PO DAILY [facility] Last Admin: 03/01/20 08:55 Dose: 10 mg Pantoprazole Sodium (Protonix) 40 mg IVP Q12HR [facility] Last Admin: 03/01/20 21:06 Dose: 40 mg Polyethylene Glycol (Miralax) 17 gm PO BID [facility] Last Admin: 03/01/20 21:06 Dose: Not Given Senna/Docusate Sodium (Senokot S) 1 tab PO BID [facility] Last Admin: 03/01/20 21:06 Dose: Not Given Silver Nitrate (Silver Nitrate Application) 1 each TOP BID [facility] Last Admin: 03/01/20 21:06 Dose: 1 each Zolpidem Tartrate (Ambien) 10 mg PO HS [facility] Last Admin: 03/01/20 21:04 Dose: 10 mg Vital Signs & Weight: Vital Signs Temp Pulse Pulse Resp BP BP Pulse Ox 03/02/20 07:01 98 03/02/20 07:00 69 16 98 03/02/20 04:05 98.9 F 61 20 112/54 L 96 03/02/20 00:39 98.3 F 73 18 133/60 03/01/20 21:42 98.4 F 68 18 131/60 03/01/20 21:10 93 L Admit Weight 233 lb 6 oz Weight 236 lb 3.428 oz - Physical Exam General: alert & oriented x3 HEENT: mucus membranes moist Neck: supple neck Cardiac: regular rate and rhythm Lungs: normal breath sounds Neuro: grossly intact Abdomen: unremarkable, active bowel sounds Extremities: no edema Skin: clear Musculoskeletal: no pain - Labs Result Diagrams: 03/01/20 04:17 03/01/20 04:17 Troponin/CKMB CK-MB (CK-2) 2.1 ng/mL (0-6.6) 02/27/20 06:23 Troponin I 0.074 ng/mL (< 0.028) H 02/27/20 12:41 - Telemetry Sinus rhythms and dysrhythmias: sinus rhythm - Assessment/Plan Assessment/Plan: 1. Abdominal pain, unknown cause. 2. Non sustained ventricular tachycardia, no recurrence 3. Ischemic cardiomyopathy, EF at 30-35%. 4. Stable coronary artery disease, currently asymptomatic. 5. Anemia. 6. Acute on chronic systolic CHF. 7. Left leg cellulitis. PLAN: - EP for AICD once infection controlled. - Feels better after blood transfusion. - Continue IV lasix. - IV abx per primary team. - Will follow.
[2020-03-02] MEDS ORDERED: Vancomycin HCl 1.25 GM in Sodium Chloride 0.9% 250 ML 250 ML IVPB SCH (09:00)
[2020-03-02] MEDS ORDERED: Enoxaparin Sodium 40 MG/0.4 ML SYRINGE SC SCH (09:00)
[2020-03-02] MEDS: Morphine ER 15 MG TAB PO SCH ×2 (09:08→21:14)
[2020-03-02] MEDS: Gabapentin 400 MG CAP PO SCH ×4 (09:08→21:14)
[2020-03-02] MEDS: Ferrous Sulfate 325 MG TAB PO SCH (09:08)
[2020-03-02] MEDS: Escitalopram Oxalate 10 mg Tablet PO SCH (09:09)
[2020-03-02] MEDS: Aspirin Chewable 81 MG TAB PO SCH (09:09)
[2020-03-02] MEDS: Oxybutynin 5 MG TAB PO SCH (09:09)
[2020-03-02] MEDS: Senokot S 8.6-50 MG TAB PO SCH ×2 (09:09→21:15)
[2020-03-02] MEDS: Cyanocobalamin (Vitamin B-12) 1,000 MCG TAB PO SCH (09:10)
[2020-03-02] MEDS: Pantoprazole 40 MG VIAL IVP SCH ×2 (09:10→21:13)
[2020-03-02] MEDS: Atorvastatin Calcium 10 MG TAB PO SCH (09:10)
[2020-03-02] MEDS: Polyethylene Glycol 3350 17 GM Packet PO SCH ×2 (09:10→21:15)
[2020-03-02] MEDS: Silver Nitrate Application 1 EACH TOP SCH ×2 (10:07→21:13)
[2020-03-02] MEDS ORDERED: HumaLOG 300 UNITS/3 ML VIAL SC PRN (13:05)
[2020-03-02] MEDS ORDERED: Dextrose 50% Abboject 50 ML SYRINGE SLOW IVP PRN (13:05)
[2020-03-02] MEDS ORDERED: Dextrose 5% in Water 1,000 ML IV PRN (13:05)
[2020-03-02 14:47] LABS: Anion Gap 15 mmol/L (10-20); BUN (Urea Nitrogen) 10 mg/dL (9.8-20.1); Calc. Creatinine Clearance 111 mL/min (70-130); Calcium 8.2 mg/dL (7.8-10.44); Carbon Dioxide 29 mmol/L (23-31); Chloride 96 mmol/L (98-107); Estimated GFR-MDRD 70; Glucose 107 mg/dL (80-115); Potassium 3.6 mmol/L (3.5-5.1); Sodium 136 mmol/L (136-145)
--- NOTE | 2020-03-02 15:22 | PDOC.HOSPP ---
- Subjective Encounter Date: 03/02/20 Encounter Time: 09:45 Subjective: pt up in bed states she feels well today. - Objective Vital Signs & Weight: Vital Signs (12 hours) Temp Pulse Resp BP Pulse Ox 03/02/20 12:27 66 16 99 03/02/20 11:38 98.2 F 62 18 93 L 03/02/20 09:00 97.5 F L 66 18 138/63 96 03/02/20 07:01 98 03/02/20 07:00 69 16 98 03/02/20 04:05 98.9 F 61 20 112/54 L 96 Weight Admit Weight 233 lb 6 oz Weight 236 lb 3.428 oz I&O: 03/01/20 03/02/20 03/03/20 06:59 06:59 06:59 Intake Total 1540 1977 Balance 1540 1977 Result Diagrams: 03/01/20 04:17 03/02/20 14:11 Additional Labs: Accuchecks 03/02/20 03/02/20 03/01/20 10:42 05:43 20:12 POC Glucose 199 H 147 H 163 H 03/01/20 03/01/20 16:38 11:05 POC Glucose 128 H 139 H Hospitalist ROS - Review of Systems Cardiovascular: denies: chest pain, palpitations, orthopnea, paroxysmal noc. dyspnea, edema, light headedness, other Gastrointestinal: denies: nausea, vomiting, abdominal pain, diarrhea, constipation, melena, hematochezia, other Genitourinary: denies: dysuria, frequency, incontinence, hematuria, retention, other - Medication Medications: Active Medications Generic Name Dose Route Start Last Admin Trade Name Cirilo PRN Reason Stop Dose Admin Albuterol/Ipratropium 3 ml 02/27/20 19:00 03/02/20 12:27 Duoneb NEB 3 ml [id number] [facility] Administration Aspirin 81 mg 02/28/20 09:00 03/02/20 09:09 Aspirin Chewable PO 81 mg DAILY [facility] Administration Atorvastatin Calcium 10 mg 02/28/20 09:00 03/02/20 09:10 Lipitor PO 10 mg DAILY [facility] Administration Cyanocobalamin 1,000 mcg 02/28/20 09:00 03/02/20 09:10 Vitamin B-12 PO 1,000 mcg DAILY [facility] Administration Divalproex Sodium 500 mg 02/27/20 21:00 03/01/20 21:05 Depakote Er PO 500 mg HS [facility] Administration Donepezil HCl 5 mg 02/27/20 21:00 03/01/20 21:05 Aricept PO 5 mg HS [facility] Administration Enoxaparin Sodium 40 mg 03/02/20 09:00 03/02/20 09:10 Lovenox SC 40 mg 0900 [facility] Administration Escitalopram Oxalate 10 mg 02/28/20 09:00 03/02/20 09:09 Lexapro PO 10 mg DAILY [facility] Administration Ferrous Sulfate 325 mg 02/28/20 09:00 03/02/20 09:08 Feosol PO 325 mg DAILY [facility] Administration Furosemide 80 mg 03/02/20 06:00 03/02/20 15:10 Lasix SLOW IVP Not Given 0600,1400 [facility] Gabapentin 800 mg 02/27/20 17:00 03/02/20 13:42 Neurontin PO 800 mg QID [facility] Administration Levofloxacin 500 mg/ Device 100 mls @ 100 mls/hr 03/01/20 14:00 03/01/20 14: 59 IVPB 100 mls 1400 [facility] Administration Vancomycin HCl 1.5 gm/ Device 300 mls @ 200 mls/hr 03/01/20 23:59 03/02/20 13 :41 IVPB 300 mls 1200,2359 [facility] Administration Lorazepam 0.5 mg 02/27/20 16:32 03/01/20 23:41 Ativan PO 0.5 mg Q6H PRN Administration Anxiety Metoprolol Succinate 12.5 mg 02/29/20 09:00 03/02/20 09:10 Toprol Xl PO 12.5 mg DAILY [facility] Administration Morphine Sulfate 15 mg 02/27/20 21:00 03/02/20 09:08 Ms Contin PO 15 mg BID [facility] Administration Oxybutynin Chloride 10 mg 02/28/20 09:00 03/02/20 09:09 Ditropan PO 10 mg DAILY [facility] Administration Pantoprazole Sodium 40 mg 02/27/20 21:00 03/02/20 09:10 Protonix IVP 40 mg Q12HR [facility] Administration Polyethylene Glycol 17 gm 02/28/20 21:00 03/02/20 09:10 Miralax PO 17 gm BID [facility] Administration Senna/Docusate Sodium 1 tab 02/28/20 21:00 03/02/20 09:09 Senokot S PO 1 tab BID [facility] Administration Silver Nitrate 1 each 02/28/20 21:00 03/02/20 10:07 Silver Nitrate Application TOP Not Given BID [facility] Zolpidem Tartrate 10 mg 02/27/20 21:00 03/01/20 21:04 Ambien PO 10 mg HS [facility] Administration - Exam Neck: negative: supple, symmetric, no JVD, no thyromegaly, no lymphadenopathy, no carotid bruit, JVD Heart: negative: RRR, no murmur, no gallops, no rubs, normal peripheral pulses, irregular, diminshed peripheral pulses, murmur present, II/IV, III/IV Respiratory: negative: CTAB, no wheezes, no rales, no ronchi, normal chest expansion, no tachypnea, normal percussion, rales, rhonchi, tachypneic, wheezes Gastrointestinal: soft, normal bowel sounds Gastrointestinal - other findings: mild pain on palpation around her epigastic area Extremities: 2+ LE edema Extremities - other findings: erythema to left leg Hosp A/P (1) V tach Code(s): I47.2 - VENTRICULAR TACHYCARDIA Status: Acute (2) Pain in the abdomen Code(s): R10.9 - UNSPECIFIED ABDOMINAL PAIN Status: Acute (3) Elevated troponin Code(s): R79.89 - OTHER SPECIFIED ABNORMAL FINDINGS OF BLOOD CHEMISTRY Status : Acute (4) Chest pain Code(s): R07.9 - CHEST PAIN, UNSPECIFIED Status: Acute (5) Systolic CHF, acute on chronic Code(s): I50.23 - ACUTE ON CHRONIC SYSTOLIC (CONGESTIVE) HEART FAILURE Status : Acute - Plan will continue lasix for now. Her hh is low will monitor if she drops again dominic will consult gi. she has been complaining of some pain around her genitals area. Most likley bartholin cyst. will get some silver nitrate to see if this helps. 02/28 pt feels weak today will give her some fluids. pt consult gi since her hh has been trending down. will start pt on abx given her left lower leg swelling. pt evaluated for AICD. 03/01 pt's left lower ext erythema is a bit worse but her wbc has improved, no fever. will change abx to vaco and levo. pt has some erythema around her vaginal area will monitor. 03/02 pt got 2untis of blood yest, will recheck hh. Her left leg erythema appear improved. pt to get AICD. Nurse stated that she now has been coughing when she eats or drink. will get speech study.
[2020-03-02] MEDS ORDERED: Iron, Sodium Ferric Gluconate 125 MG in Sodium Chloride 0.9% 100 ML IVPB SCH (15:30)
--- NOTE | 2020-03-02 15:46 | PDOC.EP ---
- Subjective Date: 03/02/20 Time: 08:00 Interval History: Feeling well today. no fevers. Agreeable to ICD implant tomorrow if felt to be medically stable. - Review of Systems Constitutional: reports: weakness. denies: chills, fever, malaise, sweats Respiratory: denies: cough, pleuritic pain, shortness of breath, SOB with excertion Cardiology: denies: chest pain, heart racing, light headedness, orthopnea, paroxysmal noc. dyspnea Gastrointestinal: denies: abdominal pain, constipation, diarrhea - Objective Allergies/Adverse Reactions: Allergies Allergy/AdvReac Type Severity Reaction Status Date / Time iodine Allergy Severe ANAPHYLACTIC Verified 02/27/20 10:14 REACTION codeine Allergy Intermediate Verified 02/27/20 10:14 penicillin G Allergy Verified 02/27/20 10:14 Current Medications Albuterol/Ipratropium (Duoneb) 3 ml NEB [id number] [facility] Last Admin: 03/02/20 12:27 Dose: 3 ml Aspirin (Aspirin Chewable) 81 mg PO DAILY [facility] Last Admin: 03/02/20 09:09 Dose: 81 mg Atorvastatin Calcium (Lipitor) 10 mg PO DAILY [facility] Last Admin: 03/02/20 09:10 Dose: 10 mg Cyanocobalamin (Vitamin B-12) 1,000 mcg PO DAILY [facility] Last Admin: 03/02/20 09:10 Dose: 1,000 mcg Dextrose/Water (Dextrose 50%) 25 gm SLOW IVP PRN PRN PRN Reason: Hypoglycemia Divalproex Sodium (Depakote Er) 500 mg PO [facility] Last Admin: 03/01/20 21:05 Dose: 500 mg Donepezil HCl (Aricept) 5 mg PO [facility] Last Admin: 03/01/20 21:05 Dose: 5 mg Enoxaparin Sodium (Lovenox) 40 mg SC 0900 [facility] Last Admin: 03/02/20 09:10 Dose: 40 mg Escitalopram Oxalate (Lexapro) 10 mg PO DAILY [facility] Last Admin: 03/02/20 09:09 Dose: 10 mg Ferrous Sulfate (Feosol) 325 mg PO DAILY [facility] Last Admin: 03/02/20 09:08 Dose: 325 mg Furosemide (Lasix) 80 mg SLOW IVP 0600,1400 [facility] Last Admin: 03/02/20 15:10 Dose: Not Given Gabapentin (Neurontin) 800 mg PO QID [facility] Last Admin: 03/02/20 13:42 Dose: 800 mg Glucagon (Glucagon) 1 mg IM PRN PRN PRN Reason: Hypoglycemia Haloperidol (Haldol) 0.5 mg PO Q6H PRN PRN Reason: Anxiety Levofloxacin 500 mg/ Device 100 mls @ 100 mls/hr IVPB 1400 [facility] Last Admin: 03/01/20 14:59 Dose: 100 mls Vancomycin HCl 1.5 gm/ Device 300 mls @ 200 mls/hr IVPB 1200,2359 [facility] Last Admin: 03/02/20 13:41 Dose: 300 mls Dextrose/Water (D5w) 1,000 mls @ 0 mls/hr IV .Q0M PRN PRN Reason: Hypoglycemia Ferric Sodium Gluconate Complex 125 mg/ Sodium Chloride 110 mls @ 110 mls/hr IVPB NOW [facility] Stop: 03/02/20 17:30 Insulin Human Lispro (Humalog) 0 units SC .MILD SLIDING SCALE PRN PRN Reason: Mild Correctional Scale Lorazepam (Ativan) 0.5 mg PO Q6H PRN PRN Reason: Anxiety Last Admin: 03/01/20 23:41 Dose: 0.5 mg Metoprolol Succinate (Toprol Xl) 12.5 mg PO DAILY [facility] Last Admin: 03/02/20 09:10 Dose: 12.5 mg Miscellaneous Medication (Pharmacy To Dose) 1 each IVPB PRN PRN PRN Reason: Pharmacy to dose Morphine Sulfate (Ms Contin) 15 mg PO BID [facility] Last Admin: 03/02/20 09:08 Dose: 15 mg Ondansetron HCl (Zofran) 4 mg IVP Q6H PRN PRN Reason: Nausea/Vomiting Oxybutynin Chloride (Ditropan) 10 mg PO DAILY [facility] Last Admin: 03/02/20 09:09 Dose: 10 mg Pantoprazole Sodium (Protonix) 40 mg IVP Q12HR [facility] Last Admin: 03/02/20 09:10 Dose: 40 mg Polyethylene Glycol (Miralax) 17 gm PO BID [facility] Last Admin: 03/02/20 09:10 Dose: 17 gm Senna/Docusate Sodium (Senokot S) 1 tab PO BID [facility] Last Admin: 03/02/20 09:09 Dose: 1 tab Silver Nitrate (Silver Nitrate Application) 1 each TOP BID [facility] Last Admin: 03/02/20 10:07 Dose: Not Given Zolpidem Tartrate (Ambien) 10 mg PO HS [facility] Last Admin: 03/01/20 21:04 Dose: 10 mg Vital Signs & Weight: Vital Signs Temp Pulse Resp BP Pulse Ox 03/02/20 15:16 97.3 F L 63 18 127/89 94 L 03/02/20 12:27 66 16 99 03/02/20 11:38 98.2 F 62 18 93 L 03/02/20 09:00 97.5 F L 66 18 138/63 96 03/02/20 07:01 98 03/02/20 07:00 69 16 98 03/02/20 04:05 98.9 F 61 20 112/54 L 96 Admit Weight 233 lb 6 oz Weight 236 lb 3.428 oz I/O: I/O 03/01/20 03/02/20 03/03/20 06:59 06:59 06:59 Intake Total 1540 1977 Balance 1540 1977 - Physical Exam General: alert & oriented x3, appears well, no apparent distress, speech clear, affect appropriate HEENT: mucus membranes moist, normocephaly, EOMI Neck: supple neck, midline trachea, no JVD/HJR Cardiology: regular rate and rhythm, no murmur Lungs: clear to auscultation, normal breath sounds, decreased breath sounds Neurology: cranial nerve 2-12 intact, grossly intact, coordination normal Abdomen: unremarkable, active bowel sounds, HJR negative, other (obese) Extremities: dry, strong pulses, warm, erythema (receeding within outlined margins today) - Labs Result Diagrams: 03/01/20 04:17 03/02/20 14:11 - EKG Interpretation EKG Method: Telemetry EKG shows: Sinus rhythm - Assessment/Plan Assessment/Plan: PROBLEM LIST: 1. Chronic systolic congestive heart failure with ischemic cardiomyopathy. a. Prior history of coronary artery bypass grafting surgery. b. NYHA functional class 3 2. Chronically reduced left ventricular ejection fraction. a. 2D echo from 01/13/2018 reveals left ventricular ejection fraction of 35% to 40%. b. Left ventricular ejection fraction reduced to 30% to 35% on the most recent echocardiogram per Dr. Sofia. c. Elevated BNP of 3222 on admission with likely fluid overload. 3. Cellulitis a. treatment with IV anbx b. leukocytosis, now trending down: 02/28= 19 03/01= 16 4. Anemia 5. Non sustained VT At risk for device infection with ongoing infection and leukocytosis. If no reccurent fever and WBC continues to trend down, proceed with ICD implant tomorrow and will likely be cleared to DV from EP perspective a few hours post implant. Shared decision making tool was used to aid in the discussion about ICD therapies. Risks were discussed and she consents to ICD implant.
[2020-03-02 16:20] LABS: #Eosinphils 0.3 thou/uL (0.0-0.7); #Lymphocytes 1.4 thou/uL (1.20-3.40); #Monocytes 0.9 thou/uL (0.11-0.59); #Neutrophils 7.5 thou/uL (1.40-6.50); %Basophils 0.1 % (0.0-1.0); %Lymphocytes 13.6 % (21.0-51.0); %Monocytes 8.6 % (0.0-10.0); %Neutrophils 74.7 % (42.0-75.0); Hemoglobin 8.7 g/dL (12.0-16.0); Mean Corpuscular Hemoglobin 21.7 pg (27.0-31.0); Mean Corpuscular Volume 74.9 fL (78.0-98.0); Platelet Count 227 thou/uL (130-400); RBC Distribution Width 20.1 % (11.5-14.5); Red Blood Cell (RBC) Count 3.98 mill/uL (4.20-5.40); White Blood Cell (WBC) Count 10.1 thou/uL (4.8-10.8)
--- NOTE | 2020-03-02 18:09 | PRG ---
DATE OF SERVICE: 03/02/2020 SUBJECTIVE: I talked with Ms. Wyatt's nurse. She says she has had multiple bowel movements. She does not recall this. However, she apparently is going to get a pacemaker and defibrillator placed tomorrow. REVIEW OF SYSTEMS: She denies any overt abdominal pain. Previous evaluations for anemia included EGD in 2019, which showed gastritis. No H pylori. She had a colonoscopy in February 2019 for diverticulosis, internal hemorrhoids, 2 small polyps, some with focal high-grade dysplasia. OBJECTIVE: GENERAL: She is a bit confused about where she is. She does not understand why she gets so sick. VITAL SIGNS: Temperature is 97.3, pulse 64, blood pressure is 137/89. ABDOMEN: Soft, nontender with no rebound or guarding. LABORATORY DATA: White count 10.7, 9.6 on admission, she has ranges from 10 and 8 over the past 5 years; MCV 74. BUN and creatinine are 10 and 0.8. Electrolytes are normal. Low iron of 12 on 02/26, ferritin of 28 on 02/26, TIBC of 441 on 02/26. B12 is 494, folate 9. ASSESSMENT: 1. Chronic constipation, likely related to dicyclomine and narcotics as well as her immobility. 2. Chronic anemia with recent upper and lower endoscopies. There is no overt evidence of acute bleeding. 3. Severe cardiac disease with congestive heart failure and severe chronic obstructive pulmonary disease. 4. Dementia. 5. Chronic narcotic medications. RECOMMENDATIONS: 1. Wean narcotics. 2. Keep the patient off Bentyl, which will exacerbate constipation with narcotics. 3. Bowel regimen every day if she is going to be on narcotics. 4. No plans for endoscopy in light of comorbidities. 5. PPI therapy daily to prevent ulcers. 6. As constipation has resolved, we will go ahead and sign off. If I can be of any further assistance in her care, please do not hesitate to contact me. Job ID: [id number]
[2020-03-02] MEDS: Zolpidem Tartrate 5 MG TAB PO SCH (21:13)
[2020-03-02] MEDS: Donepezil HCl 5 MG TAB PO SCH (21:15)
[2020-03-02 23:12] LABS: Vancomycin, Trough 23.1 ug/mL
[2020-03-03] MEDS: Vancomycin 1.5 GRAM/300 ML BAG 1.5 GM in Premix Bag 1 BAG IVPB SCH (00:16)
[2020-03-03] MEDS: Lorazepam 0.5 MG TAB PO PRN ×2 (00:16→19:58)
[2020-03-03 05:20] LABS: #Basophils 0.1 thou/uL (0.0-0.2); #Eosinphils 0.4 thou/uL (0.0-0.7); #Lymphocytes 1.2 thou/uL (1.20-3.40); #Neutrophils 5.8 thou/uL (1.40-6.50); %Basophils 0.7 % (0.0-1.0); %Eosinophils 4.7 % (0.0-10.0); %Lymphocytes 14.6 % (21.0-51.0); %Monocytes 11.3 % (0.0-10.0); %Neutrophils 68.8 % (42.0-75.0); Hemoglobin 8.3 g/dL (12.0-16.0); Mean Corpuscular HGB CONC 29.4 g/dL (32.0-36.0); Mean Corpuscular Hemoglobin 21.7 pg (27.0-31.0); Mean Corpuscular Volume 73.9 fL (78.0-98.0); Platelet Count 235 thou/uL (130-400); Red Blood Cell (RBC) Count 3.82 mill/uL (4.20-5.40); White Blood Cell (WBC) Count 8.4 thou/uL (4.8-10.8)
[2020-03-03 05:31] LABS: Anion Gap 14 mmol/L (10-20); BUN (Urea Nitrogen) 8 mg/dL (9.8-20.1); Calc. Creatinine Clearance 112 mL/min (70-130); Calcium 8.4 mg/dL (7.8-10.44); Carbon Dioxide 30 mmol/L (23-31); Chloride 95 mmol/L (98-107); Estimated GFR-MDRD 71; Glucose 111 mg/dL (80-115); Potassium 3.7 mmol/L (3.5-5.1); Sodium 135 mmol/L (136-145)
[2020-03-03] MEDS: Furosemide 40 MG/4 ML VIAL SLOW IVP SCH (06:01)
[2020-03-03] MEDS: Cyanocobalamin (Vitamin B-12) 1,000 MCG TAB PO SCH (08:59)
[2020-03-03] MEDS: Gabapentin 400 MG CAP PO SCH ×4 (08:59→19:59)
[2020-03-03] MEDS: Morphine ER 15 MG TAB PO SCH ×2 (08:59→19:59)
[2020-03-03] MEDS: Senokot S 8.6-50 MG TAB PO SCH ×2 (08:59→19:59)
[2020-03-03] MEDS: Atorvastatin Calcium 10 MG TAB PO SCH (09:01)
[2020-03-03] MEDS: Escitalopram Oxalate 10 mg Tablet PO SCH (09:01)
[2020-03-03] MEDS: Oxybutynin 5 MG TAB PO SCH (09:01)
[2020-03-03] MEDS: Ferrous Sulfate 325 MG TAB PO SCH (09:01)
[2020-03-03] MEDS: Aspirin Chewable 81 MG TAB PO SCH (09:02)
[2020-03-03] MEDS: Pantoprazole 40 MG VIAL IVP SCH ×2 (09:02→19:59)
[2020-03-03] MEDS: Polyethylene Glycol 3350 17 GM Packet PO SCH ×2 (09:02→19:59)
[2020-03-03] MEDS: Silver Nitrate Application 1 EACH TOP SCH ×2 (09:02→20:00)
[2020-03-03] MEDS ORDERED: Propofol 1,000 MG/100 ML VIAL IV ONE ×2 (09:59→12:43)
[2020-03-03] MEDS ORDERED: Fentanyl 100 MCG/2 ML VIAL ONE ×2 (09:59→12:43)
[2020-03-03] MEDS ORDERED: CEFAZOLIN 1 GM VIAL ONE (10:22)
[2020-03-03] MEDS ORDERED: Gentamicin 80 MG/2 ML VIAL ONE (10:22)
--- NOTE | 2020-03-03 11:14 | CT ---
CT BRAIN WITHOUT CONTRAST: Date: 03/03/2020 HISTORY: Unknown fall. COMPARISON: 10/23/2017. FINDINGS: Moderate size left occipital encephalomalacia with ex vacuo dilatation of the ventricular system is s table. Changes of chronic small vessel ischemic disease are again seen. No evidence of acute infarct, hemorrhage, midline shift, or abnormal extra-axial fluid collections are seen. The bony calvarium is intact. The visualized paranasal sinuses and mastoid air cells are well aerated. IMPRESSION: No CT evidence of acute intracranial process. POS: AH
[2020-03-03 11:26] LABS: Vancomycin, Random 12.7 ug/mL (See Comment)
[2020-03-03] MEDS ORDERED: PROPOFOL 200 MG/20 ML VIAL ONE (11:28)
[2020-03-03] MEDS ORDERED: Vancomycin 1 GM in Premix Bag 1 BAG IVPB SCH (12:00)
[2020-03-03] MEDS ORDERED: Lidocaine 1% (PF) 30 ML VIAL ONE (13:01)
--- NOTE | 2020-03-03 13:14 | PDOC.HOSPP ---
- Subjective Encounter Date: 03/03/20 Encounter Time: 11:30 Subjective: pt up in bed no complains. Per nursing staff she fell when she tried to get up. pt states that she did bump her head. per pt she did not loose any consciousness. - Objective Vital Signs & Weight: Vital Signs (12 hours) Temp Pulse Resp BP Pulse Ox 03/03/20 12:22 59 L 16 90 L 03/03/20 07:25 98.5 F 68 16 141/77 H 100 03/03/20 06:41 99 03/03/20 06:40 59 L 16 99 03/03/20 04:49 98.3 F 61 16 127/71 99 Weight Admit Weight 233 lb 6 oz Weight 235 lb 15.125 oz I&O: 03/02/20 03/03/20 03/04/20 06:59 06:59 06:59 Intake Total 1977 173 Output Total 200 Balance 1977 153 Result Diagrams: 03/03/20 04:21 03/03/20 04:21 Additional Labs: Accuchecks 03/03/20 03/02/20 03/02/20 05:29 20:20 16:49 POC Glucose 129 H 212 H 133 H Hospitalist ROS - Review of Systems Cardiovascular: denies: chest pain, palpitations, orthopnea, paroxysmal noc. dyspnea, edema, light headedness, other Gastrointestinal: denies: nausea, vomiting, abdominal pain, diarrhea, constipation, melena, hematochezia, other Genitourinary: denies: dysuria, frequency, incontinence, hematuria, retention, other - Medication Medications: Active Medications Generic Name Dose Route Start Last Admin Trade Name Cirilo PRN Reason Stop Dose Admin Albuterol/Ipratropium 3 ml 02/27/20 19:00 03/03/20 12:22 Duoneb NEB 3 ml [id number] JOSE Administration Aspirin 81 mg 02/28/20 09:00 03/03/20 09:02 Aspirin Chewable PO 81 mg DAILY JOSE Administration Atorvastatin Calcium 10 mg 02/28/20 09:00 03/03/20 09:01 Lipitor PO 10 mg DAILY JOSE Administration Cyanocobalamin 1,000 mcg 02/28/20 09:00 03/03/20 08:59 Vitamin B-12 PO 1,000 mcg DAILY JOSE Administration Divalproex Sodium 500 mg 02/27/20 21:00 03/02/20 21:21 Depakote Er PO 500 mg HS JOSE Administration Donepezil HCl 5 mg 02/27/20 21:00 03/02/20 21:15 Aricept PO 5 mg HS JOSE Administration Escitalopram Oxalate 10 mg 02/28/20 09:00 03/03/20 09:01 Lexapro PO 10 mg DAILY JOSE Administration Ferrous Sulfate 325 mg 02/28/20 09:00 03/03/20 09:01 Feosol PO 325 mg DAILY JOSE Administration Gabapentin 800 mg 02/27/20 17:00 03/03/20 08:59 Neurontin PO 800 mg QID JOSE Administration Levofloxacin 500 mg/ Device 100 mls @ 100 mls/hr 03/01/20 14:00 03/02/20 16: 26 IVPB 100 mls 1400 JOSE Administration Vancomycin HCl 1 gm/ Device 200 mls @ 200 mls/hr 03/03/20 12:00 03/03/20 12: 06 IVPB 200 mls 1200,2359 JOSE Administration Lorazepam 0.5 mg 02/27/20 16:32 03/03/20 00:16 Ativan PO 0.5 mg Q6H PRN Administration Anxiety Metoprolol Succinate 12.5 mg 02/29/20 09:00 03/03/20 09:01 Toprol Xl PO 12.5 mg DAILY JOSE Administration Morphine Sulfate 15 mg 02/27/20 21:00 03/03/20 08:59 Ms Contin PO 15 mg BID JOSE Administration Oxybutynin Chloride 10 mg 02/28/20 09:00 03/03/20 09:01 Ditropan PO 10 mg DAILY JOSE Administration Pantoprazole Sodium 40 mg 02/27/20 21:00 03/03/20 09:02 Protonix IVP 40 mg Q12HR JOSE Administration Polyethylene Glycol 17 gm 02/28/20 21:00 03/03/20 09:02 Miralax PO Not Given BID JOSE Senna/Docusate Sodium 1 tab 02/28/20 21:00 03/03/20 08:59 Senokot S PO 1 tab BID JOSE Administration Silver Nitrate 1 each 02/28/20 21:00 03/03/20 09:02 Silver Nitrate Application TOP Not Given BID JOSE Zolpidem Tartrate 10 mg 02/27/20 21:00 03/02/20 21:13 Ambien PO 10 mg HS JOSE Administration - Exam Neck: negative: supple, symmetric, no JVD, no thyromegaly, no lymphadenopathy, no carotid bruit, JVD Heart: negative: RRR, no murmur, no gallops, no rubs, normal peripheral pulses, irregular, diminshed peripheral pulses, murmur present, II/IV, III/IV Respiratory: negative: CTAB, no wheezes, no rales, no ronchi, normal chest expansion, no tachypnea, normal percussion, rales, rhonchi, tachypneic, wheezes Gastrointestinal: negative: soft, non-tender, non-distended, normal bowel sounds , no palpable masses, no hepatomegaly, no splenomegaly, no bruit, no guarding, no rigidity, tender to palpation, distended, diminished bowl sounds, voluntary guarding Extremities: 1+ LE edema Extremities - other findings: left leg erythema has improved. Hosp A/P (1) V tach Code(s): I47.2 - VENTRICULAR TACHYCARDIA Status: Acute (2) Pain in the abdomen Code(s): R10.9 - UNSPECIFIED ABDOMINAL PAIN Status: Acute (3) Elevated troponin Code(s): R79.89 - OTHER SPECIFIED ABNORMAL FINDINGS OF BLOOD CHEMISTRY Status : Acute (4) Chest pain Code(s): R07.9 - CHEST PAIN, UNSPECIFIED Status: Acute (5) Systolic CHF, acute on chronic Code(s): I50.23 - ACUTE ON CHRONIC SYSTOLIC (CONGESTIVE) HEART FAILURE Status : Acute - Plan will continue lasix for now. Her hh is low will monitor if she drops again dominic will consult gi. she has been complaining of some pain around her genitals area. Most likley bartholin cyst. will get some silver nitrate to see if this helps. 02/28 pt feels weak today will give her some fluids. pt consult gi since her hh has been trending down. will start pt on abx given her left lower leg swelling. pt evaluated for AICD. 03/01 pt's left lower ext erythema is a bit worse but her wbc has improved, no fever. will change abx to vaco and levo. pt has some erythema around her vaginal area will monitor. 03/02 pt got 2untis of blood yest, will recheck hh. Her left leg erythema appear improved. pt to get AICD. Nurse stated that she now has been coughing when she eats or drink. will get speech study. 03/03 pt's left ext erythema has improved. pt to get aicd. spoke with speech who recommends mechanical diet. pt was initially on hospice but since she has been here her POA wants her to be full code. She also has memory issues and does not remember much. She at times will be oriented only to self. She wears a cpap at night. she is on lasix.
--- NOTE | 2020-03-03 13:30 | PDOC.CPN ---
- Subjective Date: 03/03/20 Time: 13:29 Interval history: No new issues, No angina, SOB at baseline. Feels well. She feel this morning as she tried to get up without asking for help. - Review of Systems General: denies: fever/chills, weight/appetite/sleep changes, night sweats, fatigue Respiratory: denies: cough, congestion, shortness of breath, exercise intolerance Cardiovascular: denies: chest pain, palpitation, edema, paroxysmal nocturnal dyspnea, orthopnea Gastrointestinal: denies: nausea, vomiting, diarrhea, constipation, abd pain, GI bleeding Musculoskeletal: denies: pain, tenderness, stiffness, swelling, arthritis/ arthralgias Neurological: denies: numbness, syncope, seizure, weakness - Objective Allergies/Adverse Reactions: Allergies Allergy/AdvReac Type Severity Reaction Status Date / Time iodine Allergy Severe ANAPHYLACTIC Verified 02/27/20 10:14 REACTION codeine Allergy Intermediate Verified 02/27/20 10:14 penicillin G Allergy Verified 02/27/20 10:14 Visit Medications: Current Medications Albuterol/Ipratropium (Duoneb) 3 ml NEB [id number] [facility] Last Admin: 03/03/20 12:22 Dose: 3 ml Aspirin (Aspirin Chewable) 81 mg PO DAILY [facility] Last Admin: 03/03/20 09:02 Dose: 81 mg Atorvastatin Calcium (Lipitor) 10 mg PO DAILY [facility] Last Admin: 03/03/20 09:01 Dose: 10 mg Cyanocobalamin (Vitamin B-12) 1,000 mcg PO DAILY [facility] Last Admin: 03/03/20 08:59 Dose: 1,000 mcg Dextrose/Water (Dextrose 50%) 25 gm SLOW IVP PRN PRN PRN Reason: Hypoglycemia Divalproex Sodium (Depakote Er) 500 mg PO [facility] Last Admin: 03/02/20 21:21 Dose: 500 mg Donepezil HCl (Aricept) 5 mg PO [facility] Last Admin: 03/02/20 21:15 Dose: 5 mg Escitalopram Oxalate (Lexapro) 10 mg PO DAILY [facility] Last Admin: 03/03/20 09:01 Dose: 10 mg Ferrous Sulfate (Feosol) 325 mg PO DAILY [facility] Last Admin: 03/03/20 09:01 Dose: 325 mg Furosemide (Lasix) 40 mg PO DAILY[facility] Gabapentin (Neurontin) 800 mg PO QID [facility] Last Admin: 03/03/20 08:59 Dose: 800 mg Glucagon (Glucagon) 1 mg IM PRN PRN PRN Reason: Hypoglycemia Haloperidol (Haldol) 0.5 mg PO Q6H PRN PRN Reason: Anxiety Levofloxacin 500 mg/ Device 100 mls @ 100 mls/hr IVPB 1400 [facility] Last Admin: 03/02/20 16:26 Dose: 100 mls Dextrose/Water (D5w) 1,000 mls @ 0 mls/hr IV .Q0M PRN PRN Reason: Hypoglycemia Vancomycin HCl 1 gm/ Device 200 mls @ 200 mls/hr IVPB 1200,2359 [facility] Last Admin: 03/03/20 12:06 Dose: 200 mls Insulin Human Lispro (Humalog) 0 units SC .MILD SLIDING SCALE PRN PRN Reason: Mild Correctional Scale Lorazepam (Ativan) 0.5 mg PO Q6H PRN PRN Reason: Anxiety Last Admin: 03/03/20 00:16 Dose: 0.5 mg Metoprolol Succinate (Toprol Xl) 12.5 mg PO DAILY [facility] Last Admin: 03/03/20 09:01 Dose: 12.5 mg Miscellaneous Medication (Pharmacy To Dose) 1 each IVPB PRN PRN PRN Reason: Pharmacy to dose Morphine Sulfate (Ms Contin) 15 mg PO BID [facility] Last Admin: 03/03/20 08:59 Dose: 15 mg Ondansetron HCl (Zofran) 4 mg IVP Q6H PRN PRN Reason: Nausea/Vomiting Oxybutynin Chloride (Ditropan) 10 mg PO DAILY [facility] Last Admin: 03/03/20 09:01 Dose: 10 mg Pantoprazole Sodium (Protonix) 40 mg IVP Q12HR [facility] Last Admin: 03/03/20 09:02 Dose: 40 mg Polyethylene Glycol (Miralax) 17 gm PO BID [facility] Last Admin: 03/03/20 09:02 Dose: Not Given Senna/Docusate Sodium (Senokot S) 1 tab PO BID [facility] Last Admin: 03/03/20 08:59 Dose: 1 tab Silver Nitrate (Silver Nitrate Application) 1 each TOP BID [facility] Last Admin: 03/03/20 09:02 Dose: Not Given Zolpidem Tartrate (Ambien) 10 mg PO HS [facility] Last Admin: 03/02/20 21:13 Dose: 10 mg Vital Signs & Weight: Vital Signs Temp Pulse Resp BP Pulse Ox 03/03/20 12:22 59 L 16 90 L 03/03/20 07:25 98.5 F 68 16 141/77 H 100 03/03/20 06:41 99 03/03/20 06:40 59 L 16 99 03/03/20 04:49 98.3 F 61 16 127/71 99 Admit Weight 233 lb 6 oz Weight 235 lb 15.125 oz - Physical Exam General: alert & oriented x3 HEENT: mucus membranes moist Neck: supple neck Cardiac: regular rate and rhythm Lungs: normal breath sounds Neuro: grossly intact Abdomen: active bowel sounds Extremities: 1+ LE edema Skin: clear Musculoskeletal: no pain - Labs Result Diagrams: 03/03/20 04:21 03/03/20 04:21 Troponin/CKMB CK-MB (CK-2) 2.1 ng/mL (0-6.6) 02/27/20 06:23 Troponin I 0.074 ng/mL (< 0.028) H 02/27/20 12:41 - Telemetry Sinus rhythms and dysrhythmias: sinus rhythm - Assessment/Plan Assessment/Plan: 1. Abdominal pain, unknown cause. Resolved. 2. Non sustained ventricular tachycardia, no recurrence 3. Ischemic cardiomyopathy, EF at 30-35%. 4. Stable coronary artery disease, currently asymptomatic. 5. Anemia. S?P Transfusion. 6. Acute on chronic systolic CHF. 7. Left leg cellulitis, resolved. PLAN: - EP for AICD today. - PO lasix home dose now. - IV abx per primary team. - Will follow.
[2020-03-03] MEDS ORDERED: Clindamycin/D5W 900 mg/50 ml Premix Bag ONE (14:41)
[2020-03-03] MEDS ORDERED: Clindamycin/D5W 600 mg/50 ml Premix Bag ONE (14:41)
--- NOTE | 2020-03-03 15:44 | RAD ---
Chest one view HISTORY: Defibrillator placement. COMPARISON: 03/01/2020. FINDINGS: Cardiac silhouette is magnified and enlarged. Pulmonary vasculature accentuated by shallow inspiration. Mediastinum is midline with aortic calcification and postoperative changes. A new single lead left mcguire bclavian defibrillator is in place with tip overlying the left ventricle. No evidence of thorax. IMPRESSION : Left AICD is in good radiographic position. Cardiomegaly and other findings are stable.
[2020-03-03] MEDS ORDERED: Acetaminophen/Codeine 30-300mg Tablet PO PRN ×2 (16:15)
--- NOTE | 2020-03-03 17:07 | PRG ---
DATE OF SERVICE: 03/03/2020 SUBJECTIVE: Ms. Wyatt had a pacemaker put in today. She states her stomach is feeling better. On talking with her nurse, she has had no signs of bleeding. Speech Pathology is seeing and they are going to put her on a pureed diet. MEDICATIONS: Reviewed. OBJECTIVE: VITAL SIGNS: Temperature is 98, pulse 68, blood pressure 141/71. ABDOMEN: Soft, nontender. Protuberant. No shifting dullness or fluid wave. LABORATORY DATA: White count 8.4, hemoglobin 8.3 and stable, platelet count 235. Sodium 135, BUN and creatinine are 8 and 0.8. Electrolytes are normal. ASSESSMENT: 1. Lower abdominal pain with constipation, resolved. 2. Severe aortic stenosis, cardiomyopathy. 3. Dementia. 4. Chronic obstructive pulmonary disease. 5. Obesity. 6. Recent pacemaker placement. RECOMMENDATIONS: 1. Continue PPI daily. Agree with IV iron. Recommend discontinuing dicyclomine. 2. Recommend bowel regimen with MiraLAX daily. Wean narcotics if possible. If not and she does not respond to MiraLAX, could use Movantik 25 mg daily. 3. At this point, I would not plan on repeating endoscopies as she had upper and lower endoscopy in 2019, few polyps removed. We will sign off at this time. If I can be of any further assistance in this patient's care, please do not hesitate to contact me. Job ID: [id number]
[2020-03-03] MEDS: Zolpidem Tartrate 5 MG TAB PO SCH (19:58)
[2020-03-03] MEDS: Clindamycin 150 MG CAP PO SCH (19:58)
[2020-03-03] MEDS: Donepezil HCl 5 MG TAB PO SCH (19:59)
[2020-03-04] MEDS: Clindamycin 150 MG CAP PO SCH ×3 (09:07→21:20)
[2020-03-04] MEDS: Aspirin Chewable 81 MG TAB PO SCH (09:07)
[2020-03-04] MEDS: Oxybutynin 5 MG TAB PO SCH (09:08)
[2020-03-04] MEDS: Gabapentin 400 MG CAP PO SCH ×4 (09:08→21:20)
[2020-03-04] MEDS: Furosemide 40 MG TAB PO SCH (09:09)
[2020-03-04] MEDS: Morphine ER 15 MG TAB PO SCH ×2 (09:09→21:18)
[2020-03-04] MEDS: Cyanocobalamin (Vitamin B-12) 1,000 MCG TAB PO SCH (09:09)
[2020-03-04] MEDS: Senokot S 8.6-50 MG TAB PO SCH ×2 (09:09→21:22)
[2020-03-04] MEDS: Atorvastatin Calcium 10 MG TAB PO SCH (09:10)
[2020-03-04] MEDS: Ferrous Sulfate 325 MG TAB PO SCH (09:10)
[2020-03-04] MEDS: Escitalopram Oxalate 10 mg Tablet PO SCH (09:10)
[2020-03-04] MEDS: Pantoprazole 40 MG VIAL IVP SCH ×2 (09:12→21:21)
[2020-03-04] MEDS: Polyethylene Glycol 3350 17 GM Packet PO SCH ×2 (09:21→21:22)
[2020-03-04] MEDS: Silver Nitrate Application 1 EACH TOP SCH ×2 (13:28→22:07)
[2020-03-04] MEDS ORDERED: traMADol HCl 50 MG TAB PO PRN (16:04)
--- NOTE | 2020-03-04 16:16 | EKG ---
Test Reason : Blood Pressure : / mmHG Vent. Rate : 076 BPM Atrial Rate : 076 BPM P-R Int : 132 ms QRS Dur : 096 ms QT Int : 408 ms P-R-T Axes : 000 -13 085 degrees QTc Int : 459 ms Demand pacemaker; interpretation is based on intrinsic rhythm Sinus rhythm with frequent Premature ventricular complexes Low voltage QRS Possible Inferior infarct , age undetermined Cannot rule out Anterior infarct , age undetermined Abnormal ECG Confirmed by THOMAS ALDRIDGE ([id number]), newspaper editor VAL FINLEY ([id number]) on 03/04/2020 4:15:30 PM Referred By: Confirmed By:THOMAS ALDRIDGE
--- NOTE | 2020-03-04 17:54 | CT ---
CT PELVIS WITHOUT CONTRAST: 03/04/20 INDICATIONS: Coccyx pain. Multiple falls. Question osteomyelitis or abscess. Comparison made to the recent CT and abdomen 02/27/20. Postoperative changes seen in the lower lumbar spine with pedicle screws at L4, L5 and S1. Interbody fusion at these levels. The sacrum and coccyx appear intact. No evidence of fracture identified. The pelvis appears intact. There is no evidence of fluid or edema surrounding the sacrum or coccyx. Presacral tissues appear unr emarkable. No fluid or abscess collection. IMPRESSION: No acute abnormality identified. POS: AGW
[2020-03-04] MEDS: Zolpidem Tartrate 5 MG TAB PO SCH (21:20)
[2020-03-04] MEDS: Donepezil HCl 5 MG TAB PO SCH (21:21)
--- NOTE | 2020-03-04 21:23 | PDOC.HOSPP ---
- Subjective Encounter Date: 03/04/20 Encounter Time: 10:00 Subjective: no overnight events. this morning, complains of anal and tailbone pain. otherwise no complaints. - Objective Vital Signs & Weight: Vital Signs (12 hours) Temp Pulse Resp BP BP BP Pulse Ox 03/04/20 18:56 96 03/04/20 16:18 98.5 F 73 16 129/63 99 03/04/20 15:58 59 L 14 03/04/20 12:52 98 F 64 18 128/62 97 03/04/20 10:08 128/60 103/56 L Weight Admit Weight 233 lb 6 oz Weight 234 lb 3.2 oz I&O: 03/03/20 03/04/20 03/05/20 06:59 06:59 06:59 Intake Total 1730 1250 1520 Output Total 200 750 800 Balance 1530 500 720 Result Diagrams: 03/03/20 04:21 03/03/20 04:21 Additional Labs: Accuchecks 03/04/20 03/04/20 03/04/20 20:24 16:28 11:10 POC Glucose 142 H 95 122 H 03/04/20 05:56 POC Glucose 191 H Hospitalist ROS - Review of Systems All other systems reviewed; all pertinent +/- noted in HPI/Subj - Medication Medications: Active Medications Generic Name Dose Route Start Last Admin Trade Name Freq PRN Reason Stop Dose Admin Albuterol/Ipratropium 3 ml 02/27/20 19:00 03/04/20 18:56 Duoneb NEB 3 ml [id number] JOSE Administration Aspirin 81 mg 02/28/20 09:00 03/04/20 09:07 Aspirin Chewable PO 81 mg DAILY JOSE Administration Atorvastatin Calcium 10 mg 02/28/20 09:00 03/04/20 09:10 Lipitor PO 10 mg DAILY JOSE Administration Clindamycin HCl 600 mg 03/03/20 21:00 03/04/20 16:25 Cleocin PO 03/10/20 21:01 600 mg TID JOSE Administration Cyanocobalamin 1,000 mcg 02/28/20 09:00 03/04/20 09:09 Vitamin B-12 PO 1,000 mcg DAILY JOSE Administration Divalproex Sodium 500 mg 02/27/20 21:00 03/03/20 20:06 Depakote Er PO 500 mg HS JOSE Administration Donepezil HCl 5 mg 02/27/20 21:00 03/03/20 19:59 Aricept PO 5 mg HS JOSE Administration Escitalopram Oxalate 10 mg 02/28/20 09:00 03/04/20 09:10 Lexapro PO 10 mg DAILY JOSE Administration Ferrous Sulfate 325 mg 02/28/20 09:00 03/04/20 09:10 Feosol PO 325 mg DAILY JOSE Administration Furosemide 40 mg 03/04/20 07:30 03/04/20 09:09 Lasix PO 40 mg DAILY-AC JOSE Administration Gabapentin 800 mg 02/27/20 17:00 03/04/20 16:26 Neurontin PO 800 mg QID JOSE Administration Lorazepam 0.5 mg 02/27/20 16:32 03/03/20 19:58 Ativan PO 0.5 mg Q6H PRN Administration Anxiety Metoprolol Succinate 12.5 mg 02/29/20 09:00 03/04/20 09:08 Toprol Xl PO 12.5 mg DAILY JOSE Administration Morphine Sulfate 15 mg 02/27/20 21:00 03/04/20 09:09 Ms Contin PO 15 mg BID JOSE Administration Oxybutynin Chloride 10 mg 02/28/20 09:00 03/04/20 09:08 Ditropan PO 10 mg DAILY JOSE Administration Pantoprazole Sodium 40 mg 02/27/20 21:00 03/04/20 09:12 Protonix IVP 40 mg Q12HR JOSE Administration Polyethylene Glycol 17 gm 02/28/20 21:00 03/04/20 09:21 Miralax PO 17 gm BID JOSE Administration Senna/Docusate Sodium 1 tab 02/28/20 21:00 03/04/20 09:09 Senokot S PO 1 tab BID JOSE Administration Silver Nitrate 1 each 02/28/20 21:00 03/04/20 13:28 Silver Nitrate Application TOP 1 each BID JOSE Administration Zolpidem Tartrate 10 mg 02/27/20 21:00 03/03/20 19:58 Ambien PO 10 mg HS JOSE Administration - Exam General Appearance: awake alert, ill appearing General - other findings: morbidly obese Heart: RRR, no murmur, no rubs Heart - other findings: left upper thorax AICD incision erythema, tender, mildy swollen Respiratory: CTAB, no wheezes, no rales, no ronchi Gastrointestinal: soft, non-tender, non-distended, normal bowel sounds Gastrointestinal - other findings: external, nonbleeding hemorrhiods; severe anal and coccyeal tenderness Extremities: 2+ LE edema Extremities - other findings: b/l, equal, pitting Psychiatric: normal behavior, A&O x 3, flat affect Hosp A/P - Plan #extenral hemorrhoids #coccygeal pain -severe tenderness on exam -reported fever, chills, and yellow stool on presentation -Will order CT pelvis to assess for abscesses/findings c/w bone infection ( though less sensitive than MRI) -continue bowel regimen -topical analgesic for external hemorrhoids (1) V tach Code(s): I47.2 - VENTRICULAR TACHYCARDIA Status: Acute (2) Pain in the abdomen Code(s): R10.9 - UNSPECIFIED ABDOMINAL PAIN Status: Acute (3) Elevated troponin Code(s): R79.89 - OTHER SPECIFIED ABNORMAL FINDINGS OF BLOOD CHEMISTRY Status : Acute (4) Chest pain Code(s): R07.9 - CHEST PAIN, UNSPECIFIED Status: Acute (5) Systolic CHF, acute on chronic Code(s): I50.23 - ACUTE ON CHRONIC SYSTOLIC (CONGESTIVE) HEART FAILURE Status : Acute - Plan will continue lasix for now. Her hh is low will monitor if she drops again dominic will consult gi. she has been complaining of some pain around her genitals area. Most likley bartholin cyst. will get some silver nitrate to see if this helps. 02/28 pt feels weak today will give her some fluids. pt consult gi since her hh has been trending down. will start pt on abx given her left lower leg swelling. pt evaluated for AICD. 03/01 pt's left lower ext erythema is a bit worse but her wbc has improved, no fever. will change abx to vaco and levo. pt has some erythema around her vaginal area will monitor. 03/02 pt got 2untis of blood yest, will recheck hh. Her left leg erythema appear improved. pt to get AICD. Nurse stated that she now has been coughing when she eats or drink. will get speech study. 03/03 pt's left ext erythema has improved. pt to get aicd. spoke with speech who recommends mechanical diet. pt was initially on hospice but since she has been here her POA wants her to be full code. She also has memory issues and does not remember much. She at times will be oriented only to self. She wears a cpap at night. she is on lasix. 03/04 POD 1 s/p AICD placement; Obtain CT pelvis as abovementioned, started treatment for external hemorrhoids; COVID pending placement; consulted CM for transition from assisted living to residential; GENARO 1-2 nights pending placement.
[2020-03-05 05:43] LABS: Anion Gap 12 mmol/L (10-20); BUN (Urea Nitrogen) 7 mg/dL (9.8-20.1); Calc. Creatinine Clearance 125 mL/min (70-130); Calcium 8.8 mg/dL (7.8-10.44); Carbon Dioxide 31 mmol/L (23-31); Chloride 101 mmol/L (98-107); Estimated GFR-MDRD 82; Glucose 92 mg/dL (80-115); Potassium 3.7 mmol/L (3.5-5.1); Sodium 140 mmol/L (136-145)
[2020-03-05 05:51] LABS: Anisocytosis SLIGHT = 6-15 cells (100X) (0-5/hpf); Band 6 % (5-11); Eosinophils 2 % (0-10); Hemoglobin 8.1 g/dL (12.0-16.0); Hypochromia SLIGHT = 6-15 cells (100X) (0-5/hpf); Lymphocytes 23 % (21-51); MDiff Complete? YES; Mean Corpuscular HGB CONC 29.7 g/dL (32.0-36.0); Mean Corpuscular Hemoglobin 22.3 pg (27.0-31.0); Mean Corpuscular Volume 75.2 fL (78.0-98.0); Mean Platelet Volume 10.2 fL (7.4-10.4); Microcytosis SLIGHT = 6-15 cells (100X) (0-5/hpf); Monocytes 11 % (0-10); Platelet Count 177 thou/uL (130-400); RBC Distribution Width 22.5 % (11.5-14.5); Red Blood Cell (RBC) Count 3.62 mill/uL (4.20-5.40); White Blood Cell (WBC) Count 6.4 thou/uL (4.8-10.8)
[2020-03-05] MEDS: Oxybutynin 5 MG TAB PO SCH (08:32)
[2020-03-05] MEDS: Morphine ER 15 MG TAB PO SCH ×2 (08:33→21:49)
[2020-03-05] MEDS: Ferrous Sulfate 325 MG TAB PO SCH (08:34)
[2020-03-05] MEDS: Clindamycin 150 MG CAP PO SCH ×3 (08:34→21:46)
[2020-03-05] MEDS: Polyethylene Glycol 3350 17 GM Packet PO SCH ×2 (08:35→21:50)
[2020-03-05] MEDS: Cyanocobalamin (Vitamin B-12) 1,000 MCG TAB PO SCH (08:35)
[2020-03-05] MEDS: Senokot S 8.6-50 MG TAB PO SCH ×2 (08:35→21:50)
[2020-03-05] MEDS: Atorvastatin Calcium 10 MG TAB PO SCH (08:35)
[2020-03-05] MEDS: Aspirin Chewable 81 MG TAB PO SCH (08:35)
[2020-03-05] MEDS: Escitalopram Oxalate 10 mg Tablet PO SCH (08:35)
[2020-03-05] MEDS: Furosemide 40 MG TAB PO SCH (08:35)
[2020-03-05] MEDS: Gabapentin 400 MG CAP PO SCH ×4 (08:36→21:48)
[2020-03-05] MEDS: Pantoprazole 40 MG VIAL IVP SCH ×2 (08:36→21:50)
[2020-03-05] MEDS: Silver Nitrate Application 1 EACH TOP SCH ×2 (08:36→21:51)
[2020-03-05] MEDS: Dibucaine 1% Ointment 28.35 GM TUBE TOP PRN (08:38)
[2020-03-05 12:43] LABS: SARS-CoV-2 MS2 Positive; SARS-CoV-2 N Gene Negative; SARS-CoV-2 S Gene Negative; SARS-CoV-2 by NAA Not Detected (NotDetected); SARS-CoV-2 orf1ab Negative
--- NOTE | 2020-03-05 17:02 | PDOC.HOSPP ---
- Subjective Encounter Date: 03/05/20 Encounter Time: 09:00 Subjective: no overnight events. This morning, 8-beat NSVT. Endorses improvement in buttock pain. - Objective Vital Signs & Weight: Vital Signs (12 hours) Temp Pulse Pulse Pulse Resp BP BP 03/05/20 15:35 98.2 F 64 18 03/05/20 13:31 73 16 03/05/20 11:40 98.5 F 77 18 03/05/20 11:36 75 76 131/71 136/66 03/05/20 07:49 67 20 03/05/20 07:37 98.1 F 68 18 BP BP Pulse Ox Pulse Ox 03/05/20 15:35 120/59 L 94 L 03/05/20 13:31 03/05/20 11:40 136/66 98 03/05/20 11:36 100 03/05/20 07:49 03/05/20 07:37 107/54 L 96 Weight Admit Weight 233 lb 6 oz Weight 233 lb I&O: 03/04/20 03/05/20 03/06/20 06:59 06:59 06:59 Intake Total 1250 1760 360 Output Total 750 1250 Balance 500 510 360 Result Diagrams: 03/05/20 04:57 03/05/20 04:57 Additional Labs: Accuchecks 03/05/20 03/04/20 03/04/20 10:40 20:24 16:28 POC Glucose 117 H 142 H 95 Hospitalist ROS - Review of Systems Constitutional: denies: chills, sweats Cardiovascular: reports: edema. denies: chest pain, palpitations Gastrointestinal: denies: nausea, vomiting, abdominal pain, diarrhea, constipation Genitourinary: denies: dysuria, frequency, hematuria - Medication Medications: Active Medications Generic Name Dose Route Start Last Admin Trade Name Freq PRN Reason Stop Dose Admin Albuterol/Ipratropium 3 ml 02/27/20 19:00 03/05/20 13:31 Duoneb NEB 3 ml [id number] JOSE Administration Aspirin 81 mg 02/28/20 09:00 03/05/20 08:35 Aspirin Chewable PO 81 mg DAILY JOSE Administration Atorvastatin Calcium 10 mg 02/28/20 09:00 03/05/20 08:35 Lipitor PO 10 mg DAILY JOSE Administration Clindamycin HCl 600 mg 03/03/20 21:00 03/05/20 14:09 Cleocin PO 03/10/20 21:01 600 mg TID JOSE Administration Cyanocobalamin 1,000 mcg 02/28/20 09:00 03/05/20 08:35 Vitamin B-12 PO 1,000 mcg DAILY JOSE Administration Dibucaine 0 gm 03/05/20 09:00 03/05/20 08:38 Dibucaine 1% Ointment TOP 1 applic PRN PRN Administration Hemorrhoids Divalproex Sodium 500 mg 02/27/20 21:00 03/04/20 21:21 Depakote Er PO 500 mg HS JOSE Administration Donepezil HCl 5 mg 02/27/20 21:00 03/04/20 21:21 Aricept PO 5 mg HS JOSE Administration Escitalopram Oxalate 10 mg 02/28/20 09:00 03/05/20 08:35 Lexapro PO 10 mg DAILY JOSE Administration Ferrous Sulfate 325 mg 02/28/20 09:00 03/05/20 08:34 Feosol PO 325 mg DAILY JOSE Administration Furosemide 40 mg 03/04/20 07:30 03/05/20 08:35 Lasix PO 40 mg DAILY-AC JOSE Administration Gabapentin 800 mg 02/27/20 17:00 03/05/20 14:09 Neurontin PO 800 mg QID JOSE Administration Lorazepam 0.5 mg 02/27/20 16:32 03/03/20 19:58 Ativan PO 0.5 mg Q6H PRN Administration Anxiety Metoprolol Succinate 12.5 mg 02/29/20 09:00 03/05/20 08:33 Toprol Xl PO 12.5 mg DAILY JOSE Administration Morphine Sulfate 15 mg 02/27/20 21:00 03/05/20 08:33 Ms Contin PO 15 mg BID JOSE Administration Oxybutynin Chloride 10 mg 02/28/20 09:00 03/05/20 08:32 Ditropan PO 10 mg DAILY JOSE Administration Pantoprazole Sodium 40 mg 02/27/20 21:00 03/05/20 08:36 Protonix IVP 40 mg Q12HR JOSE Administration Polyethylene Glycol 17 gm 02/28/20 21:00 03/05/20 08:35 Miralax PO 17 gm BID JOSE Administration Senna/Docusate Sodium 1 tab 02/28/20 21:00 03/05/20 08:35 Senokot S PO 1 tab BID JOSE Administration Silver Nitrate 1 each 02/28/20 21:00 03/05/20 08:36 Silver Nitrate Application TOP 1 each BID JOSE Administration Zolpidem Tartrate 10 mg 02/27/20 21:00 03/04/20 21:20 Ambien PO 10 mg HS JOSE Administration - Exam General Appearance: NAD, awake alert Heart: RRR, no gallops, no rubs, murmur present Respiratory: CTAB, no wheezes, no rales, no ronchi Respiratory - other findings: diffusely reduced breath sounds Gastrointestinal: soft, non-tender, non-distended Extremities: 2+ LE edema Extremities - other findings: pitting to knee level, b/l equal Psychiatric: normal behavior, oriented to person, oriented to place, flat affect. negative: oriented to time Hosp A/P - Plan #extenral hemorrhoids #coccygeal pain -severe tenderness on exam -reported fever, chills, and yellow stool on presentation -CT showing no fluid collection or finding suggestive of OM -continue bowel regimen -topical analgesic for external hemorrhoids (1) V tach Code(s): I47.2 - VENTRICULAR TACHYCARDIA Status: Acute (2) Pain in the abdomen Code(s): R10.9 - UNSPECIFIED ABDOMINAL PAIN Status: Acute (3) Elevated troponin Code(s): R79.89 - OTHER SPECIFIED ABNORMAL FINDINGS OF BLOOD CHEMISTRY Status : Acute (4) Chest pain Code(s): R07.9 - CHEST PAIN, UNSPECIFIED Status: Acute (5) Systolic CHF, acute on chronic Code(s): I50.23 - ACUTE ON CHRONIC SYSTOLIC (CONGESTIVE) HEART FAILURE Status : Acute - Plan will continue lasix for now. Her hh is low will monitor if she drops again dominic will consult gi. she has been complaining of some pain around her genitals area. Most likley bartholin cyst. will get some silver nitrate to see if this helps. 02/28 pt feels weak today will give her some fluids. pt consult gi since her hh has been trending down. will start pt on abx given her left lower leg swelling. pt evaluated for AICD. 03/01 pt's left lower ext erythema is a bit worse but her wbc has improved, no fever. will change abx to vaco and levo. pt has some erythema around her vaginal area will monitor. 03/02 pt got 2untis of blood yest, will recheck hh. Her left leg erythema appear improved. pt to get AICD. Nurse stated that she now has been coughing when she eats or drink. will get speech study. 03/03 pt's left ext erythema has improved. pt to get aicd. spoke with speech who recommends mechanical diet. pt was initially on hospice but since she has been here her POA wants her to be full code. She also has memory issues and does not remember much. She at times will be oriented only to self. She wears a cpap at night. she is on lasix. 03/04 POD 1 s/p AICD placement; Obtain CT pelvis as abovementioned, started treatment for external hemorrhoids; COVID pending placement; consulted CM for transition from assisted living to [facility]; ELOS 1-2 nights pending placement. 03/05: POD 2 s/p AICD placement; anal/pelvic pain improving; pending placement
[2020-03-05] MEDS: Donepezil HCl 5 MG TAB PO SCH (21:48)
[2020-03-05] MEDS: Lorazepam 0.5 MG TAB PO PRN (21:51)
[2020-03-05] MEDS: Zolpidem Tartrate 5 MG TAB PO SCH (21:51)
[2020-03-06] MEDS: Clindamycin 150 MG CAP PO SCH ×3 (09:27→22:11)
[2020-03-06] MEDS: Senokot S 8.6-50 MG TAB PO SCH ×2 (09:27→22:13)
[2020-03-06] MEDS: Ferrous Sulfate 325 MG TAB PO SCH (09:27)
[2020-03-06] MEDS: Polyethylene Glycol 3350 17 GM Packet PO SCH ×2 (09:27→22:13)
[2020-03-06] MEDS: Morphine ER 15 MG TAB PO SCH ×2 (09:28→22:12)
[2020-03-06] MEDS: Cyanocobalamin (Vitamin B-12) 1,000 MCG TAB PO SCH (09:28)
[2020-03-06] MEDS: Atorvastatin Calcium 10 MG TAB PO SCH (09:28)
[2020-03-06] MEDS: Aspirin Chewable 81 MG TAB PO SCH (09:28)
[2020-03-06] MEDS: Gabapentin 400 MG CAP PO SCH ×4 (09:29→22:12)
[2020-03-06] MEDS: Furosemide 40 MG TAB PO SCH (09:29)
[2020-03-06] MEDS: Escitalopram Oxalate 10 mg Tablet PO SCH (09:29)
[2020-03-06] MEDS: Pantoprazole 40 MG VIAL IVP SCH ×2 (09:29→22:13)
[2020-03-06] MEDS: Oxybutynin 5 MG TAB PO SCH (09:36)
[2020-03-06] MEDS: Silver Nitrate Application 1 EACH TOP SCH ×2 (09:38→22:14)
--- NOTE | 2020-03-06 14:30 | PDOC.EP ---
- Subjective Date: 03/06/20 Time: 14:29 Interval History: Follow up s/p ICD implant friday and NSVT. Mild tenderness at ICD implant site. No cardiac concerns or complaints. - Review of Systems Constitutional: denies: chills, fever, malaise, sweats, weakness, other Respiratory: denies: cough, dry, hemoptysis, pleuritic pain, shortness of breath, SOB with excertion, sputum, wheezing, other Cardiology: denies: chest pain, edema, heart racing, light headedness, paroxysmal noc. dyspnea, orthopnea, palpitations, passing out, pleuritic pain, pressure, swelling, other Gastrointestinal: denies: abdominal pain, constipation, diarrhea, hematochezia, melena, nausea, vomitting, other Musculoskeletal: reports: leg pain. denies: unstable gait, falls, neck pain, shoulder pain, arm pain, hand pain, foot pain, other - Objective Allergies/Adverse Reactions: Allergies Allergy/AdvReac Type Severity Reaction Status Date / Time iodine Allergy Severe ANAPHYLACTIC Verified 02/27/20 10:14 REACTION codeine Allergy Intermediate Verified 02/27/20 10:14 penicillin G Allergy Verified 02/27/20 10:14 Current Medications Albuterol/Ipratropium (Duoneb) 3 ml NEB [id number] [facility] Last Admin: 03/06/20 12:30 Dose: 3 ml Aspirin (Aspirin Chewable) 81 mg PO DAILY [facility] Last Admin: 03/06/20 09:28 Dose: 81 mg Atorvastatin Calcium (Lipitor) 10 mg PO DAILY [facility] Last Admin: 03/06/20 09:28 Dose: 10 mg Clindamycin HCl (Cleocin) 600 mg PO TID [facility] Stop: 03/10/20 21:01 Last Admin: 03/06/20 09:27 Dose: 600 mg Cyanocobalamin (Vitamin B-12) 1,000 mcg PO DAILY [facility] Last Admin: 03/06/20 09:28 Dose: 1,000 mcg Dextrose/Water (Dextrose 50%) 25 gm SLOW IVP PRN PRN PRN Reason: Hypoglycemia Dibucaine (Dibucaine 1% Ointment) 0 gm TOP PRN PRN PRN Reason: Hemorrhoids Last Admin: 03/05/20 08:38 Dose: 1 applic Divalproex Sodium (Depakote Er) 500 mg PO HS [facility] Last Admin: 03/05/20 21:48 Dose: 500 mg Donepezil HCl (Aricept) 5 mg PO HS [facility] Last Admin: 03/05/20 21:48 Dose: 5 mg Escitalopram Oxalate (Lexapro) 10 mg PO DAILY [facility] Last Admin: 03/06/20 09:29 Dose: 10 mg Ferrous Sulfate (Feosol) 325 mg PO DAILY [facility] Last Admin: 03/06/20 09:27 Dose: 325 mg Furosemide (Lasix) 40 mg PO DAILY-AC [facility] Last Admin: 03/06/20 09:29 Dose: 40 mg Gabapentin (Neurontin) 800 mg PO QID [facility] Last Admin: 03/06/20 12:21 Dose: 800 mg Glucagon (Glucagon) 1 mg IM PRN PRN PRN Reason: Hypoglycemia Haloperidol (Haldol) 0.5 mg PO Q6H PRN PRN Reason: Anxiety Dextrose/Water (D5w) 1,000 mls @ 0 mls/hr IV .Q0M PRN PRN Reason: Hypoglycemia Insulin Human Lispro (Humalog) 0 units SC .MILD SLIDING SCALE PRN PRN Reason: Mild Correctional Scale Lorazepam (Ativan) 0.5 mg PO Q6H PRN PRN Reason: Anxiety Last Admin: 03/05/20 21:51 Dose: 0.5 mg Metoprolol Succinate (Toprol Xl) 12.5 mg PO DAILY [facility] Last Admin: 03/06/20 09:26 Dose: 12.5 mg Morphine Sulfate (Ms Contin) 15 mg PO BID [facility] Last Admin: 03/06/20 09:28 Dose: 15 mg Ondansetron HCl (Zofran) 4 mg IVP Q6H PRN PRN Reason: Nausea/Vomiting Oxybutynin Chloride (Ditropan) 10 mg PO DAILY [facility] Last Admin: 03/06/20 09:36 Dose: 10 mg Pantoprazole Sodium (Protonix) 40 mg IVP Q12HR [facility] Last Admin: 03/06/20 09:29 Dose: 40 mg Polyethylene Glycol (Miralax) 17 gm PO BID [facility] Last Admin: 03/06/20 09:27 Dose: 17 gm Senna/Docusate Sodium (Senokot S) 1 tab PO BID [facility] Last Admin: 03/06/20 09:27 Dose: 1 tab Silver Nitrate (Silver Nitrate Application) 1 each TOP BID [facility] Last Admin: 03/06/20 09:38 Dose: Not Given Zolpidem Tartrate (Ambien) 10 mg PO HS [facility] Last Admin: 03/05/20 21:51 Dose: 10 mg Vital Signs & Weight: Vital Signs Temp Pulse Resp BP BP Pulse Ox 03/06/20 12:30 67 16 03/06/20 11:47 98.1 F 72 23 H 160/75 H 97 03/06/20 08:20 98.3 F 67 18 126/58 L 96 03/06/20 08:11 96 03/06/20 07:21 58 L 16 03/06/20 04:00 98.7 F 62 22 H 117/56 L 95 Admit Weight 233 lb 6 oz Weight 235 lb I/O: I/O 03/05/20 03/06/20 03/07/20 06:59 06:59 06:59 Intake Total 1760 2820 Output Total 1250 1100 Balance 510 1720 - Physical Exam General: alert & oriented x3, appears well, no apparent distress, speech clear, affect appropriate HEENT: mucus membranes moist, normocephaly Neck: supple neck, midline trachea, no lymphadenopathy Cardiology: regular rate and rhythm, no murmur, PMI nondisplaced Lungs: clear to auscultation, normal breath sounds, no wheeze, rales, rhonchi Neurology: cranial nerve 2-12 intact, grossly intact, no lateralizing findings Abdomen: unremarkable, active bowel sounds, no pulsations/bruits - Labs Result Diagrams: 03/05/20 04:57 03/05/20 04:57 - EKG Interpretation EKG Method: Telemetry EKG shows: Sinus rhythm - Device Device: single, defibrillator Device Result: [facility] [employer] - Assessment/Plan Assessment/Plan: PROBLEM LIST: 1. Chronic systolic congestive heart failure with ischemic cardiomyopathy. a. Prior history of coronary artery bypass grafting surgery. b. NYHA functional class 3 2. Chronically reduced left ventricular ejection fraction. a. 2D echo from 01/13/2018 reveals left ventricular ejection fraction of 35% to 40%. b. Left ventricular ejection fraction reduced to 30% to 35% on the most recent echocardiogram per Dr. Sofia. c. Elevated BNP of 3222 on admission with likely fluid overload. 3. Cellulitis a. treatment with IV anbx b. leukocytosis, now trending down: 02/28= 19 03/01= 16 4. Anemia 5. Non sustained VT s/p single chamber ICD Friday and is seen to be healing nicely. Continues to have NSVT runs on tele. Consider increasing Toprol XL to 25mg daily if ok with Cardiology. OK for DC by EP.
--- NOTE | 2020-03-06 16:39 | PDOC.CPN ---
- Subjective Date: 03/06/20 Time: 16:37 Interval history: No new issues. Feels back to baseline. - Review of Systems General: denies: fever/chills, weight/appetite/sleep changes, night sweats, fatigue Respiratory: denies: cough, congestion, shortness of breath, exercise intolerance Cardiovascular: denies: chest pain, palpitation, edema, paroxysmal nocturnal dyspnea, orthopnea Gastrointestinal: denies: nausea, vomiting, diarrhea, constipation, abd pain, GI bleeding Musculoskeletal: denies: pain, tenderness, stiffness, swelling, arthritis/ arthralgias Neurological: denies: numbness, syncope, seizure, weakness - Objective Allergies/Adverse Reactions: Allergies Allergy/AdvReac Type Severity Reaction Status Date / Time iodine Allergy Severe ANAPHYLACTIC Verified 02/27/20 10:14 REACTION codeine Allergy Intermediate Verified 02/27/20 10:14 penicillin G Allergy Verified 02/27/20 10:14 Visit Medications: Current Medications Albuterol/Ipratropium (Duoneb) 3 ml NEB [id number] [facility] Last Admin: 03/06/20 12:30 Dose: 3 ml Aspirin (Aspirin Chewable) 81 mg PO DAILY [facility] Last Admin: 03/06/20 09:28 Dose: 81 mg Atorvastatin Calcium (Lipitor) 10 mg PO DAILY [facility] Last Admin: 03/06/20 09:28 Dose: 10 mg Clindamycin HCl (Cleocin) 600 mg PO TID [facility] Stop: 03/10/20 21:01 Last Admin: 03/06/20 14:39 Dose: 600 mg Cyanocobalamin (Vitamin B-12) 1,000 mcg PO DAILY [facility] Last Admin: 03/06/20 09:28 Dose: 1,000 mcg Dextrose/Water (Dextrose 50%) 25 gm SLOW IVP PRN PRN PRN Reason: Hypoglycemia Dibucaine (Dibucaine 1% Ointment) 0 gm TOP PRN PRN PRN Reason: Hemorrhoids Last Admin: 03/05/20 08:38 Dose: 1 applic Divalproex Sodium (Depakote Er) 500 mg PO [facility] Last Admin: 03/05/20 21:48 Dose: 500 mg Donepezil HCl (Aricept) 5 mg PO HS [facility] Last Admin: 03/05/20 21:48 Dose: 5 mg Escitalopram Oxalate (Lexapro) 10 mg PO DAILY [facility] Last Admin: 03/06/20 09:29 Dose: 10 mg Ferrous Sulfate (Feosol) 325 mg PO DAILY [facility] Last Admin: 03/06/20 09:27 Dose: 325 mg Furosemide (Lasix) 40 mg PO DAILY-AC [facility] Last Admin: 03/06/20 09:29 Dose: 40 mg Gabapentin (Neurontin) 800 mg PO QID [facility] Last Admin: 03/06/20 12:21 Dose: 800 mg Glucagon (Glucagon) 1 mg IM PRN PRN PRN Reason: Hypoglycemia Haloperidol (Haldol) 0.5 mg PO Q6H PRN PRN Reason: Anxiety Dextrose/Water (D5w) 1,000 mls @ 0 mls/hr IV .Q0M PRN PRN Reason: Hypoglycemia Insulin Human Lispro (Humalog) 0 units SC .MILD SLIDING SCALE PRN PRN Reason: Mild Correctional Scale Lorazepam (Ativan) 0.5 mg PO Q6H PRN PRN Reason: Anxiety Last Admin: 03/05/20 21:51 Dose: 0.5 mg Metoprolol Succinate (Toprol Xl) 12.5 mg PO DAILY [facility] Last Admin: 03/06/20 09:26 Dose: 12.5 mg Morphine Sulfate (Ms Contin) 15 mg PO BID [facility] Last Admin: 03/06/20 09:28 Dose: 15 mg Ondansetron HCl (Zofran) 4 mg IVP Q6H PRN PRN Reason: Nausea/Vomiting Oxybutynin Chloride (Ditropan) 10 mg PO DAILY [facility] Last Admin: 03/06/20 09:36 Dose: 10 mg Pantoprazole Sodium (Protonix) 40 mg IVP Q12HR [facility] Last Admin: 03/06/20 09:29 Dose: 40 mg Polyethylene Glycol (Miralax) 17 gm PO BID [facility] Last Admin: 03/06/20 09:27 Dose: 17 gm Senna/Docusate Sodium (Senokot S) 1 tab PO BID [facility] Last Admin: 03/06/20 09:27 Dose: 1 tab Silver Nitrate (Silver Nitrate Application) 1 each TOP BID [facility] Last Admin: 03/06/20 09:38 Dose: Not Given Zolpidem Tartrate (Ambien) 10 mg PO [facility] Last Admin: 03/05/20 21:51 Dose: 10 mg Vital Signs & Weight: Vital Signs Temp Pulse Resp BP BP Pulse Ox 03/06/20 15:49 97.9 F 64 18 143/67 H 97 03/06/20 12:30 67 16 03/06/20 11:47 98.1 F 72 23 H 160/75 H 97 03/06/20 08:20 98.3 F 67 18 126/58 L 96 03/06/20 08:11 96 03/06/20 07:21 58 L 16 Admit Weight 233 lb 6 oz Weight 235 lb - Physical Exam General: no apparent distress HEENT: mucus membranes moist Neck: supple neck Cardiac: regular rate and rhythm Lungs: normal breath sounds Neuro: grossly intact Abdomen: active bowel sounds Extremities: 1+ LE edema Skin: clear Musculoskeletal: no pain - Labs Result Diagrams: 03/05/20 04:57 03/05/20 04:57 Troponin/CKMB CK-MB (CK-2) 2.1 ng/mL (0-6.6) 02/27/20 06:23 Troponin I 0.074 ng/mL (< 0.028) H 02/27/20 12:41 - Telemetry Sinus rhythms and dysrhythmias: sinus rhythm - Assessment/Plan Assessment/Plan: 1. Abdominal pain, unknown cause. Resolved. 2. Non sustained ventricular tachycardia, no recurrence 3. Ischemic cardiomyopathy, EF at 30-35%. 4. Stable coronary artery disease, currently asymptomatic. 5. Anemia. S/P Transfusion. 6. Acute on chronic systolic CHF. 7. Left leg cellulitis, improved. 8. HTN PLAN: - AICD in place, no therapies. - Will increase BB for NS VT - CV stable otherwise. May discharge any time form cardiac perspective.
--- NOTE | 2020-03-06 19:54 | PDOC.HOSPP ---
- Subjective Encounter Date: 03/06/20 Encounter Time: 09:00 Subjective: overnight, 6 VT beats, no symptoms. This morning, feeling better overall. pelvic pain continues to improve. - Objective Vital Signs & Weight: Vital Signs (12 hours) Temp Pulse Resp BP BP Pulse Ox 03/06/20 15:49 97.9 F 64 18 143/67 H 97 03/06/20 12:30 67 16 03/06/20 11:47 98.1 F 72 23 H 160/75 H 97 03/06/20 08:20 98.3 F 67 18 126/58 L 96 03/06/20 08:11 96 Weight Admit Weight 233 lb 6 oz Weight 235 lb I&O: 03/05/20 03/06/20 03/07/20 06:59 06:59 06:59 Intake Total 1760 2820 1040 Output Total 1250 1100 1000 Balance 510 1720 40 Result Diagrams: 03/05/20 04:57 03/05/20 04:57 Additional Labs: Accuchecks 03/06/20 03/06/20 03/06/20 16:49 11:55 06:20 POC Glucose 130 H 134 H 102 03/05/20 20:11 POC Glucose 189 H Hospitalist ROS - Review of Systems Constitutional: denies: chills, sweats Respiratory: denies: cough, shortness of breath Gastrointestinal: reports: diarrhea. denies: nausea, vomiting, abdominal pain Genitourinary: denies: hematuria - Medication Medications: Active Medications Generic Name Dose Route Start Last Admin Trade Name Freq PRN Reason Stop Dose Admin Albuterol/Ipratropium 3 ml 02/27/20 19:00 03/06/20 12:30 Duoneb NEB 3 ml [id number] JOSE Administration Aspirin 81 mg 02/28/20 09:00 03/06/20 09:28 Aspirin Chewable PO 81 mg DAILY JOSE Administration Atorvastatin Calcium 10 mg 02/28/20 09:00 03/06/20 09:28 Lipitor PO 10 mg DAILY JOSE Administration Clindamycin HCl 600 mg 03/03/20 21:00 03/06/20 14:39 Cleocin PO 03/10/20 21:01 600 mg TID JOSE Administration Cyanocobalamin 1,000 mcg 02/28/20 09:00 03/06/20 09:28 Vitamin B-12 PO 1,000 mcg DAILY JOSE Administration Dibucaine 0 gm 03/05/20 09:00 03/05/20 08:38 Dibucaine 1% Ointment TOP 1 applic PRN PRN Administration Hemorrhoids Divalproex Sodium 500 mg 02/27/20 21:00 03/05/20 21:48 Depakote Er PO 500 mg HS JOSE Administration Donepezil HCl 5 mg 02/27/20 21:00 03/05/20 21:48 Aricept PO 5 mg HS JOSE Administration Escitalopram Oxalate 10 mg 02/28/20 09:00 03/06/20 09:29 Lexapro PO 10 mg DAILY JOSE Administration Ferrous Sulfate 325 mg 02/28/20 09:00 03/06/20 09:27 Feosol PO 325 mg DAILY JOSE Administration Furosemide 40 mg 03/04/20 07:30 03/06/20 09:29 Lasix PO 40 mg DAILY-AC JOSE Administration Gabapentin 800 mg 02/27/20 17:00 03/06/20 16:53 Neurontin PO 800 mg QID JOSE Administration Lorazepam 0.5 mg 02/27/20 16:32 03/05/20 21:51 Ativan PO 0.5 mg Q6H PRN Administration Anxiety Morphine Sulfate 15 mg 02/27/20 21:00 03/06/20 09:28 Ms Contin PO 15 mg BID JOSE Administration Oxybutynin Chloride 10 mg 02/28/20 09:00 03/06/20 09:36 Ditropan PO 10 mg DAILY JOSE Administration Pantoprazole Sodium 40 mg 02/27/20 21:00 03/06/20 09:29 Protonix IVP 40 mg Q12HR JOSE Administration Polyethylene Glycol 17 gm 02/28/20 21:00 03/06/20 09:27 Miralax PO 17 gm BID JOSE Administration Senna/Docusate Sodium 1 tab 02/28/20 21:00 03/06/20 09:27 Senokot S PO 1 tab BID JOSE Administration Silver Nitrate 1 each 02/28/20 21:00 03/06/20 09:38 Silver Nitrate Application TOP Not Given BID JOSE Zolpidem Tartrate 10 mg 02/27/20 21:00 03/05/20 21:51 Ambien PO 10 mg HS JOSE Administration - Exam General Appearance: NAD, awake alert Neck: no JVD Heart: RRR, no murmur, no gallops, no rubs Heart - other findings: HAYLEE thorax AICD incision erythematous, tender; no fluctuation or drainage Respiratory: CTAB, no wheezes, no rales, no ronchi Gastrointestinal: soft, non-tender, non-distended, normal bowel sounds Extremities: 2+ LE edema Psychiatric: normal affect, normal behavior, A&O x 3 Hosp A/P - Plan #extenral hemorrhoids #coccygeal pain -severe tenderness on exam -reported fever, chills, and yellow stool on presentation -CT showing no fluid collection or finding suggestive of OM -continue current bowel regimen -topical analgesic for external hemorrhoids (1) NSVT Code(s): I47.2 - VENTRICULAR TACHYCARDIA Status: Acute (2) Pain in the abdomen (resolved) Code(s): R10.9 - UNSPECIFIED ABDOMINAL PAIN Status: Acute (3) Elevated troponin Code(s): R79.89 - OTHER SPECIFIED ABNORMAL FINDINGS OF BLOOD CHEMISTRY Status : Acute (4) Chest pain Code(s): R07.9 - CHEST PAIN, UNSPECIFIED Status: Acute (5) Systolic CHF, acute on chronic Code(s): I50.23 - ACUTE ON CHRONIC SYSTOLIC (CONGESTIVE) HEART FAILURE Status : Acute - Plan will continue lasix for now. Her hh is low will monitor if she drops again dominic will consult gi. she has been complaining of some pain around her genitals area. Most likley bartholin cyst. will get some silver nitrate to see if this helps. 02/28 pt feels weak today will give her some fluids. pt consult gi since her hh has been trending down. will start pt on abx given her left lower leg swelling. pt evaluated for AICD. 03/01 pt's left lower ext erythema is a bit worse but her wbc has improved, no fever. will change abx to vaco and levo. pt has some erythema around her vaginal area will monitor. 03/02 pt got 2untis of blood yest, will recheck hh. Her left leg erythema appear improved. pt to get AICD. Nurse stated that she now has been coughing when she eats or drink. will get speech study. 03/03 pt's left ext erythema has improved. pt to get aicd. spoke with speech who recommends mechanical diet. pt was initially on hospice but since she has been here her POA wants her to be full code. She also has memory issues and does not remember much. She at times will be oriented only to self. She wears a cpap at night. she is on lasix. 03/04 POD 1 s/p AICD placement; Obtain CT pelvis as abovementioned, started treatment for external hemorrhoids; COVID pending placement; consulted CM for transition from assisted living to senior living; ELOS 1-2 nights pending placement. 03/05: POD 2 s/p AICD placement; anal/pelvic pain improving; pending placement 03/06: pending placement. Will continue clindamycin as outpatient, bowel regimen and topical treatment of external hemorrhoids; grossly positive I/O so increased lasix dosage
[2020-03-06] MEDS: Atorvastatin Calcium 40 MG TAB PO SCH (22:11)
[2020-03-06] MEDS: Donepezil HCl 5 MG TAB PO SCH (22:12)
[2020-03-06] MEDS: Zolpidem Tartrate 5 MG TAB PO SCH (22:14)
[2020-03-07] MEDS: Lorazepam 0.5 MG TAB PO PRN ×2 (01:06→21:13)
[2020-03-07 04:44] LABS: Anion Gap 13 mmol/L (10-20); BUN (Urea Nitrogen) 11 mg/dL (9.8-20.1); Calc. Creatinine Clearance 121 mL/min (70-130); Calcium 8.4 mg/dL (7.8-10.44); Carbon Dioxide 28 mmol/L (23-31); Chloride 103 mmol/L (98-107); Estimated GFR-MDRD 78; Glucose 97 mg/dL (80-115); Magnesium 1.9 mg/dL (1.6-2.6); Potassium 3.9 mmol/L (3.5-5.1); Sodium 140 mmol/L (136-145)
[2020-03-07 04:52] LABS: #Eosinphils 0.2 thou/uL (0.0-0.7); #Lymphocytes 0.9 thou/uL (1.20-3.40); #Neutrophils 7.4 thou/uL (1.40-6.50); %Basophils 0.2 % (0.0-1.0); %Eosinophils 1.9 % (0.0-10.0); %Lymphocytes 9.8 % (21.0-51.0); %Monocytes 10.3 % (0.0-10.0); %Neutrophils 77.7 % (42.0-75.0); Anisocytosis SLIGHT = 6-15 cells (100X) (0-5/hpf); Hypochromia SLIGHT = 6-15 cells (100X) (0-5/hpf); MDiff Complete? YES; Mean Corpuscular HGB CONC 29.7 g/dL (32.0-36.0); Mean Corpuscular Hemoglobin 22.8 pg (27.0-31.0); Mean Corpuscular Volume 76.7 fL (78.0-98.0); Mean Platelet Volume 10.1 fL (7.4-10.4); Microcytosis SLIGHT = 6-15 cells (100X) (0-5/hpf); Platelet Count 177 thou/uL (130-400); RBC Distribution Width 23.3 % (11.5-14.5); Red Blood Cell (RBC) Count 3.53 mill/uL (4.20-5.40); White Blood Cell (WBC) Count 9.6 thou/uL (4.8-10.8)
[2020-03-07] MEDS: Clindamycin 150 MG CAP PO SCH ×3 (08:13→21:10)
[2020-03-07] MEDS: Aspirin Chewable 81 MG TAB PO SCH (08:13)
[2020-03-07] MEDS: Escitalopram Oxalate 10 mg Tablet PO SCH (08:14)
[2020-03-07] MEDS: Morphine ER 15 MG TAB PO SCH ×2 (08:14→21:12)
[2020-03-07] MEDS: Cyanocobalamin (Vitamin B-12) 1,000 MCG TAB PO SCH (08:16)
[2020-03-07] MEDS: Oxybutynin 5 MG TAB PO SCH (08:16)
[2020-03-07] MEDS: Furosemide 40 MG TAB PO SCH ×2 (08:16→13:26)
[2020-03-07] MEDS: Polyethylene Glycol 3350 17 GM Packet PO SCH ×2 (08:17→21:14)
[2020-03-07] MEDS: Senokot S 8.6-50 MG TAB PO SCH ×2 (08:17→21:15)
[2020-03-07] MEDS: Pantoprazole 40 MG VIAL IVP SCH ×2 (08:18→21:13)
[2020-03-07] MEDS: Silver Nitrate Application 1 EACH TOP SCH ×2 (08:18→21:15)
[2020-03-07] MEDS: Ferrous Sulfate 325 MG TAB PO SCH ×3 (08:25→21:11)
[2020-03-07] MEDS: Gabapentin 400 MG CAP PO SCH ×4 (10:08→21:12)
--- NOTE | 2020-03-07 11:15 | PDOC.FMACP ---
Advance Care Planning - Problem (1) Palliative care encounter Status: Acute Code(s): Z51.5 - ENCOUNTER FOR PALLIATIVE CARE (2) Pain in the abdomen Status: Acute Code(s): R10.9 - UNSPECIFIED ABDOMINAL PAIN (3) Systolic CHF, acute on chronic Status: Acute Code(s): I50.23 - ACUTE ON CHRONIC SYSTOLIC (CONGESTIVE) HEART FAILURE (4) COPD (chronic obstructive pulmonary disease) Status: Acute Qualifiers: COPD type: unspecified COPD Qualified Code(s): J44.9 - Chronic obstructive pulmonary disease, unspecified (5) Cardiomyopathy Status: Chronic Code(s): I42.9 - CARDIOMYOPATHY, UNSPECIFIED - Note Participants: patient, palliative care Summary: Palliative Care was asked to introduce Advanced Care Planning, opportunity to decline. The diagnosis, prognosis and goals of care were discussed. Appropriate forms and documentation to accomplish the goals of care were discussed. Ms Wyatt wishes to not further address at this time. Directive to Physician left, remain with full resuscitation and all aggressive therapies. Encouraged to review directives and consider MPOA. The Palliative Care Team will assist with completion of any outstanding forms as identified. Time Spent (mins): 10
[2020-03-07 12:18] LABS: Neutrophil 58 % (42-75)
--- NOTE | 2020-03-07 17:10 | PDOC.EP ---
- Subjective Date: 03/07/20 Time: 08:00 Interval History: no repeat nausea vomiting since yesterday. She voices no arrhythmia or ICD related complaint - Objective Allergies/Adverse Reactions: Allergies Allergy/AdvReac Type Severity Reaction Status Date / Time iodine Allergy Severe ANAPHYLACTIC Verified 02/27/20 10:14 REACTION codeine Allergy Intermediate Verified 02/27/20 10:14 penicillin G Allergy Verified 02/27/20 10:14 Current Medications Albuterol/Ipratropium (Duoneb) 3 ml NEB [id number] [facility] Last Admin: 03/07/20 12:08 Dose: 3 ml Aspirin (Aspirin Chewable) 81 mg PO DAILY [facility] Last Admin: 03/07/20 08:13 Dose: 81 mg Atorvastatin Calcium (Lipitor) 40 mg PO [facility] Last Admin: 03/06/20 22:11 Dose: 40 mg Clindamycin HCl (Cleocin) 600 mg PO TID [facility] Stop: 03/10/20 21:01 Last Admin: 03/07/20 15:54 Dose: 600 mg Cyanocobalamin (Vitamin B-12) 1,000 mcg PO DAILY [facility] Last Admin: 03/07/20 08:16 Dose: 1,000 mcg Dextrose/Water (Dextrose 50%) 25 gm SLOW IVP PRN PRN PRN Reason: Hypoglycemia Dibucaine (Dibucaine 1% Ointment) 0 gm TOP PRN PRN PRN Reason: Hemorrhoids Last Admin: 03/05/20 08:38 Dose: 1 applic Divalproex Sodium (Depakote Er) 500 mg PO [facility] Last Admin: 03/06/20 22:11 Dose: 500 mg Donepezil HCl (Aricept) 5 mg PO [facility] Last Admin: 03/06/20 22:12 Dose: 5 mg Escitalopram Oxalate (Lexapro) 10 mg PO DAILY [facility] Last Admin: 03/07/20 08:14 Dose: 10 mg Ferrous Sulfate (Feosol) 325 mg PO TID [facility] Last Admin: 03/07/20 15:54 Dose: 325 mg Furosemide (Lasix) 40 mg PO 0900,1400 [facility] Last Admin: 03/07/20 13:26 Dose: 40 mg Gabapentin (Neurontin) 800 mg PO QID [facility] Last Admin: 03/07/20 13:25 Dose: 800 mg Glucagon (Glucagon) 1 mg IM PRN PRN PRN Reason: Hypoglycemia Dextrose/Water (D5w) 1,000 mls @ 0 mls/hr IV .Q0M PRN PRN Reason: Hypoglycemia Insulin Human Lispro (Humalog) 0 units SC .MILD SLIDING SCALE PRN PRN Reason: Mild Correctional Scale Lorazepam (Ativan) 0.5 mg PO Q6H PRN PRN Reason: Anxiety Last Admin: 03/07/20 01:06 Dose: 0.5 mg Metoprolol Succinate (Toprol Xl) 12.5 mg PO DAILY [facility] Morphine Sulfate (Ms Contin) 15 mg PO BID [facility] Last Admin: 03/07/20 08:14 Dose: 15 mg Ondansetron HCl (Zofran) 4 mg IVP Q6H PRN PRN Reason: Nausea/Vomiting Oxybutynin Chloride (Ditropan) 10 mg PO DAILY [facility] Last Admin: 03/07/20 08:16 Dose: 10 mg Pantoprazole Sodium (Protonix) 40 mg IVP Q12HR [facility] Last Admin: 03/07/20 08:18 Dose: 40 mg Polyethylene Glycol (Miralax) 17 gm PO BID [facility] Last Admin: 03/07/20 08:17 Dose: 17 gm Senna/Docusate Sodium (Senokot S) 1 tab PO BID [facility] Last Admin: 03/07/20 08:17 Dose: 1 tab Silver Nitrate (Silver Nitrate Application) 1 each TOP BID [facility] Last Admin: 03/07/20 08:18 Dose: Not Given Zolpidem Tartrate (Ambien) 10 mg PO [facility] Last Admin: 03/06/20 22:14 Dose: 10 mg Vital Signs & Weight: Vital Signs Temp Pulse Pulse Pulse Resp BP BP 03/07/20 15:50 98.8 F 60 17 03/07/20 12:08 57 L 14 03/07/20 11:54 97.9 F 58 L 14 03/07/20 09:46 62 66 106/54 L 114/50 L 03/07/20 08:46 68 63 146/64 H 105/59 L 03/07/20 08:19 67 03/07/20 07:03 96.9 F L 59 L 12 03/07/20 06:47 61 14 BP BP Pulse Ox 03/07/20 15:50 113/61 97 03/07/20 12:08 96 03/07/20 11:54 107/55 L 96 03/07/20 09:46 03/07/20 08:46 03/07/20 08:19 137/94 H 03/07/20 07:03 89/50 L 99 03/07/20 06:47 95 Admit Weight 233 lb 6 oz Weight 234 lb I/O: I/O 03/06/20 03/07/20 03/08/20 06:59 06:59 06:59 Intake Total 2820 1295 Output Total 1100 1400 Balance 1720 -105 - Physical Exam General: alert & oriented x3, appears well, no apparent distress, speech clear, affect appropriate HEENT: mucus membranes moist, normocephaly Neck: supple neck, midline trachea, no JVD/HJR, no masses, no bruit, no lymphadenopathy, no thromegaly Cardiology: regular rate and rhythm, no murmur, regular rate, regular rhythm, PMI nondisplaced Lungs: clear to auscultation, normal breath sounds, normal exam, no wheeze, rales, rhonchi, no wheezes, no rales, no rhonchi Neurology: cranial nerve 2-12 intact, grossly intact, coordination normal Abdomen: unremarkable, active bowel sounds, HJR negative Extremities: dry, strong pulses, warm Skin: device site stable w/o swelling, bruising, left sided device. negative: drainage, erosion - Labs Result Diagrams: 03/07/20 04:08 03/07/20 04:08 - EKG Interpretation EKG Method: Telemetry EKG shows: Sinus rhythm - Device Device: single, defibrillator Device Result: [employer] - Assessment/Plan Assessment/Plan: PROBLEM LIST: 1. Chronic systolic congestive heart failure with ischemic cardiomyopathy. a. Prior history of coronary artery bypass grafting surgery. b. NYHA functional class 3 2. Chronically reduced left ventricular ejection fraction. a. 2D echo from 01/13/2018 reveals left ventricular ejection fraction of 35% to 40%. b. Left ventricular ejection fraction reduced to 30% to 35% on the most recent echocardiogram per Dr. Sofia. c. Elevated BNP of 3222 on admission with likely fluid overload. 3. Cellulitis a. treatment with IV anbx b. leukocytosis, now trending down: 02/28= 19 9= 16 4. Anemia 5. Non sustained VT s/p single chamber ICD Friday and is seen to be healing nicely. Continues to have NSVT runs on tele. Consider increasing Toprol XL to 25mg daily if ok with Cardiology. OK for DC by EP. EP signing
--- NOTE | 2020-03-07 17:38 | PDOC.CPN ---
- Subjective Date: 03/07/20 Time: 17:36 Interval history: More SOB today. No chest pain. - Review of Systems General: denies: fever/chills, weight/appetite/sleep changes, night sweats, fatigue Respiratory: reports: shortness of breath, exercise intolerance. denies: cough , congestion Cardiovascular: denies: chest pain, palpitation, edema, paroxysmal nocturnal dyspnea, orthopnea Gastrointestinal: denies: nausea, vomiting, diarrhea, constipation, abd pain, GI bleeding Musculoskeletal: denies: pain, tenderness, stiffness, swelling, arthritis/ arthralgias Neurological: denies: numbness, syncope, seizure, weakness - Objective Allergies/Adverse Reactions: Allergies Allergy/AdvReac Type Severity Reaction Status Date / Time iodine Allergy Severe ANAPHYLACTIC Verified 02/27/20 10:14 REACTION codeine Allergy Intermediate Verified 02/27/20 10:14 penicillin G Allergy Verified 02/27/20 10:14 Visit Medications: Current Medications Albuterol/Ipratropium (Duoneb) 3 ml NEB [id number] [facility] Last Admin: 03/07/20 12:08 Dose: 3 ml Aspirin (Aspirin Chewable) 81 mg PO DAILY [facility] Last Admin: 03/07/20 08:13 Dose: 81 mg Atorvastatin Calcium (Lipitor) 40 mg PO HS [facility] Last Admin: 03/06/20 22:11 Dose: 40 mg Clindamycin HCl (Cleocin) 600 mg PO TID [facility] Stop: 03/10/20 21:01 Last Admin: 03/07/20 15:54 Dose: 600 mg Cyanocobalamin (Vitamin B-12) 1,000 mcg PO DAILY [facility] Last Admin: 03/07/20 08:16 Dose: 1,000 mcg Dextrose/Water (Dextrose 50%) 25 gm SLOW IVP PRN PRN PRN Reason: Hypoglycemia Dibucaine (Dibucaine 1% Ointment) 0 gm TOP PRN PRN PRN Reason: Hemorrhoids Last Admin: 03/05/20 08:38 Dose: 1 applic Divalproex Sodium (Depakote Er) 500 mg PO [facility] Last Admin: 03/06/20 22:11 Dose: 500 mg Donepezil HCl (Aricept) 5 mg PO HS [facility] Last Admin: 03/06/20 22:12 Dose: 5 mg Escitalopram Oxalate (Lexapro) 10 mg PO DAILY [facility] Last Admin: 03/07/20 08:14 Dose: 10 mg Ferrous Sulfate (Feosol) 325 mg PO TID [facility] Last Admin: 03/07/20 15:54 Dose: 325 mg Furosemide (Lasix) 40 mg PO 0900,1400 [facility] Last Admin: 03/07/20 13:26 Dose: 40 mg Gabapentin (Neurontin) 800 mg PO QID [facility] Last Admin: 03/07/20 17:28 Dose: 800 mg Glucagon (Glucagon) 1 mg IM PRN PRN PRN Reason: Hypoglycemia Dextrose/Water (D5w) 1,000 mls @ 0 mls/hr IV .Q0M PRN PRN Reason: Hypoglycemia Insulin Human Lispro (Humalog) 0 units SC .MILD SLIDING SCALE PRN PRN Reason: Mild Correctional Scale Lorazepam (Ativan) 0.5 mg PO Q6H PRN PRN Reason: Anxiety Last Admin: 03/07/20 01:06 Dose: 0.5 mg Metoprolol Succinate (Toprol Xl) 12.5 mg PO DAILY [facility] Morphine Sulfate (Ms Contin) 15 mg PO BID [facility] Last Admin: 03/07/20 08:14 Dose: 15 mg Ondansetron HCl (Zofran) 4 mg IVP Q6H PRN PRN Reason: Nausea/Vomiting Oxybutynin Chloride (Ditropan) 10 mg PO DAILY [facility] Last Admin: 03/07/20 08:16 Dose: 10 mg Pantoprazole Sodium (Protonix) 40 mg IVP Q12HR [facility] Last Admin: 03/07/20 08:18 Dose: 40 mg Polyethylene Glycol (Miralax) 17 gm PO BID [facility] Last Admin: 03/07/20 08:17 Dose: 17 gm Senna/Docusate Sodium (Senokot S) 1 tab PO BID [facility] Last Admin: 03/07/20 08:17 Dose: 1 tab Silver Nitrate (Silver Nitrate Application) 1 each TOP BID [facility] Last Admin: 03/07/20 08:18 Dose: Not Given Zolpidem Tartrate (Ambien) 10 mg PO [facility] Last Admin: 03/06/20 22:14 Dose: 10 mg Vital Signs & Weight: Vital Signs Temp Pulse Pulse Pulse Resp BP BP 03/07/20 15:50 98.8 F 60 17 03/07/20 12:08 57 L 14 03/07/20 11:54 97.9 F 58 L 14 03/07/20 09:46 62 66 106/54 L 114/50 L 03/07/20 08:46 68 63 146/64 H 105/59 L 03/07/20 08:19 67 03/07/20 07:03 96.9 F L 59 L 12 03/07/20 06:47 61 14 BP BP Pulse Ox 03/07/20 15:50 113/61 97 03/07/20 12:08 96 03/07/20 11:54 107/55 L 96 03/07/20 09:46 03/07/20 08:46 03/07/20 08:19 137/94 H 03/07/20 07:03 89/50 L 99 03/07/20 06:47 95 Admit Weight 233 lb 6 oz Weight 234 lb - Physical Exam General: alert & oriented x3 HEENT: mucus membranes moist Neck: supple neck Cardiac: regular rate and rhythm Lungs: normal breath sounds Neuro: no lateralizing findings Abdomen: active bowel sounds Extremities: 1+ LE edema Skin: clear Musculoskeletal: no pain - Labs Result Diagrams: 03/07/20 04:08 03/07/20 04:08 Troponin/CKMB CK-MB (CK-2) 2.1 ng/mL (0-6.6) 02/27/20 06:23 Troponin I 0.074 ng/mL (< 0.028) H 02/27/20 12:41 - Telemetry Sinus rhythms and dysrhythmias: sinus rhythm - Assessment/Plan Assessment/Plan: 1. Abdominal pain, unknown cause. Resolved. 2. Non sustained ventricular tachycardia, no recurrence 3. Ischemic cardiomyopathy, EF at 30-35%. 4. Stable coronary artery disease, currently asymptomatic. 5. Anemia. S/P Transfusion. 6. Acute on chronic systolic CHF. 7. Left leg cellulitis, improved. 8. HTN PLAN: - AICD in place, no therapies. - Will give one dose IV lasix today. - Agree with increased PO lasix scheduled BID now from daily.
[2020-03-07] MEDS ORDERED: Furosemide 40 MG/4 ML VIAL SLOW IVP SCH (17:45)
[2020-03-07] MEDS: Zolpidem Tartrate 5 MG TAB PO SCH (21:12)
[2020-03-07] MEDS: Atorvastatin Calcium 40 MG TAB PO SCH (21:13)
[2020-03-07] MEDS: Donepezil HCl 5 MG TAB PO SCH (21:13)
--- NOTE | 2020-03-07 21:21 | PDOC.HOSPP ---
- Subjective Encounter Date: 03/07/20 Encounter Time: 08:00 Subjective: overnight hypotensive and bradycardic, drowsier. Reduced succinate dosage pending cardiology evaluation. Otherwise no events. Feels well though complains of mild abdominal pain. - Objective Vital Signs & Weight: Vital Signs (12 hours) Temp Pulse Pulse Pulse Resp BP BP 03/07/20 20:00 98.4 F 61 20 03/07/20 15:50 98.8 F 60 17 03/07/20 12:08 57 L 14 03/07/20 11:54 97.9 F 58 L 14 03/07/20 09:46 62 66 106/54 L 114/50 L BP BP Pulse Ox 03/07/20 20:00 118/59 L 99 03/07/20 15:50 113/61 97 03/07/20 12:08 96 03/07/20 11:54 107/55 L 96 03/07/20 09:46 Weight Admit Weight 233 lb 6 oz Weight 234 lb I&O: 03/06/20 03/07/20 03/08/20 06:59 06:59 06:59 Intake Total 2820 1295 720 Output Total 1100 1400 700 Balance 1720 -105 20 Result Diagrams: 03/07/20 04:08 03/07/20 04:08 Additional Labs: Accuchecks 03/07/20 03/07/20 03/07/20 20:32 16:37 11:06 POC Glucose 99 105 110 03/07/20 05:42 POC Glucose 113 H Hospitalist ROS - Review of Systems Constitutional: denies: chills, sweats Gastrointestinal: reports: abdominal pain. denies: nausea, vomiting, diarrhea - Medication Medications: Active Medications Generic Name Dose Route Start Last Admin Trade Name Freq PRN Reason Stop Dose Admin Albuterol/Ipratropium 3 ml 02/27/20 19:00 03/07/20 18:22 Duoneb NEB Not Given [id number] [facility] Aspirin 81 mg 02/28/20 09:00 03/07/20 08:13 Aspirin Chewable PO 81 mg DAILY [facility] Administration Atorvastatin Calcium 40 mg 03/06/20 21:00 03/07/20 21:13 Lipitor PO 40 mg HS [facility] Administration Clindamycin HCl 600 mg 03/03/20 21:00 03/07/20 21:10 Cleocin PO 03/10/20 21:01 600 mg TID [facility] Administration Cyanocobalamin 1,000 mcg 02/28/20 09:00 03/07/20 08:16 Vitamin B-12 PO 1,000 mcg DAILY [facility] Administration Dibucaine 0 gm 03/05/20 09:00 03/05/20 08:38 Dibucaine 1% Ointment TOP 1 applic PRN PRN Administration Hemorrhoids Divalproex Sodium 500 mg 02/27/20 21:00 03/07/20 21:11 Depakote Er PO 500 mg HS [facility] Administration Donepezil HCl 5 mg 02/27/20 21:00 03/07/20 21:13 Aricept PO 5 mg HS [facility] Administration Escitalopram Oxalate 10 mg 02/28/20 09:00 03/07/20 08:14 Lexapro PO 10 mg DAILY [facility] Administration Ferrous Sulfate 325 mg 03/07/20 09:00 03/07/20 21:11 Feosol PO 325 mg TID [facility] Administration Furosemide 40 mg 03/07/20 09:00 03/07/20 13:26 Lasix PO 40 mg 0900,1400 [facility] Administration Gabapentin 800 mg 02/27/20 17:00 03/07/20 21:12 Neurontin PO 800 mg QID [facility] Administration Lorazepam 0.5 mg 02/27/20 16:32 03/07/20 21:13 Ativan PO 0.5 mg Q6H PRN Administration Anxiety Morphine Sulfate 15 mg 02/27/20 21:00 03/07/20 21:12 Ms Contin PO 15 mg BID [facility] Administration Oxybutynin Chloride 10 mg 02/28/20 09:00 03/07/20 08:16 Ditropan PO 10 mg DAILY [facility] Administration Pantoprazole Sodium 40 mg 02/27/20 21:00 03/07/20 21:13 Protonix IVP 40 mg Q12HR [facility] Administration Polyethylene Glycol 17 gm 02/28/20 21:00 03/07/20 21:14 Miralax PO Not Given BID [facility] Senna/Docusate Sodium 1 tab 02/28/20 21:00 03/07/20 21:15 Senokot S PO Not Given BID [facility] Silver Nitrate 1 each 02/28/20 21:00 03/07/20 21:15 Silver Nitrate Application TOP Not Given BID [facility] Zolpidem Tartrate 10 mg 02/27/20 21:00 03/07/20 21:12 Ambien PO 10 mg HS [facility] Administration - Exam General Appearance: NAD, awake alert General - other findings: drowsy Heart: RRR, no gallops, no rubs Respiratory: CTAB, no wheezes, no rales, no ronchi Gastrointestinal: soft, non-tender, non-distended, normal bowel sounds Extremities: 2+ LE edema Hosp A/P - Plan #extenral hemorrhoids #coccygeal pain -severe tenderness on exam -reported fever, chills, and yellow stool on presentation -CT showing no fluid collection or finding suggestive of OM -continue current bowel regimen -topical analgesic for external hemorrhoids (1) NSVT Code(s): I47.2 - VENTRICULAR TACHYCARDIA Status: Acute (2) Pain in the abdomen (resolved) Code(s): R10.9 - UNSPECIFIED ABDOMINAL PAIN Status: Acute (3) Elevated troponin Code(s): R79.89 - OTHER SPECIFIED ABNORMAL FINDINGS OF BLOOD CHEMISTRY Status : Acute (4) Chest pain Code(s): R07.9 - CHEST PAIN, UNSPECIFIED Status: Acute (5) Systolic CHF, acute on chronic Code(s): I50.23 - ACUTE ON CHRONIC SYSTOLIC (CONGESTIVE) HEART FAILURE Status : Acute - Plan will continue lasix for now. Her hh is low will monitor if she drops again dominic will consult gi. she has been complaining of some pain around her genitals area. Most likley bartholin cyst. will get some silver nitrate to see if this helps. 02/28 pt feels weak today will give her some fluids. pt consult gi since her hh has been trending down. will start pt on abx given her left lower leg swelling. pt evaluated for AICD. 03/01 pt's left lower ext erythema is a bit worse but her wbc has improved, no fever. will change abx to vaco and levo. pt has some erythema around her vaginal area will monitor. 03/02 pt got 2untis of blood yest, will recheck hh. Her left leg erythema appear improved. pt to get AICD. Nurse stated that she now has been coughing when she eats or drink. will get speech study. 03/03 pt's left ext erythema has improved. pt to get aicd. spoke with speech who recommends mechanical diet. pt was initially on hospice but since she has been here her POA wants her to be full code. She also has memory issues and does not remember much. She at times will be oriented only to self. She wears a cpap at night. she is on lasix. 03/04 POD 1 s/p AICD placement; Obtain CT pelvis as abovementioned, started treatment for external hemorrhoids; COVID pending placement; consulted CM for transition from assisted living to long-term; ELOS 1-2 nights pending placement. 03/05: POD 2 s/p AICD placement; anal/pelvic pain improving; pending placement 03/06: pending placement. Will continue clindamycin as outpatient, bowel regimen and topical treatment of external hemorrhoids; grossly positive I/O so increased lasix dosage 03/07 hypotensive, bradycardic, drowsier so reduced succinate back to 12.5 pending cardiology evaluation; Balanced I/O, provided additional lasix dose
[2020-03-08] MEDS ORDERED: Senokot S 8.6-50 MG TAB ONE (08:45)
[2020-03-08] MEDS ORDERED: Escitalopram Oxalate 10 mg Tablet ONE (08:45)
[2020-03-08] MEDS ORDERED: Aspirin Chewable 81 MG TAB ONE (08:45)
[2020-03-08] MEDS ORDERED: Morphine ER 15 MG TAB ONE (08:45)
[2020-03-08] MEDS ORDERED: Pantoprazole 40 MG VIAL ONE (08:45)
[2020-03-08] MEDS ORDERED: Gabapentin 400 MG CAP ONE (08:45)
[2020-03-08] MEDS ORDERED: Oxybutynin 5 MG TAB ONE (08:45)
[2020-03-08] MEDS ORDERED: Clindamycin 150 MG CAP ONE (08:45)
[2020-03-08] MEDS ORDERED: Furosemide 40 MG TAB ONE (08:45)
[2020-03-08] MEDS ORDERED: Ferrous Sulfate 325 MG TAB ONE (08:45)
[2020-03-08] MEDS: Pantoprazole 40 MG VIAL IVP SCH ×2 (08:45→22:41)
[2020-03-08] MEDS ORDERED: Polyethylene Glycol 3350 17 GM Packet ONE (08:45)
[2020-03-08] MEDS: Polyethylene Glycol 3350 17 GM Packet PO SCH ×2 (08:45→22:43)
[2020-03-08] MEDS ORDERED: Cyanocobalamin (Vitamin B-12) 1,000 MCG TAB ONE (08:45)
[2020-03-08] MEDS: Aspirin Chewable 81 MG TAB PO SCH (08:47)
[2020-03-08] MEDS: Escitalopram Oxalate 10 mg Tablet PO SCH (08:49)
[2020-03-08] MEDS: Gabapentin 400 MG CAP PO SCH ×4 (08:50→22:39)
[2020-03-08] MEDS: Morphine ER 15 MG TAB PO SCH ×3 (08:51→22:42)
[2020-03-08] MEDS: Oxybutynin 5 MG TAB PO SCH (08:52)
[2020-03-08] MEDS: Cyanocobalamin (Vitamin B-12) 1,000 MCG TAB PO SCH (08:54)
[2020-03-08] MEDS: Senokot S 8.6-50 MG TAB PO SCH ×2 (08:57→22:43)
[2020-03-08] MEDS: Clindamycin 150 MG CAP PO SCH ×3 (09:02→22:40)
[2020-03-08] MEDS: Furosemide 40 MG TAB PO SCH ×2 (09:03→13:38)
[2020-03-08] MEDS: Ferrous Sulfate 325 MG TAB PO SCH ×3 (09:03→22:39)
[2020-03-08] MEDS: Silver Nitrate Application 1 EACH TOP SCH ×2 (09:09→22:41)
--- NOTE | 2020-03-08 16:40 | PDOC.CPN ---
- Subjective Date: 03/08/20 Time: 16:39 Interval history: She is feeling a lot better today. Back to normal baseline. - Review of Systems General: denies: fever/chills, weight/appetite/sleep changes, night sweats, fatigue Respiratory: denies: cough, congestion, shortness of breath, exercise intolerance Cardiovascular: denies: chest pain, palpitation, edema, paroxysmal nocturnal dyspnea, orthopnea Gastrointestinal: denies: nausea, vomiting, diarrhea, constipation, abd pain, GI bleeding Musculoskeletal: denies: pain, tenderness, stiffness, swelling, ar thritis/arthralgias Neurological: denies: numbness, syncope, seizure, weakness - Objective Allergies/Adverse Reactions: Allergies Allergy/AdvReac Type Severity Reaction Status Date / Time iodine Allergy Severe ANAPHYLACTIC Verified 02/27/20 10:14 REACTION codeine Allergy Intermediate Verified 02/27/20 10:14 penicillin G Allergy Verified 02/27/20 10:14 Visit Medications: Current Medications Albuterol/Ipratropium (Ipratropium/Albuterol Sulfate 3 Ml Neb) 3 ml NEB Q6H PRN PRN Reason: SOB &/or Wheezing Aspirin (Aspirin Chewable) 81 mg PO DAILY [facility] Last Admin: 03/08/20 08:47 Dose: 81 mg Documented by: Atorvastatin Calcium (Lipitor) 40 mg PO [facility] Last Admin: 03/07/20 21:13 Dose: 40 mg Documented by: Clindamycin HCl (Cleocin) 600 mg PO TID [facility] Stop: 03/10/20 21:01 Last Admin: 03/08/20 15:36 Dose: 600 mg Documented by: Cyanocobalamin (Vitamin B-12) 1,000 mcg PO DAILY [facility] Last Admin: 03/08/20 08:54 Dose: 1,000 mcg Documented by: Dextrose/Water (Dextrose 50%) 25 gm SLOW IVP PRN PRN PRN Reason: Hypoglycemia Dibucaine (Dibucaine 1% Ointment) 0 gm TOP PRN PRN PRN Reason: Hemorrhoids Last Admin: 03/05/20 08:38 Dose: 1 applic Documented by: Divalproex Sodium (Depakote Er) 500 mg PO [facility] Last Admin: 03/07/20 21:11 Dose: 500 mg Documented by: Donepezil HCl (Aricept) 5 mg PO [facility] Last Admin: 03/07/20 21:13 Dose: 5 mg Documented by: Escitalopram Oxalate (Lexapro) 10 mg PO DAILY [facility] Last Admin: 03/08/20 08:49 Dose: 10 mg Documented by: Ferrous Sulfate (Feosol) 325 mg PO TID [facility] Last Admin: 03/08/20 15:36 Dose: 325 mg Documented by: Furosemide (Lasix) 40 mg PO 0900,1400 [facility] Last Admin: 03/08/20 13:38 Dose: 40 mg Documented by: Gabapentin (Neurontin) 800 mg PO QID [facility] Last Admin: 03/08/20 13:38 Dose: 800 mg Documented by: Glucagon (Glucagon) 1 mg IM PRN PRN PRN Reason: Hypoglycemia Dextrose/Water (D5w) 1,000 mls @ 0 mls/hr IV .Q0M PRN PRN Reason: Hypoglycemia Insulin Human Lispro (Humalog) 0 units SC .MILD SLIDING SCALE PRN PRN Reason: Mild Correctional Scale Metoprolol Succinate (Toprol Xl) 12.5 mg PO DAILY [facility] Last Admin: 03/08/20 09:04 Dose: 12.5 mg Documented by: Morphine Sulfate (Ms Contin) 15 mg PO BID [facility] Last Admin: 03/08/20 08:51 Dose: 15 mg Documented by: Ondansetron HCl (Zofran) 4 mg IVP Q6H PRN PRN Reason: Nausea/Vomiting Oxybutynin Chloride (Ditropan) 10 mg PO DAILY [facility] Last Admin: 03/08/20 08:52 Dose: 10 mg Documented by: Pantoprazole Sodium (Protonix) 40 mg IVP Q12HR [facility] Last Admin: 03/08/20 08:45 Dose: 40 mg Documented by: Polyethylene Glycol (Miralax) 17 gm PO BID [facility] Last Admin: 03/08/20 08:45 Dose: 17 gm Documented by: Senna/Docusate Sodium (Senokot S) 1 tab PO BID [facility] Last Admin: 03/08/20 08:57 Dose: 1 tab Documented by: Silver Nitrate (Silver Nitrate Application) 1 each TOP BID [facility] Last Admin: 03/08/20 09:09 Dose: 1 each Documented by: Zolpidem Tartrate (Ambien) 10 mg PO HS [facility] Last Admin: 03/07/20 21:12 Dose: 10 mg Documented by: Vital Signs & Weight: Vital Signs Temp Pulse Pulse Pulse Resp BP BP 03/08/20 15:40 98.1 F 66 16 03/08/20 12:57 58 L 128/60 03/08/20 11:15 98.2 F 60 16 03/08/20 10:27 65 63 118/58 L 134/59 L 03/08/20 07:30 98.1 F 56 L 16 BP BP Pulse Ox Pulse Ox Pulse Ox 03/08/20 15:40 130/61 100 03/08/20 12:57 03/08/20 11:15 123/60 97 03/08/20 10:27 100 99 03/08/20 07:30 118/56 L 98 Admit Weight 233 lb 6 oz Weight 234 lb - Physical Exam General: alert & oriented x3 HEENT: mucus membranes moist Neck: supple neck Cardiac: regular rate and rhythm Lungs: clear to auscultation Neuro: no lateralizing findings Abdomen: unremarkable Extremities: no edema Skin: clear Musculoskeletal: no pain - Labs Result Diagrams: 03/07/20 04:08 03/07/20 04:08 Troponin/CKMB CK-MB (CK-2) 2.1 ng/mL (0-6.6) 02/27/20 06:23 Troponin I 0.074 ng/mL (< 0.028) H 02/27/20 12:41 - Telemetry Sinus rhythms and dysrhythmias: sinus rhythm - Assessment/Plan Assessment/Plan: 1. Abdominal pain, unknown cause. Resolved. 2. Non sustained ventricular tachycardia, no recurrence 3. Ischemic cardiomyopathy, EF at 30-35%. 4. Stable coronary artery disease, currently asymptomatic. 5. Anemia. S/P Transfusion. 6. Acute on chronic systolic CHF. 7. Left leg cellulitis, improved. 8. HTN PLAN: - AICD in place, no therapies. - Back to home PO dose of Lasix now at BID dosing. - May discharge at any time from cardiac perspective. - Placement pending. - Will sign off. Please donnell with any questions.
[2020-03-08] MEDS ORDERED: Lorazepam 0.5 MG TAB PO PRN (19:08)
--- NOTE | 2020-03-08 20:34 | PDOC.HOSPP ---
- Subjective Encounter Date: 03/08/20 Encounter Time: 10:00 Subjective: no overnight evnets. this morning, feeling better and has no complaints. Abdominal pain resolved, buttock pain improved - Objective Vital Signs & Weight: Vital Signs (12 hours) Temp Pulse Pulse Pulse Resp BP BP 03/08/20 15:40 98.1 F 66 16 03/08/20 12:57 58 L 128/60 03/08/20 11:15 98.2 F 60 16 03/08/20 10:27 65 63 118/58 L 134/59 L BP BP Pulse Ox Pulse Ox Pulse Ox 03/08/20 15:40 130/61 100 03/08/20 12:57 03/08/20 11:15 123/60 97 03/08/20 10:27 100 99 Weight Admit Weight 233 lb 6 oz Weight 234 lb I&O: 03/07/20 03/08/20 03/09/20 06:59 06:59 06:59 Intake Total 0163 [id number] [id number] Output Total 1400 700 250 Balance -105 20 750 Result Diagrams: 03/07/20 04:08 03/07/20 04:08 Additional Labs: Accuchecks 03/08/20 03/08/20 03/08/20 20:10 16:48 11:36 POC Glucose 128 H 108 H 108 H 03/08/20 03/07/20 05:33 20:32 POC Glucose 89 99 Hospitalist ROS - Review of Systems Constitutional: denies: chills, sweats Respiratory: denies: cough, shortness of breath Cardiovascular: denies: chest pain, palpitations, orthopnea Gastrointestinal: denies: nausea, vomiting, abdominal pain, diarrhea - Medication Medications: Active Medications Generic Name Dose Route Start Last Admin Trade Name Freq PRN Reason Stop Dose Admin Aspirin 81 mg 02/28/20 09:00 03/08/20 08:47 Aspirin Chewable PO 81 mg DAILY JOSE Administration Atorvastatin Calcium 40 mg 03/06/20 21:00 03/07/20 21:13 Lipitor PO 40 mg HS JOSE Administration Clindamycin HCl 600 mg 03/03/20 21:00 03/08/20 15:36 Cleocin PO 03/10/20 21:01 600 mg TID JOSE Administration Cyanocobalamin 1,000 mcg 02/28/20 09:00 03/08/20 08:54 Vitamin B-12 PO 1,000 mcg DAILY JOSE Administration Dibucaine 0 gm 03/05/20 09:00 03/05/20 08:38 Dibucaine 1% Ointment TOP 1 applic PRN PRN Administration Hemorrhoids Divalproex Sodium 500 mg 02/27/20 21:00 03/07/20 21:11 Depakote Er PO 500 mg HS JOSE Administration Donepezil HCl 5 mg 02/27/20 21:00 03/07/20 21:13 Aricept PO 5 mg HS JOSE Administration Escitalopram Oxalate 10 mg 02/28/20 09:00 03/08/20 08:49 Lexapro PO 10 mg DAILY JOSE Administration Ferrous Sulfate 325 mg 03/07/20 09:00 03/08/20 15:36 Feosol PO 325 mg TID JOSE Administration Furosemide 40 mg 03/07/20 09:00 03/08/20 13:38 Lasix PO 40 mg 0900,1400 JOSE Administration Gabapentin 800 mg 02/27/20 17:00 03/08/20 16:48 Neurontin PO 800 mg QID JOSE Administration Metoprolol Succinate 12.5 mg 03/08/20 09:00 03/08/20 09:04 Toprol Xl PO 12.5 mg DAILY JOSE Administration Morphine Sulfate 15 mg 02/27/20 21:00 03/08/20 08:51 Ms Contin PO 15 mg BID JOSE Administration Oxybutynin Chloride 10 mg 02/28/20 09:00 03/08/20 08:52 Ditropan PO 10 mg DAILY JOSE Administration Pantoprazole Sodium 40 mg 02/27/20 21:00 03/08/20 08:45 Protonix IVP 40 mg Q12HR JOSE Administration Polyethylene Glycol 17 gm 02/28/20 21:00 03/08/20 08:45 Miralax PO 17 gm BID JOSE Administration Senna/Docusate Sodium 1 tab 02/28/20 21:00 03/08/20 08:57 Senokot S PO 1 tab BID JOSE Administration Silver Nitrate 1 each 02/28/20 21:00 03/08/20 09:09 Silver Nitrate Application TOP 1 each BID JOSE Administration Zolpidem Tartrate 10 mg 02/27/20 21:00 03/07/20 21:12 Ambien PO 10 mg HS JOSE Administration - Exam General Appearance: NAD, awake alert Neck: no JVD Heart: RRR, no murmur, no gallops, no rubs Respiratory: CTAB, no wheezes, no rales, no ronchi Gastrointestinal: soft, non-tender, non-distended, normal bowel sounds Extremities: 2+ LE edema Psychiatric: normal affect, normal behavior, A&O x 3 Hosp A/P - Plan #extenral hemorrhoids #coccygeal pain -severe tenderness on exam -reported fever, chills, and yellow stool on presentation -CT showing no fluid collection or finding suggestive of OM -continue current bowel regimen -topical analgesic for external hemorrhoids (1) NSVT Code(s): I47.2 - VENTRICULAR TACHYCARDIA Status: Acute (2) Pain in the abdomen (resolved) Code(s): R10.9 - UNSPECIFIED ABDOMINAL PAIN Status: Acute (3) Elevated troponin Code(s): R79.89 - OTHER SPECIFIED ABNORMAL FINDINGS OF BLOOD CHEMISTRY Status: Acute (4) Chest pain Code(s): R07.9 - CHEST PAIN, UNSPECIFIED Status: Acute (5) Systolic CHF, acute on chronic Code(s): I50.23 - ACUTE ON CHRONIC SYSTOLIC (CONGESTIVE) HEART FAILURE Status: Acute - Plan will continue lasix for now. Her hh is low will monitor if she drops again dominic will consult gi. she has been complaining of some pain around her genitals area. Most likley bartholin cyst. will get some silver nitrate to see if this helps. 02/28 pt feels weak today will give her some fluids. pt consult gi since her hh has been trending down. will start pt on abx given her left lower leg swelling. pt evaluated for AICD. 03/01 pt's left lower ext erythema is a bit worse but her wbc has improved, no fever. will change abx to vaco and levo. pt has some erythema around her vaginal area will monitor. 03/02 pt got 2untis of blood yest, will recheck hh. Her left leg erythema appear improved. pt to get AICD. Nurse stated that she now has been coughing when she eats or drink. will get speech study. 03/03 pt's left ext erythema has improved. pt to get aicd. spoke with speech who recommends mechanical diet. pt was initially on hospice but since she has been here her POA wants her to be full code. She also has memory issues and does not remember much. She at times will be oriented only to self. She wears a cpap at night. she is on lasix. 03/04 POD 1 s/p AICD placement; Obtain CT pelvis as abovementioned, started treatment for external hemorrhoids; COVID pending placement; consulted CM for transition from assisted living to long-term; ELOS 1-2 nights pending placement. 03/05: POD 2 s/p AICD placement; anal/pelvic pain improving; pending placement 03/06: pending placement. Will continue clindamycin as outpatient, bowel regimen and topical treatment of external hemorrhoids; grossly positive I/O so increased lasix dosage 03/07 hypotensive, bradycardic, drowsier so reduced succinate back to 12.5 pe nding cardiology evaluation; Balanced I/O, provided additional lasix dose 03/08 hypotension resolved, more alert; I/O remains balanced, hypervolemic, so changed lasix to torsemide; pending placement
[2020-03-08] MEDS: Zolpidem Tartrate 5 MG TAB PO SCH (22:38)
[2020-03-08] MEDS: Donepezil HCl 5 MG TAB PO SCH (22:39)
[2020-03-08] MEDS: Atorvastatin Calcium 40 MG TAB PO SCH (22:40)
[2020-03-09 04:33] LABS: Anion Gap 11 mmol/L (10-20); BUN (Urea Nitrogen) 9 mg/dL (9.8-20.1); Calc. Creatinine Clearance 124 mL/min (70-130); Calcium 8.2 mg/dL (7.8-10.44); Carbon Dioxide 29 mmol/L (23-31); Chloride 102 mmol/L (98-107); Estimated GFR-MDRD 80; Glucose 87 mg/dL (80-115); Magnesium 1.8 mg/dL (1.6-2.6); Potassium 3.4 mmol/L (3.5-5.1); Sodium 139 mmol/L (136-145)
[2020-03-09] MEDS: Gabapentin 400 MG CAP PO SCH ×4 (08:58→20:54)
[2020-03-09] MEDS: Morphine ER 15 MG TAB PO SCH ×2 (08:59→20:54)
[2020-03-09] MEDS: Clindamycin 150 MG CAP PO SCH ×3 (08:59→20:53)
[2020-03-09] MEDS: Cyanocobalamin (Vitamin B-12) 1,000 MCG TAB PO SCH (09:00)
[2020-03-09] MEDS: Escitalopram Oxalate 10 mg Tablet PO SCH (09:00)
[2020-03-09] MEDS: Oxybutynin 5 MG TAB PO SCH (09:00)
[2020-03-09] MEDS: Ferrous Sulfate 325 MG TAB PO SCH ×3 (09:00→20:53)
[2020-03-09] MEDS: Senokot S 8.6-50 MG TAB PO SCH ×2 (09:01→21:04)
[2020-03-09] MEDS: Pantoprazole 40 MG VIAL IVP SCH ×2 (09:01→20:52)
[2020-03-09] MEDS: Aspirin Chewable 81 MG TAB PO SCH (09:01)
[2020-03-09] MEDS: Polyethylene Glycol 3350 17 GM Packet PO SCH ×2 (09:01→21:04)
[2020-03-09] MEDS: Torsemide 20 MG TAB PO SCH ×2 (09:12→14:18)
[2020-03-09] MEDS: Dibucaine 1% Ointment 28.35 GM TUBE TOP PRN (09:17)
[2020-03-09] MEDS: Silver Nitrate Application 1 EACH TOP SCH ×2 (09:17→21:05)
[2020-03-09 13:59] VITALS: BMI 37.5
[2020-03-09] MEDS ORDERED: Acetaminophen 500 MG TAB PO PRN (18:11)
--- NOTE | 2020-03-09 19:44 | PDOC.HOSPP ---
- Subjective Encounter Date: 03/09/20 Encounter Time: 09:00 Subjective: no ovenright evnets. this morning, feeling well and has no complaints. Ambulating with help of PT with no issues - Objective Vital Signs & Weight: Vital Signs (12 hours) Temp Pulse Pulse Pulse Resp BP BP 03/09/20 17:13 03/09/20 15:10 70 61 134/77 101/52 L 03/09/20 11:42 98.2 F 61 18 03/09/20 11:34 62 62 123/56 L 108/54 L 03/09/20 08:45 98.4 F 60 16 03/09/20 08:00 BP Pulse Ox Pulse Ox 03/09/20 17:13 100 03/09/20 15:10 03/09/20 11:42 100 03/09/20 11:34 100 03/09/20 08:45 86/42 L 96 03/09/20 08:00 96 Weight Admit Weight 233 lb 6 oz Weight 218 lb 8 oz I&O: 03/08/20 03/09/20 03/10/20 06:59 06:59 06:59 Intake Total 720 1100 1360 Output Total 700 900 Balance 20 200 1360 Result Diagrams: 03/07/20 04:08 03/09/20 03:52 Additional Labs: Accuchecks 03/09/20 03/09/20 03/09/20 16:42 11:25 05:47 POC Glucose 118 H 107 H 91 03/08/20 20:10 POC Glucose 128 H Hospitalist ROS - Review of Systems Constitutional: denies: chills, sweats Respiratory: denies: cough, shortness of breath Cardiovascular: denies: chest pain, palpitations, orthopnea Gastrointestinal: reports: abdominal pain. denies: nausea, vomiting, diarrhea, constipation, melena, hematochezia Genitourinary: denies: dysuria, frequency, hematuria - Medication Medications: Active Medications Generic Name Dose Route Start Last Admin Trade Name Freq PRN Reason Stop Dose Admin Aspirin 81 mg 02/28/20 09:00 03/09/20 09:01 Aspirin Chewable PO 81 mg DAILY JOSE Administration Atorvastatin Calcium 40 mg 03/06/20 21:00 03/08/20 22:40 Lipitor PO 40 mg HS JOSE Administration Clindamycin HCl 600 mg 03/03/20 21:00 03/09/20 14:18 Cleocin PO 03/10/20 21:01 600 mg TID JOSE Administration Cyanocobalamin 1,000 mcg 02/28/20 09:00 03/09/20 09:00 Vitamin B-12 PO 1,000 mcg DAILY JOSE Administration Dibucaine 0 gm 03/05/20 09:00 03/09/20 09:17 Dibucaine 1% Ointment TOP 1 applic PRN PRN Administration Hemorrhoids Divalproex Sodium 500 mg 02/27/20 21:00 03/08/20 22:38 Depakote Er PO 500 mg HS JOSE Administration Donepezil HCl 5 mg 02/27/20 21:00 03/08/20 22:39 Aricept PO 5 mg HS JOSE Administration Escitalopram Oxalate 10 mg 02/28/20 09:00 03/09/20 09:00 Lexapro PO 10 mg DAILY JOSE Administration Ferrous Sulfate 325 mg 03/07/20 09:00 03/09/20 14:18 Feosol PO 325 mg TID JOSE Administration Gabapentin 800 mg 02/27/20 17:00 03/09/20 17:10 Neurontin PO 800 mg QID JOSE Administration Metoprolol Succinate 12.5 mg 03/09/20 09:00 03/09/20 09:12 Metoprolol Succinate Xl 25 Mg Tab PO Not Given DAILY JOSE Morphine Sulfate 15 mg 03/08/20 21:00 03/09/20 08:59 Morphine Er 15 Mg Tab PO 15 mg BID JOSE Administration Oxybutynin Chloride 10 mg 02/28/20 09:00 03/09/20 09:00 Ditropan PO 10 mg DAILY JOSE Administration Pantoprazole Sodium 40 mg 02/27/20 21:00 03/09/20 09:01 Protonix IVP 40 mg Q12HR JOSE Administration Polyethylene Glycol 17 gm 02/28/20 21:00 03/09/20 09:01 Miralax PO 17 gm BID JOSE Administration Senna/Docusate Sodium 1 tab 02/28/20 21:00 03/09/20 09:01 Senokot S PO 1 tab BID JOSE Administration Silver Nitrate 1 each 02/28/20 21:00 03/09/20 09:17 Silver Nitrate Application TOP 1 each BID JOSE Administration Zolpidem Tartrate 10 mg 02/27/20 21:00 03/08/20 22:38 Ambien PO 10 mg HS JOSE Administration - Exam General Appearance: NAD, awake alert Neck: no JVD Heart: RRR, no murmur, no gallops, no rubs Respiratory: CTAB, no wheezes, no rales, no ronchi Gastrointestinal: soft, non-tender, non-distended, normal bowel sounds Extremities - other findings: bilaterla pitting edema to knee level somewhat improved Psychiatric: normal affect, normal behavior, A&O x 3 Hosp A/P - Plan #extenral hemorrhoids #coccygeal pain -severe tenderness on exam -reported fever, chills, and yellow stool on presentation -CT showing no fluid collection or finding suggestive of OM -continue current bowel regimen -topical analgesic for external hemorrhoids (1) NSVT Code(s): I47.2 - VENTRICULAR TACHYCARDIA Status: Acute (2) Pain in the abdomen (resolved) Code(s): R10.9 - UNSPECIFIED ABDOMINAL PAIN Status: Acute (3) Elevated troponin Code(s): R79.89 - OTHER SPECIFIED ABNORMAL FINDINGS OF BLOOD CHEMISTRY Status: Acute (4) Chest pain Code(s): R07.9 - CHEST PAIN, UNSPECIFIED Status: Acute (5) Systolic CHF, acute on chronic Code(s): I50.23 - ACUTE ON CHRONIC SYSTOLIC (CONGESTIVE) HEART FAILURE Status: Acute - Plan will continue lasix for now. Her hh is low will monitor if she drops again dominic will consult gi. she has been complaining of some pain around her genitals area. Most likley bartholin cyst. will get some silver nitrate to see if this helps. 02/28 pt feels weak today will give her some fluids. pt consult gi since her hh has been trending down. will start pt on abx given her left lower leg swelling. pt evaluated for AICD. 03/01 pt's left lower ext erythema is a bit worse but her wbc has improved, no fever. will change abx to vaco and levo. pt has some erythema around her vaginal area will monitor. 03/02 pt got 2untis of blood yest, will recheck hh. Her left leg erythema appear improved. pt to get AICD. Nurse stated that she now has been coughing when she eats or drink. will get speech study. 03/03 pt's left ext erythema has improved. pt to get aicd. spoke with speech who recommends mechanical diet. pt was initially on hospice but since she has been here her POA wants her to be full code. She also has memory issues and does not remember much. She at times will be oriented only to self. She wears a cpap at night. she is on lasix. 03/04 POD 1 s/p AICD placement; Obtain CT pelvis as abovementioned, started treatment for external hemorrhoids; COVID pending placement; consulted CM for [facility] to [facility]; ELOS 1-2 nights pending placement. 03/05: POD 2 s/p AICD placement; anal/pelvic pain improving; pending placement 03/06: pending placement. Will continue clindamycin as outpatient, bowel regimen and topical treatment of external hemorrhoids; grossly positive I/O so increased lasix dosage 03/07 hypotensive, bradycardic, drowsier so reduced succinate back to 12.5 pending cardiology evaluation; Balanced I/O, provided additional lasix dose 03/08 hypotension resolved, more alert; I/O remains balanced, hypervolemic, so changed lasix to torsemide; pending placement 03/09 hypotensive; in context of aortic stenosis and reduced right systolic function, careful regarding reducing preload with antihypertensives and diuresis; held for now; pending placement
[2020-03-09] MEDS ORDERED: Potassium Chloride 20 MEQ TAB PO SCH (20:00)
[2020-03-09] MEDS: Atorvastatin Calcium 40 MG TAB PO SCH (20:53)
[2020-03-09] MEDS: Zolpidem Tartrate 5 MG TAB PO SCH (20:55)
[2020-03-09] MEDS: Donepezil HCl 5 MG TAB PO SCH (20:56)
[2020-03-10 05:26] LABS: Anion Gap 14 mmol/L (10-20); BUN (Urea Nitrogen) 8 mg/dL (9.8-20.1); Calc. Creatinine Clearance 111 mL/min (70-130); Calcium 8.1 mg/dL (7.8-10.44); Carbon Dioxide 28 mmol/L (23-31); Chloride 103 mmol/L (98-107); Estimated GFR-MDRD 78; Glucose 79 mg/dL (80-115); Magnesium 1.9 mg/dL (1.6-2.6); Potassium 3.7 mmol/L (3.5-5.1); Sodium 141 mmol/L (136-145)
[2020-03-10] MEDS ORDERED: Sodium Chloride 0.9% 10 ML ONE (08:38)
[2020-03-10] MEDS: Clindamycin 150 MG CAP PO SCH (09:11)
[2020-03-10] MEDS: Aspirin Chewable 81 MG TAB PO SCH (09:11)
[2020-03-10] MEDS: Morphine ER 15 MG TAB PO SCH (09:12)
[2020-03-10] MEDS: Oxybutynin 5 MG TAB PO SCH (09:13)
[2020-03-10] MEDS: Torsemide 20 MG TAB PO SCH ×2 (09:13→13:09)
[2020-03-10] MEDS: Gabapentin 400 MG CAP PO SCH ×2 (09:14→13:07)
[2020-03-10] MEDS: Pantoprazole 40 MG VIAL IVP SCH (09:14)
[2020-03-10] MEDS: Escitalopram Oxalate 10 mg Tablet PO SCH (09:14)
[2020-03-10] MEDS: Cyanocobalamin (Vitamin B-12) 1,000 MCG TAB PO SCH (09:14)
[2020-03-10] MEDS: Ferrous Sulfate 325 MG TAB PO SCH (09:14)
[2020-03-10] MEDS: Senokot S 8.6-50 MG TAB PO SCH (09:15)
[2020-03-10] MEDS: Polyethylene Glycol 3350 17 GM Packet PO SCH (09:16)
[2020-03-10] MEDS: Silver Nitrate Application 1 EACH TOP SCH (09:20)
[2020-03-10 13:01] VITALS: BP 109/51; TEMP 97.5
--- NOTE | 2020-03-11 02:37 | DIS ---
DATE OF ADMISSION: 02/27/2020 DATE OF DISCHARGE: 03/10/2020 HOSPITAL COURSE: Ms. Wyatt is a 69-year-old female with medical history of coronary artery disease status post CABG, ischemic cardiomyopathy, who presented with acute abdominal pain and shortness of breath. She was diagnosed with decompensated heart failure with reduced ejection fraction and constipation. The patient's ejection fraction was lower than 35, so required placement of an AICD, heart failure medications were optimized and she underwent diuresis, after which her shortness of breath gradually resolved. As for the abdominal pain, the patient suffered from constipation. Bowel regimen was initiated and the patient's abdominal pain resolved after having bowel movements. Lastly, the patient was diagnosed with hemorrhoids and was treated with topical anesthetic for 2 weeks pending further evaluation by her primary care physician. Of note, the patient's heart failure medications resulted in episodes of hypotension, after which low dosage of the medications were applied. On the day of discharge, the patient was feeling well, had no shortness of breath, was ambulated on the floor with no associated symptoms. PHYSICAL EXAMINATION: VITAL SIGNS: Blood pressure 109/51, pulse 60, respiratory rate 20, oxygen saturation 100% on 2 L nasal cannula, and temperature 97.5. GENERAL: Sitting comfortably on the chair, awake, and alert. Morbidly obese. HEENT: Normocephalic and atraumatic. CARDIAC: Left upper thorax, AICD incision. Mild erythema and tenderness (completed clindamycin course as per Cardiology). Regular rate and rhythm. No murmur, gallops, or rubs. LUNGS: Clear to auscultation bilaterally. No wheezing, rales or rhonchi. GI: Soft, nontender, and nondistended. Normal bowel sounds. External nonbleeding hemorrhoids. EXTREMITIES: Bilateral equal pitting edema up to knee level improved compared to presentation. PSYCHIATRIC: Mildly labile mood, proper affect. Alert and oriented x3. MEDICATION LIST: New medications: 1. Dibucaine 1% ointment b.i.d. p.r.n. hemorrhoids for a total of 2 weeks. 2. Senna docusate one tablet b.i.d. 3. Tylenol 1000 mg q.6 hours p.r.n. pain. 4. Lisinopril 2.5 mg p.o. daily. 5. Metoprolol succinate 12.5 mg p.o. daily. Continued medications: 1. Metformin. 2. Donepezil. 3. Divalproex. 4. Aspirin. 5. Atorvastatin. 6. Oxybutynin. 7. Daykin. 8. Zolpidem. 9. Citalopram. 10. Anoro Ellipta. 11. Pantoprazole. 12. Triamcinolone. 13. Calcium carbonate. 14. Vitamin B12. 15. ProAir p.r.n. 16. Dicyclomine p.r.n. 17. DuoNeb p.r.n. 18. Hyoscyamine (Levsin) p.r.n. 19. Alendronate. 20. Haloperidol. 21. Guaifenesin. 22. Lorazepam. 23. Gabapentin. 24. Ferrous fumarate. 25. MS Contin 15 mg p.o. b.i.d. Change medications: Lasix 40 mg p.o. b.i.d. p.r.n. lower extremity swelling. Discontinued medications: 1. Torsemide. 2. Potassium. 3. Omeprazole. Job ID: [id number]
[2020-03-11] MEDS ORDERED: Lisinopril 2.5 MG TAB PO SCH (09:00)
== END 2020-03-10 16:00 | DRG 227 ==
LOC: ERS 05:18 → 2NO 07:39
PROVIDERS: ADMIT Internal Medicine; ATTEND Internal Medicine
PROC: 30233N1 Transfusion of Nonautologous Red Blood Cells into Peripheral Vein, Percutaneous Approach (ICD-10-PCS; 2020-02-27)
PROC: 0JH608Z Insertion of Defibrillator Generator into Chest Subcutaneous Tissue and Fascia, Open Approach (ICD-10-PCS; principal; 2020-03-03)
PROC: 02HK3KZ Insertion of Defibrillator Lead into Right Ventricle, Percutaneous Approach (ICD-10-PCS; 2020-03-03)
DX: I11.0 Hypertensive heart disease with heart failure (principal); I47.2 Ventricular tachycardia; L03.116 Cellulitis of left lower limb; I50.23 Acute on chronic systolic (congestive) heart failure; E11.9 Type 2 diabetes mellitus without complications; Z20.828 Contact with and (suspected) exposure to other viral communicable diseases; F41.9 Anxiety disorder, unspecified; I25.10 Atherosclerotic heart disease of native coronary artery without angina pectoris; K21.9 Gastro-esophageal reflux disease without esophagitis; G47.33 Obstructive sleep apnea (adult) (pediatric); E66.9 Obesity, unspecified; J44.9 Chronic obstructive pulmonary disease, unspecified; M81.0 Age-related osteoporosis without current pathological fracture; I35.0 Nonrheumatic aortic (valve) stenosis; K59.03 Drug induced constipation; K64.8 Other hemorrhoids; T44.3X5A Adverse effect of other parasympatholytics [anticholinergics and antimuscarinics] and spasmolytics, initial encounter; T40.605A Adverse effect of unspecified narcotics, initial encounter; I49.3 Ventricular premature depolarization; E78.5 Hyperlipidemia, unspecified; D50.9 Iron deficiency anemia, unspecified; I25.5 Ischemic cardiomyopathy; I69.392 Facial weakness following cerebral infarction; I69.398 Other sequelae of cerebral infarction; Z90.49 Acquired absence of other specified parts of digestive tract; Z90.710 Acquired absence of both cervix and uterus; I69.312 Visuospatial deficit and spatial neglect following cerebral infarction; Z95.1 Presence of aortocoronary bypass graft; Z88.5 Allergy status to narcotic agent; Z88.0 Allergy status to penicillin; Z87.891 Personal history of nicotine dependence; Z88.8 Allergy status to other drugs, medicaments and biological substances; Z79.84 Long term (current) use of oral hypoglycemic drugs; Z79.51 Long term (current) use of inhaled steroids
CPT/HCPCS: 33249; 36415; 36416; 36430; 36600; 51701; 70450; 71045; 72192; 74176; 76942; 80048; 80053; 80164; 80202; 81003; 81015; 82553; 82728; 83540; 83605; 83690; 83735; 83880; 84484; 85025; 85046; 86850; 86900; 86901; 87635; 93005; 93306; 93641; 94640; 94660; 94760; 96374; 96375; 97139; C1722; C1777; C9113; J0690; J0696; J1580; J1650; J1885; J1940; J1956; J2001; J2270; J2405; J2704; J2916; J3010; J3370; J3490; J7030; J7050; J7620; P9016; U0003

== ENCOUNTER 2020-03-31 18:31 | Emergency (ER) | payer MEDICARE ==
[2020-03-31 19:01] LABS: #Eosinphils 0.3 thou/uL (0.0-0.7); #Lymphocytes 1.8 thou/uL (1.20-3.40); #Monocytes 0.9 thou/uL (0.11-0.59); #Neutrophils 6.1 thou/uL (1.40-6.50); %Basophils 0.4 % (0.0-1.0); %Eosinophils 2.8 % (0.0-10.0); %Lymphocytes 20.2 % (21.0-51.0); %Monocytes 9.4 % (0.0-10.0); %Neutrophils 67.2 % (42.0-75.0); Hemoglobin 11.1 g/dL (12.0-16.0); Mean Corpuscular HGB CONC 31.9 g/dL (32.0-36.0); Mean Corpuscular Hemoglobin 24.7 pg (27.0-31.0); Mean Corpuscular Volume 77.4 fL (78.0-98.0); Mean Platelet Volume 6.2 fL (7.4-10.4); Platelet Count 200 thou/uL (130-400); RBC Distribution Width 23.6 % (11.5-14.5); Red Blood Cell (RBC) Count 4.48 mill/uL (4.20-5.40); White Blood Cell (WBC) Count 9.1 thou/uL (4.8-10.8)
[2020-03-31 19:19] LABS: Anisocytosis SLIGHT = 6-15 cells (100X) (0-5/hpf); Hypochromia SLIGHT = 6-15 cells (100X) (0-5/hpf); MDiff Complete? YES; Microcytosis SLIGHT = 6-15 cells (100X) (0-5/hpf); Ovalocytes SLIGHT = 2-5 cells (100X) (0-1/hpf); Platelet Morphology Comment Appears Adequate; Polychromasia SLIGHT = 2-3 cells (100X) (0-2/hpf); Target Cells SLIGHT = 2-5 cells (100X) (0-1/hpf); Tear Drops SLIGHT = 2-5 cells (100X) (0-1/hpf)
[2020-03-31 19:23] LABS: ALT (SGPT) 12 U/L (8-55); AST (SGOT) 19 U/L (5-34); Alkaline Phosphatase 88 U/L (40-110); Anion Gap 18 mmol/L (10-20); BUN (Urea Nitrogen) 14 mg/dL (9.8-20.1); Bilirubin, Total 0.4 mg/dL (0.2-1.2); Calc. Creatinine Clearance 0 mL/min (70-130); Calcium 9.2 mg/dL (7.8-10.44); Carbon Dioxide 24 mmol/L (23-31); Chloride 100 mmol/L (98-107); Estimated GFR-MDRD 56; Globulin 3.3 g/dL (2.4-3.5); Glucose 83 mg/dL (80-115); Potassium 3.7 mmol/L (3.5-5.1); Protein, Total 7.3 g/dL (6.0-8.3); Sodium 138 mmol/L (136-145)
--- NOTE | 2020-03-31 19:52 | RAD ---
XR Knee Lt 4 View STANDARD History: Dizziness when standing and fall Comparison: None. Findings: Surgical clips along the medial soft tissues. No acute displaced fracture or malalignment. No significant joint effusion. Impression: No acute osseous abnormality.
--- NOTE | 2020-03-31 19:53 | RAD ---
XR Pelvis AP STANDARD History: Trauma. Fall Comparison: CT pelvis February 2020 Findings: Phleboliths in the pelvis. Posterior lumbar spinal fusion hardware. No acute displaced frac ture or malalignment. Obturator rings are intact. Impression: No acute pelvic fracture.
[2020-03-31 20:24] LABS: Bacteria/HPF None Seen HPF (None Seen); Bilirubin Negative (Negative); Blood, Urine 1+ (Negative); Clarity Clear (Clear); Glucose, Urine (Dipstick) Normal (Negative); Ketone, Urine Negative (Negative); Leukocyte Negative Leu/uL (Negative); Nitrite Negative (Negative); Protein, Urine (Dipstick) Negative (Neg-Trace); Specific Gravity, Urine 1.015 (1.002-1.036); Squamous Epithelial 0-3 HPF (0-3); Urobilinogen Normal mg/dL (Less than 2); WBC/HPF 0-3 HPF (0-3)
== END 2020-03-31 21:12 | disposition home or self-care (01) ==
LOC: ERS 18:31
DX: S80.212A Abrasion, left knee, initial encounter (principal); S80.812A Abrasion, left lower leg, initial encounter; I11.0 Hypertensive heart disease with heart failure; I50.9 Heart failure, unspecified; K21.9 Gastro-esophageal reflux disease without esophagitis; E78.5 Hyperlipidemia, unspecified; E78.00 Pure hypercholesterolemia, unspecified; F41.9 Anxiety disorder, unspecified; W18.30XA Fall on same level, unspecified, initial encounter
CPT/HCPCS: 36415; 51701; 72170; 80053; 81003; 81015; 83036; 83735; 84484; 85025; 93005

== ENCOUNTER 2020-04-13 12:08 | Emergency (ER) | payer MEDICARE ==
[2020-04-13] MEDS ORDERED: Acetaminophen 500 MG TAB ONE (14:20)
[2020-04-13 14:30] LABS: #Eosinphils 0.3 thou/uL (0.0-0.7); #Lymphocytes 1.5 thou/uL (1.20-3.40); #Monocytes 0.6 thou/uL (0.11-0.59); #Neutrophils 4.1 thou/uL (1.40-6.50); %Basophils 0.5 % (0.0-1.0); %Eosinophils 4.4 % (0.0-10.0); %Lymphocytes 22.3 % (21.0-51.0); %Monocytes 9.4 % (0.0-10.0); %Neutrophils 63.3 % (42.0-75.0); Hemoglobin 11.3 g/dL (12.0-16.0); Mean Corpuscular Volume 80.8 fL (78.0-98.0); Mean Platelet Volume 11.3 fL (7.4-10.4); Platelet Count 204 thou/uL (130-400); RBC Distribution Width 24.2 % (11.5-14.5); White Blood Cell (WBC) Count 6.5 thou/uL (4.8-10.8)
[2020-04-13 14:55] LABS: ALT (SGPT) 9 U/L (8-55); AST (SGOT) 15 U/L (5-34); Alkaline Phosphatase 84 U/L (40-110); Anion Gap 13 mmol/L (10-20); BUN (Urea Nitrogen) 12 mg/dL (9.8-20.1); Bilirubin, Total 0.6 mg/dL (0.2-1.2); Calc. Creatinine Clearance 0 mL/min (70-130); Calcium 8.9 mg/dL (7.8-10.44); Carbon Dioxide 28 mmol/L (23-31); Chloride 103 mmol/L (98-107); Estimated GFR-MDRD 72; Globulin 3.4 g/dL (2.4-3.5); Glucose 85 mg/dL (80-115); Potassium 4.1 mmol/L (3.5-5.1); Protein, Total 7.4 g/dL (6.0-8.3); Sodium 140 mmol/L (136-145)
[2020-04-13 14:56] LABS: Anisocytosis SLIGHT = 6-15 cells (100X) (0-5/hpf); Hypochromia SLIGHT = 6-15 cells (100X) (0-5/hpf); Large Platelets SLIGHT; MDiff Complete? YES; Ovalocytes SLIGHT = 2-5 cells (100X) (0-1/hpf); Platelet Morphology Comment Appears Adequate; Polychromasia SLIGHT = 2-3 cells (100X) (0-2/hpf); Target Cells SLIGHT = 2-5 cells (100X) (0-1/hpf); Tear Drops SLIGHT = 2-5 cells (100X) (0-1/hpf)
== END 2020-04-13 18:28 | disposition left against medical advice (07) ==
LOC: ERS 12:08
DX: Z53.21 Procedure and treatment not carried out due to patient leaving prior to being seen by health care provider (principal)
CPT/HCPCS: 36415; 80053; 85025

== ENCOUNTER 2020-04-14 22:06 | Inpatient (IN) | payer MEDICARE ==
[2020-04-14] MEDS ORDERED: Acetaminophen 325 MG TAB PO PRN (23:14)
[2020-04-14] MEDS ORDERED: Ondansetron ODT 4 MG TAB PO PRN (23:14)
[2020-04-14] MEDS ORDERED: Ondansetron PF 4 MG/2 ML Vial IVP PRN (23:14)
[2020-04-14] MEDS ORDERED: Senokot S 8.6-50 MG TAB PO PRN (23:14)
[2020-04-14] MEDS ORDERED: HumaLOG 300 UNITS/3 ML VIAL SC PRN (23:17)
[2020-04-14] MEDS ORDERED: Dextrose 50% Abboject 50 ML SYRINGE SLOW IVP PRN (23:17)
[2020-04-14] MEDS ORDERED: Dextrose 5% in Water 1,000 ML IV PRN (23:17)
[2020-04-14] MEDS ORDERED: hydrALAZINE 20 MG/ML VIAL SLOW IVP PRN (23:18)
[2020-04-14] MEDS ORDERED: Labetalol HCl 100 MG/20 ML VIAL SLOW IVP PRN (23:18)
[2020-04-14] MEDS ORDERED: Aspirin 325 MG TAB PO SCH (23:45)
--- NOTE | 2020-04-15 00:01 | PDOC.HHP ---
Hospitalist HPI - History of Present Illness Intractable headache History of Present Illness: PCP: Dr. Love The patient is a 69-year-old female with a past medical history significant for ischemic stroke post cardiac catheterization (2014) with right visual deficit and short term memory loss, CABG x4 (2014), CAD x1, recent cardiac arrhythmia with ICD/PM placement (03/2020), DM 2, COPD and depression that presents to the hospital as a transfer via EMS from [facility] for the above compl aint. The patient reports having a headache for the past month. Her pain is primarily located on the right side of her head, constant, described as an aching pain, exacerbated and relieved by nothing. She has trialed Tylenol at home. She denies first/worst headache, admits to falling approximately 2 weeks ago, however, does not know if she lost consciousness or hit her head. She has no history of migraines. No history of DVT/PE, she is not on hormone therapy. She denies fever and neck stiffness. She denies any changes to her vision, speech or focal motor weakness to her extremities. She denies jaw claudication. She denies having any chest pain, heart palpitations or lightheadedness. She denies cough, wheezing, shortness of breath. She denies abdominal pain, nausea, vomiting, diarrhea. She denies any urinary symptoms. She has no other complaints at this time. ED Course: [place]: Presented stable vital signs. CT brain no acute intracranial process. CT C-spine negative for any acute process. Medication administration: Morphine, dexamethasone, Reglan, Benadryl, IV fluids Hospitalist ROS - Review of Systems All other systems reviewed; all pertinent +/- noted in HPI/Subj - Medication Medications: Home medications: 1. Metformin 1000 mg p.o. twice daily with meals 2. Proventil HFA inhaler 2 puffs inhaled twice daily 3. Fosamax 70 mg p.o. q. 7 days 4. Aspirin 81 mg p.o. daily 5. Atorvastatin 10 mg p.o. nightly 6. Carvedilol 6.25 mg p.o. twice daily 7. Lexapro 10 mg p.o. nightly 8. Ferrous sulfate 325 mg p.o. daily 9. Gabapentin 800 mg p.o. 3 times daily 10. Hydrocodone 5/325 mg 1 tab p.o. every 6 as needed pain 11. Combivent Respimat 1 puff inhalation daily 12. Losartan 50 mg p.o. daily 13. Mag-Ox 400 mg p.o. daily 14. Oxybutynin 10 mg p.o. daily 15. Protonix 40 mg p.o. daily 16. Ambien 10 mg p.o. nightly Allergies: Codeine, penicillin, iodine Hospitalist History - Past Medical History Source: patient, RN notes reviewed Cardiac: reports: CAD (X1 stent), HTN, Hyperlipidemia, Other (Cardiac arrhythmia (V. tach) with recent pacemaker/AICD placement) Pulmonary: reports: COPD [employer]: reports: CVA (Status post cardiac Brim Raiser in 2015 with right vision field deficit and short-term memory loss) Gastrointestinal: reports: GERD Heme/Onc: reports: Iron deficiency anemia Psych: reports: Anxiety, Depression Renal/: reports: Other (Overactive bladder) Endocrine: reports: Diabetes (Type II [id number]) - Past Surgical History Past Surgical History: reports: Appendectomy, Cholecystectomy, CABG (X4 (2015), CAD x1), Hysterectomy, Other (Lumbar spinal surgery) - Family History Other Family History: Noncontributory to this case - Social History Smoking Status: Current every day smoker Tobacco Type: cigarettes Alcohol: reports: None Drugs: reports: none Living Situation: With Family Activity level: independent ambulation - Exam General Appearance: NAD, awake alert. negative: ill appearing Eye: anicteric sclera ENT: normocephalic atraumatic, moist mucosa Neck: supple, symmetric, no JVD Heart: RRR, no murmur, no gallops, no rubs, normal peripheral pulses Respiratory: CTAB, no wheezes, no rales, no ronchi, normal chest expansion, no tachypnea Gastrointestinal: soft, non-tender, normal bowel sounds, no guarding, no rigidity Extremities: no cyanosis, no edema Skin: no rashes Neurological: no weakness, no new deficit. negative: facial droop, speech deficit Neurological - other findings: Right visual field deficit, baseline previous CVA Musculoskeletal: normal tone, normal strength Psychiatric: normal affect, A&O x 3 Hospitalist Results - Radiology Interpretation CT scan - head Status: report reviewed by me Additional Comment: No acute intracranial process Hospitalist H&P A/P - Problem (1) Intractable headache Code(s): R51.9 - HEADACHE, UNSPECIFIED Status: Acute (2) CAD (coronary artery disease) Code(s): I25.10 - ATHSCL HEART DISEASE OF [place] CORONARY ARTERY W/O ANG PCTRS Status: Chronic (3) DM2 (diabetes mellitus, type 2) Status: Chronic (4) HTN (hypertension) Code(s): I10 - ESSENTIAL (PRIMARY) HYPERTENSION Status: Chronic (5) HLD (hyperlipidemia) Code(s): E78.5 - HYPERLIPIDEMIA, UNSPECIFIED Status: Chronic (6) COPD (chronic obstructive pulmonary disease) Status: Chronic (7) GERD (gastroesophageal reflux disease) Code(s): K21.9 - GASTRO-ESOPHAGEAL REFLUX DISEASE WITHOUT ESOPHAGITIS Status: Chronic (8) Cardiac arrhythmia Code(s): I49.9 - CARDIAC ARRHYTHMIA, UNSPECIFIED Status: Resolved - Plan Plan: 69/F with PMH CVA, CAD presents for intractable headache. Admit to stroke unit, observation status. Expected length of stay less than 2 midnights. Presented stable vital signs. CT brain no acute process. CT C-spine no acute process. CMP and CBC unremarkable. #Intractable headache We will order MRI brain, check ESR/CRP, consult neurology Check TSH, FLP, UA. Analgesia as needed. Neuro checks. #CAD History CABG x4 (2014) CAD x1 Restart home dose of baby aspirin. #DM2 Takes metformin at home. Hold metformin for now. Moderate ISS. ACHS Accu-Cheks. #Hypertension Presented normotensive. Restart home medication Coreg and losartan. Monitor BP. #Hyperlipidemia Check FLP. Restart home dose atorvastatin. #COPD Appears stable. Takes Proventil HFA inhaler, Combivent. We will restart home medications as above. #GERD Restart home dose Protonix. #Cardiac arrhythmia History of V. tach with recent ICD/PM on 04/11. Continue cardiac monitoring. SCDs for DVT prophylaxis. Lovenox for DVT prophylaxis. Protonix for GI prophylaxis. Full code. Discussed case with Dr. Scott Loya.
[2020-04-15] MEDS ORDERED: Zolpidem Tartrate 5 MG TAB PO SCH ×3 (00:15→21:00)
[2020-04-15] MEDS ORDERED: Alendronate Sodium 70 mg Tablet PO SCH (00:15)
[2020-04-15] MEDS ORDERED: Gabapentin 400 MG CAP PO SCH (00:30)
[2020-04-15] MEDS: HYDROcodone/Acetaminophen 5/325 mg Tablet PO PRN ×3 (03:18→16:21)
[2020-04-15] MEDS ORDERED: Aspirin 81 mg Enteric Coated Tablet PO SCH (04:15)
[2020-04-15 05:21] LABS: Anion Gap 14 mmol/L (10-20); BUN (Urea Nitrogen) 16 mg/dL (9.8-20.1); Calc. Creatinine Clearance 108 mL/min (70-130); Calcium 8.8 mg/dL (7.8-10.44); Carbon Dioxide 21 mmol/L (23-31); Cardiac Risk 3.4 (Less than 4.5); Chloride 104 mmol/L (98-107); Cholesterol 156 mg/dl (< 200 Desired); Estimated GFR-MDRD 75; Glucose 153 mg/dL (80-115); HDL Cholesterol 46 mg/dL (>60 Neg Risk); LDL Cholesterol, Calculated 95 mg/dL; Potassium 4.6 mmol/L (3.5-5.1); Sodium 134 mmol/L (136-145); Triglycerides 73 mg/dL (Less than 150)
[2020-04-15 05:25] LABS: #Lymphocytes 0.6 thou/uL (1.20-3.40); #Monocytes 0.1 thou/uL (0.11-0.59); #Neutrophils 4.6 thou/uL (1.40-6.50); %Basophils 0.1 % (0.0-1.0); %Eosinophils 0.3 % (0.0-10.0); %Lymphocytes 11.8 % (21.0-51.0); %Monocytes 1.2 % (0.0-10.0); %Neutrophils 86.6 % (42.0-75.0); Anisocytosis SLIGHT = 6-15 cells (100X) (0-5/hpf); Hemoglobin 10.5 g/dL (12.0-16.0); Mean Corpuscular HGB CONC 31.7 g/dL (32.0-36.0); Mean Corpuscular Hemoglobin 25.8 pg (27.0-31.0); Mean Corpuscular Volume 81.6 fL (78.0-98.0); Mean Platelet Volume 10.9 fL (7.4-10.4); Platelet Count 180 thou/uL (130-400); RBC Distribution Width 23.4 % (11.5-14.5); Red Blood Cell (RBC) Count 4.06 mill/uL (4.20-5.40); White Blood Cell (WBC) Count 5.4 thou/uL (4.8-10.8)
[2020-04-15 05:36] LABS: Bacteria/HPF None Seen HPF (None Seen); Bilirubin Negative (Negative); Blood, Urine 1+ (Negative); Clarity Clear (Clear); Glucose, Urine (Dipstick) 150 mg/dL (Negative); Ketone, Urine Negative (Negative); Leukocyte Negative Leu/uL (Negative); Nitrite Negative (Negative); Protein, Urine (Dipstick) 20 mg/dL (Neg-Trace); Urobilinogen Normal mg/dL (Less than 2); WBC/HPF 0-3 HPF (0-3)
[2020-04-15] MEDS: PROVENTIL INHALER 6.7 G (200 INHALATIONS) INH SCH ×2 (06:39→18:29)
[2020-04-15] MEDS: Ferrous Sulfate 325 MG TAB PO SCH (08:22)
[2020-04-15] MEDS: Enoxaparin Sodium 40 MG/0.4 ML SYRINGE SC SCH (08:22)
[2020-04-15] MEDS: Gabapentin 400 MG CAP PO SCH ×3 (08:22→21:28)
[2020-04-15] MEDS: Carvedilol 6.25 MG TAB PO SCH ×2 (08:23→16:22)
[2020-04-15] MEDS: Losartan 25 MG TAB PO SCH (08:23)
[2020-04-15] MEDS: Magnesium Oxide 400 MG TAB PO SCH (08:23)
[2020-04-15] MEDS: Aspirin Chewable 81 MG TAB PO SCH (08:23)
[2020-04-15] MEDS: Oxybutynin 5 MG TAB PO SCH (08:23)
[2020-04-15] MEDS ORDERED: Aspirin 325 mg Enteric Coated Tablet PO SCH (09:00)
[2020-04-15] MEDS ORDERED: FLU VACC QS2020-21(65YR UP)/PF 240 MCG/0.7 ML SYRINGE IM ONE (09:00)
[2020-04-15] MEDS ORDERED: Magnesium 2 GM/50 ML 2 GM in Premix Bag 1 BAG IVPB SCH (09:30)
[2020-04-15] MEDS: HumaLOG 300 UNITS/3 ML VIAL SC PRN (11:33)
[2020-04-15] MEDS ORDERED: Valproate Sodium 500 MG in Sodium Chloride 0.9% 100 ML IVPB SCH (12:30)
--- NOTE | 2020-04-15 13:35 | RAD ---
EXAM: XR Sacrum and Coccyx STANDARD PROVIDED CLINICAL HISTORY: Pain after fall. COMPARISON: Pelvis radiograph on 03/31/2020 FINDINGS: Postoperative changes lower lumbar spine and lumbosacral junction are again seen. Sacroiliac joints a re symmetric in appearance bilaterally. No fracture is appreciated. Phleboliths overlie the pelvis. Vascular calcifications are seen in the abdominal aorta. IMPRESSION: No acute osseous abnormality.
[2020-04-15] MEDS: Acetaminophen 325 MG TAB PO SCH ×2 (13:57→21:28)
--- NOTE | 2020-04-15 15:29 | CON ---
NEUROLOGY CONSULTATION DATE OF CONSULTATION: 04/15/2020 REASON FOR CONSULTATION: Intractable headache. HISTORY OF PRESENT ILLNESS: Ms. Kelly Wyatt is a 69-year-old female with medical history significant for prior stroke, status post cardiac catheterization in 2015 with right visual deficit and short-term memory loss, CABG x4 in 2015, coronary artery disease and recent cardiac arrhythmia with an ICD/pacemaker placement 3 weeks ago, diabetes, depression, and COPD, presented to the hospital as a transfer from [place] because of headache. Per the patient, she has been having headaches since the last 1 month. Per the patient, this was related to fall approximately 2 weeks ago and since then, she has the headache on the back of the head, which radiates to the right side of her head and sometimes to the back. The patient denies nausea, vomiting, flu-like symptoms, recent viral illness or recent sick contacts or exposure to COVID, fever, or neck stiffness associated with the headache. She also describes ongoing problems with speech, which has gotten worse and her memory issues have also became worse since the last few weeks. She denies temporal tenderness or jaw claudication, chest pain, lightheadedness, vertigo, dizziness, focal weakness, or focal paresthesias associated with the headache. In the emergency room, head CT was done, which was negative for acute intracranial pathology. CT of the cervical spine was also negative. She was given morphine, dexamethasone, Reglan, Benadryl, IV fluids, and admitted for further evaluation. REVIEW OF SYSTEMS: All 14 systems were reviewed and were negative except the pertinent positives and negatives mentioned in the HPI. HOME MEDICATIONS: 1. Metformin 1000 mg p.o. daily. 2. Proventil HFA inhaler 2 puffs twice daily. 3. Fosamax 70 mg q.7 days. 4. Aspirin 81 mg daily. 5. Atorvastatin 10 mg p.o. nightly. 6. Carvedilol 6.25 mg twice daily. 7. Lexapro 10 mg p.o. nightly. 8. Ferrous sulfate 325 mg daily. 9. Gabapentin 800 mg t.i.d. 10. Hydrocodone 5/325 one tablet every 6 hours as needed for pain. 11. Combivent 1 puff inhalation daily. 12. Losartan 50 mg daily. 13. Mag-Ox 400 mg p.o. daily. 14. Oxybutynin 10 mg p.o. daily. 15. Protonix 40 mg p.o. daily. 16. Ambien 10 mg p.o. daily. ALLERGIES: CODEINE, PENICILLIN, IODINE. PAST MEDICAL HISTORY: Coronary artery disease, status post stent x1; hypertension; hyperlipidemia; cardiac arrhythmia with recent pacemaker/AICD placement; COPD; prior CVA; GERD; iron-deficiency anemia; anxiety; depression; overactive bladder; and diabetes mellitus. PAST SURGICAL HISTORY: Appendectomy, cholecystectomy, CABG x4 in 2015, hysterectomy, status post stent placement. FAMILY HISTORY: No family history of stroke or epilepsy. SOCIAL HISTORY: The patient lives with family. Independent ambulation. She smokes every day. Denies alcohol or illegal drug use. Physical examination: General Appearance: NAD, awake alert. negative: ill appearing Eye: anicteric sclera ENT: normocephalic atraumatic, moist mucosa Neck: supple, symmetric, no JVD Heart: RRR, no murmur, no gallops, no rubs, normal peripheral pulses Respiratory: CTAB, no wheezes, no rales, no ronchi, normal chest expansion, no tachypnea Gastrointestinal: soft, non-tender, normal bowel sounds, no guarding, no rigidity Extremities: no cyanosis, no edema Skin: no rashes Neurological: Mental status; the patient is alert and oriented to person, place, and time. Speech is clear. Cranial nerves 2 through 12 intact except to right visual field deficit. Motor; muscle tone and bulk are normal. Moving all 4 extremities equally and symmetrically. Sensory; withdraws to nailbed pressure bilaterally. Mental status; she is alert and oriented to person, place, and time. Cerebellar; finger-nose testing intact. Gait deferred due to the patient's safety reason. DIAGNOSTIC STUDIES: Data reviewed. Head CT reviewed, which was negative for acute intracranial pathology. ASSESSMENT AND PLAN: (1) Intractable headache Code(s): R51.9 - HEADACHE, UNSPECIFIED Status: Acute (2) CAD (coronary artery disease) Code(s): I25.10 - ATHSCL HEART DISEASE OF [place]FE[place] CORONARY ARTERY W/O ANG PCTRS Status: Chronic (3) DM2 (diabetes mellitus, type 2) Status: Chronic (4) HTN (hypertension) Code(s): I10 - ESSENTIAL (PRIMARY) HYPERTENSION Status: Chronic (5) HLD (hyperlipidemia) Code(s): E78.5 - HYPERLIPIDEMIA, UNSPECIFIED Status: Chronic (6) COPD (chronic obstructive pulmonary disease) Status: Chronic (7) GERD (gastroesophageal reflux disease) Code(s): K21.9 - GASTRO-ESOPHAGEAL REFLUX DISEASE WITHOUT ESOPHAGITIS Status: Chronic (8) Cardiac arrhythmia Code(s): I49.9 - CARDIAC ARRHYTHMIA, UNSPECIFIED Status: Resolved Ms. Kelly Wyatt is consulted for intractable headache. Head CT reviewed, which was negative for acute intracranial pathology. CT C-spine did not reveal any acute intracranial process. The patient is unable to have MRI since the AICD is not compatible per nursing staff. Consider repeat head CT tomorrow and also EEG to evaluate for worsening memory issues. Neuro checks every 4 hours. C-reactive protein within range. Continue pain/headache control per primary team. Continue home medications. Continue medical management per primary team. PT/OT/speech. Continue aspirin and high-intensity statin for secondary stroke prevention. Strict control of blood pressure and blood glucose. Check hemoglobin A1c, fasting lipid panel, and TSH. Continue telemetry. We will continue to follow. Thank you for the consult. Job ID: [id number] RAINE
[2020-04-15] MEDS: Ketorolac Tromethamine 30 MG/ML VIAL IVP SCH (18:13)
[2020-04-15] MEDS: diphenhydrAMINE 50 MG/ML VIAL IVP SCH (18:17)
[2020-04-15] MEDS: Prochlorperazine Edisylate 10 MG in Sodium Chloride 0.9% 50 ML IVPB SCH (18:19)
[2020-04-15] MEDS ORDERED: Non-Formulary Item 1 EACH (Zolpidem Tartrate [Ambien] 10 MG Tablet) PO SCH (21:00)
[2020-04-15] MEDS: Saccharomyces boulardii 250 MG CAP PO SCH (21:28)
[2020-04-15] MEDS: Donepezil HCl 5 MG TAB PO SCH (21:29)
[2020-04-15] MEDS: Atorvastatin Calcium 10 MG TAB PO SCH (21:29)
[2020-04-15] MEDS: Escitalopram Oxalate 10 mg Tablet PO SCH (21:29)
[2020-04-15] MEDS: Zolpidem Tartrate 5 MG TAB PO SCH (21:29)
[2020-04-16] MEDS: Ketorolac Tromethamine 30 MG/ML VIAL IVP SCH ×3 (00:52→12:10)
[2020-04-16] MEDS: diphenhydrAMINE 50 MG/ML VIAL IVP SCH ×3 (00:52→12:13)
[2020-04-16] MEDS: Prochlorperazine Edisylate 10 MG in Sodium Chloride 0.9% 50 ML IVPB SCH ×3 (00:53→12:13)
[2020-04-16 05:46] LABS: Anion Gap 12 mmol/L (10-20); BUN (Urea Nitrogen) 22 mg/dL (9.8-20.1); Calc. Creatinine Clearance 102 mL/min (70-130); Calcium 8.6 mg/dL (7.8-10.44); Carbon Dioxide 24 mmol/L (23-31); Chloride 102 mmol/L (98-107); Estimated GFR-MDRD 71; Glucose 107 mg/dL (80-115); Potassium 4.1 mmol/L (3.5-5.1); Sodium 134 mmol/L (136-145)
[2020-04-16] MEDS: PROVENTIL INHALER 6.7 G (200 INHALATIONS) INH SCH ×2 (06:53→18:56)
[2020-04-16 07:10] LABS: #Eosinphils 0.1 thou/uL (0.0-0.7); #Lymphocytes 1.4 thou/uL (1.20-3.40); #Monocytes 0.7 thou/uL (0.11-0.59); #Neutrophils 7.8 thou/uL (1.40-6.50); %Basophils 0.3 % (0.0-1.0); %Eosinophils 1.5 % (0.0-10.0); %Lymphocytes 14.1 % (21.0-51.0); %Monocytes 6.5 % (0.0-10.0); %Neutrophils 77.6 % (42.0-75.0); Hemoglobin 9.4 g/dL (12.0-16.0); Hypochromia SLIGHT = 6-15 cells (100X) (0-5/hpf); MDiff Complete? YES; Mean Corpuscular HGB CONC 31.6 g/dL (32.0-36.0); Mean Corpuscular Hemoglobin 25.2 pg (27.0-31.0); Mean Corpuscular Volume 79.8 fL (78.0-98.0); Mean Platelet Volume 12.5 fL (7.4-10.4); Platelet Count 176 thou/uL (130-400); Platelet Morphology Comment Appears Adequate; RBC Distribution Width 23.6 % (11.5-14.5); Red Blood Cell (RBC) Count 3.74 mill/uL (4.20-5.40); White Blood Cell (WBC) Count 10.1 thou/uL (4.8-10.8)
[2020-04-16] MEDS: Magnesium Oxide 400 MG TAB PO SCH (08:37)
[2020-04-16] MEDS: Aspirin Chewable 81 MG TAB PO SCH (08:37)
[2020-04-16] MEDS: Gabapentin 400 MG CAP PO SCH ×3 (08:37→20:30)
[2020-04-16] MEDS: Acetaminophen 325 MG TAB PO SCH ×3 (08:37→20:30)
[2020-04-16] MEDS: Oxybutynin 5 MG TAB PO SCH (08:38)
[2020-04-16] MEDS: Carvedilol 6.25 MG TAB PO SCH ×2 (08:38→17:40)
[2020-04-16] MEDS: Losartan 25 MG TAB PO SCH (08:38)
[2020-04-16] MEDS: Ferrous Sulfate 325 MG TAB PO SCH (08:38)
[2020-04-16] MEDS: Enoxaparin Sodium 40 MG/0.4 ML SYRINGE SC SCH (08:38)
[2020-04-16] MEDS: HYDROcodone/Acetaminophen 5/325 mg Tablet PO PRN ×2 (10:14→20:29)
--- NOTE | 2020-04-16 12:43 | PDOC.EEG ---
Neurology EEG Report - Report Report: This EEG was performed using 24 channel [employer] video digital EEG machine with 24 disc electrodes. This was an exended 2 hours 2 minutes of EEG recording. Digital analysis of the EEG was done for Christiano and seizure detection which revealed no abnormalities. Background: The posterior background rhythm is 9-10 Hz. The posterior background rhythm attenuates with eye opening and enhances with eye closure. Photic stimulation: Bioccipital symmetric driving response seen with photic stimulation. Hyperventilation: Not performed. Sleep: Drowsiness is observed. EEG diagnosis: Normal awake and drowsy EEG.
--- NOTE | 2020-04-16 12:45 | CT ---
CT HEAD WITHOUT IV CONTRAST COMPARISON: 04/14/2020 HISTORY: Follow-up evaluation. Patient seen on 04/14/2020 with right-sided headache. TECHNIQUE: Axial CT imaging at 5 mm intervals from vertex through skull base without contrast FINDINGS: Stable area of encephalomalacia left occipital lobe is again noted. Associated ex vacuo dilatation of occipital horn left lateral ventricle is present. There is decreased attenuation in the periventricular white matter which is nonspecific but likely reflective of chronic small vessel ische fantasma changes. There is mild cerebral and cerebellar volume loss. There is no evidence of an acute infarction, hemorrhage, mass effect, or midline shift. Skull base has a normal CT appearance. There is now minimal mucosal thickening in ethmoidal air cells and each sphenoid sinus. Osseous structures appear intact. IMPRESSION: 1. No acute intracranial abnormality demonstrated. 2. Stable chronic findings. 3. Mild sinus disease.
--- NOTE | 2020-04-16 14:24 | PDOC.HOSPP ---
- Subjective Encounter Date: 04/16/20 Encounter Time: 10:30 Subjective: Patient seen and examined for intractable headache. Headache is worse today. She received Compazine, Benadryl with Toradol per neurology recommendation yesterday evening without much help. She denies new focal deficit. No changes in her vision. Denies any nausea or vomiting. - Objective Vital Signs & Weight: Vital Signs (12 hours) Temp Pulse Resp BP Pulse Ox 04/16/20 11:52 97.8 F 60 18 106/52 L 96 04/16/20 07:54 97.6 F 69 20 117/53 L 95 04/16/20 06:52 60 18 04/16/20 04:31 97.7 F 66 16 131/60 97 Weight Weight 215 lb I&O: 04/15/20 04/16/20 04/17/20 06:59 06:59 06:59 Intake Total 1200 2321 Output Total 50 Balance 1150 2321 Result Diagrams: 04/16/20 04:47 04/16/20 04:47 Additional Labs: Accuchecks 04/16/20 04/15/20 04/15/20 10:50 21:36 16:53 POC Glucose 103 H 141 H 119 H Abnormal Lab Results - Last 48 hrs 04/15/20 04:43: Sodium 134 L, Carbon Dioxide 21 L 04/15/20 04:43: RBC 4.06 L, Hgb 10.5 L, Hct 33.1 L, MCH 25.8 L, MCHC 31.7 L, RDW 23.4 H, MPV 10.9 H, Neutrophils % 86.6 H, Lymphocytes % 11.8 L, Lymphocytes # 0.6 L, Monocytes # 0.1 L 04/15/20 04:57: Urine Glucose (UA) 150 A, Urine Blood 1+ A, Urine RBC 4-6 A, Ur Squamous Epith Cells 7-10 A 04/16/20 04:47: Sodium 134 L, BUN 22 H 04/16/20 04:47: RBC 3.74 L, Hgb 9.4 L, Hct 29.9 L, MCH 25.2 L, MCHC 31.6 L, RDW 23.6 H, MPV 12.5 H, Neutrophils % 77.6 H, Lymphocytes % 14.1 L, Neutrophils # 7.8 H, Monocytes # 0.7 H Microbiology - Entire Visit 04/15/20 12:22 Stool C. difficile GDH Antigen & Toxins - Final Radiology Reviewed by me: Yes (CT brainno new acute findings) EKG Reviewed by me: Yes (Sinus rhythm on telemetry) Hospitalist ROS - Review of Systems Respiratory: denies: cough, dry, shortness of breath, hemoptysis, SOB with excertion, pleuritic pain, sputum, wheezing, other Cardiovascular: denies: chest pain, palpitations, orthopnea, paroxysmal noc. dyspnea, edema, light headedness, other Gastrointestinal: denies: nausea, vomiting, abdominal pain, diarrhea, constipation, melena, hematochezia, other - Medication Medications: Active Medications Generic Name Dose Route Start Last Admin Trade Name Freq PRN Reason Stop Dose Admin Acetaminophen 650 mg 04/15/20 15:00 04/16/20 08:37 Acetaminophen 325 Mg Tab PO 650 mg TID JOSE Administration Hydrocodone Bitart/Acetaminophen 1 tab 04/15/20 00:09 04/16/20 10:14 Hydrocodone/Acetaminophen 5/325 Mg Tablet PO 1 tab Q6H PRN Administration Moderate Pain (4-6) Albuterol Sulfate 2 puff 04/15/20 06:30 04/16/20 06:53 Proventil Inhaler 6.7 G (200 Inhalations) INH Not Given BID-RT JOSE Albuterol/Ipratropium 3 ml 04/15/20 07:00 04/16/20 06:52 Ipratropium/Albuterol Sulfate 3 Ml Neb NEB 3 ml DAILY-RT JOSE Administration Aspirin 81 mg 04/15/20 08:00 04/16/20 08:37 Aspirin Chewable 81 Mg Tab PO 81 mg QAM-WM JOSE Administration Atorvastatin Calcium 10 mg 04/15/20 21:00 04/15/20 21:29 Atorvastatin Calcium 10 Mg Tab PO 10 mg HS JOSE Administration Carvedilol 6.25 mg 04/15/20 08:00 04/16/20 08:38 Carvedilol 6.25 Mg Tab PO 6.25 mg BID-WM JOSE Administration Donepezil HCl 5 mg 04/15/20 21:00 04/15/20 21:29 Donepezil Hcl 5 Mg Tab PO 5 mg HS JOSE Administration Enoxaparin Sodium 40 mg 04/15/20 09:00 04/16/20 08:38 Enoxaparin Sodium 40 Mg/0.4 Ml Syringe SC 40 mg 0900 JOSE Administration Escitalopram Oxalate 10 mg 04/15/20 21:00 04/15/20 21:29 Escitalopram Oxalate 10 Mg Tablet PO 10 mg HS JOSE Administration Ferrous Sulfate 325 mg 04/15/20 08:00 04/16/20 08:38 Ferrous Sulfate 325 Mg Tab PO 325 mg QAM-WM JOSE Administration Gabapentin 800 mg 04/15/20 09:00 04/16/20 08:37 Gabapentin 400 Mg Cap PO 800 mg TID JOSE Administration Insulin Human Lispro 0 units 04/14/20 23:17 04/15/20 11:33 Humalog 300 Units/3 Ml Vial SC 2 unit .MODERATE SLIDING SC PRN Administration Moderate Correctional Scale Losartan Potassium 50 mg 04/15/20 09:00 04/16/20 08:38 Losartan 25 Mg Tab PO 50 mg DAILY JOSE Administration Magnesium Oxide 400 mg 04/15/20 09:00 04/16/20 08:37 Magnesium Oxide 400 Mg Tab PO 400 mg DAILY JOSE Administration Oxybutynin Chloride 10 mg 04/15/20 09:00 04/16/20 08:38 Oxybutynin 5 Mg Tab PO 10 mg DAILY JOSE Administration Pantoprazole Sodium 40 mg 04/15/20 09:00 04/16/20 08:38 Pantoprazole 40 Mg Tab PO 40 mg DAILY JOSE Administration Saccharomyces Boulardii 250 mg 04/15/20 21:00 04/15/20 21:28 Saccharomyces Boulardii 250 Mg Cap PO 250 mg HS JOSE Administration Sodium Chloride 10 ml 04/14/20 23:14 04/16/20 12:13 Flush - Normal Saline 10 Ml Syringe IVF 10 ml PRN PRN Administration Saline Flush Zolpidem Tartrate 10 mg 04/15/20 21:00 04/15/20 21:29 Zolpidem Tartrate 5 Mg Tab PO 10 mg HS JOSE Administration - Exam General Appearance: ill appearing Heart: RRR, no gallops, no rubs, normal peripheral pulses Respiratory: no wheezes, no rales, no ronchi, normal chest expansion Gastrointestinal: soft, non-tender, normal bowel sounds, no guarding, no rigidity Extremities: no cyanosis, no clubbing, no edema Neurological: no new deficit Psychiatric: normal affect, A&O x 3 Hosp A/P - Plan DVT proph w/lovenox, DVT proph w/SCDs Intractable headache of unclear etiology. ESR CRP negative. CT brain negative for acute pathology. No response to Compazine, Benadryl and Toradol. Coronary artery disease Diabetes mellitus type 2 Hypertension Hyperlipidemia GERD History of ventricular arrhythmia status post recent AICD Plan: Patient continues to have intractable headache. CT brain negative. Neurology following. Continue neurochecks. Will consult ophthalmology due to persistent headache to rule out intraocular pathology. Continue low-dose aspirin with statin and beta-blockers. Continue sliding scale. Continue other medications as above. Will change to inpatient per [facility] recommendation
[2020-04-16] MEDS: Saccharomyces boulardii 250 MG CAP PO SCH (20:29)
[2020-04-16] MEDS: Zolpidem Tartrate 5 MG TAB PO SCH (20:29)
[2020-04-16] MEDS: Atorvastatin Calcium 10 MG TAB PO SCH (20:30)
[2020-04-16] MEDS: Escitalopram Oxalate 10 mg Tablet PO SCH (20:30)
[2020-04-16] MEDS: Donepezil HCl 5 MG TAB PO SCH (20:30)
--- NOTE | 2020-04-16 21:27 | CON ---
DATE OF CONSULTATION: 04/16/2020 TIME OF EVALUATION: 7.50 p.m. REASON FOR CONSULTATION: Headache. HISTORY OF PRESENT ILLNESS: The patient is a 69 year-old woman who about 1 to 2 months ago began developing a headache, which begins at the back side of her head and radiates around the right side, to her right face and eye. She had bilateral cataract surgery while living in [place] in 2012. In 2014, after coronary artery bypass graft surgery, she had experienced a CVA, which produced a right homonymous hemianopsia, which she generally considers that to be blurriness of her right eye. Her headache has worsened in the last 2 weeks. On examination, visual acuity at near with +2.00 diopter lenses is 20/400 equivalent with the right eye and 20/200 equivalent with the left eye. Her right pupil is about 4 mm and the left pupil is about 3 mm. Both pupils are briskly reactive without any detectable afferent pupillary defect. She is quite light sensitive, mostly with the left eye without any consensual photophobia. Her ocular motility is aligned with full range of motion. On confrontation, she does have a right homonymous hemianopia with the left field also being somewhat concentrically constricted. On Nasir-Pen intra-ocular pressure measurement, the right eye had measurements of 15 and 19 mmHg, and the left eye had a pressure of 8 mmHg. Her pupils were then dilated with Mydriacyl and Alexis-Synephrine. Dilated fundus exam was essentially normal. The vessels are all patent. Her optic nerves appear flat and perhaps slightly pale, although this may be more due to the fact that she is pseudophakic. The anterior segment shows clear corneas and posterior chamber intraocular lenses. There does not appear to be any ocular condition causing her headaches and there is nothing on her ocular exam that identifies the mechanism of her headache. I will check in on her periodically, but I do not have any thing significant to offer. Job ID: [id number] [facility]
[2020-04-17] MEDS: HYDROcodone/Acetaminophen 5/325 mg Tablet PO PRN ×4 (01:00→21:14)
[2020-04-17] MEDS: PROVENTIL INHALER 6.7 G (200 INHALATIONS) INH SCH ×3 (06:49→19:02)
[2020-04-17] MEDS: Aspirin Chewable 81 MG TAB PO SCH (08:51)
[2020-04-17] MEDS: Ferrous Sulfate 325 MG TAB PO SCH (08:52)
[2020-04-17] MEDS: Carvedilol 6.25 MG TAB PO SCH ×2 (08:52→18:19)
[2020-04-17] MEDS: Losartan 25 MG TAB PO SCH (08:52)
[2020-04-17] MEDS: Gabapentin 400 MG CAP PO SCH ×3 (08:52→21:13)
[2020-04-17] MEDS: Magnesium Oxide 400 MG TAB PO SCH (08:52)
[2020-04-17] MEDS: Acetaminophen 325 MG TAB PO SCH ×3 (08:53→21:15)
[2020-04-17] MEDS: Enoxaparin Sodium 40 MG/0.4 ML SYRINGE SC SCH (08:53)
[2020-04-17] MEDS: Oxybutynin 5 MG TAB PO SCH (08:53)
[2020-04-17] MEDS: HumaLOG 300 UNITS/3 ML VIAL SC PRN (11:41)
--- NOTE | 2020-04-17 12:30 | PDOC.NEUPN ---
- Subjective Encounter Date: 04/17/20 Subjective: Patient continues to have persistent headache but according to her this has been improved since yesterday after receiving IV medications. - Objective Vital Signs & Weight: Vital Signs (12 hours) Temp Pulse Pulse Pulse Resp BP BP 04/17/20 11:47 97.9 F 59 L 18 04/17/20 09:42 64 65 115/56 L 120/64 04/17/20 08:00 98.2 F 59 L 16 04/17/20 06:51 67 14 04/17/20 03:20 98.1 F 64 20 BP Pulse Ox 04/17/20 11:47 102/52 L 94 L 04/17/20 09:42 04/17/20 08:00 121/68 97 04/17/20 06:51 98 04/17/20 03:20 145/62 H 96 Weight Weight 215 lb I&O: 04/16/20 04/17/20 04/18/20 06:59 06:59 06:59 Intake Total 2321 2900 120 Balance 2321 2900 120 Result Diagrams: 04/16/20 04:47 04/16/20 04:47 Additional Labs: Accuchecks 04/17/20 04/17/20 04/16/20 10:53 05:13 21:34 POC Glucose 225 H 107 H 130 H 04/16/20 17:00 POC Glucose 106 H Radiology Reviewed by me: Yes EKG Reviewed by me: Yes ROS - Review of Systems Constitutional: denies: fever, chills, sweats, weakness, malaise, other Eyes: denies: pain, vision change, conjunctivae inflammation, eyelid inflammation, redness, other ENT: reports: other (headache). denies: ear pain, ear discharge, nose pain, nose discharge, nose congestion, mouth pain, mouth swelling, throat pain, throat swelling Respiratory: denies: cough, dry, shortness of breath, hemoptysis, SOB with excertion, pleuritic pain, sputum, wheezing, other Gastrointestinal: denies: nausea, vomiting, abdominal pain, diarrhea, constipation, melena, hematochezia, other Genitourinary: denies: dysuria, frequency, incontinence, hematuria, retention, other Musculoskeletal: denies: neck pain, shoulder pain, arm pain, back pain, hand pain, leg pain, foot pain, other Skin: denies: rash, lesions, lety, bruising, other Neurological: denies: weakness, numbness, incoordination, change in speech, confusion, seizures, other All Systems: All other systems reviewed; all pertinent +/- noted in HPI/Subj - Medication Medications: Active Medications Generic Name Dose Route Start Last Admin Trade Name Freq PRN Reason Stop Dose Admin Acetaminophen 650 mg 04/15/20 15:00 04/17/20 08:53 Acetaminophen 325 Mg Tab PO Not Given TID JOSE Hydrocodone Bitart/Acetaminophen 1 tab 04/15/20 00:09 04/17/20 06:46 Hydrocodone/Acetaminophen 5/325 Mg Tablet PO 1 tab Q6H PRN Administration Moderate Pain (4-6) Albuterol Sulfate 2 puff 04/15/20 06:30 04/17/20 06:50 Proventil Inhaler 6.7 G (200 Inhalations) INH Not Given BID-RT JOSE Albuterol/Ipratropium 3 ml 04/15/20 07:00 04/17/20 06:51 Ipratropium/Albuterol Sulfate 3 Ml Neb NEB 3 ml DAILY-RT JOSE Administration Aspirin 81 mg 04/15/20 08:00 04/17/20 08:51 Aspirin Chewable 81 Mg Tab PO 81 mg QAM-WM JOSE Administration Atorvastatin Calcium 10 mg 04/15/20 21:00 04/16/20 20:30 Atorvastatin Calcium 10 Mg Tab PO 10 mg HS JOSE Administration Carvedilol 6.25 mg 04/15/20 08:00 04/17/20 08:52 Carvedilol 6.25 Mg Tab PO 6.25 mg BID-WM JOSE Administration Donepezil HCl 5 mg 04/15/20 21:00 04/16/20 20:30 Donepezil Hcl 5 Mg Tab PO 5 mg HS JOSE Administration Enoxaparin Sodium 40 mg 04/15/20 09:00 04/17/20 08:53 Enoxaparin Sodium 40 Mg/0.4 Ml Syringe SC 40 mg 0900 JOSE Administration Escitalopram Oxalate 10 mg 04/15/20 21:00 04/16/20 20:30 Escitalopram Oxalate 10 Mg Tablet PO 10 mg HS JOSE Administration Ferrous Sulfate 325 mg 04/15/20 08:00 04/17/20 08:52 Ferrous Sulfate 325 Mg Tab PO 325 mg QAM-WM JOSE Administration Gabapentin 800 mg 04/15/20 09:00 04/17/20 08:52 Gabapentin 400 Mg Cap PO 800 mg TID JOSE Administration Insulin Human Lispro 0 units 04/14/20 23:17 04/17/20 11:41 Humalog 300 Units/3 Ml Vial SC 4 unit .MODERATE SLIDING SC PRN Administration Moderate Correctional Scale Losartan Potassium 50 mg 04/15/20 09:00 04/17/20 08:52 Losartan 25 Mg Tab PO 50 mg DAILY JOSE Administration Magnesium Oxide 400 mg 04/15/20 09:00 04/17/20 08:52 Magnesium Oxide 400 Mg Tab PO 400 mg DAILY JOSE Administration Oxybutynin Chloride 10 mg 04/15/20 09:00 04/17/20 08:53 Oxybutynin 5 Mg Tab PO 10 mg DAILY JOSE Administration Pantoprazole Sodium 40 mg 04/15/20 09:00 04/17/20 08:52 Pantoprazole 40 Mg Tab PO 40 mg DAILY JOSE Administration Saccharomyces Boulardii 250 mg 04/15/20 21:00 04/16/20 20:29 Saccharomyces Boulardii 250 Mg Cap PO 250 mg HS JOSE Administration Sodium Chloride 10 ml 04/14/20 23:14 04/16/20 12:13 Flush - Normal Saline 10 Ml Syringe IVF 10 ml PRN PRN Administration Saline Flush Zolpidem Tartrate 10 mg 04/15/20 21:00 04/16/20 20:29 Zolpidem Tartrate 5 Mg Tab PO 10 mg HS JOSE Administration Results - Labs Result Diagrams: 04/16/20 04:47 04/16/20 04:47 Lab results: WBC 10.1 thou/uL (4.8-10.8) 04/16/20 04:47 Hgb 9.4 g/dL (12.0-16.0) L 04/16/20 04:47 Hct 29.9 % (36.0-47.0) L 04/16/20 04:47 MCV 79.8 fL (78.0-98.0) 04/16/20 04:47 Plt Count 176 thou/uL (130-400) 04/16/20 04:47 Neutrophils % 77.6 % (42.0-75.0) H 04/16/20 04:47 ESR Westergren 22 mm/hr (Less than 30) 04/15/20 04:43 Sodium 134 mmol/L (136-145) L 04/16/20 04:47 Potassium 4.1 mmol/L (3.5-5.1) 04/16/20 04:47 Chloride 102 mmol/L (98-107) 04/16/20 04:47 Carbon Dioxide 24 mmol/L (23-31) 04/16/20 04:47 BUN 22 mg/dL (9.8-20.1) H 04/16/20 04:47 Creatinine 0.80 mg/dL (0.6-1.1) 04/16/20 04:47 Glucose 107 mg/dL (80-115) 04/16/20 04:47 Calcium 8.6 mg/dL (7.8-10.44) 04/16/20 04:47 C-Reactive Protein Less than 0.50 mg/dL (= or < 0.5) 04/15/20 04:43 Urine Ketones Negative mg/dL (Negative) 04/15/20 04:57 Urine Blood 1+ (Negative) A 04/15/20 04:57 Urine Nitrite Negative (Negative) 04/15/20 04:57 Ur Leukocyte Esterase Negative Vineet/uL (Negative) 04/15/20 04:57 Urine RBC 4-6 HPF (0-3) A 04/15/20 04:57 Urine WBC 0-3 HPF (0-3) 04/15/20 04:57 Ur Squamous Epith Cells 7-10 HPF (0-3) A 04/15/20 04:57 Urine Bacteria None Seen HPF (None Seen) 04/15/20 04:57 - Radiology Interpretation CT scan - head Status: image reviewed by me, report reviewed by me Additional Comment: Head CT reviewed which was negative for acute intracranial pathology. PN A/P - Plan Daily Plan: PT/OT, speech therapy, DVT proph w/SCDs Ms. Kelly Wyatt is a 69-year-old female who presented with severe headache and intermittent memory issues. Head CT reviewed which was negative for acute intracranial pathology. EEG reviewed which was negative for seizure activity. Neurochecks every 4 hours. Ophthalmology consult appreciated. Continue home medications. Continue scheduled doses of Compazine, Benadryl and Toradol for the next 24 hours to see if it improves the headache. Per patient, the headache is better but still not resolved. Avoid narcotics as this can cause rebound headache. Continue medical management per primary team. PT/OT/speech. DVT prophylaxis. Plan discussed in detail with the patient, nursing staff and during MDR rounds.
[2020-04-17] MEDS: Ketorolac Tromethamine 30 MG/ML VIAL IVP SCH ×3 (13:00→23:54)
[2020-04-17] MEDS: Prochlorperazine Edisylate 10 MG in Sodium Chloride 0.9% 50 ML IVPB SCH ×3 (13:00→23:53)
[2020-04-17] MEDS: diphenhydrAMINE 50 MG/ML VIAL IVP SCH ×3 (13:04→23:54)
--- NOTE | 2020-04-17 16:50 | PDOC.HOSPP ---
- Subjective Encounter Date: 04/17/20 Encounter Time: 09:45 Subjective: Patient seen and examined for intractable headache which is slightly better than yesterday. Improving photophobia. Ophthalmology input appreciated. Denies any nausea or vomiting. No new focal deficit. - Objective Vital Signs & Weight: Vital Signs (12 hours) Temp Pulse Pulse Pulse Resp BP BP 04/17/20 15:36 97.8 F 59 L 16 04/17/20 11:47 97.9 F 59 L 18 04/17/20 09:42 64 65 115/56 L 120/64 04/17/20 08:00 98.2 F 59 L 16 04/17/20 06:51 67 14 BP Pulse Ox 04/17/20 15:36 106/58 L 97 04/17/20 11:47 102/52 L 94 L 04/17/20 09:42 04/17/20 08:00 121/68 97 04/17/20 06:51 98 Weight Weight 215 lb I&O: 04/16/20 04/17/20 04/18/20 06:59 06:59 06:59 Intake Total 2321 2900 120 Balance 2321 2900 120 Result Diagrams: 04/16/20 04:47 04/16/20 04:47 Additional Labs: Accuchecks 04/17/20 04/17/20 04/16/20 10:53 05:13 21:34 POC Glucose 225 H 107 H 130 H 04/16/20 17:00 POC Glucose 106 H Abnormal Lab Results - Last 48 hrs 04/16/20 04:47: Sodium 134 L, BUN 22 H 04/16/20 04:47: RBC 3.74 L, Hgb 9.4 L, Hct 29.9 L, MCH 25.2 L, MCHC 31.6 L, RDW 23.6 H, MPV 12.5 H, Neutrophils % 77.6 H, Lymphocytes % 14.1 L, Neutrophils # 7.8 H, Monocytes # 0.7 H Microbiology - Entire Visit 04/15/20 12:22 Stool C. difficile GDH Antigen & Toxins - Final EKG Reviewed by me: Yes (Sinus rhythm on telemetry) Hospitalist ROS - Review of Systems Respiratory: denies: cough, dry, shortness of breath, hemoptysis, SOB with excertion, pleuritic pain, sputum, wheezing, other Cardiovascular: denies: chest pain, palpitations, orthopnea, paroxysmal noc. dyspnea, edema, light headedness, other - Medication Medications: Active Medications Generic Name Dose Route Start Last Admin Trade Name Freq PRN Reason Stop Dose Admin Acetaminophen 650 mg 04/15/20 15:00 04/17/20 15:00 Acetaminophen 325 Mg Tab PO Not Given TID JOSE Hydrocodone Bitart/Acetaminophen 1 tab 04/15/20 00:09 04/17/20 15:00 Hydrocodone/Acetaminophen 5/325 Mg Tablet PO 1 tab Q6H PRN Administration Moderate Pain (4-6) Albuterol Sulfate 2 puff 04/15/20 06:30 04/17/20 06:50 Proventil Inhaler 6.7 G (200 Inhalations) INH Not Given BID-RT JOSE Albuterol/Ipratropium 3 ml 04/15/20 07:00 04/17/20 06:51 Ipratropium/Albuterol Sulfate 3 Ml Neb NEB 3 ml DAILY-RT JOSE Administration Aspirin 81 mg 04/15/20 08:00 04/17/20 08:51 Aspirin Chewable 81 Mg Tab PO 81 mg QAM-WM JOSE Administration Atorvastatin Calcium 10 mg 04/15/20 21:00 04/16/20 20:30 Atorvastatin Calcium 10 Mg Tab PO 10 mg HS JOSE Administration Carvedilol 6.25 mg 04/15/20 08:00 04/17/20 08:52 Carvedilol 6.25 Mg Tab PO 6.25 mg BID-WM JOSE Administration Diphenhydramine HCl 25 mg 04/17/20 12:00 04/17/20 13:04 Diphenhydramine 50 Mg/Ml Vial IVP 25 mg Q6HR JOSE Administration Donepezil HCl 5 mg 04/15/20 21:00 04/16/20 20:30 Donepezil Hcl 5 Mg Tab PO 5 mg HS JOSE Administration Enoxaparin Sodium 40 mg 04/15/20 09:00 04/17/20 08:53 Enoxaparin Sodium 40 Mg/0.4 Ml Syringe SC 40 mg 0900 JOSE Administration Escitalopram Oxalate 10 mg 04/15/20 21:00 04/16/20 20:30 Escitalopram Oxalate 10 Mg Tablet PO 10 mg HS JOSE Administration Ferrous Sulfate 325 mg 04/15/20 08:00 04/17/20 08:52 Ferrous Sulfate 325 Mg Tab PO 325 mg QAM-WM JOSE Administration Gabapentin 800 mg 04/15/20 09:00 04/17/20 15:00 Gabapentin 400 Mg Cap PO 800 mg TID JOSE Administration Prochlorperazine Edisylate 10 52 mls @ 150 mls/hr 04/17/20 12:00 04/17/20 13:00 mg/ Sodium Chloride IVPB 04/18/20 06:21 52 mls Q6HR JOSE Administration Insulin Human Lispro 0 units 04/14/20 23:17 04/17/20 11:41 Humalog 300 Units/3 Ml Vial SC 4 unit .MODERATE SLIDING SC PRN Administration Moderate Correctional Scale Ketorolac Tromethamine 15 mg 04/17/20 12:00 04/17/20 13:00 Ketorolac Tromethamine 30 Mg/Ml Vial IVP 04/22/20 12:01 15 mg Q6HR JOSE Administration Losartan Potassium 50 mg 04/15/20 09:00 04/17/20 08:52 Losartan 25 Mg Tab PO 50 mg DAILY JOSE Administration Magnesium Oxide 400 mg 04/15/20 09:00 04/17/20 08:52 Magnesium Oxide 400 Mg Tab PO 400 mg DAILY JOSE Administration Oxybutynin Chloride 10 mg 04/15/20 09:00 04/17/20 08:53 Oxybutynin 5 Mg Tab PO 10 mg DAILY JOSE Administration Pantoprazole Sodium 40 mg 04/15/20 09:00 04/17/20 08:52 Pantoprazole 40 Mg Tab PO 40 mg DAILY JOSE Administration Saccharomyces Boulardii 250 mg 04/15/20 21:00 04/16/20 20:29 Saccharomyces Boulardii 250 Mg Cap PO 250 mg HS JOSE Administration Sodium Chloride 10 ml 04/14/20 23:14 04/16/20 12:13 Flush - Normal Saline 10 Ml Syringe IVF 10 ml PRN PRN Administration Saline Flush Zolpidem Tartrate 10 mg 04/15/20 21:00 04/16/20 20:29 Zolpidem Tartrate 5 Mg Tab PO 10 mg HS JOSE Administration - Exam General - other findings: In mild distress due to headache Heart: RRR, no gallops Respiratory: no wheezes, no rales, no ronchi Gastrointestinal: soft, non-tender, non-distended, normal bowel sounds Extremities: no cyanosis, no edema Neurological: no new deficit Hosp A/P - Plan DVT proph w/SCDs Intractable headache of unclear etiology. ESR CRP negative. CT brain negative for acute pathology. Coronary artery disease Diabetes mellitus type 2 Hypertension Hyperlipidemia GERD History of ventricular arrhythmia status post recent AICD Plan: Case discussed with neurology today. Neurology recommended headache cocktail (Benadryl, Toradol and Compazine) for next 24 hours. Continue physical therapy. Continue aspirin, beta-blockers, statins. Glaucoma ruled out. Ophthalmology input appreciated. Continue home dose of gabapentin. Home health care set up continue sliding scale and other medications as above
[2020-04-17] MEDS: Saccharomyces boulardii 250 MG CAP PO SCH (21:14)
[2020-04-17] MEDS: Atorvastatin Calcium 10 MG TAB PO SCH (21:14)
[2020-04-17] MEDS: Escitalopram Oxalate 10 mg Tablet PO SCH (21:14)
[2020-04-17] MEDS: Zolpidem Tartrate 5 MG TAB PO SCH (21:14)
[2020-04-17] MEDS: Donepezil HCl 5 MG TAB PO SCH (21:15)
[2020-04-17 23:49] VITALS: TEMP 97.6
[2020-04-18] MEDS: Ketorolac Tromethamine 30 MG/ML VIAL IVP SCH ×2 (05:43→12:29)
[2020-04-18] MEDS: diphenhydrAMINE 50 MG/ML VIAL IVP SCH ×2 (05:47→12:29)
[2020-04-18] MEDS: Prochlorperazine Edisylate 10 MG in Sodium Chloride 0.9% 50 ML IVPB SCH (05:49)
[2020-04-18 05:51] VITALS: BMI 37.5
[2020-04-18] MEDS: PROVENTIL INHALER 6.7 G (200 INHALATIONS) INH SCH (07:02)
[2020-04-18] MEDS: Enoxaparin Sodium 40 MG/0.4 ML SYRINGE SC SCH (08:48)
[2020-04-18] MEDS: Carvedilol 6.25 MG TAB PO SCH (08:48)
[2020-04-18] MEDS: Gabapentin 400 MG CAP PO SCH (08:50)
[2020-04-18] MEDS: Ferrous Sulfate 325 MG TAB PO SCH (08:50)
[2020-04-18] MEDS: Losartan 25 MG TAB PO SCH (08:50)
[2020-04-18] MEDS: Oxybutynin 5 MG TAB PO SCH (08:50)
[2020-04-18] MEDS: Aspirin Chewable 81 MG TAB PO SCH (08:50)
[2020-04-18] MEDS: HYDROcodone/Acetaminophen 5/325 mg Tablet PO PRN (08:51)
[2020-04-18] MEDS: Magnesium Oxide 400 MG TAB PO SCH (08:51)
[2020-04-18] MEDS: Acetaminophen 325 MG TAB PO SCH (08:52)
[2020-04-18 08:55] VITALS: BP 129/60
--- NOTE | 2020-04-18 18:56 | PDOC.DS.DS ---
Provider - Provider Date of Admission: 04/16/20 13:13 Date of Discharge: 04/18/20 Admitting Provider: Scott Miranda MD Consultations:: Other (Ophthalmology) Primary Care Physician: Chanda Schroeder MD Course - Hospital Course Hospital Course: Patient is a 69-year-old female with coronary artery disease, diabetes mellitus type 2 and CVA in the past presented to the emergency room with progressively worsening intractable headache. She denied any history of trauma or other focal neurologic deficit. Patient was admitted to the stroke unit with above diagnosis and was evaluated by neurology service. She did not improve after migraine cocktail. CT scan of the brain was negative for acute pathology. Patient was also evaluated by ophthalmology. There was no ocular etiology identified for persistent headache. She received another round of migraine cocktail after which her symptoms gradually started improving. She was advised to follow-up with neurology as outpatient. ESR and CRP were in normal range Final diagnosis: Intractable headache of unclear etiology. ESR CRP negative. CT brain negative for acute pathology. Coronary artery disease Diabetes mellitus type 2 Hypertension Hyperlipidemia GERD History of ventricular arrhythmia status post recent AICD Resuscitation Status: 04/14/20 23:14 Resuscitation Status Routine Co-Sign Provider: Resuscitation Status: FULL: Full Resuscitation Discussed with: Patient - Labs Lab Results: 04/16/20 04:47 04/16/20 04:47 Microbiology - Entire Visit 04/15/20 12:22 Stool C. difficile GDH Antigen & Toxins - Final Laboratory Tests 04/15/20 04/15/20 04:43 04:43 ESR Westergren 22 C-Reactive Protein Less than 0.50 - Physical Exam Vitals: Vital Signs (12 hours) Temp Pulse Resp BP BP Pulse Ox 04/18/20 08:48 129/60 04/18/20 07:53 97.6 F 63 16 128/57 L 92 L 04/18/20 07:02 62 18 100 Weight Weight 219 lb Physical Exam: The patient was seen and examined on the day of discharge. Plan - Discharge Medications Home Medications: Medication Instructions Recorded Confirmed Type Aspirin Chewable [Aspirin Chewable 81 mg PO DAILY 01/13/18 04/14/20 History Tablet] Atorvastatin Calcium 10 mg PO HS 01/13/18 04/15/20 History Donepezil HCl [Aricept] 5 mg PO HS 01/13/18 04/16/20 History metFORMIN HCl 1,000 mg PO BID-WM 01/13/18 04/14/20 History Oxybutynin [Ditropan] 10 mg PO DAILY 06/19/18 04/14/20 History Alendronate Sodium [Fosamax] 70 mg PO Q7D 02/27/20 04/18/20 History Escitalopram Oxalate [Lexapro] 10 mg PO HS 02/27/20 04/14/20 History Gabapentin [Neurontin] 800 mg PO TID 02/27/20 04/14/20 History HYDROcodone Bit/APAP 5/325 [[place]] 1 tab PO Q6H PRN 02/27/20 04/14/20 History Ipratropium/Albuterol Sulfate 1 puff INH DAILY 02/27/20 04/14/20 History [Combivent Respimat] Pantoprazole [Protonix] 40 mg PO DAILY 02/27/20 04/14/20 History Zolpidem Tartrate [Ambien] 1 tab PO HS 02/27/20 04/14/20 History Albuterol Sulfate [Proventil Hfa] 2 puff INH BID 04/14/20 04/15/20 History Carvedilol [Coreg] 6.25 mg PO BID 04/14/20 04/15/20 History Ferrous Sulfate [Iron] 325 mg PO DAILY 04/14/20 04/15/20 History Losartan Potassium [Cozaar] 50 mg PO DAILY 04/14/20 04/15/20 History Magnesium Oxide 400 mg PO DAILY 04/14/20 04/14/20 History Furosemide [Lasix] 2 tab PO BID PRN 04/15/20 04/15/20 History Allergies: iodine Allergy (Severe, Verified 02/27/20 10:14) ANAPHYLACTIC REACTION codeine Allergy (Intermediate, Verified 02/27/20 10:14) penicillin G Allergy (Verified 02/27/20 10:14) - Follow up Plan Referrals: [facility] [Outside] Chanda Schroeder MD [Primary Care Provider] - 04/24/20 10:00 am (HOSPITAL F/U W/ DR. SCHROEDER ON 04/24 @ 10AM. SAMYM BIANCHI) Kojo Gaona MD [Active] - Karthikeyan Mg MD [Active] - 7 Days Disposition: HOME
== END 2020-04-18 13:41 | disposition home or self-care (01) | DRG 103 ==
LOC: 2SE 22:06 → OBSVTOIN 04-16 13:13
PROVIDERS: ADMIT Internal Medicine; ATTEND Internal Medicine
DX: R51.9 Headache, unspecified (principal); I25.10 Atherosclerotic heart disease of native coronary artery without angina pectoris; J44.9 Chronic obstructive pulmonary disease, unspecified; F32.9 Major depressive disorder, single episode, unspecified; E78.5 Hyperlipidemia, unspecified; D50.9 Iron deficiency anemia, unspecified; I49.9 Cardiac arrhythmia, unspecified; K21.9 Gastro-esophageal reflux disease without esophagitis; I10 Essential (primary) hypertension; F41.9 Anxiety disorder, unspecified; Z88.0 Allergy status to penicillin; Z86.73 Personal history of transient ischemic attack (TIA), and cerebral infarction without residual deficits; Z95.1 Presence of aortocoronary bypass graft; Z90.49 Acquired absence of other specified parts of digestive tract; Z90.710 Acquired absence of both cervix and uterus; Z95.0 Presence of cardiac pacemaker
CPT/HCPCS: 36415; 36416; 70450; 72220; 80048; 80053; 80061; 81001; 83735; 84443; 85025; 85652; 86140; 87324; 87449; 90471; 90662; 90732; 94640; 95712; 95816; 95819; 95957; 96365; 96372; 96375; 96376; G0008; G0009; G0378; J0780; J1200; J1650; J1885; J3475; J3490; J7620

== ENCOUNTER 2020-08-07 17:10 | Emergency (ER) | payer MEDICARE ==
[2020-08-07] MEDS ORDERED: Dexamethasone 10 MG/ML VIAL ONE (18:07)
[2020-08-07] MEDS ORDERED: Nitroglycerin 0.4 MG TAB 1 EACH ONE (18:40)
[2020-08-07 18:46] LABS: #Eosinphils 0.1 thou/uL (0.0-0.7); #Monocytes 0.8 thou/uL (0.11-0.59); #Neutrophils 12.5 thou/uL (1.40-6.50); %Basophils 0.1 % (0.0-1.0); %Eosinophils 0.4 % (0.0-10.0); %Lymphocytes 6.8 % (21.0-51.0); %Monocytes 5.3 % (0.0-10.0); %Neutrophils 87.6 % (42.0-75.0); Hemoglobin 8.9 g/dL (12.0-16.0); Mean Corpuscular HGB CONC 31.2 g/dL (32.0-36.0); Mean Corpuscular Hemoglobin 25.6 pg (27.0-31.0); Mean Corpuscular Volume 82.1 fL (78.0-98.0); Mean Platelet Volume 7.7 fL (7.4-10.4); Platelet Count 325 thou/uL (130-400); Red Blood Cell (RBC) Count 3.47 mill/uL (4.20-5.40); White Blood Cell (WBC) Count 14.2 thou/uL (4.8-10.8)
[2020-08-07 19:03] LABS: ALT (SGPT) 27 U/L (8-55); AST (SGOT) 19 U/L (5-34); Alkaline Phosphatase 101 U/L (40-110); Anion Gap 17 mmol/L (10-20); BUN (Urea Nitrogen) 24 mg/dL (9.8-20.1); Bilirubin, Total 0.5 mg/dL (0.2-1.2); CK (CPK) 50 U/L (29-168); Calc. Creatinine Clearance 0 mL/min (70-130); Calcium 8.2 mg/dL (7.8-10.44); Carbon Dioxide 26 mmol/L (23-31); Chloride 97 mmol/L (98-107); Glucose 131 mg/dL (80-115); Potassium 4.6 mmol/L (3.5-5.1); Sodium 135 mmol/L (136-145)
[2020-08-07 19:25] LABS: CKMB 1.5 ng/mL (0-6.6)
[2020-08-07] MEDS ORDERED: Ondansetron PF 4 MG/2 ML Vial ONE (19:44)
--- NOTE | 2020-08-07 19:47 | RAD ---
AP CHEST: Date: 08/07/2020 INDICATION: Chest pain. COMPARISON: 03/01/2020. FINDINGS: Cardiomegaly with postop sternotomy change. The lung aldridge appear clear. No evidence of infiltrate o r effusion. Mild vascular engorgement appears stable. Single AICD lead has been placed since the prior study. IMPRESSION: No acute lung process. POS: AGW
== END 2020-08-07 21:10 | disposition home or self-care (01) ==
LOC: ERS 17:10
DX: I20.9 Angina pectoris, unspecified (principal); I11.0 Hypertensive heart disease with heart failure; I50.9 Heart failure, unspecified; Z79.899 Other long term (current) drug therapy; Z79.84 Long term (current) use of oral hypoglycemic drugs; Z79.52 Long term (current) use of systemic steroids
CPT/HCPCS: 71045; 80053; 82550; 82553; 83880; 84484; 85025; 85379; 93005; 96374; 96375; J1100; J2405

== ENCOUNTER 2020-08-09 11:43 | Inpatient (IN) | payer MEDICARE ==
[2020-08-09 12:21] LABS: Actual Bicarbonate (HCO3a) 25.5 mEq/L (22-28); Analyzer IN Cardio ER; Base Excess (BEa) 1.6 mEq/L (-2.0 to +3.0); CO2 Tension 37.3 mmHg (35.0-45.0); Calcium, Ionized (arterial) 1.01 mmol/L (1.12-1.30); Carboxyhemoglobin (COHb) 0.8 gm% (0.0-3.0); Hemoglobin (Hb) 9.6 g/dL (12.0-16.0); O2 Tension (PaO2), arterial 187.9 mmHg (> 70.0); Potassium - ABG Lab 4.23 mmol/L (3.70-5.30); pH, Arterial 7.45 (7.35-7.45)
[2020-08-09 12:22] LABS: Puncture Site RRA
[2020-08-09 12:23] LABS: ALV-art Gradient 50.675 mmHg (0-20)
--- NOTE | 2020-08-09 12:38 | RAD ---
Portable frontal chest radiograph: 08/09/2020 COMPARISON: 08/07/2020 HISTORY: COPD, dyspnea FINDINGS: Stable transvenous pacing device, midline sternotomy wires, and atherosclerotic calcificati on of the aortic arch. No pneumothorax. Stable enlargement of the cardiac silhouette. No focal consolidation or alveolar edema. IMPRESSION: No acute findings-stable appearance of the chest.
[2020-08-09 12:42] LABS: #Basophils 0.1 thou/uL (0.0-0.2); #Eosinphils 0.1 thou/uL (0.0-0.7); #Lymphocytes 0.7 thou/uL (1.20-3.40); #Monocytes 0.8 thou/uL (0.11-0.59); #Neutrophils 12.6 thou/uL (1.40-6.50); %Basophils 0.4 % (0.0-1.0); %Eosinophils 0.5 % (0.0-10.0); %Lymphocytes 5.2 % (21.0-51.0); %Monocytes 5.8 % (0.0-10.0); %Neutrophils 88.1 % (42.0-75.0); Hemoglobin 8.8 g/dL (12.0-16.0); Mean Corpuscular HGB CONC 31.3 g/dL (32.0-36.0); Mean Corpuscular Hemoglobin 25.6 pg (27.0-31.0); Mean Corpuscular Volume 81.9 fL (78.0-98.0); Mean Platelet Volume 7.7 fL (7.4-10.4); Platelet Count 279 thou/uL (130-400); RBC Distribution Width 15.9 % (11.5-14.5); Red Blood Cell (RBC) Count 3.44 mill/uL (4.20-5.40); White Blood Cell (WBC) Count 14.3 thou/uL (4.8-10.8)
[2020-08-09 13:03] LABS: ALT (SGPT) 25 U/L (8-55); AST (SGOT) 16 U/L (5-34); Albumin 3.7 g/dL (3.4-4.8); Alkaline Phosphatase 84 U/L (40-110); Anion Gap 18 mmol/L (10-20); BUN (Urea Nitrogen) 27 mg/dL (9.8-20.1); Bilirubin, Total 0.4 mg/dL (0.2-1.2); CK (CPK) 35 U/L (29-168); Calc. Creatinine Clearance 0 mL/min (70-130); Calcium 7.7 mg/dL (7.8-10.44); Carbon Dioxide 25 mmol/L (23-31); Chloride 101 mmol/L (98-107); Globulin 2.9 g/dL (2.4-3.5); Glucose 172 mg/dL (80-115); Lipase 11 U/L (8-78); Potassium 4.5 mmol/L (3.5-5.1); Protein, Total 6.6 g/dL (5.8-8.1); Sodium 139 mmol/L (136-145)
[2020-08-09] MEDS ORDERED: HYDROcodone/Acetaminophen 10/325 mg Tablet ONE (14:41)
--- NOTE | 2020-08-09 16:47 | CT ---
CT ABDOMEN AND PELVIS WITHOUT IV CONTRAST: Indications: Abdominal pain Comparison: 02-27-2020 FINDINGS: Lung bases are clear. Liver, spleen and pancreas unremarkable. Stomach and duodenum unremarkable. Adrenal glands normal. Kidneys unremarkable. There are fluid and gas filled dilated loops of proximal small bowel exhuming differential air fluid levels. The more distal ileal loops are decompressed and normal caliber. Findings are consistent with moderate grade mid to small bowel obstruction. There appears to be a transition point in the mid sma ll bowel on the right. Moderate stool volume is seen throughout the colon. Aorta normal caliber. No free fluid. Osseous stru ctures show degenerative and post-operative changes in the lumbar spine. IMPRESSION: Dilated proximal small bowel loops with differential air fluid levels consistent with a mid-small bow el obstruction. POS: AGW
[2020-08-09 18:06] LABS: SARS-CoV-2 NAA Rapid Test Not Detected (NotDetected)
[2020-08-09] MEDS ORDERED: HumaLOG 300 UNITS/3 ML VIAL SC PRN (18:55)
[2020-08-09] MEDS ORDERED: hydrALAZINE 20 MG/ML VIAL SLOW IVP PRN (18:55)
[2020-08-09] MEDS ORDERED: Dextrose 50% Abboject 50 ML SYRINGE SLOW IVP PRN (18:55)
[2020-08-09] MEDS ORDERED: Dextrose 5% in Water 1,000 ML IV PRN (18:55)
[2020-08-09] MEDS ORDERED: Nicotine 14 MG PATCH TD PRN (18:55)
[2020-08-09] MEDS ORDERED: Acetaminophen 650 MG Suppository PR PRN (18:55)
[2020-08-09] MEDS: Morphine 2 MG/ML VIAL SLOW IVP PRN (19:27)
[2020-08-09] MEDS ORDERED: Morphine 4 MG/ML VIAL ONE (19:39)
--- NOTE | 2020-08-09 19:40 | HP ---
PRIMARY CARE PHYSICIAN: Chanda Love MD CHIEF COMPLAINT: "I have chest pain and my abdomen is distended." HISTORY OF PRESENT ILLNESS: Ms. Wyatt is a very pleasant 70-year-old female, who has a history of coronary artery disease as well as chronic systolic heart failure and aortic stenosis. She says that she came to the emergency room with chest pain. She was treated and released. Then again today, she started having chest pain. In the ER records, it says that her power was out of her home and she was not able to run her CPAP machine. She tells me this is not true that she came to the hospital because she was having some chest pain, but she was afraid with the weather if something bad happened, no one would be able to get to her and for this reason, she came to the ER. Now, she says the chest pain has completely resolved. However, she has noted over the past couple of days that her abdomen has been more distended and tight. She also notes some abdominal discomfort as well. She says that last night she vomited at least 4 or 5 times. She says it was a dark brown thick material that she says was "gross looking." She says she filled up two large salad balls with this material. She denies having any blood in the vomitus and she denies any blood in her stools. She also denies any fevers or chills. She noticed some belching off and on. In the emergency room, she was evaluated and had a CT scan of the abdomen, which showed evidence of a mid small bowel obstruction. She is being admitted for this. She had been on hospice for her congestive heart failure and heart disease, but she revoked hospice "in order to get something done." I asked her if her bowel obstruction was to not resolve spontaneously, which she wants surgery, but she says "she cannot have surgery because her heart is too weak." Otherwise, the patient has no other complaints. REVIEW OF SYSTEMS: All systems were reviewed and are negative except for that mentioned in the History of Present Illness. 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 PAST SURGICAL HISTORY: She has had a coronary artery bypass grafting x4, AICD, appendectomy, cholecystectomy, and hysterectomy as well as lumbar surgery x4. ALLERGIES: TO CODEINE, IODINE, AND PENICILLIN. SOCIAL HISTORY: She is . She has two sons and her son, Rolando, is her surrogate decision maker. She does smoke half a pack a day for the last 50 years. Denies any alcohol use and she wants to be a do not resuscitate; however, she did revoke her hospice. FAMILY HISTORY: Significant for heart attack in both parents. MEDICATIONS: Her current medications are taken from the ER records and these include; 1. Alendronate 70 mg daily. 2. Ambien 10 mg once a day. 3. Amitriptyline 50 mg once daily. 4. Aspirin 81 mg daily. 5. Carvedilol 6.25 mg once a day. 6. Colace 100 mg daily. 7. Iron 325 mg daily. 8. Lasix 40 mg daily. 9. Gabapentin 800 mg twice a day. 10. Lexapro 10 mg daily. 11. Metformin 1000 mg twice daily. 12. Oxybutynin 10 mg twice a day. 13. Prednisone 20 mg daily. 14. Protonix 40 mg twice daily. PHYSICAL EXAMINATION: GENERAL: She is a bit chronically ill in appearance, morbidly obese. VITAL SIGNS: Blood pressure was 126/75, heart rate 63, respiratory rate of 19, temperature is 98.8, and O2 saturation is 98% on BiPAP. HEENT: Pupils are equal, round, and reactive. Extraocular muscles are intact. Her sclerae are anicteric. NECK: No adenopathy. No bruits. LUNGS: Clear to auscultation with some rales at the base. CARDIOVASCULAR: She had a normal S1 and S2. I did hear a grade 2/6 systolic murmur. ABDOMEN: Distended, tympanic to percussion. She did have some mild upper abdominal tenderness, but there is no rebound, no guarding, no organomegaly. EXTREMITIES: She has 1 to 2+ pitting edema. No calf tenderness. No joint effusions. Palpable dorsalis pedis pulses. NEUROLOGIC: The exam is nonfocal. SKIN AND INTEGUMENT: No skin changes. No rash. LABORATORY DATA: White blood cell count 14.3, hemoglobin 8.8, hematocrit is 28.1, and platelet count is 279. Sodium 139, potassium 4.5, chloride is 101, CO2 is 25, BUN of 27, creatinine 1.02, and glucose is 172. She had a CT scan that showed evidence for a distal small bowel obstruction or dilated loops consistent with that. EKG showed sinus rhythm, the rate was 76. There was low voltage. She had a Q-wave in III and aVF and poor R-wave progression laterally, this is by my reading. Chest x-ray showed cardiomegaly with some mild venous congestion, also by my reading. ASSESSMENT AND PLAN: 1. This is a pleasant 70-year-old female, who presents to the emergency room initially with chest pain, which has resolved. Her troponin is slightly elevated, but it is actually lower than it has been in the past. I suspect the chest pain could be related to the vomiting that she has had in the last 24 hours. However, we will continue to trend her cardiac enzymes. 2. Probable small bowel obstruction. Currently, she has an NG tube in place. We will treat her conservatively for now with NG tube to low intermittent suction. We will place her on cautious IV hydration given her history of congestive heart failure and aortic stenosis, and if her obstruction does not spontaneously resolve with conservative measures, then we will need to readdress the situation, potentially consult her supervisory lifeguard, Dr. Sofia, to see if she would be a potential surgical candidate for an emergency procedure. 3. Congestive heart failure, chronic systolic heart failure. This appears to be clinically compensated and we will continue her medications once she is able to take p.o. 4. Diabetes mellitus. Since she will be n.p.o., we will cover her with a sliding scale. 5. Chronic obstructive pulmonary disease. We will place her on an inhaled steroid as well as have the DuoNeb as needed. 6. The patient will be placed on deep venous thrombosis and gastrointestinal prophylaxis. Job ID: [id number]
[2020-08-09] MEDS: Famotidine/PF 20 mg/2ml Vial SLOW IVP SCH (22:01)
[2020-08-09] MEDS: Potassium Chloride 10 MEQ in Dextrose 5%-Lactated Ringers 1,000 ML IV SCH (22:01)
[2020-08-09 22:53] VITALS: BMI 42.9
[2020-08-09] MEDS ORDERED: Fentanyl 100 MCG/2 ML VIAL SLOW IVP SCH (23:13)
[2020-08-10 00:33] LABS: CKMB 0.9 ng/mL (0-6.6)
[2020-08-10] MEDS: Morphine 2 MG/ML VIAL SLOW IVP PRN ×4 (01:55→15:42)
[2020-08-10 02:23] LABS: #Eosinphils 0.2 thou/uL (0.0-0.7); #Lymphocytes 1.8 thou/uL (1.20-3.40); #Monocytes 0.7 thou/uL (0.11-0.59); #Neutrophils 8.4 thou/uL (1.40-6.50); %Basophils 0.1 % (0.0-1.0); %Eosinophils 1.4 % (0.0-10.0); %Lymphocytes 16.6 % (21.0-51.0); %Monocytes 6.5 % (0.0-10.0); %Neutrophils 75.3 % (42.0-75.0); Hemoglobin 8.1 g/dL (12.0-16.0); Mean Corpuscular Hemoglobin 26.4 pg (27.0-31.0); Mean Corpuscular Volume 82.4 fL (78.0-98.0); Mean Platelet Volume 7.7 fL (7.4-10.4); Platelet Count 262 thou/uL (130-400); RBC Distribution Width 15.6 % (11.5-14.5); Red Blood Cell (RBC) Count 3.08 mill/uL (4.20-5.40); White Blood Cell (WBC) Count 11.1 thou/uL (4.8-10.8)
[2020-08-10 02:46] LABS: Anion Gap 13 mmol/L (10-20); BUN (Urea Nitrogen) 22 mg/dL (9.8-20.1); Calc. Creatinine Clearance 119 mL/min (70-130); Calcium 7.5 mg/dL (7.8-10.44); Carbon Dioxide 27 mmol/L (23-31); Chloride 103 mmol/L (98-107); Glucose 112 mg/dL (80-115); Potassium 3.5 mmol/L (3.5-5.1); Sodium 139 mmol/L (136-145)
[2020-08-10] MEDS: Famotidine/PF 20 mg/2ml Vial SLOW IVP SCH ×2 (10:26→20:02)
[2020-08-10] MEDS: Enoxaparin Sodium 40 MG/0.4 ML SYRINGE SC SCH (10:26)
--- NOTE | 2020-08-10 14:38 | PDOC.HOSPP ---
- Subjective Encounter Date: 08/10/20 Encounter Time: 08:00 Subjective: The patient is doing better. She had passed some gas this morning. NG tube was removed. Patient has been advanced to clear liquids which she is tolerating . No BM yet today - Objective Vital Signs & Weight: Vital Signs (12 hours) Temp Pulse Resp BP Pulse Ox 08/10/20 11:00 98.0 F 75 16 120/70 100 08/10/20 08:00 100 08/10/20 07:17 98.2 F 75 16 128/84 100 08/10/20 04:16 98 F 80 16 130/68 98 Weight Weight 250 lb I&O: 08/09/20 08/10/20 08/11/20 06:59 06:59 06:59 Output Total 460 Balance -460 Result Diagrams: 08/10/20 02:13 08/10/20 02:13 Additional Labs: Accuchecks 08/10/20 08/09/20 06:22 23:44 POC Glucose 113 H 115 H Hospitalist ROS - Review of Systems Constitutional: denies: fever, chills - Medication Medications: Active Medications Generic Name Dose Route Start Last Admin Trade Name Freq PRN Reason Stop Dose Admin Enoxaparin Sodium 40 mg 08/10/20 09:00 08/10/20 10:26 Enoxaparin Sodium 40 Mg/0.4 Ml Syringe SC 40 mg 0900 JOSE Administration Famotidine 20 mg 08/09/20 21:00 08/10/20 10:26 Famotidine/Pf 20 Mg/2ml Vial SLOW IVP 20 mg Q12HR JOSE Administration Potassium Chloride 10 meq/ 1,005 mls @ 75 mls/hr 08/09/20 19:00 08/09/20 22:01 Dextrose/Lactated Ringer's IV 1,005 mls .[id number] JOSE Administration Morphine Sulfate 2 mg 08/09/20 18:55 08/10/20 10:49 Morphine 2 Mg/Ml Vial SLOW IVP 2 mg Q4H PRN Administration Moderate to Severe Pain (6-10) Sodium Chloride 10 ml 08/09/20 21:00 08/10/20 10:26 Flush - Normal Saline 10 Ml Syringe IVF 10 ml Q12HR JOSE Administration Hospitalist Exam Vitals: Vital Signs (12 hours) Temp Pulse Resp BP Pulse Ox 08/10/20 11:00 98.0 F 75 16 120/70 100 08/10/20 08:00 100 08/10/20 07:17 98.2 F 75 16 128/84 100 08/10/20 04:16 98 F 80 16 130/68 98 Weight Weight 250 lb General Appearance: NAD, awake alert General - other findings: morbidly obese Eye: PERRL, anicteric sclera ENT: normocephalic atraumatic, no oropharyngeal lesions Neck: no JVD Heart: RRR, no murmur, no gallops, no rubs Respiratory: CTAB, no wheezes, no rales, no ronchi Gastrointestinal: soft, non-tender, non-distended, normal bowel sounds Extremities: no cyanosis, no clubbing, no edema Skin: normal turgor, no lesions, no rashes Neurological: cranial nerve grossly intact, normal sensation to touch, no weakness Musculoskeletal: normal tone, normal strength, no muscle wasting Hosp A/P - Plan Chest X ray: negative CT abdomen: dilated proximal small bowel loops with air fluid levels consistent with mid-SBO This is a 70 year old female with past medical history of CAD, CHF, stroke who presented with chest pain, abdominal pain and vomiting, found to have SBO Small bowel obstruction - CT abdomen showed small bowel obstruction. NG tube removed, advanced to clear liquids; if has bowel movement can likely advance further CAD s/p CABG - resume aspirin and statin CHF - will hold lasix for now Type II diabetes - hold metformin, continue sliding scale insulin
[2020-08-10] MEDS ORDERED: Aspirin Chewable 81 MG TAB PO SCH (14:45)
--- NOTE | 2020-08-10 16:35 | CON ---
DATE OF CONSULTATION: 08/10/2020 REQUESTING PHYSICIAN: Param Morris MD. HISTORY OF PRESENT ILLNESS: This is a 70-year-old woman with history of chronic systolic congestive heart failure with aortic and mitral valvular disease as well as coronary artery disease. Last echocardiogram of February 2020 revealed ejection fraction of 30% to 35% . The patient is currently in home hospice. She presented to the emergency department with chest pain, which was evaluated and a cardiac etiology was excluded. Additionally, the patient was complaining of upper abdominal pain with subsequent multiple nonbilious emesis over the last 24 hours. Last bowel movement was 2 days ago. Last time, she passed flatus was 20 minutes prior to this visit. Following workup in the emergency department, diagnosis of partial small-bowel obstruction was rendered present. Nasogastric tube was inserted and placed to wall suction and has returned less than 150 mL of nonbilious effluent since yesterday. At the time of my evaluation, she reports no significant abdominal pain. She denies any chest pain, dyspnea, or syncope. PAST MEDICAL HISTORY: Significant for coronary artery disease, COPD, chronic depression, cerebrovascular accident with right visual field deficits as well as essential hypertension. The patient also has type 2 diabetes mellitus. PAST SURGICAL HISTORY: Significant for previous coronary angiography, four-vessel coronary arterial bypass graft, AICD placement, cholecystectomy, abdominal hysterectomy, appendectomy, and lumbar spinal surgery. FAMILY HISTORY: Noncontributory for this patient's age. MEDICATIONS: Prehospitalization medications includes, 1. Albuterol inhaler p.r.n. 2. Fosamax 70 mg p.o. q.7 days. 3. Carvedilol 6.25 mg p.o. daily. 4. Aricept 5 mg p.o. at bedtime. 5. Lexapro 10 mg p.o. at bedtime. 6. Furosemide 40 mg p.o. b.i.d. 7. Gabapentin 800 mg p.o. t.i.d. 8. Motley 5 mg/325 mg p.o. q.6 hours p.r.n. 9. Cozaar 50 mg p.o. daily. 10. Metformin 1000 mg p.o. b.i.d. 11. Oxybutynin 10 mg p.o. daily. 12. Pantoprazole 40 mg p.o. daily. 13. Ambien 10 mg p.o. at bedtime p.r.n. 14. Aspirin 81 mg p.o. daily. 15. Atorvastatin 10 mg p.o. at bedtime. 16. Magnesium sulfate mg p.o. daily. ALLERGIES: TO CODEINE, PENICILLIN G, WELL IODINE. REVIEW OF SYSTEMS: Ten-point review of systems is essentially unremarkable except as stated in past medical history and chief complaint. PHYSICAL EXAMINATION: GENERAL: This reveals a 70-year-old woman, who appears stated age and is in no acute distress at the time of my evaluation. VITAL SIGNS: Currently include blood pressure 120/70, pulse 75, respiratory rate 16, temperature is 98 degrees Fahrenheit, oxygen saturation 100% on 4 L by nasal cannula oxygen. HEENT: Pupils are equal, round, reactive to light and accommodation. HEART: Reveals irregular rate and rhythm. LUNGS: Reveal scattered rhonchi. Breathing regular and nonlabored. ABDOMEN: Soft and obese with mild tenderness to palpation. Clearly, the patient has no peritoneal signs on examination. Bowel sounds are present and normal in all 4 quadrants. Nasogastric tube is in place and has a small amount of nonbilious effluent in the canister. I investigated the nasogastric tube and is actually functional with very low output nevertheless. NEUROLOGIC: Reveals no focal deficits present. LABORATORY FINDINGS: Today include a CBC with 11,100 white blood cells, down from 14,300 yesterday. Hemoglobin and hematocrit stable at 8.1 and 25.4 respectively. Platelet count is 262,000. Metabolic profile; sodium 139, potassium 3.5, chloride is 103, bicarb is 27, BUN is 22, creatinine 0.79, glucose 112. I have personally reviewed the CT scan of the abdomen and pelvis obtained yesterday without contrast and does show dilated proximal small bowel with air-fluid levels. There is however gas in the small bowel and colon all the way down to the rectum. No significant free fluid or pneumoperitoneum is present. IMPRESSION: 1. Resolving acute abdominal pain, likely secondary to partial small bowel obstruction versus gastroenteritis. 2. History of chronic obstructive pulmonary disease. 3. History of coronary artery disease with chronic systolic congestive heart failure. RECOMMENDATIONS: The nasogastric tube will be removed and the patient will be started on clear liquid diet. If there is any recurrent abdominal pain, we will consider obtaining a small-bowel follow-through. At this time, I do not have any reason to suspect that the patient is still obstructed. The patient's bowel dysmotility is likely complicated by her inability to ambulate vigorously due to her pulmonary and cardiac chronic ailments. There is no acute surgical indication for this patient at this time; however, General surgery will continue to follow along and make further recommendations as necessary. Above findings and plan discussed with the patient in the presence of her nurse. She indicates understanding of the information provided. I have answered her questions. Thank you again, Dr. Morris, for allowing me the opportunity to participate in the care of this patient. Job ID: [id number]
[2020-08-10] MEDS: Potassium Chloride 10 MEQ in Dextrose 5%-Lactated Ringers 1,000 ML IV SCH (18:15)
[2020-08-10] MEDS: Mometasone 100 MCG/Formoterol 5 MCG 120 PUFF INHALER INH SCH (19:18)
[2020-08-10] MEDS: Atorvastatin Calcium 10 MG TAB PO SCH (20:02)
[2020-08-10] MEDS: Gabapentin 400 MG CAP PO SCH (20:02)
--- NOTE | 2020-08-10 21:21 | EKG ---
Test Reason : STAT Blood Pressure : / mmHG Vent. Rate : 074 BPM Atrial Rate : 074 BPM P-R Int : 238 ms QRS Dur : 096 ms QT Int : 418 ms P-R-T Axes : 064 031 111 degrees QTc Int : 463 ms Sinus rhythm with 1st degree A-V block Low voltage QRS Possible Anterolateral infarct (cited on or before 27-FEB-2020) Abnormal ECG When compared with ECG of 09-AUG-2020 12:08, (Unconfirmed) MA interval has increased Questionable change in initial forces of Lateral leads Confirmed by RED LI, SArnulfo ([id number]) on 08/10/2020 9:20:57 PM Referred By: LYNETTE MARRUFO Confirmed By:DR. Simón MOON MD
[2020-08-11] MEDS: Potassium Chloride 10 MEQ in Dextrose 5%-Lactated Ringers 1,000 ML IV SCH ×2 (00:12→18:42)
[2020-08-11] MEDS: Morphine 2 MG/ML VIAL SLOW IVP PRN ×4 (00:25→20:26)
[2020-08-11 05:20] LABS: #Eosinphils 0.1 thou/uL (0.0-0.7); #Lymphocytes 1.3 thou/uL (1.20-3.40); #Monocytes 0.6 thou/uL (0.11-0.59); #Neutrophils 6.1 thou/uL (1.40-6.50); %Basophils 0.3 % (0.0-1.0); %Eosinophils 1.6 % (0.0-10.0); %Monocytes 7.1 % (0.0-10.0); %Neutrophils 75.1 % (42.0-75.0); Mean Corpuscular HGB CONC 30.5 g/dL (32.0-36.0); Mean Corpuscular Hemoglobin 25.4 pg (27.0-31.0); Mean Corpuscular Volume 83.2 fL (78.0-98.0); Mean Platelet Volume 7.8 fL (7.4-10.4); Platelet Count 239 thou/uL (130-400); RBC Distribution Width 15.6 % (11.5-14.5); Red Blood Cell (RBC) Count 3.16 mill/uL (4.20-5.40); White Blood Cell (WBC) Count 8.1 thou/uL (4.8-10.8)
[2020-08-11 05:40] LABS: Anion Gap 11 mmol/L (10-20); BUN (Urea Nitrogen) 13 mg/dL (9.8-20.1); Calc. Creatinine Clearance 123 mL/min (70-130); Calcium 7.9 mg/dL (7.8-10.44); Carbon Dioxide 28 mmol/L (23-31); Chloride 103 mmol/L (98-107); Glucose 125 mg/dL (80-115); Potassium 3.6 mmol/L (3.5-5.1); Sodium 138 mmol/L (136-145)
[2020-08-11] MEDS: Mometasone 100 MCG/Formoterol 5 MCG 120 PUFF INHALER INH SCH ×2 (06:59→22:04)
[2020-08-11] MEDS: Gabapentin 400 MG CAP PO SCH ×3 (08:35→22:09)
[2020-08-11] MEDS: Polyethylene Glycol 3350 17 GM Packet PO SCH (08:35)
[2020-08-11] MEDS: Aspirin Chewable 81 MG TAB PO SCH (08:35)
[2020-08-11] MEDS: Enoxaparin Sodium 40 MG/0.4 ML SYRINGE SC SCH (08:35)
[2020-08-11] MEDS: Famotidine/PF 20 mg/2ml Vial SLOW IVP SCH ×2 (08:36→22:08)
--- NOTE | 2020-08-11 09:37 | PRG ---
DATE OF SERVICE: 08/11/2020 HOSPICE PALLIATIVE CARE NOTE REASON FOR VISIT: Physician visit for readmission to hospice. HOSPITAL COURSE: This is a 70-year-old female patient, PCP of Dr. Chanda Love with a history of end-stage coronary artery disease, end-stage congestive heart failure and end-stage COPD, who lifted her hospice status due to worsening abdominal pain, persistent nausea and vomiting, and dark brown thick emesis. She presented to the emergency room, had a CT of her abdomen, which revealed mid small bowel obstruction. She had an NG tube placed for decompression of her bowels and had improvement of her symptoms. She was admitted with bowel rest. She improved symptomatically and stopped vomiting. Dr. Gallegos of general surgery saw the patient on evaluation. Since her symptoms had improved, he agreed with removing the NG tube and slow advancement of her diet. She has tolerated clear liquids yesterday. She had a small bowel movement yesterday and again this morning. She tolerated solid foods today. According to Dr. Gallegos and Hospitalist, it is possible that she will be discharged home today. The patient desires to continue hospice services when she arrives home. OBJECTIVE: VITAL SIGNS: Temperature 98.0, pulse 79, respirations 16, blood pressure 162/92, pulse ox 99% on room air. GENERAL: She is awake and alert. She does have some conversational dyspnea. HEENT: Mucosa is moist. HEART: Regular rate and rhythm with 2/6 systolic ejection murmur. LUNGS: Distant. No wheezes. ABDOMEN: With positive bowel sounds in all 4 quadrants. Obese. Diffuse tenderness. No rebound or guarding. EXTREMITIES: No edema. NEUROLOGIC: She moves all extremities. IMPRESSION: This is a 70-year-old female with chronic obstructive pulmonary disease; congestive heart failure; coronary artery disease; obstructive sleep apnea; hypertension; status post cerebrovascular accident with right-sided visual defect; diabetes mellitus; depression; history of cardiac arrhythmia. She was admitted for acute small bowel obstruction, which is now resolved. Further plan per Hospitalist service. She continues to be appropriate for hospice when she is discharged home. If her disease processes continue as expected, it is very possible that she could succumb to her medical illnesses within the next 6 months. Job ID: [id number]
[2020-08-11] MEDS ORDERED: MD-Gastroview 120 ML BOT ONE (11:26)
[2020-08-11] MEDS: Ketorolac Tromethamine 30 MG/ML VIAL IVP PRN ×2 (12:40→20:19)
--- NOTE | 2020-08-11 13:22 | RAD ---
Chest one view Abdomen 2 views HISTORY: Abdomen pain. Obstruction. COMPARISON: CT abdomen 08/09/2020. FINDINGS: Cardiac silhouette is magnified by projection and slightly enlarged. Pulmonary vasculature upper limits of normal. Mediastinum is midline with postoperative changes, aortic calcification, and a single lead left subcl irena cardiac electronic device. Prominent at the right hilum correlates with pulmonary vessels as partially visualized on recent CT. No evidence of pneumothorax. Gas and stool are apparent throughout the colon. Gas and fluid distended loops of small bowel within the mid and left abdomen with mildly differential air-fluid levels on the upright view are similar to the CT 08/09/2020. Nondilated small bowel loops are apparent within the right lower quadrant. Hemostasis clips overlie the gallbladder fossa. Phleboliths project over the pelvis. There are postop erative changes of the lumbar spine. Degenerative changes of each hip. IMPRESSION : Radiographic findings of partial distal small bowel obstruction are not significantly changed from th e CT exam on 08/09/2020. Cardiomegaly.
[2020-08-11] MEDS ORDERED: Guaifenesin DM 100-10/5 ML UDCUP PO PRN (14:27)
[2020-08-11] MEDS ORDERED: Benzonatate 100 MG CAP PO PRN (14:27)
--- NOTE | 2020-08-11 14:53 | PRG ---
DATE OF SERVICE: 08/11/2020 SUBJECTIVE: Ms. Wyatt is a 70-year-old woman with history of COPD, coronary artery disease, and chronic congestive heart failure, was admitted with acute partial small-bowel obstruction. This morning, she reports having had 2 bowel movements which were soft in consistency. She is passing flatus occasionally. She, however, reports abdominal bloating and residual abdominal pain. She denies any fevers or chills. She reports no nausea or emesis. OBJECTIVE: VITAL SIGNS: Include blood pressure 148/71, pulse 76, respiratory rate 16, temperature 98.2 degrees Fahrenheit, oxygen saturation 100% on room air. HEENT: She has no jugular venous distention noted. HEART: Reveals irregular rate and rhythm. LUNGS: Clear to auscultation bilaterally. She has a few expiratory wheezes. Breathing otherwise regular and nonlabored. ABDOMEN: Soft, obese, and distended with gas. She has moderate tenderness to palpation in upper abdomen, mostly on abdominal wall, but no peritoneal signs on examination. NEUROLOGIC: Reveals no focal deficits present. LABORATORY FINDINGS: Include a CBC with 8100 white blood cells, down from 11,100, which was an [place] [address] [place] 08/09/2020. Hemoglobin and hematocrit remained stable at 8.0 and 26.3 respectively. Platelet count is 239,000. Metabolic profile; sodium 138, potassium 3.6, chloride is 103, bicarb is 28, BUN 13, creatinine 0.76, glucose 125. DIAGNOSTIC STUDIES: I have personally reviewed the abdominal series, which was obtained today and reveals multiple distended loops of small and large bowel with gas and a lot of stool in the colon. There is gas down to the rectum. IMPRESSION: Acute partial small-bowel obstruction. PLAN: We will obtain a small-bowel follow-through to better define the anatomy of the obstruction. The patient's baseline poor cardiopulmonary function makes it difficult for her to be active in terms of ambulation, which may very well delay her bowel function. There remains no acute surgical indication for this patient at this time. If the small-bowel follow-through indicates mechanical obstruction, we will have more pointed conversation with the patient with regard to operative risks given her comorbidities. Above findings and plan has been discussed with the patient in the presence of her nurse. She indicates understanding of information provided. I have answered her questions. Job ID: [id number]
[2020-08-11 14:54] LABS: Magnesium 2.1 mg/dL (1.6-2.6); Phosphorus 2.5 mg/dL (2.3-4.7)
--- NOTE | 2020-08-11 16:26 | PDOC.HOSPP ---
- Subjective Encounter Date: 08/11/20 Encounter Time: 10:00 Subjective: F/u: partial sbo The patient tolerated solid diet yesterday, had a few bowel movements yesterday and two today. Despite this, she is still having severe abd pain and wanted something aside from morphine. It is mostly in the lower quadrants - Objective Vital Signs & Weight: Vital Signs (12 hours) Temp Pulse Resp BP Pulse Ox 08/11/20 10:45 98.2 F 76 16 148/71 H 100 08/11/20 07:00 98 F 79 16 162/92 H 99 Weight Weight 250 lb I&O: 08/10/20 08/11/20 08/12/20 06:59 06:59 06:59 Intake Total 2040 Output Total 460 Balance -460 0 Result Diagrams: 08/11/20 05:11 08/11/20 05:11 Additional Labs: Accuchecks 08/11/20 08/11/20 10:55 00:17 POC Glucose 114 H 108 H Hospitalist ROS - Review of Systems Constitutional: denies: fever, chills - Medication Medications: Active Medications Generic Name Dose Route Start Last Admin Trade Name Freq PRN Reason Stop Dose Admin Aspirin 81 mg 08/11/20 09:00 08/11/20 08:35 Aspirin Chewable 81 Mg Tab PO 81 mg DAILY JOSE Administration Atorvastatin Calcium 10 mg 08/10/20 21:00 08/10/20 20:02 Atorvastatin Calcium 10 Mg Tab PO 10 mg HS JOSE Administration Enoxaparin Sodium 40 mg 08/10/20 09:00 08/11/20 08:35 Enoxaparin Sodium 40 Mg/0.4 Ml Syringe SC 40 mg 0900 JOSE Administration Famotidine 20 mg 08/09/20 21:00 08/11/20 08:36 Famotidine/Pf 20 Mg/2ml Vial SLOW IVP 20 mg Q12HR JOSE Administration Gabapentin 800 mg 08/10/20 21:00 08/11/20 08:35 Gabapentin 400 Mg Cap PO 800 mg TID JOSE Administration Potassium Chloride 10 meq/ 1,005 mls @ 75 mls/hr 08/09/20 19:00 08/11/20 00:12 Dextrose/Lactated Ringer's IV Not Given .[id number] [facility] Ketorolac Tromethamine 15 mg 08/11/20 11:04 08/11/20 12:40 Ketorolac Tromethamine 30 Mg/Ml Vial IVP 08/16/20 11:05 15 mg Q6H PRN Administration Pain Mometasone Furoate/Formoterol Fumar 1 puff 08/10/20 18:30 08/11/20 06:59 Mometasone 100 Mcg/Formoterol 5 Mcg 120 Puff Inhaler INH 1 puff BID-RT JOSE Administration Morphine Sulfate 2 mg 08/09/20 18:55 08/11/20 08:36 Morphine 2 Mg/Ml Vial SLOW IVP 2 mg Q4H PRN Administration Moderate to Severe Pain (6-10) Polyethylene Glycol 17 gm 08/11/20 09:00 08/11/20 08:35 Polyethylene Glycol 3350 17 Gm Packet PO 17 gm DAILY JOSE Administration Sodium Chloride 10 ml 08/09/20 21:00 08/11/20 08:37 Flush - Normal Saline 10 Ml Syringe IVF 10 ml Q12HR JOSE Administration Hospitalist Exam Vitals: Vital Signs (12 hours) Temp Pulse Resp BP Pulse Ox 08/11/20 10:45 98.2 F 76 16 148/71 H 100 08/11/20 07:00 98 F 79 16 162/92 H 99 Weight Weight 250 lb General Appearance: NAD, awake alert General - other findings: morbidly obese Eye: anicteric sclera ENT: normocephalic atraumatic, no oropharyngeal lesions Neck: no JVD Heart: RRR, no murmur, no gallops, no rubs Respiratory: CTAB, no wheezes, no rales, no ronchi Gastrointestinal: soft Gastrointestinal - other findings: RLQ and LLQ tenderness Extremities: no cyanosis, no clubbing, no edema Skin: normal turgor, no lesions Neurological: cranial nerve grossly intact, normal sensation to touch, no w eakness, no focal deficits, no new deficit Hosp A/P - Plan Chest X ray: negative CT abdomen: dilated proximal small bowel loops with air fluid levels consistent with mid-SBO Acute abdomen series 08/11: partial SBO SBFT: pending This is a 70 year old female with past medical history of CAD, CHF, stroke who presented with chest pain, abdominal pain and vomiting, found to have SBO Small bowel obstruction - CT abdomen showed small bowel obstruction. NG tube removed, tolerated regular diet, but has recurrence of pain. Acute abdomen series shows partial SBO . Small bowel Xray pending still - added sennakot/colace and continue daily miralax CAD s/p CABG -continue aspirin and statin CHF - will hold lasix for now Type II diabetes - hold metformin, continue sliding scale insulin
--- NOTE | 2020-08-11 19:22 | RAD ---
Small bowel follow-through: 08/11/2020 HISTORY: Small bowel obstruction FINDINGS: Associate Professor Of Surgery imaging demonstrates a nasogastric tube extending into the left upper quadrant. There is gaseous distention of large and small bowel on internet site designer imaging. Immediate postadministration of contrast media demonstrates contrast within the gastric fundus. At 30 minutes there is a small amount of contrast media emptying into the duodenum. At 1 hour there has been some contrast media extension into proximal dilated small bowel loops. At 2 hour imaging there is opacification of multip le central dilated loops of small bowel. Contrast media has entered the colon at the 4 hour imaging, seen extending into the region of the distal descending colon. IMPRESSION: Contrast media reaches the colon. Extension to the colon is delayed and there is marked d istention of small bowel within the abdomen/pelvis which may signify partial small bowel obstruction or severe ileus. Recommend follow-up KUB on the morning of 08/12/2020.
[2020-08-11] MEDS: Senokot S 8.6-50 MG TAB PO SCH (22:09)
[2020-08-11] MEDS: Atorvastatin Calcium 10 MG TAB PO SCH (22:09)
[2020-08-11] MEDS ORDERED: Zolpidem Tartrate 5 MG TAB PO SCH (23:00)
[2020-08-12] MEDS: Potassium Chloride 10 MEQ in Dextrose 5%-Lactated Ringers 1,000 ML IV SCH ×3 (03:11→19:59)
[2020-08-12 06:19] LABS: #Eosinphils 0.1 thou/uL (0.0-0.7); #Lymphocytes 1.1 thou/uL (1.20-3.40); #Monocytes 0.6 thou/uL (0.11-0.59); #Neutrophils 4.7 thou/uL (1.40-6.50); %Basophils 0.4 % (0.0-1.0); %Eosinophils 2.2 % (0.0-10.0); %Lymphocytes 17.5 % (21.0-51.0); %Monocytes 8.7 % (0.0-10.0); %Neutrophils 71.3 % (42.0-75.0); Hemoglobin 8.2 g/dL (12.0-16.0); Mean Corpuscular HGB CONC 31.6 g/dL (32.0-36.0); Mean Corpuscular Hemoglobin 26.4 pg (27.0-31.0); Mean Corpuscular Volume 83.5 fL (78.0-98.0); Mean Platelet Volume 8.1 fL (7.4-10.4); Platelet Count 218 thou/uL (130-400); RBC Distribution Width 15.4 % (11.5-14.5); Red Blood Cell (RBC) Count 3.11 mill/uL (4.20-5.40); White Blood Cell (WBC) Count 6.5 thou/uL (4.8-10.8)
[2020-08-12 06:42] LABS: Anion Gap 14 mmol/L (10-20); BUN (Urea Nitrogen) 13 mg/dL (9.8-20.1); Calc. Creatinine Clearance 128 mL/min (70-130); Calcium 8.5 mg/dL (7.8-10.44); Carbon Dioxide 25 mmol/L (23-31); Chloride 108 mmol/L (98-107); Glucose 139 mg/dL (80-115); Potassium 3.8 mmol/L (3.5-5.1); Sodium 143 mmol/L (136-145)
[2020-08-12] MEDS: Mometasone 100 MCG/Formoterol 5 MCG 120 PUFF INHALER INH SCH ×2 (07:32→20:06)
[2020-08-12] MEDS: Morphine 2 MG/ML VIAL SLOW IVP PRN ×2 (09:28→15:13)
--- NOTE | 2020-08-12 09:57 | RAD ---
XR Abdomen 1 View/KUB History: Ileus Comparison: Small bowel follow-through prior day Findings: Contrast is transiting throughout the colon which is not significantly dilated. Posterior lumbosacral spinal fusion hardware. Large pericardiophrenic fat pads. Right upper quadrant surgical clips. Impression: Contrast transit throughout the large bowel without dilatation.
[2020-08-12] MEDS: Gabapentin 400 MG CAP PO SCH ×3 (11:31→20:04)
[2020-08-12] MEDS: Aspirin Chewable 81 MG TAB PO SCH (11:32)
[2020-08-12] MEDS: Senokot S 8.6-50 MG TAB PO SCH ×2 (11:32→20:08)
[2020-08-12] MEDS: Enoxaparin Sodium 40 MG/0.4 ML SYRINGE SC SCH (11:33)
[2020-08-12] MEDS: Polyethylene Glycol 3350 17 GM Packet PO SCH (11:33)
[2020-08-12] MEDS: Famotidine/PF 20 mg/2ml Vial SLOW IVP SCH ×2 (11:33→20:05)
--- NOTE | 2020-08-12 12:08 | PRG ---
DATE OF SERVICE: 08/12/2020 The patient was seen with Dr. Ganesh Gallegos. SUBJECTIVE: Ms. Wyatt is a 70-year-old woman, COPD, CAD, CHF, admitted with partial small bowel obstruction. Yesterday, had to have NG tube placed. Small-bowel follow-through does show contrast into the colon. Her output has improved. Her abdominal pain is better today. Her stomach appears to be less distended. We have actually removed the NG tube at the bedside. She remains hemodynamically stable. OBJECTIVE: VITAL SIGNS: Temperature is 98.1, blood pressure 136/89, respiratory rate 18, . GENERAL: She is sitting on the edge of the bed, nontoxic appearing. She has NG tube with nonbilious output noted. ABDOMEN: She has soft abdomen, mild distention, but grossly improved from yesterday according to Dr. Gallegos. NEUROLOGIC: GCS is 15. She has no respiratory distress. LABORATORY DATA: White blood cell count is 6.5, platelets are 218, hemoglobin and hematocrit are 8.2 and 26.0. Sodium is 143, potassium is 3.8, chloride is 108, CO2 is 25, BUN is 13, creatinine 0.73, glucose is 139, calcium is 8.5. DIAGNOSTIC DATA: The abdominal series shows contrast transit throughout the large bowel without dilation. ASSESSMENT: This is acute partial small-bowel obstruction, improving. PLAN: 1. We will remove the NG tube today. 2. Start clear liquid diet today. 3. Watch bowel function. We will continue to follow along. If she improves today, we can advance the diet further. I will check on her again in the morning. Remains hemodynamically stable. Surgery team will likely sign off. Job ID: [id number]
--- NOTE | 2020-08-12 13:00 | PDOC.HOSPP ---
- Subjective Encounter Date: 08/12/20 Encounter Time: 07:30 Subjective: Patient seen in follow-up for bowel obstruction. Reports feeling hungry. - Objective Vital Signs & Weight: Vital Signs (12 hours) Temp Pulse Resp BP Pulse Ox 08/12/20 11:46 98 F 77 18 148/85 H 99 08/12/20 07:36 98.1 F 86 18 136/89 99 08/12/20 03:00 98.5 F 82 18 130/69 95 Weight Weight 250 lb I&O: 08/11/20 08/12/20 08/13/20 06:59 06:59 06:59 Intake Total 2040 2430 Output Total 1100 Balance 2040 1330 Result Diagrams: 08/12/20 05:44 08/12/20 05:44 Additional Labs: Accuchecks 08/12/20 08/11/20 08/11/20 05:11 23:45 18:33 POC Glucose 133 H 114 H 112 H Labs and MAR reviewed by al Hospitalist ROS - Review of Systems Cardiovascular: denies: chest pain, palpitations, orthopnea, paroxysmal noc. dyspnea, edema, light headedness Genitourinary: denies: dysuria, frequency, incontinence, hematuria, retention - Medication Medications: Active Medications Generic Name Dose Route Start Last Admin Trade Name Freq PRN Reason Stop Dose Admin Aspirin 81 mg 08/11/20 09:00 08/12/20 11:32 Aspirin Chewable 81 Mg Tab PO 81 mg DAILY JOSE Administration Atorvastatin Calcium 10 mg 08/10/20 21:00 08/11/20 22:09 Atorvastatin Calcium 10 Mg Tab PO 10 mg HS JOSE Administration Enoxaparin Sodium 40 mg 08/10/20 09:00 08/12/20 11:33 Enoxaparin Sodium 40 Mg/0.4 Ml Syringe SC 40 mg 0900 JOSE Administration Famotidine 20 mg 08/09/20 21:00 08/12/20 11:33 Famotidine/Pf 20 Mg/2ml Vial SLOW IVP 20 mg Q12HR JOSE Administration Gabapentin 800 mg 08/10/20 21:00 08/12/20 11:31 Gabapentin 400 Mg Cap PO 800 mg TID JOSE Administration Potassium Chloride 10 meq/ 1,005 mls @ 75 mls/hr 08/09/20 19:00 08/12/20 03:11 Dextrose/Lactated Ringer's IV 1,005 mls .[id number] JOSE Administration Ketorolac Tromethamine 15 mg 08/11/20 11:04 08/11/20 20:19 Ketorolac Tromethamine 30 Mg/Ml Vial IVP 08/16/20 11:05 15 mg Q6H PRN Administration Pain Mometasone Furoate/Formoterol Fumar 1 puff 08/10/20 18:30 08/12/20 07:32 Mometasone 100 Mcg/Formoterol 5 Mcg 120 Puff Inhaler INH 1 puff BID-RT JOSE Administration Morphine Sulfate 2 mg 08/09/20 18:55 08/12/20 09:28 Morphine 2 Mg/Ml Vial SLOW IVP 2 mg Q4H PRN Administration Moderate to Severe Pain (6-10) Polyethylene Glycol 17 gm 08/11/20 09:00 08/12/20 11:33 Polyethylene Glycol 3350 17 Gm Packet PO 17 gm DAILY JOSE Administration Senna/Docusate Sodium 1 tab 08/11/20 21:00 08/12/20 11:32 Senokot S 8.6-50 Mg Tab PO 1 tab BID JOSE Administration Sodium Chloride 10 ml 08/09/20 21:00 08/12/20 11:39 Flush - Normal Saline 10 Ml Syringe IVF 10 ml Q12HR JOSE Administration Hospitalist Exam Vitals: Vital Signs (12 hours) Temp Pulse Resp BP Pulse Ox 08/12/20 11:46 98 F 77 18 148/85 H 99 08/12/20 07:36 98.1 F 86 18 136/89 99 08/12/20 03:00 98.5 F 82 18 130/69 95 Weight Weight 250 lb General Appearance: awake alert General - other findings: Morbidly obese Eye: anicteric sclera ENT: moist mucosa Neck: supple Heart: RRR Respiratory: CTAB Gastrointestinal: soft, non-tender, diminished bowl sounds Skin: no rashes Psychiatric: normal affect, normal behavior Hosp A/P - Plan Small bowel obstruction -KUB today morning showed transit of contrast throughout the colon without any dilatation. -Patient is being started on clear fluid diet. CAD s/p CABG -Patient is on aspirin and statin CHF -Lasix on hold, reassess Type II diabetes -Continue Accu-Cheks and insulin sliding scale.
[2020-08-12] MEDS ORDERED: hydrALAZINE 20 MG/ML VIAL SLOW IVP SCH (17:00)
[2020-08-12] MEDS: HumaLOG 300 UNITS/3 ML VIAL SC PRN (17:34)
[2020-08-12] MEDS: Ketorolac Tromethamine 30 MG/ML VIAL IVP PRN (17:50)
[2020-08-12] MEDS: Atorvastatin Calcium 10 MG TAB PO SCH (20:06)
[2020-08-12] MEDS: Zolpidem Tartrate 5 MG TAB PO SCH (20:07)
[2020-08-13] MEDS: Morphine 2 MG/ML VIAL SLOW IVP PRN ×4 (03:20→20:51)
[2020-08-13] MEDS: Ketorolac Tromethamine 30 MG/ML VIAL IVP PRN ×2 (04:38→09:39)
[2020-08-13 05:46] LABS: #Eosinphils 0.1 thou/uL (0.0-0.7); #Lymphocytes 1.1 thou/uL (1.20-3.40); #Monocytes 0.7 thou/uL (0.11-0.59); #Neutrophils 5.9 thou/uL (1.40-6.50); %Basophils 0.4 % (0.0-1.0); %Eosinophils 1.2 % (0.0-10.0); %Lymphocytes 13.9 % (21.0-51.0); %Monocytes 8.7 % (0.0-10.0); %Neutrophils 75.8 % (42.0-75.0); Mean Corpuscular HGB CONC 31.5 g/dL (32.0-36.0); Mean Corpuscular Hemoglobin 26.2 pg (27.0-31.0); Mean Corpuscular Volume 83.2 fL (78.0-98.0); Mean Platelet Volume 8.2 fL (7.4-10.4); Platelet Count 216 thou/uL (130-400); RBC Distribution Width 15.4 % (11.5-14.5); Red Blood Cell (RBC) Count 3.06 mill/uL (4.20-5.40); White Blood Cell (WBC) Count 7.8 thou/uL (4.8-10.8)
[2020-08-13 06:01] LABS: Anion Gap 13 mmol/L (10-20); BUN (Urea Nitrogen) 11 mg/dL (9.8-20.1); Calc. Creatinine Clearance 127 mL/min (70-130); Calcium 8.7 mg/dL (7.8-10.44); Carbon Dioxide 25 mmol/L (23-31); Chloride 106 mmol/L (98-107); Glucose 136 mg/dL (80-115); Potassium 3.7 mmol/L (3.5-5.1); Sodium 140 mmol/L (136-145)
[2020-08-13] MEDS: Mometasone 100 MCG/Formoterol 5 MCG 120 PUFF INHALER INH SCH ×2 (07:48→18:32)
[2020-08-13] MEDS: Polyethylene Glycol 3350 17 GM Packet PO SCH (09:23)
[2020-08-13] MEDS: Enoxaparin Sodium 40 MG/0.4 ML SYRINGE SC SCH (09:23)
[2020-08-13] MEDS: Gabapentin 400 MG CAP PO SCH ×3 (09:24→20:50)
[2020-08-13] MEDS: Aspirin Chewable 81 MG TAB PO SCH (09:24)
[2020-08-13] MEDS: Famotidine/PF 20 mg/2ml Vial SLOW IVP SCH ×2 (09:24→20:49)
[2020-08-13] MEDS: Senokot S 8.6-50 MG TAB PO SCH ×2 (09:24→20:51)
--- NOTE | 2020-08-13 10:08 | PDOC.DS.DS ---
Provider Date of Admission: 08/09/20 18:55 Date of Discharge: 08/13/20 Admitting Provider: Yu Adames MD Consultations: General Surgery (Dr. Gallegos) Primary Care Physician: Chanda Love MD Course Hospital Course: Discharge diagnosis: 1. Bowel obstruction 2. COVID-19 test negative Hospital course: Patient is a pleasant 70-year-old lady who was admitted to the hospital on August 09, 2020 for small bowel obstruction. She was treated conservatively with NG tube to low intermittent suction. She was seen by general surgery service. NG tube was removed and patient was started on a clear liquid diet because her acute abdominal pain was resolving. She had a recurrence of the pain and acute abdominal series showed findings of partial distal small bowel obstruction which was not significantly changed from the CT exam done at the time of admission. The following day, on August 12 she had follow-up 1 view KUB x-ray, which showed contrast transit throughout the large bowel without dilatation. She was started on clear liquid diet and was having bowel move ments. She is being discharged home in a stable condition. Many thanks for allowing me to participate in your patient's care. Please feel free to contact me with any questions or concerns. Discharge destination: Home Total amount of time spent coordinating this discharge: 32 minutes Resuscitation Status: 08/09/20 18:48 Resuscitation Status Routine Resuscitation Status: DNAR: NO Resuscitation Discussed with: Discussed with the patient Lab Results: 08/13/20 05:07 08/13/20 05:07 Abnormal Lab Results - Last 48 hrs 08/12/20 05:44: Chloride 108 H 08/12/20 05:44: RBC 3.11 L, Hgb 8.2 L, Hct 26.0 L, MCH 26.4 L, MCHC 31.6 L, RDW 15.4 H, Lymphocytes % 17.5 L, Lymphocytes # 1.1 L, Monocytes # 0.6 H 08/13/20 05:07: RBC 3.06 L, Hgb 8.0 L, Hct 25.5 L, MCH 26.2 L, MCHC 31.5 L, RDW 15.4 H, Neutrophils % 75.8 H, Lymphocytes % 13.9 L, Lymphocytes # 1.1 L, Monocytes # 0.7 H Vitals: Vital Signs (12 hours) Temp Pulse Resp BP Pulse Ox 08/13/20 07:00 98.1 F 95 18 115/65 97 08/13/20 03:00 97.6 F 94 18 167/100 H 93 L 08/12/20 23:18 98 F 93 18 154/90 H 95 Weight Weight 250 lb Physical Exam: The patient was seen and examined on the day of discharge. Patient denies chest pain or shortness of breath. Vital signs are stable. S1 and S2 are heard. Lungs are clear to auscultation bilaterally. Plan Home Medications: Medication Instructions Recorded Confirmed Type Aspirin Chewable [Aspirin Chewable 81 mg PO DAILY 01/13/18 08/09/20 History Tablet] Atorvastatin Calcium 10 mg PO HS 01/13/18 08/09/20 History Donepezil HCl [Aricept] 5 mg PO HS 01/13/18 08/09/20 History metFORMIN HCl 1,000 mg PO BID-WM 01/13/18 08/09/20 History Oxybutynin [Ditropan] 10 mg PO DAILY 06/19/18 08/09/20 History Alendronate Sodium [Fosamax] 70 mg PO Q7D 02/27/20 08/09/20 History Escitalopram Oxalate [Lexapro] 10 mg PO HS 02/27/20 08/09/20 History Gabapentin [Neurontin] 800 mg PO TID 02/27/20 08/09/20 History HYDROcodone Bit/APAP 5/325 [[place]] 1 tab PO Q6H PRN 02/27/20 08/09/20 History Ipratropium/Albuterol Sulfate 1 puff INH DAILY 02/27/20 08/09/20 History [Combivent Respimat] Pantoprazole [Protonix] 40 mg PO DAILY 02/27/20 08/09/20 History Zolpidem Tartrate [Ambien] 1 tab PO HS 02/27/20 08/09/20 History Albuterol Sulfate [Proventil Hfa] 2 puff INH QID 04/14/20 08/09/20 History Carvedilol [Coreg] 6.25 mg PO DAILY 04/14/20 08/09/20 History Ferrous Sulfate [Iron] 325 mg PO DAILY 04/14/20 08/09/20 History Losartan Potassium [Cozaar] 50 mg PO DAILY 04/14/20 04/15/20 History Magnesium Oxide 400 mg PO DAILY 04/14/20 08/09/20 History Furosemide [Lasix] 2 tab PO BID PRN 04/15/20 08/09/20 History Allergies: iodine Allergy (Severe, Verified 02/27/20 10:14) ANAPHYLACTIC REACTION codeine Allergy (Intermediate, Verified 02/27/20 10:14) penicillin G Allergy (Verified 02/27/20 10:14) Discharge Instructions:: See patient discharge instruction sheet for detailed teaching. Patient verbalizes understanding of medications and is able to verbalize follow-up care. See Discharge Plan for additional discharge information. Patient secured in private vehicle prior to departure. Activity:: Activity as Tolerated Referrals: Chanda Love MD [Primary Care Provider] - 3 Days Disposition: HOME Quality CORE MEASURES:: N/A
[2020-08-13] MEDS: Potassium Chloride 10 MEQ in Dextrose 5%-Lactated Ringers 1,000 ML IV SCH (10:16)
--- NOTE | 2020-08-13 13:59 | PRG ---
DATE OF SERVICE: 08/13/2020 SUBJECTIVE: A 70-year-old female admitted by Medicine for small bowel obstruction, has small-bowel follow through recently with contrast noted into the colon. Her NG tube was removed yesterday. She was started on a clear liquid, tolerated it well, went to a full liquid diet. However, this morning, complaining of abdominal distention, abdominal pain. She is not vomiting. She is having bowel movement. She has remained hemodynamically stable and afebrile. She wore BiPAP overnight. She required 2 L oxygen nasal cannula. OBJECTIVE: VITAL SIGNS: Temperature is 98.1, blood pressure 115/65, heart rate is 96, breathing 18 times per minute, 97%. GENERAL: A 70-year-old female, sitting up. RESPIRATORY: Equal rise and fall. Near tachypneic at 18 to 20 per minute. CARDIOVASCULAR: Strong pulses ABDOMEN: Protuberant and slightly distended. Has hyper-resonance noted and some tenderness to palpation. No aden peritoneal signs are appreciated. The patient does have stool collection device and brown stool noted. LABORATORY DATA: From today, white blood cell count is 7.8, platelets are 216, hemoglobin and hematocrit are 8.0 and 25.5 respectively. Sodium is 140, potassium 3.7, chloride is 106, BUN of 11, creatinine 0.74, glucose 136. ASSESSMENT: She has a small bowel obstruction that is improving, seems to be waxing and waning, however. PLAN: 1. Go back to clear liquid diet. 2. Bowel rest of a clear liquid diet. 3. No indication for NG tube right now. 4. Would stave off discharge given the current and recurrence of abdominal pain. Pain control, remainder per the primary team. Of note, I was contacted last night. They were unable to get hold of the primary team. The patient has obstructive sleep apnea and therefore I ordered BiPAP home settings or autotitrating machine here as she tolerated this well overnight. Job ID: [id number]
--- NOTE | 2020-08-13 15:06 | PDOC.HOSPP ---
- Subjective Encounter Date: 08/13/20 Encounter Time: 15:04 Subjective: Patient seen for follow-up regarding bowel obstruction. She reportedly did not tolerate full liquid diet, is now back on clear liquid diet. - Objective Vital Signs & Weight: Vital Signs (12 hours) Temp Pulse Resp BP Pulse Ox 08/13/20 12:00 96 08/13/20 11:00 97.9 F 88 20 155/85 H 96 08/13/20 08:00 97 08/13/20 07:00 98.1 F 95 18 115/65 97 Weight Weight 250 lb I&O: 08/12/20 08/13/20 08/14/20 06:59 06:59 06:59 Intake Total 2430 600 1100 Output Total 1100 Balance 0492 275 9255 Result Diagrams: 08/13/20 05:07 08/13/20 05:07 Additional Labs: Accuchecks 08/13/20 08/13/20 08/12/20 10:40 05:21 23:13 POC Glucose 133 H 131 H 128 H 08/12/20 16:50 POC Glucose 162 H I reviewed patient's labs and MAR Hospitalist ROS - Review of Systems Gastrointestinal: reports: nausea, vomiting. denies: abdominal pain, diarrhea, constipation, melena, hematochezia Genitourinary: denies: dysuria, frequency, incontinence, hematuria, retention - Medication Medications: Active Medications Generic Name Dose Route Start Last Admin Trade Name Freq PRN Reason Stop Dose Admin Albuterol/Ipratropium 3 ml 08/10/20 07:04 08/12/20 20:04 Ipratropium/Albuterol Sulfate 3 Ml Neb NEB 3 ml [id number] PRN Administration SOB &/or Wheezing Aspirin 81 mg 08/11/20 09:00 08/13/20 09:24 Aspirin Chewable 81 Mg Tab PO 81 mg DAILY JOSE Administration Atorvastatin Calcium 10 mg 08/10/20 21:00 08/12/20 20:06 Atorvastatin Calcium 10 Mg Tab PO 10 mg HS JOSE Administration Enoxaparin Sodium 40 mg 08/10/20 09:00 08/13/20 09:23 Enoxaparin Sodium 40 Mg/0.4 Ml Syringe SC 40 mg 0900 JOSE Administration Famotidine 20 mg 08/09/20 21:00 08/13/20 09:24 Famotidine/Pf 20 Mg/2ml Vial SLOW IVP 20 mg Q12HR JOSE Administration Gabapentin 800 mg 08/10/20 21:00 08/13/20 14:39 Gabapentin 400 Mg Cap PO 800 mg TID JOSE Administration Potassium Chloride 10 meq/ 1,005 mls @ 75 mls/hr 08/09/20 19:00 08/13/20 10:16 Dextrose/Lactated Ringer's IV 1,005 mls .[id number] JOSE Administration Insulin Human Lispro 0 units 08/09/20 18:55 08/12/20 17:34 Humalog 300 Units/3 Ml Vial SC 2 unit .MODERATE SLIDING SC PRN Administration Moderate Correctional Scale Ketorolac Tromethamine 15 mg 08/11/20 11:04 08/13/20 09:39 Ketorolac Tromethamine 30 Mg/Ml Vial IVP 08/16/20 11:05 15 mg Q6H PRN Administration Pain Mometasone Furoate/Formoterol Fumar 1 puff 08/10/20 18:30 08/13/20 07:48 Mometasone 100 Mcg/Formoterol 5 Mcg 120 Puff Inhaler INH 1 puff BID-RT JOSE Administration Morphine Sulfate 2 mg 08/09/20 18:55 08/13/20 14:40 Morphine 2 Mg/Ml Vial SLOW IVP 2 mg Q4H PRN Administration Moderate to Severe Pain (6-10) Polyethylene Glycol 17 gm 08/11/20 09:00 08/13/20 09:23 Polyethylene Glycol 3350 17 Gm Packet PO 17 gm DAILY JOSE Administration Senna/Docusate Sodium 1 tab 08/11/20 21:00 08/13/20 09:24 Senokot S 8.6-50 Mg Tab PO 1 tab BID JOSE Administration Sodium Chloride 10 ml 08/09/20 21:00 08/13/20 09:25 Flush - Normal Saline 10 Ml Syringe IVF Not Given Q12HR JOSE Zolpidem Tartrate 10 mg 08/12/20 21:00 08/12/20 20:07 Zolpidem Tartrate 5 Mg Tab PO 10 mg HS JOSE Administration Hospitalist Exam Vitals: Vital Signs (12 hours) Temp Pulse Resp BP Pulse Ox 08/13/20 12:00 96 08/13/20 11:00 97.9 F 88 20 155/85 H 96 08/13/20 08:00 97 08/13/20 07:00 98.1 F 95 18 115/65 97 Weight Weight 250 lb General - other findings: Morbid obesity ENT: no oropharyngeal lesions Neck: supple Heart: RRR Respiratory: CTAB Gastrointestinal: soft, non-tender, normal bowel sounds, distended Skin: no rashes Psychiatric: normal affect, normal behavior Hosp A/P - Plan Small bowel obstruction -Bowel obstruction has resolved but patient is not tolerating diet, now on clear liquid diet. -Likely home in 24 to 48 hours. CAD s/p CABG -Continue aspirin and statin CHF -Resume furosemide Type II diabetes -Continue Accu-Cheks and insulin sliding scale.
[2020-08-13] MEDS ORDERED: Furosemide 20 MG TAB PO PRN (15:07)
[2020-08-13] MEDS: HumaLOG 300 UNITS/3 ML VIAL SC PRN (17:19)
[2020-08-13] MEDS ORDERED: Alendronate Sodium 70 mg Tablet PO SCH (18:00)
[2020-08-13] MEDS: Atorvastatin Calcium 10 MG TAB PO SCH (20:49)
[2020-08-13] MEDS: Escitalopram Oxalate 10 mg Tablet PO SCH (20:51)
[2020-08-13] MEDS: Zolpidem Tartrate 5 MG TAB PO SCH (20:51)
[2020-08-13] MEDS: Donepezil HCl 5 MG TAB PO SCH (20:58)
[2020-08-14 05:42] LABS: #Eosinphils 0.1 thou/uL (0.0-0.7); #Lymphocytes 1.5 thou/uL (1.20-3.40); #Monocytes 0.8 thou/uL (0.11-0.59); %Basophils 0.6 % (0.0-1.0); %Lymphocytes 22.8 % (21.0-51.0); %Monocytes 11.8 % (0.0-10.0); %Neutrophils 62.9 % (42.0-75.0); Hemoglobin 7.6 g/dL (12.0-16.0); Mean Corpuscular HGB CONC 31.3 g/dL (32.0-36.0); Mean Platelet Volume 8.1 fL (7.4-10.4); Platelet Count 196 thou/uL (130-400); RBC Distribution Width 15.5 % (11.5-14.5); Red Blood Cell (RBC) Count 2.94 mill/uL (4.20-5.40); White Blood Cell (WBC) Count 6.4 thou/uL (4.8-10.8)
[2020-08-14 06:02] LABS: Anion Gap 13 mmol/L (10-20); BUN (Urea Nitrogen) 12 mg/dL (9.8-20.1); Calc. Creatinine Clearance 119 mL/min (70-130); Calcium 8.5 mg/dL (7.8-10.44); Carbon Dioxide 24 mmol/L (23-31); Chloride 106 mmol/L (98-107); Glucose 101 mg/dL (80-115); Sodium 139 mmol/L (136-145)
[2020-08-14] MEDS: Potassium Chloride 10 MEQ in Dextrose 5%-Lactated Ringers 1,000 ML IV SCH (07:38)
[2020-08-14] MEDS: Mometasone 100 MCG/Formoterol 5 MCG 120 PUFF INHALER INH SCH ×2 (07:58→19:22)
[2020-08-14] MEDS: Aspirin Chewable 81 MG TAB PO SCH (08:06)
[2020-08-14] MEDS: Ferrous Sulfate 325 MG TAB PO SCH (08:06)
[2020-08-14] MEDS: Carvedilol 6.25 MG TAB PO SCH (08:06)
[2020-08-14] MEDS: Losartan 25 MG TAB PO SCH (08:07)
[2020-08-14] MEDS: Gabapentin 400 MG CAP PO SCH ×3 (08:07→20:22)
[2020-08-14] MEDS: Enoxaparin Sodium 40 MG/0.4 ML SYRINGE SC SCH (08:07)
[2020-08-14] MEDS: Oxybutynin 5 MG TAB PO SCH (08:08)
[2020-08-14] MEDS: Polyethylene Glycol 3350 17 GM Packet PO SCH (08:09)
[2020-08-14] MEDS: Senokot S 8.6-50 MG TAB PO SCH ×2 (08:09→20:22)
[2020-08-14] MEDS: Famotidine/PF 20 mg/2ml Vial SLOW IVP SCH (09:43)
[2020-08-14] MEDS ORDERED: traMADol HCl 50 MG TAB PO PRN (10:57)
[2020-08-14] MEDS: traMADol HCl 50 MG TAB PO SCH ×2 (12:10→18:13)
[2020-08-14] MEDS: Ketorolac Tromethamine 30 MG/ML VIAL IVP PRN (12:10)
[2020-08-14] MEDS: Ibuprofen 600 MG TAB PO SCH ×2 (14:26→22:07)
--- NOTE | 2020-08-14 16:30 | PDOC.HOSPP ---
- Subjective Encounter Date: 08/14/20 Encounter Time: 07:30 Subjective: Patient seen in follow-up for bowel obstruction. Reports tolerating clear liquid diet. - Objective Vital Signs & Weight: Vital Signs (12 hours) Temp Pulse Pulse Pulse Resp BP BP 08/14/20 13:00 98.2 F 74 24 H 121/74 08/14/20 11:33 98.0 F 75 16 08/14/20 09:30 91 128/77 08/14/20 08:00 97.4 F L 89 18 BP Pulse Ox 08/14/20 13:00 99 08/14/20 11:33 131/87 96 08/14/20 09:30 08/14/20 08:00 154/76 H 100 Weight Weight 250 lb I&O: 08/13/20 08/14/20 08/15/20 06:59 06:59 06:59 Intake Total 600 3350 0 Balance 600 3350 0 Result Diagrams: 08/14/20 05:26 08/14/20 05:26 Additional Labs: Accuchecks 08/14/20 08/14/20 08/14/20 15:57 10:24 05:52 POC Glucose 146 H 142 H 100 08/13/20 21:04 POC Glucose 128 H Labs and MAR reviewed by me Hospitalist ROS - Review of Systems Gastrointestinal: denies: nausea, vomiting, abdominal pain, diarrhea, constipation, melena, hematochezia Genitourinary: denies: dysuria, frequency, incontinence, hematuria, retention - Medication Medications: Active Medications Generic Name Dose Route Start Last Admin Trade Name Freq PRN Reason Stop Dose Admin Albuterol/Ipratropium 3 ml 08/10/20 07:04 08/12/20 20:04 Ipratropium/Albuterol Sulfate 3 Ml Neb NEB 3 ml [id number] PRN Administration SOB &/or Wheezing Alendronate Sodium 70 mg 08/13/20 18:00 08/13/20 17:15 Alendronate Sodium 70 Mg Tablet PO 70 mg Q7D JOSE Administration Aspirin 81 mg 08/11/20 09:00 08/14/20 08:06 Aspirin Chewable 81 Mg Tab PO 81 mg DAILY JOSE Administration Atorvastatin Calcium 10 mg 08/10/20 21:00 08/13/20 20:49 Atorvastatin Calcium 10 Mg Tab PO 10 mg HS JOSE Administration Carvedilol 6.25 mg 08/14/20 09:00 08/14/20 08:06 Carvedilol 6.25 Mg Tab PO 6.25 mg DAILY JOSE Administration Donepezil HCl 5 mg 08/13/20 21:00 08/13/20 20:58 Donepezil Hcl 5 Mg Tab PO 5 mg HS JOSE Administration Enoxaparin Sodium 40 mg 08/10/20 09:00 08/14/20 08:07 Enoxaparin Sodium 40 Mg/0.4 Ml Syringe SC 40 mg 0900 JOSE Administration Escitalopram Oxalate 10 mg 08/13/20 21:00 08/13/20 20:51 Escitalopram Oxalate 10 Mg Tablet PO 10 mg HS JOSE Administration Ferrous Sulfate 325 mg 08/14/20 08:00 08/14/20 08:06 Ferrous Sulfate 325 Mg Tab PO 325 mg QAM-WM JOSE Administration Gabapentin 800 mg 08/13/20 21:00 08/14/20 14:27 Gabapentin 400 Mg Cap PO 800 mg TID JOSE Administration Ibuprofen 600 mg 08/14/20 14:00 08/14/20 14:26 Ibuprofen 600 Mg Tab PO 600 mg Q8HR OJSE Administration Insulin Human Lispro 0 units 08/09/20 18:55 08/13/20 17:19 Humalog 300 Units/3 Ml Vial SC 2 unit .MODERATE SLIDING SC PRN Administration Moderate Correctional Scale Ketorolac Tromethamine 15 mg 08/11/20 11:04 08/14/20 12:10 Ketorolac Tromethamine 30 Mg/Ml Vial IVP 08/16/20 11:05 15 mg Q6H PRN Administration Pain Losartan Potassium 50 mg 08/14/20 09:00 08/14/20 08:07 Losartan 25 Mg Tab PO 50 mg DAILY JOSE Administration Mometasone Furoate/Formoterol Fumar 1 puff 08/10/20 18:30 08/14/20 07:58 Mometasone 100 Mcg/Formoterol 5 Mcg 120 Puff Inhaler INH 1 puff BID-RT JOSE Administration Oxybutynin Chloride 10 mg 08/14/20 09:00 08/14/20 08:08 Oxybutynin 5 Mg Tab PO 10 mg DAILY JOSE Administration Pantoprazole Sodium 40 mg 08/14/20 09:00 08/14/20 08:08 Pantoprazole 40 Mg Tab PO 40 mg DAILY JOSE Administration Polyethylene Glycol 17 gm 08/11/20 09:00 08/14/20 08:09 Polyethylene Glycol 3350 17 Gm Packet PO 17 gm DAILY JOSE Administration Senna/Docusate Sodium 1 tab 08/11/20 21:00 08/14/20 08:09 Senokot S 8.6-50 Mg Tab PO 1 tab BID JOSE Administration Sodium Chloride 10 ml 08/09/20 21:00 08/14/20 12:12 Flush - Normal Saline 10 Ml Syringe IVF 10 ml Q12HR JOSE Administration Tramadol HCl 50 mg 08/14/20 12:00 08/14/20 12:10 Tramadol Hcl 50 Mg Tab PO 50 mg Q6HR JOSE Administration Zolpidem Tartrate 10 mg 08/12/20 21:00 08/13/20 20:51 Zolpidem Tartrate 5 Mg Tab PO 10 mg HS JOSE Administration Hospitalist Exam Vitals: Vital Signs (12 hours) Temp Pulse Pulse Pulse Resp BP BP 08/14/20 13:00 98.2 F 74 24 H 121/74 08/14/20 11:33 98.0 F 75 16 08/14/20 09:30 91 128/77 08/14/20 08:00 97.4 F L 89 18 BP Pulse Ox 08/14/20 13:00 99 08/14/20 11:33 131/87 96 08/14/20 09:30 08/14/20 08:00 154/76 H 100 Weight Weight 250 lb General Appearance: awake alert Eye: anicteric sclera ENT: normocephalic atraumatic Neck: supple Heart: RRR Respiratory: CTAB Gastrointestinal: soft, non-tender Skin: no rashes Psychiatric: normal affect, normal behavior Hosp A/P - Plan Small bowel obstruction -Improved, advance diet to full liquid. CAD s/p CABG -Continue aspirin and statin CHF -Continue furosemide Type II diabetes -Continue Accu-Cheks and insulin sliding scale. Patient received packed RBC transfusion for drop in hemoglobin. Patient wishes to go to snf facility. Case management involved.
[2020-08-14] MEDS: Atorvastatin Calcium 10 MG TAB PO SCH (20:22)
[2020-08-14] MEDS: Donepezil HCl 5 MG TAB PO SCH (20:22)
[2020-08-14] MEDS: Escitalopram Oxalate 10 mg Tablet PO SCH (20:22)
[2020-08-14] MEDS: Zolpidem Tartrate 5 MG TAB PO SCH (20:23)
[2020-08-15] MEDS: traMADol HCl 50 MG TAB PO SCH ×4 (00:17→18:25)
[2020-08-15] MEDS: Ibuprofen 600 MG TAB PO SCH ×3 (05:18→21:44)
--- NOTE | 2020-08-15 05:52 | PRG ---
DATE OF SERVICE: 08/14/2020 This patient was evaluated and discussed with Dr. Gallegos. SUBJECTIVE: This is a 70-year-old female, who was admitted for small-bowel obstruction and is doing well today. She has been endorsing abdominal pain, but has had multiple bowel movements per day. On evaluation, it was evident the pain she was having was superficial and bilateral, consistent with pain in the abdominal wall rather than peritoneal pain. OBJECTIVE: VITAL SIGNS: Temperature 98.2 Fahrenheit; pulse is 75 beats per minute; respiratory rate 24, although it has ranged from 16 to 20 on average; pulse oximetry 99% on 2 L nasal cannula. GENERAL: This is a 70-year-old female, who is sitting up in bed, awake, alert, in no acute distress. RESPIRATORY: Equal rise and fall of chest, no respiratory distress or difficulty breathing. Most recent respiratory rate documentation showed tachypnea at 24, but throughout the rest of her stay, she has been in the 16 to 20 breaths per minute range, so borderline tachypnea appears to be her current baseline. ABDOMEN: Protuberant, soft, tender to palpation on the lateral sides bilaterally. The pain is superficial. She does not have signs of peritoneal abdomen. LABORATORY DATA: Hemoglobin 7.6, down from 8.8 on admission; hematocrit 24.4, down from 28.1 on admission; platelets 196, down from 279 on admission. Sodium 139, potassium 4.0, chloride 106, BUN 12, creatinine 0.79, calcium 8.5, glucose in the past 24 hours has ranged from 100 to 162. ASSESSMENT: She has a small-bowel obstruction that is improving and is stable enough from a surgical standpoint for us to sign off. The abdominal pain she is having appears to be abdominal wall pain rather than peritoneal pain and, therefore, does require surgical intervention at this time. PLAN: 1. Advance diet as tolerated. 2. Discontinue morphine. 3. Discontinue IV medications and transition to oral pain meds only, such as Tylenol and tramadol. We will avoid opioids. 4. We will transfuse 1 unit of packed red blood cells given hemoglobin of 7.6 in the setting of severe heart failure with an estimated EF of 30%. 5. The patient is cleared from a General Surgery standpoint to go home. Job ID: [id number] [facility]
[2020-08-15] MEDS: Mometasone 100 MCG/Formoterol 5 MCG 120 PUFF INHALER INH SCH ×2 (07:28→19:16)
[2020-08-15] MEDS: Ferrous Sulfate 325 MG TAB PO SCH (08:03)
[2020-08-15] MEDS: Gabapentin 400 MG CAP PO SCH ×3 (08:04→20:18)
[2020-08-15] MEDS: Senokot S 8.6-50 MG TAB PO SCH ×2 (08:06→20:18)
[2020-08-15] MEDS: Carvedilol 6.25 MG TAB PO SCH (08:07)
[2020-08-15] MEDS: Oxybutynin 5 MG TAB PO SCH (08:07)
[2020-08-15] MEDS: Aspirin Chewable 81 MG TAB PO SCH (08:07)
[2020-08-15] MEDS: Enoxaparin Sodium 40 MG/0.4 ML SYRINGE SC SCH (08:07)
[2020-08-15] MEDS: Polyethylene Glycol 3350 17 GM Packet PO SCH (08:08)
[2020-08-15 09:05] LABS: Anion Gap 15 mmol/L (10-20); BUN (Urea Nitrogen) 13 mg/dL (9.8-20.1); Calc. Creatinine Clearance 92 mL/min (70-130); Calcium 8.7 mg/dL (7.8-10.44); Carbon Dioxide 21 mmol/L (23-31); Chloride 105 mmol/L (98-107); Glucose 151 mg/dL (80-115); Sodium 136 mmol/L (136-145)
[2020-08-15 09:18] LABS: #Eosinphils 0.2 thou/uL (0.0-0.7); #Lymphocytes 1.5 thou/uL (1.20-3.40); #Monocytes 0.8 thou/uL (0.11-0.59); #Neutrophils 5.7 thou/uL (1.40-6.50); %Basophils 0.1 % (0.0-1.0); %Eosinophils 2.2 % (0.0-10.0); %Lymphocytes 18.6 % (21.0-51.0); %Monocytes 9.6 % (0.0-10.0); %Neutrophils 69.5 % (42.0-75.0); Hemoglobin 9.9 g/dL (12.0-16.0); Hypochromia SLIGHT = 6-15 cells (100X) (0-5/hpf); MDiff Complete? YES; Mean Corpuscular HGB CONC 31.6 g/dL (32.0-36.0); Mean Corpuscular Volume 85.3 fL (78.0-98.0); Mean Platelet Volume 9.1 fL (7.4-10.4); Platelet Count 178 thou/uL (130-400); Platelet Morphology Comment Appears Adequate; Polychromasia SLIGHT = 2-3 cells (100X) (0-2/hpf); RBC Distribution Width 15.5 % (11.5-14.5); Red Blood Cell (RBC) Count 3.68 mill/uL (4.20-5.40); White Blood Cell (WBC) Count 8.3 thou/uL (4.8-10.8)
[2020-08-15] MEDS: Losartan 25 MG TAB PO SCH (10:12)
--- NOTE | 2020-08-15 17:26 | PDOC.HOSPP ---
- Subjective Encounter Date: 08/15/20 Encounter Time: 08:00 Subjective: Patient seen for follow-up regarding bowel obstruction. She reports tolerating diet. - Objective Vital Signs & Weight: Vital Signs (12 hours) Temp Pulse Resp BP BP Pulse Ox 08/15/20 15:54 98 F 65 18 129/69 100 08/15/20 10:47 98.0 F 71 16 138/91 H 100 08/15/20 08:07 145/85 H 08/15/20 08:00 100 08/15/20 07:51 97.7 F 71 14 145/85 H 100 Weight Weight 250 lb I&O: 08/14/20 08/15/20 08/16/20 06:59 06:59 06:59 Intake Total 3350 1390 Balance 3350 1390 Result Diagrams: 08/15/20 08:36 08/15/20 08:36 Additional Labs: Accuchecks 08/15/20 08/15/20 08/14/20 15:23 05:31 20:20 POC Glucose 150 H 106 H 127 H I reviewed patient's labs and MAR Hospitalist ROS - Review of Systems Cardiovascular: denies: chest pain, palpitations, orthopnea, paroxysmal noc. dyspnea, edema, light headedness Gastrointestinal: denies: nausea, vomiting, abdominal pain, diarrhea, constipation, melena, hematochezia - Medication Medications: Active Medications Generic Name Dose Route Start Last Admin Trade Name Freq PRN Reason Stop Dose Admin Albuterol/Ipratropium 3 ml 08/10/20 07:04 08/12/20 20:04 Ipratropium/Albuterol Sulfate 3 Ml Neb NEB 3 ml [id number] PRN Administration SOB &/or Wheezing Alendronate Sodium 70 mg 08/13/20 18:00 08/13/20 17:15 Alendronate Sodium 70 Mg Tablet PO 70 mg Q7D JOSE Administration Aspirin 81 mg 08/11/20 09:00 08/15/20 08:07 Aspirin Chewable 81 Mg Tab PO 81 mg DAILY JOSE Administration Atorvastatin Calcium 10 mg 08/10/20 21:00 08/14/20 20:22 Atorvastatin Calcium 10 Mg Tab PO 10 mg HS JOSE Administration Carvedilol 6.25 mg 08/14/20 09:00 08/15/20 08:07 Carvedilol 6.25 Mg Tab PO 6.25 mg DAILY JOSE Administration Donepezil HCl 5 mg 08/13/20 21:00 08/14/20 20:22 Donepezil Hcl 5 Mg Tab PO 5 mg HS JOSE Administration Enoxaparin Sodium 40 mg 08/10/20 09:00 08/15/20 08:07 Enoxaparin Sodium 40 Mg/0.4 Ml Syringe SC 40 mg 0900 JOSE Administration Escitalopram Oxalate 10 mg 08/13/20 21:00 08/14/20 20:22 Escitalopram Oxalate 10 Mg Tablet PO 10 mg HS JOSE Administration Ferrous Sulfate 325 mg 08/14/20 08:00 08/15/20 08:03 Ferrous Sulfate 325 Mg Tab PO 325 mg QAM-WM JOSE Administration Gabapentin 800 mg 08/13/20 21:00 08/15/20 15:31 Gabapentin 400 Mg Cap PO 800 mg TID JOSE Administration Ibuprofen 600 mg 08/14/20 14:00 08/15/20 15:30 Ibuprofen 600 Mg Tab PO 600 mg Q8HR JOSE Administration Insulin Human Lispro 0 units 08/09/20 18:55 08/13/20 17:19 Humalog 300 Units/3 Ml Vial SC 2 unit .MODERATE SLIDING SC PRN Administration Moderate Correctional Scale Ketorolac Tromethamine 15 mg 08/11/20 11:04 08/14/20 12:10 Ketorolac Tromethamine 30 Mg/Ml Vial IVP 08/16/20 11:05 15 mg Q6H PRN Administration Pain Losartan Potassium 50 mg 08/14/20 09:00 08/15/20 10:12 Losartan 25 Mg Tab PO 50 mg DAILY JOSE Administration Mometasone Furoate/Formoterol Fumar 1 puff 08/10/20 18:30 08/15/20 07:28 Mometasone 100 Mcg/Formoterol 5 Mcg 120 Puff Inhaler INH 1 puff BID-RT JOSE Administration Oxybutynin Chloride 10 mg 08/14/20 09:00 08/15/20 08:07 Oxybutynin 5 Mg Tab PO 10 mg DAILY JOSE Administration Pantoprazole Sodium 40 mg 08/14/20 09:00 08/15/20 08:07 Pantoprazole 40 Mg Tab PO 40 mg DAILY JOSE Administration Polyethylene Glycol 17 gm 08/11/20 09:00 08/15/20 08:08 Polyethylene Glycol 3350 17 Gm Packet PO 17 gm DAILY JOSE Administration Senna/Docusate Sodium 1 tab 08/11/20 21:00 08/15/20 08:06 Senokot S 8.6-50 Mg Tab PO 1 tab BID JOSE Administration Sodium Chloride 10 ml 08/09/20 21:00 08/15/20 08:16 Flush - Normal Saline 10 Ml Syringe IVF 10 ml Q12HR JOSE Administration Tramadol HCl 50 mg 08/14/20 12:00 08/15/20 13:37 Tramadol Hcl 50 Mg Tab PO 50 mg Q6HR JOSE Administration Zolpidem Tartrate 10 mg 08/12/20 21:00 08/14/20 20:23 Zolpidem Tartrate 5 Mg Tab PO 10 mg HS JOSE Administration Hospitalist Exam Vitals: Vital Signs (12 hours) Temp Pulse Resp BP BP Pulse Ox 08/15/20 15:54 98 F 65 18 129/69 100 08/15/20 10:47 98.0 F 71 16 138/91 H 100 08/15/20 08:07 145/85 H 08/15/20 08:00 100 08/15/20 07:51 97.7 F 71 14 145/85 H 100 Weight Weight 250 lb General - other findings: Morbid obesity Eye: anicteric sclera ENT: normocephalic atraumatic Neck: supple, no thyromegaly Heart: RRR Respiratory: CTAB Gastrointestinal: soft, non-tender Skin: no rashes Psychiatric: normal affect, normal behavior Hosp A/P - Plan Small bowel obstruction -Patient is tolerating full fluid diet, advance to 1800-calorie diet. CAD s/p CABG -Stable, patient is on aspirin and statin CHF -Stable, continue furosemide Type II diabetes -Continue Accu-Cheks and insulin sliding scale. Hemoglobin improved after packed RBC transfusion. Waiting for [facility] facility, likely discharge in 24 to 48 hours.
[2020-08-15] MEDS: Escitalopram Oxalate 10 mg Tablet PO SCH (20:19)
[2020-08-15] MEDS: Atorvastatin Calcium 10 MG TAB PO SCH (20:19)
[2020-08-15] MEDS: Donepezil HCl 5 MG TAB PO SCH (20:19)
[2020-08-15] MEDS: Zolpidem Tartrate 5 MG TAB PO SCH (20:19)
[2020-08-16] MEDS: traMADol HCl 50 MG TAB PO SCH ×4 (00:32→17:30)
[2020-08-16] MEDS: Ibuprofen 600 MG TAB PO SCH ×3 (05:04→22:11)
[2020-08-16] MEDS: Senokot S 8.6-50 MG TAB PO SCH ×2 (08:22→20:11)
[2020-08-16] MEDS: Oxybutynin 5 MG TAB PO SCH (08:22)
[2020-08-16] MEDS: Aspirin Chewable 81 MG TAB PO SCH (08:22)
[2020-08-16] MEDS: Gabapentin 400 MG CAP PO SCH ×3 (08:22→20:12)
[2020-08-16] MEDS: Enoxaparin Sodium 40 MG/0.4 ML SYRINGE SC SCH (08:22)
[2020-08-16] MEDS: Polyethylene Glycol 3350 17 GM Packet PO SCH (08:22)
[2020-08-16] MEDS: Carvedilol 6.25 MG TAB PO SCH (08:23)
[2020-08-16] MEDS: Ferrous Sulfate 325 MG TAB PO SCH (08:23)
[2020-08-16] MEDS: Losartan 25 MG TAB PO SCH (08:23)
[2020-08-16] MEDS: Mometasone 100 MCG/Formoterol 5 MCG 120 PUFF INHALER INH SCH ×2 (09:09→18:29)
[2020-08-16 11:06] LABS: #Eosinphils 0.1 thou/uL (0.0-0.7); #Lymphocytes 1.2 thou/uL (1.20-3.40); #Monocytes 0.8 thou/uL (0.11-0.59); #Neutrophils 5.6 thou/uL (1.40-6.50); %Basophils 0.4 % (0.0-1.0); %Eosinophils 1.4 % (0.0-10.0); %Lymphocytes 15.5 % (21.0-51.0); %Monocytes 10.3 % (0.0-10.0); %Neutrophils 72.4 % (42.0-75.0); Hemoglobin 8.7 g/dL (12.0-16.0); Mean Corpuscular HGB CONC 31.8 g/dL (32.0-36.0); Mean Corpuscular Hemoglobin 26.8 pg (27.0-31.0); Mean Corpuscular Volume 84.3 fL (78.0-98.0); Mean Platelet Volume 8.7 fL (7.4-10.4); Platelet Count 211 thou/uL (130-400); RBC Distribution Width 15.4 % (11.5-14.5); Red Blood Cell (RBC) Count 3.24 mill/uL (4.20-5.40); White Blood Cell (WBC) Count 7.7 thou/uL (4.8-10.8)
[2020-08-16 11:34] LABS: Troponin I 0.068 ng/mL (< 0.028)
[2020-08-16 11:35] LABS: ALT (SGPT) 13 U/L (8-55); AST (SGOT) 14 U/L (5-34); Albumin 3.2 g/dL (3.4-4.8); Alkaline Phosphatase 76 U/L (40-110); Anion Gap 14 mmol/L (10-20); BUN (Urea Nitrogen) 17 mg/dL (9.8-20.1); Bilirubin, Total 0.8 mg/dL (0.2-1.2); Calc. Creatinine Clearance 87 mL/min (70-130); Calcium 8.6 mg/dL (7.8-10.44); Carbon Dioxide 23 mmol/L (23-31); Chloride 104 mmol/L (98-107); Globulin 2.9 g/dL (2.4-3.5); Glucose 132 mg/dL (80-115); Potassium 4.7 mmol/L (3.5-5.1); Protein, Total 6.1 g/dL (5.8-8.1); Sodium 136 mmol/L (136-145)
--- NOTE | 2020-08-16 12:00 | RAD ---
Exam: Chest one view HISTORY:Shortness of breath Comparison: 08/09/2020 FINDINGS: Cardiac silhouette:Artery megaly. Stable sternotomy wires. Stable single lead left-sided defibrillato r Aorta: Atherosclerosis of the aortic knob Pulmonary vessels: Normal Costophrenic angles: Clear LUNGS: No masses or consolidation. Pneumothorax: None Osseous abnormalities: None IMPRESSION: Cardiomegaly, without evidence of congestive heart failure.
[2020-08-16 15:28] LABS: Troponin I 0.064 ng/mL (< 0.028)
--- NOTE | 2020-08-16 15:43 | NM ---
RADIONUCLIDE LUNG PERFUSION SCAN: 08/16/20 HISTORY: Shortness of breath. RADIOPHARMACEUTICAL: 5.4 millicuries technetium 99m-MAA given intravenously. FINDINGS: Correlation is made with chest radiograph of same date. Fairly homogeneous tracer distribution is seen in the lung aldridge bilaterally without pleural based w edge shaped segmental or subsegmental defects. A focal area of photopenia in the left chest is due to the AICD. IMPRESSION: No evidence of pulmonary embolism. POS: OFF
--- NOTE | 2020-08-16 18:25 | PDOC.HOSPP ---
- Subjective Encounter Date: 08/16/20 Encounter Time: 18:23 Subjective: Patient seen for follow-up regarding small bowel obstruction. She had an episode of shortness of breath earlier today. She currently denies chest pain. - Objective Vital Signs & Weight: Vital Signs (12 hours) Temp Pulse Resp BP BP Pulse Ox 08/16/20 16:14 97.8 F 75 18 108/69 99 08/16/20 12:02 97.5 F L 59 L 14 107/74 96 08/16/20 09:51 97.4 F L 65 16 121/79 100 08/16/20 08:56 80 100 08/16/20 08:23 138/80 Weight Weight 250 lb I&O: 08/15/20 08/16/20 08/17/20 06:59 06:59 06:59 Intake Total 1390 1610 Balance 1390 1610 Result Diagrams: 08/16/20 10:51 08/16/20 10:51 Additional Labs: Accuchecks 08/16/20 08/16/20 08/16/20 15:55 10:27 05:39 POC Glucose 104 H 118 H 128 H 08/15/20 08/15/20 20:22 10:35 POC Glucose 126 H 99 Labs and MAR reviewed by me Hospitalist ROS - Review of Systems Respiratory: reports: SOB with excertion Cardiovascular: denies: chest pain, palpitations, orthopnea, paroxysmal noc. dyspnea, edema, light headedness Gastrointestinal: denies: nausea, vomiting, abdominal pain, diarrhea, constipation, melena, hematochezia - Medication Medications: Active Medications Generic Name Dose Route Start Last Admin Trade Name Freq PRN Reason Stop Dose Admin Albuterol/Ipratropium 3 ml 08/10/20 07:04 08/16/20 08:56 Ipratropium/Albuterol Sulfate 3 Ml Neb NEB 3 ml [id number] PRN Administration SOB &/or Wheezing Alendronate Sodium 70 mg 08/13/20 18:00 08/13/20 17:15 Alendronate Sodium 70 Mg Tablet PO 70 mg Q7D JOSE Administration Aspirin 81 mg 08/11/20 09:00 08/16/20 08:22 Aspirin Chewable 81 Mg Tab PO 81 mg DAILY JOSE Administration Atorvastatin Calcium 10 mg 08/10/20 21:00 02/23/21 20:19 Atorvastatin Calcium 10 Mg Tab PO 10 mg HS JOSE Administration Carvedilol 6.25 mg 08/14/20 09:00 08/16/20 08:23 Carvedilol 6.25 Mg Tab PO 6.25 mg DAILY JOSE Administration Donepezil HCl 5 mg 08/13/20 21:00 08/15/20 20:19 Donepezil Hcl 5 Mg Tab PO 5 mg HS JOSE Administration Enoxaparin Sodium 40 mg 08/10/20 09:00 08/16/20 08:22 Enoxaparin Sodium 40 Mg/0.4 Ml Syringe SC 40 mg 0900 JOSE Administration Escitalopram Oxalate 10 mg 08/13/20 21:00 08/15/20 20:19 Escitalopram Oxalate 10 Mg Tablet PO 10 mg HS JOSE Administration Ferrous Sulfate 325 mg 08/14/20 08:00 08/16/20 08:23 Ferrous Sulfate 325 Mg Tab PO 325 mg QAM-WM JOSE Administration Gabapentin 800 mg 08/13/20 21:00 08/16/20 14:04 Gabapentin 400 Mg Cap PO 800 mg TID JOSE Administration Ibuprofen 600 mg 08/14/20 14:00 08/16/20 14:04 Ibuprofen 600 Mg Tab PO 600 mg Q8HR JOSE Administration Insulin Human Lispro 0 units 08/09/20 18:55 08/13/20 17:19 Humalog 300 Units/3 Ml Vial SC 2 unit .MODERATE SLIDING SC PRN Administration Moderate Correctional Scale Losartan Potassium 50 mg 08/14/20 09:00 08/16/20 08:23 Losartan 25 Mg Tab PO 50 mg DAILY JOSE Administration Mometasone Furoate/Formoterol Fumar 1 puff 08/10/20 18:30 08/16/20 09:09 Mometasone 100 Mcg/Formoterol 5 Mcg 120 Puff Inhaler INH 1 puff BID-RT JOSE Administration Oxybutynin Chloride 10 mg 08/14/20 09:00 08/16/20 08:22 Oxybutynin 5 Mg Tab PO 10 mg DAILY JOSE Administration Pantoprazole Sodium 40 mg 08/14/20 09:00 08/16/20 08:23 Pantoprazole 40 Mg Tab PO 40 mg DAILY JOSE Administration Polyethylene Glycol 17 gm 08/11/20 09:00 08/16/20 08:22 Polyethylene Glycol 3350 17 Gm Packet PO 17 gm DAILY JOSE Administration Senna/Docusate Sodium 1 tab 08/11/20 21:00 08/16/20 08:22 Senokot S 8.6-50 Mg Tab PO 1 tab BID JOSE Administration Sodium Chloride 10 ml 08/09/20 21:00 08/16/20 08:22 Flush - Normal Saline 10 Ml Syringe IVF 10 ml Q12HR JOSE Administration Tramadol HCl 50 mg 08/14/20 12:00 08/16/20 17:30 Tramadol Hcl 50 Mg Tab PO 50 mg Q6HR JOSE Administration Zolpidem Tartrate 10 mg 08/12/20 21:00 08/15/20 20:19 Zolpidem Tartrate 5 Mg Tab PO 10 mg HS JOSE Administration Hospitalist Exam Vitals: Vital Signs (12 hours) Temp Pulse Resp BP BP Pulse Ox 08/16/20 16:14 97.8 F 75 18 108/69 99 08/16/20 12:02 97.5 F L 59 L 14 107/74 96 08/16/20 09:51 97.4 F L 65 16 121/79 100 08/16/20 08:56 80 100 08/16/20 08:23 138/80 Weight Weight 250 lb General - other findings: Morbid obesity Neck: supple, symmetric, no JVD Heart: RRR Respiratory: CTAB, no wheezes, no rales Gastrointestinal: soft, non-tender Skin: no rashes Psychiatric: normal affect Hosp A/P - Plan Small bowel obstruction -Patient is tolerating 1800-calorie diet well. Small bowel obstruction was managed conservatively. CAD s/p CABG -Stable, patient is on aspirin and statin CHF -Stable, continue furosemide Type II diabetes -Continue Accu-Cheks and insulin sliding scale. Episode of shortness of breath has resolved. Patient's oxygen saturation was good. No evidence of pulmonary embolism on perfusion scan. Normal sinus rhythm on telemetry shows low voltage complexes but is not significantly different from the one done at the time of admission. Troponins in the indeterminate range, but patient did not have any chest pain. [facility]ing for [facility] facility, likely discharge in 24 to 48 hours.
[2020-08-16] MEDS: Atorvastatin Calcium 10 MG TAB PO SCH (20:14)
[2020-08-16] MEDS: Escitalopram Oxalate 10 mg Tablet PO SCH (20:14)
[2020-08-16] MEDS: Zolpidem Tartrate 5 MG TAB PO SCH (20:14)
[2020-08-16] MEDS: Donepezil HCl 5 MG TAB PO SCH (20:14)
[2020-08-17] MEDS: traMADol HCl 50 MG TAB PO SCH ×5 (01:05→23:11)
[2020-08-17] MEDS: Ibuprofen 600 MG TAB PO SCH ×3 (07:25→20:47)
[2020-08-17] MEDS: Mometasone 100 MCG/Formoterol 5 MCG 120 PUFF INHALER INH SCH ×2 (07:46→20:00)
[2020-08-17 08:13] LABS: #Eosinphils 0.1 thou/uL (0.0-0.7); #Lymphocytes 1.5 thou/uL (1.20-3.40); #Monocytes 0.8 thou/uL (0.11-0.59); #Neutrophils 4.8 thou/uL (1.40-6.50); %Basophils 0.6 % (0.0-1.0); %Eosinophils 1.9 % (0.0-10.0); %Lymphocytes 20.3 % (21.0-51.0); %Neutrophils 66.2 % (42.0-75.0); Hemoglobin 9.6 g/dL (12.0-16.0); Mean Corpuscular HGB CONC 30.7 g/dL (32.0-36.0); Mean Corpuscular Hemoglobin 25.8 pg (27.0-31.0); Mean Corpuscular Volume 84.1 fL (78.0-98.0); Mean Platelet Volume 8.5 fL (7.4-10.4); Platelet Count 261 thou/uL (130-400); RBC Distribution Width 16.2 % (11.5-14.5); White Blood Cell (WBC) Count 7.2 thou/uL (4.8-10.8)
[2020-08-17 08:26] LABS: Anion Gap 16 mmol/L (10-20); BUN (Urea Nitrogen) 18 mg/dL (9.8-20.1); Calc. Creatinine Clearance 79 mL/min (70-130); Calcium 8.9 mg/dL (7.8-10.44); Carbon Dioxide 22 mmol/L (23-31); Chloride 104 mmol/L (98-107); Glucose 110 mg/dL (80-115); Potassium 4.5 mmol/L (3.5-5.1); Sodium 137 mmol/L (136-145)
[2020-08-17] MEDS: Polyethylene Glycol 3350 17 GM Packet PO SCH (08:33)
[2020-08-17] MEDS: Aspirin Chewable 81 MG TAB PO SCH (08:34)
[2020-08-17] MEDS: Gabapentin 400 MG CAP PO SCH ×3 (08:34→20:48)
[2020-08-17] MEDS: Enoxaparin Sodium 40 MG/0.4 ML SYRINGE SC SCH (08:34)
[2020-08-17] MEDS: Ferrous Sulfate 325 MG TAB PO SCH (08:35)
[2020-08-17] MEDS: Senokot S 8.6-50 MG TAB PO SCH ×2 (08:35→20:48)
[2020-08-17] MEDS: Carvedilol 6.25 MG TAB PO SCH (08:35)
[2020-08-17] MEDS: Oxybutynin 5 MG TAB PO SCH (08:35)
[2020-08-17] MEDS: Losartan 25 MG TAB PO SCH (08:35)
[2020-08-17] MEDS: Ondansetron PF 4 MG/2 ML Vial IVP PRN (10:17)
[2020-08-17] MEDS: HumaLOG 300 UNITS/3 ML VIAL SC PRN (12:41)
--- NOTE | 2020-08-17 17:18 | PDOC.HOSPP ---
- Subjective Encounter Date: 08/17/20 Encounter Time: 17:16 Subjective: Patient seen for follow-up for episodes of confusion. She does not remember where she is. Level of confusion appears to be fluctuating. - Objective Vital Signs & Weight: Vital Signs (12 hours) Temp Pulse Resp BP BP Pulse Ox 08/17/20 15:01 97.7 F 68 18 106/73 94 L 08/17/20 11:30 97.5 F L 66 18 126/86 99 08/17/20 08:36 99 08/17/20 08:35 131/81 08/17/20 08:00 97.5 F L 87 16 131/81 99 Weight Admit Weight 250 lb Weight 250 lb I&O: 08/16/20 08/17/20 08/18/20 06:59 06:59 06:59 Intake Total 1610 750 Balance 1610 750 Result Diagrams: 08/17/20 07:51 08/17/20 07:51 Additional Labs: Accuchecks 08/17/20 08/17/20 08/17/20 16:38 11:47 05:44 POC Glucose 121 H 156 H 111 H 08/16/20 20:20 POC Glucose 110 H I reviewed patient's labs and MAR Hospitalist ROS - Review of Systems Gastrointestinal: denies: nausea, vomiting, abdominal pain, diarrhea, constipation, melena, hematochezia Genitourinary: denies: dysuria, frequency, incontinence, hematuria, retention Neurological: reports: confusion - Medication Medications: Active Medications Generic Name Dose Route Start Last Admin Trade Name Freq PRN Reason Stop Dose Admin Albuterol/Ipratropium 3 ml 08/10/20 07:04 08/16/20 08:56 Ipratropium/Albuterol Sulfate 3 Ml Neb NEB 3 ml [id number] PRN Administration SOB &/or Wheezing Alendronate Sodium 70 mg 08/13/20 18:00 08/13/20 17:15 Alendronate Sodium 70 Mg Tablet PO 70 mg Q7D JOSE Administration Aspirin 81 mg 08/11/20 09:00 08/17/20 08:34 Aspirin Chewable 81 Mg Tab PO 81 mg DAILY JOSE Administration Atorvastatin Calcium 10 mg 08/10/20 21:00 08/16/20 20:14 Atorvastatin Calcium 10 Mg Tab PO 10 mg HS JOSE Administration Carvedilol 6.25 mg 08/14/20 09:00 08/17/20 08:35 Carvedilol 6.25 Mg Tab PO 6.25 mg DAILY JOSE Administration Donepezil HCl 5 mg 08/13/20 21:00 08/16/20 20:14 Donepezil Hcl 5 Mg Tab PO 5 mg HS JOSE Administration Enoxaparin Sodium 40 mg 08/10/20 09:00 08/17/20 08:34 Enoxaparin Sodium 40 Mg/0.4 Ml Syringe SC 40 mg 0900 JOSE Administration Escitalopram Oxalate 10 mg 08/13/20 21:00 08/16/20 20:14 Escitalopram Oxalate 10 Mg Tablet PO 10 mg HS JOSE Administration Ferrous Sulfate 325 mg 08/14/20 08:00 08/17/20 08:35 Ferrous Sulfate 325 Mg Tab PO 325 mg QAM-WM JOSE Administration Gabapentin 800 mg 08/13/20 21:00 08/17/20 14:03 Gabapentin 400 Mg Cap PO 800 mg TID JOSE Administration Ibuprofen 600 mg 08/14/20 14:00 08/17/20 14:04 Ibuprofen 600 Mg Tab PO 600 mg Q8HR JOSE Administration Insulin Human Lispro 0 units 08/09/20 18:55 08/17/20 12:41 Humalog 300 Units/3 Ml Vial SC 2 unit .MODERATE SLIDING SC PRN Administration Moderate Correctional Scale Losartan Potassium 50 mg 08/14/20 09:00 08/17/20 08:35 Losartan 25 Mg Tab PO 50 mg DAILY JOSE Administration Mometasone Furoate/Formoterol Fumar 1 puff 08/10/20 18:30 08/17/20 07:46 Mometasone 100 Mcg/Formoterol 5 Mcg 120 Puff Inhaler INH 1 puff BID-RT JOSE Administration Ondansetron HCl 4 mg 08/09/20 18:55 08/17/20 10:17 Ondansetron Pf 4 Mg/2 Ml Vial IVP 4 mg Q6H PRN Administration Nausea/Vomiting Oxybutynin Chloride 10 mg 08/14/20 09:00 08/17/20 08:35 Oxybutynin 5 Mg Tab PO 10 mg DAILY JOSE Administration Pantoprazole Sodium 40 mg 08/14/20 09:00 08/17/20 08:35 Pantoprazole 40 Mg Tab PO 40 mg DAILY JOSE Administration Polyethylene Glycol 17 gm 08/11/20 09:00 08/17/20 08:33 Polyethylene Glycol 3350 17 Gm Packet PO 17 gm DAILY JOSE Administration Senna/Docusate Sodium 1 tab 08/11/20 21:00 08/17/20 08:35 Senokot S 8.6-50 Mg Tab PO 1 tab BID JOSE Administration Sodium Chloride 10 ml 08/09/20 21:00 08/17/20 08:36 Flush - Normal Saline 10 Ml Syringe IVF 10 ml Q12HR JOSE Administration Tramadol HCl 50 mg 08/14/20 12:00 08/17/20 17:06 Tramadol Hcl 50 Mg Tab PO 50 mg Q6HR JOSE Administration Zolpidem Tartrate 10 mg 08/12/20 21:00 08/16/20 20:14 Zolpidem Tartrate 5 Mg Tab PO 10 mg HS JOSE Administration Hospitalist Exam Vitals: Vital Signs (12 hours) Temp Pulse Resp BP BP Pulse Ox 08/17/20 15:01 97.7 F 68 18 106/73 94 L 08/17/20 11:30 97.5 F L 66 18 126/86 99 08/17/20 08:36 99 08/17/20 08:35 131/81 08/17/20 08:00 97.5 F L 87 16 131/81 99 Weight Admit Weight 250 lb Weight 250 lb General - other findings: Obese Eye: anicteric sclera ENT: no oropharyngeal lesions Neck: supple Heart: RRR Respiratory: CTAB Gastrointestinal: soft, non-tender Skin: no rashes Musculoskeletal: no muscle wasting Psychiatric: normal affect, normal behavior, oriented to person Hosp A/P - Plan Acute metabolic encephalopathy -Etiology unclear at this time, possible delirium. I will check urinalysis to rule out urinary tract infection. CAD s/p CABG -Stable, continue aspirin and statin CHF -Stable, on furosemide Type II diabetes -Continue Accu-Cheks and insulin sliding scale. Small bowel obstruction -resolved [facility], likely discharge in 24 to 48 hours.
[2020-08-17 18:52] LABS: Bacteria/HPF 2+ HPF (None Seen); Bilirubin Negative (Negative); Blood, Urine 1+ (Negative); Clarity Turbid (Clear); Glucose, Urine (Dipstick) Normal (Negative); Ketone, Urine Negative (Negative); Leukocyte 250 Leu/uL (Negative); Nitrite 1+ (Negative); Protein, Urine (Dipstick) 10 mg/dL (Neg-Trace); RBC/HPF 0-3 HPF (0-3); Squamous Epithelial 0-3 HPF (0-3); Urobilinogen Normal mg/dL (Less than 2)
[2020-08-17 18:55] LABS: Urine Culture Reflex Yes Yes
[2020-08-17] MEDS: Escitalopram Oxalate 10 mg Tablet PO SCH (20:49)
[2020-08-17] MEDS: Donepezil HCl 5 MG TAB PO SCH (20:49)
[2020-08-17] MEDS: Atorvastatin Calcium 10 MG TAB PO SCH (20:49)
[2020-08-17] MEDS: Zolpidem Tartrate 5 MG TAB PO SCH (20:49)
--- NOTE | 2020-08-17 20:58 | EKG ---
Test Reason : Blood Pressure : / mmHG Vent. Rate : 061 BPM Atrial Rate : 061 BPM P-R Int : 234 ms QRS Dur : 098 ms QT Int : 442 ms P-R-T Axes : 055 086 098 degrees QTc Int : 444 ms Sinus rhythm with 1st degree A-V block Low voltage QRS Anterolateral infarct (cited on or before 27-FEB-2020) Abnormal ECG When compared with ECG of 09-AUG-2020 23:24, Questionable change in initial forces of Lateral leads Nonspecific T wave abnormality, worse in Anterior leads Confirmed by Lin VIVAS ([id number]) on 08/17/2020 8:58:45 PM Referred By: HEIDY Confirmed By:Lin VIVAS
[2020-08-17] MEDS ORDERED: Lidocaine 2% Viscous Solution 10 ML, Aluminum & Magnesium Hydroxide 30 ML SSW SCH (21:30)
[2020-08-17 22:11] LABS: Anion Gap 11 mmol/L (10-20); Carbon Dioxide 24 mmol/L (23-31); Chloride 102 mmol/L (98-107); Magnesium 1.8 mg/dL (1.6-2.6); Potassium 4.4 mmol/L (3.5-5.1); Sodium 133 mmol/L (136-145)
[2020-08-17 22:30] LABS: CKMB 1.6 ng/mL (0-6.6)
--- NOTE | 2020-08-17 23:04 | RAD ---
Chest AP view INDICATION: Shortness of breath COMPARISON: March 03, 2020 and August 16, 2020 FINDINGS: Lungs: There is increased perihilar interstitial and airspace opacities, most prominent within the r ight lung base. Cardiac silhouette: There is moderate cardiomegaly Pulmonary vasculature: There is worsening pulmonary vascular congestion Pleural spaces: There are new small bilateral pleural effusions. No pneumothorax. Upper abdomen: No abnormality seen. Osseous structures: No acute osseous abnormality. Additional findings: Post-CABG change and single lead AICD is unchanged. IMPRESSION: Worsening CHF
[2020-08-17 23:05] LABS: Actual Bicarbonate (HCO3a) 24.2 mEq/L (22-28); Base Excess (BEa) -1.3 mEq/L (-2.0 to +3.0); CO2 Tension 43.8 mmHg (35.0-45.0); Calcium, Ionized (arterial) 1.17 mmol/L (1.12-1.30); Carboxyhemoglobin (COHb) 0.5 gm% (0.0-3.0); Hemoglobin (Hb) 9.9 g/dL (12.0-16.0); O2 Tension (PaO2), arterial 73.1 mmHg (> 70.0); Potassium - ABG Lab 4.33 mmol/L (3.70-5.30); pH, Arterial 7.36 (7.35-7.45)
[2020-08-17] MEDS ORDERED: Magnesium 2 GM/50 ML 2 GM in Premix Bag 1 BAG IVPB SCH (23:30)
[2020-08-17] MEDS ORDERED: Furosemide 40 MG/4 ML VIAL SLOW IVP SCH (23:30)
--- NOTE | 2020-08-18 00:09 | PDOC.EVN ---
Event Note - Event Note Event Note: Notified by RN, patient has had a fall upon transferring to bed from chair. Appeared to have fallen onto left side but denies any head trauma. She is on Lovenox and has been somewhat confused this evening prior to falling. I evaluated earlier due to reported chest discomfort. She appeared to be working to breathe and was off O2 while sitting up in her chair. I turned O2 up to 2L and her O2 sats improved from 90% to 96% EKG obtained, CXR as well as labs. ABG done as well. CXR is notable for CHF exacerbation. BNP elevated. Lasix 40 mg IV ordered, as well as Mg+ 2 gm IV x 1. Will change PO Lasix from PRN to Lasix 20 mg PO BID. Repeat labs in the AM including mg+. Will transfer to [facility] for closer monitoring. Continuous cardiac monitoring Continuous O2 sat monitoring Neuro checks 4hrs, if any changes will obtain CT Brain.
[2020-08-18 00:55] LABS: Puncture Site LRA
[2020-08-18 02:46] LABS: CKMB 1.6 ng/mL (0-6.6)
[2020-08-18] MEDS: Ibuprofen 600 MG TAB PO SCH ×3 (05:10→21:58)
[2020-08-18] MEDS: Furosemide 20 MG/2 ML VIAL SLOW IVP SCH ×2 (05:10→14:29)
[2020-08-18] MEDS: traMADol HCl 50 MG TAB PO SCH ×4 (05:11→23:40)
[2020-08-18] MEDS: Mometasone 100 MCG/Formoterol 5 MCG 120 PUFF INHALER INH SCH ×2 (07:35→20:13)
[2020-08-18 07:53] LABS: #Basophils 0.1 thou/uL (0.0-0.2); #Eosinphils 0.2 thou/uL (0.0-0.7); #Lymphocytes 1.4 thou/uL (1.20-3.40); #Monocytes 0.7 thou/uL (0.11-0.59); #Neutrophils 3.5 thou/uL (1.40-6.50); %Basophils 1.1 % (0.0-1.0); %Eosinophils 3.8 % (0.0-10.0); %Lymphocytes 24.2 % (21.0-51.0); %Monocytes 12.2 % (0.0-10.0); %Neutrophils 58.8 % (42.0-75.0); Hemoglobin 9.3 g/dL (12.0-16.0); Mean Corpuscular HGB CONC 31.2 g/dL (32.0-36.0); Mean Corpuscular Hemoglobin 26.7 pg (27.0-31.0); Mean Corpuscular Volume 85.6 fL (78.0-98.0); Platelet Count 220 thou/uL (130-400); RBC Distribution Width 16.8 % (11.5-14.5); Red Blood Cell (RBC) Count 3.47 mill/uL (4.20-5.40); White Blood Cell (WBC) Count 5.9 thou/uL (4.8-10.8)
[2020-08-18 08:12] LABS: Anion Gap 12 mmol/L (10-20); BUN (Urea Nitrogen) 16 mg/dL (9.8-20.1); Calc. Creatinine Clearance 79 mL/min (70-130); Calcium 8.5 mg/dL (7.8-10.44); Carbon Dioxide 30 mmol/L (23-31); Chloride 100 mmol/L (98-107); Glucose 112 mg/dL (80-115); Potassium 3.9 mmol/L (3.5-5.1); Sodium 138 mmol/L (136-145)
[2020-08-18] MEDS: Senokot S 8.6-50 MG TAB PO SCH ×2 (08:56→20:25)
[2020-08-18] MEDS: Enoxaparin Sodium 40 MG/0.4 ML SYRINGE SC SCH (08:56)
[2020-08-18] MEDS: Oxybutynin 5 MG TAB PO SCH (08:56)
[2020-08-18] MEDS: Aspirin Chewable 81 MG TAB PO SCH (08:57)
[2020-08-18] MEDS: Ferrous Sulfate 325 MG TAB PO SCH (08:57)
[2020-08-18] MEDS: Carvedilol 6.25 MG TAB PO SCH (08:57)
[2020-08-18] MEDS: Gabapentin 400 MG CAP PO SCH ×3 (08:57→20:24)
[2020-08-18] MEDS: Polyethylene Glycol 3350 17 GM Packet PO SCH (08:58)
[2020-08-18] MEDS: Losartan 25 MG TAB PO SCH (08:58)
--- NOTE | 2020-08-18 15:24 | PDOC.HOSPP ---
- Subjective Encounter Date: 08/18/20 Encounter Time: 08:00 Subjective: Patient seen in follow-up for acute metabolic encephalopathy. More alert today, does not recall overnight events. - Objective Vital Signs & Weight: Vital Signs (12 hours) Temp Pulse Resp BP Pulse Ox 08/18/20 11:34 97.4 F L 63 17 120/88 96 08/18/20 09:05 100 08/18/20 07:10 98.4 F 54 L 12 117/66 100 08/18/20 04:24 95 08/18/20 03:56 97.6 F 78 20 134/79 95 Weight Admit Weight 250 lb Weight 247 lb 3.2 oz I&O: 08/17/20 08/18/20 08/19/20 06:59 06:59 06:59 Intake Total 750 1390 Output Total 2800 Balance 750 -1410 Result Diagrams: 08/18/20 07:44 08/18/20 07:44 Additional Labs: Accuchecks 08/18/20 08/18/20 08/17/20 12:06 05:07 22:49 POC Glucose 129 H 94 121 H 08/17/20 08/17/20 08/17/20 20:43 16:38 15:12 POC Glucose 120 H 121 H 125 H Labs and MAR reviewed by me Hospitalist ROS - Review of Systems Cardiovascular: denies: chest pain, palpitations, orthopnea, paroxysmal noc. dyspnea, edema, light headedness Gastrointestinal: denies: nausea, vomiting, abdominal pain, diarrhea, constipation, melena, hematochezia - Medication Medications: Active Medications Generic Name Dose Route Start Last Admin Trade Name Freq PRN Reason Stop Dose Admin Albuterol/Ipratropium 3 ml 08/10/20 07:04 08/18/20 07:33 Ipratropium/Albuterol Sulfate 3 Ml Neb NEB 3 ml [id number] PRN Administration SOB &/or Wheezing Alendronate Sodium 70 mg 08/13/20 18:00 08/13/20 17:15 Alendronate Sodium 70 Mg Tablet PO 70 mg Q7D JOSE Administration Aspirin 81 mg 08/11/20 09:00 08/18/20 08:57 Aspirin Chewable 81 Mg Tab PO 81 mg DAILY JOSE Administration Atorvastatin Calcium 10 mg 08/10/20 21:00 08/17/20 20:49 Atorvastatin Calcium 10 Mg Tab PO 10 mg HS JOSE Administration Carvedilol 6.25 mg 08/14/20 09:00 08/18/20 08:57 Carvedilol 6.25 Mg Tab PO 6.25 mg DAILY JOSE Administration Donepezil HCl 5 mg 08/13/20 21:00 08/17/20 20:49 Donepezil Hcl 5 Mg Tab PO 5 mg HS JOSE Administration Enoxaparin Sodium 40 mg 08/10/20 09:00 08/18/20 08:56 Enoxaparin Sodium 40 Mg/0.4 Ml Syringe SC 40 mg 0900 JOSE Administration Escitalopram Oxalate 10 mg 08/13/20 21:00 08/17/20 20:49 Escitalopram Oxalate 10 Mg Tablet PO 10 mg HS JOSE Administration Ferrous Sulfate 325 mg 08/14/20 08:00 08/18/20 08:57 Ferrous Sulfate 325 Mg Tab PO 325 mg QAM-WM JOSE Administration Furosemide 20 mg 08/18/20 06:00 08/18/20 14:29 Furosemide 20 Mg/2 Ml Vial SLOW IVP 20 mg 0600,1400 JOSE Administration Gabapentin 800 mg 08/13/20 21:00 08/18/20 14:28 Gabapentin 400 Mg Cap PO 800 mg TID JOSE Administration Ibuprofen 600 mg 08/14/20 14:00 08/18/20 14:28 Ibuprofen 600 Mg Tab PO 600 mg Q8HR JOSE Administration Insulin Human Lispro 0 units 08/09/20 18:55 08/17/20 12:41 Humalog 300 Units/3 Ml Vial SC 2 unit .MODERATE SLIDING SC PRN Administration Moderate Correctional Scale Losartan Potassium 50 mg 08/14/20 09:00 08/18/20 08:58 Losartan 25 Mg Tab PO 50 mg DAILY JOSE Administration Mometasone Furoate/Formoterol Fumar 1 puff 08/10/20 18:30 08/18/20 07:35 Mometasone 100 Mcg/Formoterol 5 Mcg 120 Puff Inhaler INH 1 puff BID-RT JOSE Administration Ondansetron HCl 4 mg 08/09/20 18:55 08/17/20 10:17 Ondansetron Pf 4 Mg/2 Ml Vial IVP 4 mg Q6H PRN Administration Nausea/Vomiting Oxybutynin Chloride 10 mg 08/14/20 09:00 08/18/20 08:56 Oxybutynin 5 Mg Tab PO 10 mg DAILY JOSE Administration Pantoprazole Sodium 40 mg 08/14/20 09:00 08/18/20 08:57 Pantoprazole 40 Mg Tab PO 40 mg DAILY JOSE Administration Polyethylene Glycol 17 gm 08/11/20 09:00 08/18/20 08:58 Polyethylene Glycol 3350 17 Gm Packet PO 17 gm DAILY JOSE Administration Senna/Docusate Sodium 1 tab 08/11/20 21:00 08/18/20 08:56 Senokot S 8.6-50 Mg Tab PO 1 tab BID JOSE Administration Sodium Chloride 10 ml 08/09/20 21:00 08/18/20 08:58 Flush - Normal Saline 10 Ml Syringe IVF 10 ml Q12HR JOSE Administration Tramadol HCl 50 mg 08/14/20 12:00 08/18/20 11:36 Tramadol Hcl 50 Mg Tab PO 50 mg Q6HR JOSE Administration Zolpidem Tartrate 10 mg 08/12/20 21:00 08/17/20 20:49 Zolpidem Tartrate 5 Mg Tab PO 10 mg HS JOSE Administration Hospitalist Exam Vitals: Vital Signs (12 hours) Temp Pulse Resp BP Pulse Ox 08/18/20 11:34 97.4 F L 63 17 120/88 96 08/18/20 09:05 100 08/18/20 07:10 98.4 F 54 L 12 117/66 100 08/18/20 04:24 95 08/18/20 03:56 97.6 F 78 20 134/79 95 Weight Admit Weight 250 lb Weight 247 lb 3.2 oz General Appearance: awake alert Eye: PERRL ENT: normocephalic atraumatic Neck: supple Heart: RRR Respiratory: CTAB Gastrointestinal: soft, non-tender Skin: no rashes Psychiatric: normal affect, normal behavior, oriented to person Hosp A/P - Plan Patient is a pleasant 70-year-old lady who was admitted to the hospital on August 09, 2020 for bowel obstruction. She was seen by general surgery service. She had NG tube inserted to intermittent suction. Acute abdomen series on August 11 showed ongoing bowel obstruction. Abdominal x-ray on August 20 showed contrast transit throughout the large bowel without dilatation. Patient received 1 unit packed RBC for anemia. On August 16 she complained of shortness of breath. Lung perfusion scan did not show any pulmonary embolism. She did not complain of any chest pain. Troponins were in the indeterminate range. Chest x-ray showed cardiomegaly without evidence of congestive heart failure. Arrangements were being made to discharge her to [facility] for further management. On August 17 she developed confusion. She fell at night but did not hit her head. She is currently improving in terms of confusion. Urinalysis is suggestive of urinary tract infection. PT and OT consults have been placed to facilitate discharge to shelter facility when patient is clinically stable. Acute metabolic encephalopathy -Could be secondary to urinary tract infection, start ceftriaxone, patient reportedly had ceftriaxone in February 2020. Follow urine culture. CAD s/p CABG -Stable, patient is on aspirin and statin CHF -Stable, patient is on furosemide Type II diabetes -Continue Accu-Cheks and insulin sliding scale. Small bowel obstruction -resolved
[2020-08-18] MEDS: cefTRIAXone\\ROCEPHIN 1 GM in Sodium Chloride 0.9% 100 ML IVPB SCH (18:07)
[2020-08-18] MEDS: Donepezil HCl 5 MG TAB PO SCH (20:24)
[2020-08-18] MEDS: Atorvastatin Calcium 10 MG TAB PO SCH (20:24)
[2020-08-18] MEDS: Escitalopram Oxalate 10 mg Tablet PO SCH (20:24)
[2020-08-18] MEDS: Zolpidem Tartrate 5 MG TAB PO SCH (20:24)
--- NOTE | 2020-08-18 20:36 | EKG ---
Test Reason : Blood Pressure : / mmHG Vent. Rate : 074 BPM Atrial Rate : 074 BPM P-R Int : 218 ms QRS Dur : 108 ms QT Int : 382 ms P-R-T Axes : 032 103 -23 degrees QTc Int : 424 ms Sinus rhythm with 1st degree A-V block Low voltage QRS Possible Lateral infarct (cited on or before . Inferior T-wave changes,consider ischemia. Abnormal ECG When compared with ECG of 16-AUG-2020 11:00, Questionable change in initial forces of Lateral leads Nonspecific T wave abnormality now evident in Inferior leads Nonspecific T wave abnormality no longer evident in Anterolateral leads Confirmed by Lin VIVAS ([id number]) on 08/18/2020 8:36:19 PM Referred By: Ailyn MARRUFO Confirmed By:Lin VIVAS
[2020-08-19] MEDS: Ibuprofen 600 MG TAB PO SCH ×3 (06:44→21:26)
[2020-08-19] MEDS: Furosemide 20 MG/2 ML VIAL SLOW IVP SCH ×2 (06:45→14:35)
[2020-08-19] MEDS: traMADol HCl 50 MG TAB PO SCH ×4 (06:45→23:14)
[2020-08-19] MEDS: Mometasone 100 MCG/Formoterol 5 MCG 120 PUFF INHALER INH SCH ×2 (07:00→20:38)
[2020-08-19] MEDS: Aspirin Chewable 81 MG TAB PO SCH (08:05)
[2020-08-19] MEDS: Senokot S 8.6-50 MG TAB PO SCH ×2 (08:05→20:17)
[2020-08-19] MEDS: Gabapentin 400 MG CAP PO SCH ×3 (08:06→20:15)
[2020-08-19] MEDS: Enoxaparin Sodium 40 MG/0.4 ML SYRINGE SC SCH (08:06)
[2020-08-19] MEDS: Losartan 25 MG TAB PO SCH (08:06)
[2020-08-19] MEDS: Ferrous Sulfate 325 MG TAB PO SCH (08:06)
[2020-08-19] MEDS: Carvedilol 6.25 MG TAB PO SCH (08:07)
[2020-08-19] MEDS: Polyethylene Glycol 3350 17 GM Packet PO SCH (08:07)
[2020-08-19] MEDS: Oxybutynin 5 MG TAB PO SCH (08:08)
[2020-08-19] MEDS: cefTRIAXone\\ROCEPHIN 1 GM in Sodium Chloride 0.9% 100 ML IVPB SCH (17:21)
--- NOTE | 2020-08-19 17:27 | PDOC.BPN ---
- Brief Progress Note [id number] progress
--- NOTE | 2020-08-19 17:41 | PRG ---
DATE OF SERVICE: 08/19/2020 SUBJECTIVE: The patient is awake, does not appear to be in acute distress. The patient is breathing easier. Denies chest pain. PHYSICAL EXAMINATION: VITAL SIGNS: Temperature is 97.7, pulse is 62, oxygen saturation 99% on nasal cannula, respiratory rate is 18, blood pressure . HEAD AND NECK: Normocephalic. Neck is supple. CHEST: Few bibasilar crackles. HEART: Regular rate and rhythm. ABDOMEN: Soft, nontender. Bowel sounds present. NEUROLOGIC: Awake, alert, oriented to person. ASSESSMENT AND PLAN: 1. Acute metabolic encephalopathy, which could be secondary to urinary tract infection. The patient was started on IV ceftriaxone. Seems to be improving. 2. Congestive heart failure, the patient currently is on furosemide, continue to monitor kidney function and electrolytes. 3. Type 2 diabetes. Continue Accu-Cheks and insulin sliding scale. 4. Small bowel obstruction, resolved. 5. Coronary artery disease, stable. The patient is on aspirin and statin. Job ID: [id number]
[2020-08-19] MEDS: Zolpidem Tartrate 5 MG TAB PO SCH (20:16)
[2020-08-19] MEDS: Atorvastatin Calcium 10 MG TAB PO SCH (20:16)
[2020-08-19] MEDS: Escitalopram Oxalate 10 mg Tablet PO SCH (20:17)
[2020-08-19] MEDS: Donepezil HCl 5 MG TAB PO SCH (20:17)
[2020-08-20] MEDS: traMADol HCl 50 MG TAB PO SCH ×4 (05:29→22:58)
[2020-08-20] MEDS: Furosemide 20 MG/2 ML VIAL SLOW IVP SCH ×2 (05:29→17:33)
[2020-08-20] MEDS: Ibuprofen 600 MG TAB PO SCH ×2 (05:30→16:18)
[2020-08-20 06:40] LABS: #Basophils 0.1 thou/uL (0.0-0.2); #Eosinphils 0.2 thou/uL (0.0-0.7); #Lymphocytes 1.9 thou/uL (1.20-3.40); #Monocytes 0.9 thou/uL (0.11-0.59); #Neutrophils 4.4 thou/uL (1.40-6.50); %Basophils 0.7 % (0.0-1.0); %Eosinophils 2.3 % (0.0-10.0); %Lymphocytes 25.3 % (21.0-51.0); %Monocytes 12.1 % (0.0-10.0); %Neutrophils 59.7 % (42.0-75.0); Hemoglobin 9.6 g/dL (12.0-16.0); Mean Corpuscular HGB CONC 32.1 g/dL (32.0-36.0); Mean Corpuscular Hemoglobin 27.5 pg (27.0-31.0); Mean Corpuscular Volume 85.7 fL (78.0-98.0); Mean Platelet Volume 8.8 fL (7.4-10.4); Platelet Count 200 thou/uL (130-400); RBC Distribution Width 17.1 % (11.5-14.5); Red Blood Cell (RBC) Count 3.49 mill/uL (4.20-5.40); White Blood Cell (WBC) Count 7.4 thou/uL (4.8-10.8)
[2020-08-20 06:56] LABS: Anion Gap 20 mmol/L (10-20); BUN (Urea Nitrogen) 16 mg/dL (9.8-20.1); Calc. Creatinine Clearance 75 mL/min (70-130); Calcium 7.9 mg/dL (7.8-10.44); Carbon Dioxide 20 mmol/L (23-31); Chloride 100 mmol/L (98-107); Glucose 89 mg/dL (80-115); Potassium 4.4 mmol/L (3.5-5.1); Sodium 136 mmol/L (136-145)
[2020-08-20] MEDS: Enoxaparin Sodium 40 MG/0.4 ML SYRINGE SC SCH (08:50)
[2020-08-20] MEDS: Polyethylene Glycol 3350 17 GM Packet PO SCH (08:52)
[2020-08-20] MEDS: Aspirin Chewable 81 MG TAB PO SCH (08:53)
[2020-08-20] MEDS: Oxybutynin 5 MG TAB PO SCH (08:53)
[2020-08-20] MEDS: Senokot S 8.6-50 MG TAB PO SCH ×2 (08:53→20:10)
[2020-08-20] MEDS: Losartan 25 MG TAB PO SCH (08:53)
[2020-08-20] MEDS: Ferrous Sulfate 325 MG TAB PO SCH (08:53)
[2020-08-20] MEDS: Carvedilol 6.25 MG TAB PO SCH (08:53)
[2020-08-20] MEDS: Gabapentin 400 MG CAP PO SCH ×3 (08:54→20:11)
[2020-08-20] MEDS: Mometasone 100 MCG/Formoterol 5 MCG 120 PUFF INHALER INH SCH ×2 (10:15→19:49)
--- NOTE | 2020-08-20 15:38 | PDOC.BPN ---
- Brief Progress Note [id number]
--- NOTE | 2020-08-20 16:21 | PRG ---
DATE OF SERVICE: 08/20/2020 CURRENT MEDICATIONS: The patient is on 1. Ceftriaxone 1 g daily. 2. Tramadol p.r.n. 3. Ibuprofen. 4. Alendronate weekly. 5. Aspirin. 6. Atorvastatin. 7. Carvedilol 6.25 mg daily. 8. Aricept. 9. Lovenox 40 mg daily. 10. Escitalopram 10 mg p.o. q.h.s. 11. Ferrous sulfate. 12. Furosemide 20 mg . 13. Gabapentin. 14. Losartan. 15. Ditropan. 16. Pantoprazole. 17. Polyethylene glycol. 18. Docusate. 19. Ambien. 20. DuoNeb q.4 hours p.r.n. 21. Nicotine. 22. Tylenol p.r.n. 23. Tessalon Perles p.r.n. 24. Insulin. 25. Hydralazine p.r.n. 26. Zofran p.r.n. SUBJECTIVE: The patient says that she is not feeling well today. She is feeling lightheaded and having abdominal discomfort. Denies chest pain. Denies worsening shortness of breath. PHYSICAL EXAMINATION: GENERAL: She is awake, mild distress. VITAL SIGNS: Blood pressure is 139/60, temperature 97.9, pulse is 64, respiratory rate is 12, oxygen saturation is 97% on 3 L/minute nasal cannula. HEENT: Normocephalic, atraumatic. NECK: Supple. CHEST: Few bibasilar crackles. HEART: S1 and S2. Regular. ABDOMEN: Obese, soft, mild epigastric tenderness. Bowel sounds present. NEUROLOGIC: Awake, alert, oriented, moving extremities. PSYCH: Normal mood. LABORATORY DATA: WBC 7.4, hemoglobin 9.6, and platelets 200. Sodium 136, potassium 4.4, BUN is 16, creatinine 1.2, glucose 89. ASSESSMENT AND PLAN: 1. Small-bowel obstruction, resolved. 2. Acute metabolic encephalopathy, improved, probably secondary to urinary tract infection. 3. Acute on chronic congestive heart failure, the patient is currently on furosemide, continue to monitor kidney function and electrolytes. 4. Chronic obstructive pulmonary disease, continue with bronchodilators. 5. Coronary artery disease, the patient is on aspirin and statin. 6. Code status is DNR. Case Management consult for discharge planning/placement. Job ID: [id number]
[2020-08-20] MEDS: cefTRIAXone\\ROCEPHIN 1 GM in Sodium Chloride 0.9% 100 ML IVPB SCH (17:54)
[2020-08-20] MEDS: Donepezil HCl 5 MG TAB PO SCH (20:10)
[2020-08-20] MEDS: Atorvastatin Calcium 10 MG TAB PO SCH (20:10)
[2020-08-20] MEDS: Zolpidem Tartrate 5 MG TAB PO SCH (20:10)
[2020-08-20] MEDS: Escitalopram Oxalate 10 mg Tablet PO SCH (20:10)
[2020-08-21 06:07] LABS: #Eosinphils 0.1 thou/uL (0.0-0.7); #Lymphocytes 1.4 thou/uL (1.20-3.40); #Monocytes 0.7 thou/uL (0.11-0.59); #Neutrophils 5.2 thou/uL (1.40-6.50); %Basophils 0.3 % (0.0-1.0); %Eosinophils 1.6 % (0.0-10.0); %Lymphocytes 18.7 % (21.0-51.0); %Monocytes 9.3 % (0.0-10.0); %Neutrophils 70.1 % (42.0-75.0); Hemoglobin 9.8 g/dL (12.0-16.0); Mean Corpuscular HGB CONC 31.2 g/dL (32.0-36.0); Mean Corpuscular Hemoglobin 26.7 pg (27.0-31.0); Mean Corpuscular Volume 85.4 fL (78.0-98.0); Mean Platelet Volume 8.7 fL (7.4-10.4); Platelet Count 227 thou/uL (130-400); RBC Distribution Width 16.8 % (11.5-14.5); Red Blood Cell (RBC) Count 3.66 mill/uL (4.20-5.40); White Blood Cell (WBC) Count 7.4 thou/uL (4.8-10.8)
[2020-08-21] MEDS: traMADol HCl 50 MG TAB PO SCH ×4 (06:17→23:17)
[2020-08-21 06:18] LABS: ALT (SGPT) 12 U/L (8-55); AST (SGOT) 16 U/L (5-34); Albumin 3.4 g/dL (3.4-4.8); Alkaline Phosphatase 74 U/L (40-110); Anion Gap 13 mmol/L (10-20); BUN (Urea Nitrogen) 13 mg/dL (9.8-20.1); Bilirubin, Total 0.5 mg/dL (0.2-1.2); Calc. Creatinine Clearance 82 mL/min (70-130); Calcium 8.5 mg/dL (7.8-10.44); Carbon Dioxide 29 mmol/L (23-31); Chloride 100 mmol/L (98-107); Globulin 3.2 g/dL (2.4-3.5); Glucose 111 mg/dL (80-115); Potassium 4.2 mmol/L (3.5-5.1); Protein, Total 6.6 g/dL (5.8-8.1); Sodium 138 mmol/L (136-145)
[2020-08-21] MEDS: Furosemide 20 MG/2 ML VIAL SLOW IVP SCH ×2 (06:18→13:00)
[2020-08-21] MEDS: Polyethylene Glycol 3350 17 GM Packet PO SCH (09:54)
[2020-08-21] MEDS: Gabapentin 400 MG CAP PO SCH ×3 (09:55→20:09)
[2020-08-21] MEDS: Senokot S 8.6-50 MG TAB PO SCH ×2 (09:55→20:10)
[2020-08-21] MEDS: Oxybutynin 5 MG TAB PO SCH (09:57)
[2020-08-21] MEDS: Aspirin Chewable 81 MG TAB PO SCH (09:57)
[2020-08-21] MEDS: Carvedilol 6.25 MG TAB PO SCH (09:58)
[2020-08-21] MEDS: Losartan 25 MG TAB PO SCH (09:58)
[2020-08-21] MEDS: Ferrous Sulfate 325 MG TAB PO SCH (09:58)
[2020-08-21] MEDS: Enoxaparin Sodium 40 MG/0.4 ML SYRINGE SC SCH (10:07)
[2020-08-21] MEDS: Mometasone 100 MCG/Formoterol 5 MCG 120 PUFF INHALER INH SCH ×2 (10:24→19:36)
--- NOTE | 2020-08-21 11:01 | PDOC.HOSPP ---
- Subjective Encounter Date: 08/21/20 Encounter Time: 12:00 Subjective: Patient continues to complain of chronic abdominal pain, however she has been appearing more comfortable per nursing and therapy notes and has been eating some of her food. Patient states she has a hard time eating any food but last nutrition services note mention she eating about 75% of her meals. She also had an empty back of peanut M&Ms next to her bed. She has not had a bowel movement since the 25th 4 days ago. - Objective Vital Signs & Weight: Vital Signs (12 hours) Temp Pulse Resp BP Pulse Ox 08/21/20 08:10 97.8 F 72 14 118/70 2 L 08/21/20 04:39 96 08/21/20 04:00 97.7 F 62 20 110/72 100 Weight Admit Weight 250 lb Weight 259 lb 4.218 oz I&O: 08/20/20 08/21/20 08/22/20 06:59 06:59 06:59 Intake Total 2150 1400 237 Output Total 2450 3150 Balance -300 -1750 237 Result Diagrams: 08/21/20 05:46 08/21/20 05:46 Additional Labs: Accuchecks 08/21/20 08/20/20 08/20/20 05:46 20:57 15:50 POC Glucose 102 H 131 H 94 08/20/20 08/20/20 10:59 05:28 POC Glucose 148 H 84 Hospitalist ROS - Review of Systems Constitutional: denies: fever, chills Respiratory: denies: cough, shortness of breath Cardiovascular: denies: chest pain, palpitations Gastrointestinal: reports: abdominal pain. denies: nausea, vomiting, diarrhea, constipation Genitourinary: denies: dysuria, hematuria - Medication Medications: Active Medications Generic Name Dose Route Start Last Admin Trade Name Freq PRN Reason Stop Dose Admin Albuterol/Ipratropium 3 ml 08/10/20 07:04 08/20/20 19:49 Ipratropium/Albuterol Sulfate 3 Ml Neb NEB 3 ml [id number] PRN Administration SOB &/or Wheezing Aspirin 81 mg 08/11/20 09:00 08/21/20 09:57 Aspirin Chewable 81 Mg Tab PO 81 mg DAILY JOSE Administration Atorvastatin Calcium 10 mg 08/10/20 21:00 08/20/20 20:10 Atorvastatin Calcium 10 Mg Tab PO 10 mg HS JOSE Administration Benzonatate 100 mg 08/11/20 14:27 08/20/20 13:21 Benzonatate 100 Mg Cap PO 100 mg TIDPRN PRN Administration Cough Carvedilol 6.25 mg 08/14/20 09:00 08/21/20 09:58 Carvedilol 6.25 Mg Tab PO 6.25 mg DAILY JOSE Administration Donepezil HCl 5 mg 08/13/20 21:00 08/20/20 20:10 Donepezil Hcl 5 Mg Tab PO 5 mg HS JOSE Administration Enoxaparin Sodium 40 mg 08/10/20 09:00 08/21/20 10:07 Enoxaparin Sodium 40 Mg/0.4 Ml Syringe SC 40 mg 0900 JOSE Administration Escitalopram Oxalate 10 mg 08/13/20 21:00 08/20/20 20:10 Escitalopram Oxalate 10 Mg Tablet PO 10 mg HS JOSE Administration Ferrous Sulfate 325 mg 08/14/20 08:00 08/21/20 09:58 Ferrous Sulfate 325 Mg Tab PO 325 mg QAM-WM JOSE Administration Furosemide 20 mg 08/18/20 06:00 08/21/20 06:18 Furosemide 20 Mg/2 Ml Vial SLOW IVP 20 mg 0600,1400 JOSE Administration Gabapentin 800 mg 08/13/20 21:00 08/21/20 09:55 Gabapentin 400 Mg Cap PO 800 mg TID JOSE Administration Ceftriaxone Sodium 1 gm/ 100 mls @ 200 mls/hr 08/18/20 17:00 08/20/20 17:54 Sodium Chloride IVPB 100 mls 1700 JOSE Administration Insulin Human Lispro 0 units 08/09/20 18:55 08/17/20 12:41 Humalog 300 Units/3 Ml Vial SC 2 unit .MODERATE SLIDING SC PRN Administration Moderate Correctional Scale Losartan Potassium 50 mg 08/14/20 09:00 08/21/20 09:58 Losartan 25 Mg Tab PO 50 mg DAILY JOSE Administration Mometasone Furoate/Formoterol Fumar 1 puff 08/10/20 18:30 08/21/20 10:24 Mometasone 100 Mcg/Formoterol 5 Mcg 120 Puff Inhaler INH 1 puff BID-RT JOSE Administration Ondansetron HCl 4 mg 08/09/20 18:55 08/17/20 10:17 Ondansetron Pf 4 Mg/2 Ml Vial IVP 4 mg Q6H PRN Administration Nausea/Vomiting Oxybutynin Chloride 10 mg 08/14/20 09:00 08/21/20 09:57 Oxybutynin 5 Mg Tab PO 10 mg DAILY JOSE Administration Pantoprazole Sodium 40 mg 08/14/20 09:00 08/21/20 09:58 Pantoprazole 40 Mg Tab PO 40 mg DAILY JOSE Administration Polyethylene Glycol 17 gm 08/11/20 09:00 08/21/20 09:54 Polyethylene Glycol 3350 17 Gm Packet PO 17 gm DAILY JOSE Administration Senna/Docusate Sodium 1 tab 08/11/20 21:00 08/21/20 09:55 Senokot S 8.6-50 Mg Tab PO 1 tab BID JOSE Administration Sodium Chloride 10 ml 08/09/20 21:00 08/20/20 20:11 Flush - Normal Saline 10 Ml Syringe IVF 10 ml Q12HR JOSE Administration Tramadol HCl 50 mg 08/14/20 12:00 08/21/20 06:17 Tramadol Hcl 50 Mg Tab PO 50 mg Q6HR JOSE Administration Tramadol HCl 50 mg 08/14/20 10:57 08/18/20 16:54 Tramadol Hcl 50 Mg Tab PO 50 mg Q6H PRN Administration Moderate to Severe Pain (6-10) Zolpidem Tartrate 10 mg 08/12/20 21:00 08/20/20 20:10 Zolpidem Tartrate 5 Mg Tab PO 10 mg HS JOSE Administration Hospitalist Exam Vitals: Vital Signs (12 hours) Temp Pulse Resp BP Pulse Ox 08/21/20 08:10 97.8 F 72 14 118/70 2 L 08/21/20 04:39 96 08/21/20 04:00 97.7 F 62 20 110/72 100 Weight Admit Weight 250 lb Weight 259 lb 4.218 oz General Appearance: NAD, awake alert ENT: moist mucosa Heart: RRR, no murmur, no gallops, no rubs Respiratory: CTAB, no wheezes, no rales, no ronchi Gastrointestinal: soft, non-distended, normal bowel sounds, tender to palpation (Diffusely, mild) Extremities: no edema Psychiatric: normal affect, normal behavior Hosp A/P - Plan Patient is a pleasant 70-year-old lady who was admitted to the hospital on August 09, 2020 for bowel obstruction. She was seen by general surgery service. She had NG tube inserted to intermittent suction. Acute abdomen series on August 11 showed ongoing bowel obstruction. Abdominal x-ray on August 20 showed contrast transit throughout the large bowel without dilatation. Patient received 1 unit packed RBC for anemia. On August 16 she complained of shortness of breath. Lung perfusion scan did not show any pulmonary embolism. She did not complain of any chest pain. Troponins were in the indeterminate range. Chest x-ray showed cardiomegaly without evidence of congestive heart failure. Arrangements were being made to discharge her to [facility] for further management. On August 17 she developed confusion. She fell at night but did not hit her head. She is currently improving in terms of confusion. Urinalysis is suggestive of urinary tract infection. PT and OT consults have been placed to facilitate discharge to senior care facility when patient is clinically stable. Acute metabolic encephalopathy -Could be secondary to urinary tract infection Urinary tract infection with E. coli started ceftriaxone on 08/18/2020 Culture sensitive to Rocephin CAD s/p CABG -Stable, patient is on aspirin and statin CHF -Stable, patient is on furosemide Type II diabetes -Continue Accu-Cheks and insulin sliding scale. Small bowel obstruction -resolved Disposition: We will need placement in SNF
[2020-08-21] MEDS: Ondansetron PF 4 MG/2 ML Vial IVP PRN (13:00)
[2020-08-21] MEDS: cefTRIAXone\\ROCEPHIN 1 GM in Sodium Chloride 0.9% 100 ML IVPB SCH (18:34)
[2020-08-21] MEDS: Zolpidem Tartrate 5 MG TAB PO SCH (20:10)
[2020-08-21] MEDS: Donepezil HCl 5 MG TAB PO SCH (20:10)
[2020-08-21] MEDS: Atorvastatin Calcium 10 MG TAB PO SCH (20:10)
[2020-08-21] MEDS: Escitalopram Oxalate 10 mg Tablet PO SCH (20:10)
[2020-08-22] MEDS: Furosemide 20 MG/2 ML VIAL SLOW IVP SCH ×2 (06:11→15:45)
[2020-08-22] MEDS: traMADol HCl 50 MG TAB PO SCH ×3 (06:12→18:01)
[2020-08-22] MEDS: Mometasone 100 MCG/Formoterol 5 MCG 120 PUFF INHALER INH SCH ×2 (06:47→19:21)
[2020-08-22] MEDS: Gabapentin 400 MG CAP PO SCH ×3 (09:09→21:35)
[2020-08-22] MEDS: Enoxaparin Sodium 40 MG/0.4 ML SYRINGE SC SCH (09:09)
[2020-08-22] MEDS: Senokot S 8.6-50 MG TAB PO SCH ×2 (09:09→21:34)
[2020-08-22] MEDS: Aspirin Chewable 81 MG TAB PO SCH (09:09)
[2020-08-22] MEDS: Ferrous Sulfate 325 MG TAB PO SCH (09:10)
[2020-08-22] MEDS: Losartan 25 MG TAB PO SCH (09:10)
[2020-08-22] MEDS: Oxybutynin 5 MG TAB PO SCH (09:11)
[2020-08-22] MEDS: Polyethylene Glycol 3350 17 GM Packet PO SCH (09:12)
[2020-08-22] MEDS: Carvedilol 6.25 MG TAB PO SCH (09:15)
--- NOTE | 2020-08-22 10:17 | PDOC.HOSPP ---
- Subjective Encounter Date: 08/22/20 Encounter Time: 12:20 Subjective: Patient reports continued abdominal cramping pain. This has been going on for long before she ever came to the hospital. She has not had any nausea or vomiting. She still has not had a bowel movement. - Objective Vital Signs & Weight: Vital Signs (12 hours) Temp Pulse Resp BP BP Pulse Ox 08/22/20 09:15 143/67 H 08/22/20 07:30 97.8 F 66 18 118/76 98 08/22/20 04:38 97.6 F 60 13 117/62 90 L 08/22/20 00:57 98 Weight Admit Weight 250 lb Weight 257 lb 4.471 oz I&O: 08/21/20 08/22/20 08/23/20 06:59 06:59 06:59 Intake Total 1400 1107 Output Total 3150 955 Balance -1750 152 Result Diagrams: 08/21/20 05:46 08/21/20 05:46 Additional Labs: Accuchecks 08/22/20 08/21/20 08/21/20 05:43 20:26 16:06 POC Glucose 118 H 123 H 92 08/21/20 11:17 POC Glucose 112 H Hospitalist ROS - Review of Systems Constitutional: denies: fever, chills Respiratory: denies: cough, shortness of breath Cardiovascular: denies: chest pain, palpitations Gastrointestinal: reports: abdominal pain, constipation. denies: nausea, vomiting - Medication Medications: Active Medications Generic Name Dose Route Start Last Admin Trade Name Freq PRN Reason Stop Dose Admin Albuterol/Ipratropium 3 ml 08/10/20 07:04 08/20/20 19:49 Ipratropium/Albuterol Sulfate 3 Ml Neb NEB 3 ml [id number] PRN Administration SOB &/or Wheezing Aspirin 81 mg 08/11/20 09:00 08/22/20 09:09 Aspirin Chewable 81 Mg Tab PO 81 mg DAILY JOSE Administration Atorvastatin Calcium 10 mg 08/10/20 21:00 08/21/20 20:10 Atorvastatin Calcium 10 Mg Tab PO 10 mg HS JOSE Administration Benzonatate 100 mg 08/11/20 14:27 08/20/20 13:21 Benzonatate 100 Mg Cap PO 100 mg TIDPRN PRN Administration Cough Carvedilol 6.25 mg 08/14/20 09:00 08/22/20 09:15 Carvedilol 6.25 Mg Tab PO 6.25 mg DAILY JOSE Administration Donepezil HCl 5 mg 08/13/20 21:00 08/21/20 20:10 Donepezil Hcl 5 Mg Tab PO 5 mg HS JOSE Administration Enoxaparin Sodium 40 mg 08/10/20 09:00 08/22/20 09:09 Enoxaparin Sodium 40 Mg/0.4 Ml Syringe SC 40 mg 0900 JOSE Administration Escitalopram Oxalate 10 mg 08/13/20 21:00 08/21/20 20:10 Escitalopram Oxalate 10 Mg Tablet PO 10 mg HS JOSE Administration Ferrous Sulfate 325 mg 08/14/20 08:00 08/22/20 09:10 Ferrous Sulfate 325 Mg Tab PO 325 mg QAM-WM JOSE Administration Furosemide 20 mg 08/18/20 06:00 08/22/20 06:11 Furosemide 20 Mg/2 Ml Vial SLOW IVP 20 mg 0600,1400 JOSE Administration Gabapentin 800 mg 08/13/20 21:00 08/22/20 09:09 Gabapentin 400 Mg Cap PO 800 mg TID JOSE Administration Ceftriaxone Sodium 1 gm/ 100 mls @ 200 mls/hr 08/18/20 17:00 08/21/20 18:34 Sodium Chloride IVPB 100 mls 1700 JOSE Administration Insulin Human Lispro 0 units 08/09/20 18:55 08/17/20 12:41 Humalog 300 Units/3 Ml Vial SC 2 unit .MODERATE SLIDING SC PRN Administration Moderate Correctional Scale Losartan Potassium 50 mg 08/14/20 09:00 08/22/20 09:10 Losartan 25 Mg Tab PO 50 mg DAILY JOSE Administration Mometasone Furoate/Formoterol Fumar 1 puff 08/10/20 18:30 08/22/20 06:47 Mometasone 100 Mcg/Formoterol 5 Mcg 120 Puff Inhaler INH 1 puff BID-RT JOSE Administration Ondansetron HCl 4 mg 08/09/20 18:55 08/21/20 13:00 Ondansetron Pf 4 Mg/2 Ml Vial IVP 4 mg Q6H PRN Administration Nausea/Vomiting Oxybutynin Chloride 10 mg 08/14/20 09:00 08/22/20 09:11 Oxybutynin 5 Mg Tab PO 10 mg DAILY JOSE Administration Pantoprazole Sodium 40 mg 08/14/20 09:00 08/22/20 09:09 Pantoprazole 40 Mg Tab PO 40 mg DAILY JOSE Administration Polyethylene Glycol 17 gm 08/11/20 09:00 08/22/20 09:12 Polyethylene Glycol 3350 17 Gm Packet PO 17 gm DAILY JOSE Administration Senna/Docusate Sodium 2 tab 08/21/20 21:00 08/22/20 09:09 Senokot S 8.6-50 Mg Tab PO 2 tab BID JOSE Administration Sodium Chloride 10 ml 08/09/20 21:00 08/22/20 09:17 Flush - Normal Saline 10 Ml Syringe IVF 10 ml Q12HR JOSE Administration Tramadol HCl 50 mg 08/14/20 12:00 08/22/20 06:12 Tramadol Hcl 50 Mg Tab PO 50 mg Q6HR JOSE Administration Tramadol HCl 50 mg 08/14/20 10:57 08/18/20 16:54 Tramadol Hcl 50 Mg Tab PO 50 mg Q6H PRN Administration Moderate to Severe Pain (6-10) Zolpidem Tartrate 10 mg 08/12/20 21:00 08/21/20 20:10 Zolpidem Tartrate 5 Mg Tab PO 10 mg HS JOSE Administration Hospitalist Exam Vitals: Vital Signs (12 hours) Temp Pulse Resp BP BP Pulse Ox 08/22/20 09:15 143/67 H 08/22/20 07:30 97.8 F 66 18 118/76 98 08/22/20 04:38 97.6 F 60 13 117/62 90 L 08/22/20 00:57 98 Weight Admit Weight 250 lb Weight 257 lb 4.471 oz General Appearance: NAD, awake alert ENT: moist mucosa Heart: RRR, no murmur, no gallops, no rubs Respiratory: CTAB, no wheezes, no rales, no ronchi Gastrointestinal: soft, non-tender, non-distended, normal bowel sounds Extremities: no edema Psychiatric: normal affect, normal behavior Hosp A/P - Plan Patient is a pleasant 70-year-old lady who was admitted to the hospital on August 09, 2020 for bowel obstruction. She was seen by general surgery service. She had NG tube inserted to intermittent suction. Acute abdomen series on August 11 showed ongoing bowel obstruction. Abdominal x-ray on August 20 showed contrast transit throughout the large bowel without dilatation. Patient received 1 unit packed RBC for anemia. On August 16 she complained of shortness of breath. Lung perfusion scan did not show any pulmonary embolism. She did not complain of any chest pain. Troponins were in the indeterminate range. Chest x-ray showed cardiomegaly without evidence of congestive heart failure. Arrangements were being made to discharge her to [facility] for further management. On August 17 she developed confusion. S he fell at night but did not hit her head. She is currently improving in terms of confusion. Urinalysis is suggestive of urinary tract infection. PT and OT consults have been placed to facilitate discharge to custodial facility when patient is clinically stable. Acute metabolic encephalopathy -Could be secondary to urinary tract infection, improved Urinary tract infection with E. coli started ceftriaxone on 08/18/2020 Culture sensitive to Rocephin Rocephin day 5 CAD s/p CABG -Stable, patient is on aspirin and statin CHF -Stable, patient is on furosemide Type II diabetes -Continue Accu-Cheks and insulin sliding scale. Small bowel obstruction -resolved Disposition: Awaiting insurance authorization for placement at the [facility].
[2020-08-22] MEDS: Ondansetron PF 4 MG/2 ML Vial IVP PRN (13:52)
[2020-08-22] MEDS: cefTRIAXone\\ROCEPHIN 1 GM in Sodium Chloride 0.9% 100 ML IVPB SCH (18:01)
[2020-08-22] MEDS: Zolpidem Tartrate 5 MG TAB PO SCH (21:35)
[2020-08-22] MEDS: Atorvastatin Calcium 10 MG TAB PO SCH (21:35)
[2020-08-22] MEDS: Donepezil HCl 5 MG TAB PO SCH (21:35)
[2020-08-22] MEDS: Escitalopram Oxalate 10 mg Tablet PO SCH (21:35)
[2020-08-23] MEDS: traMADol HCl 50 MG TAB PO SCH ×3 (00:39→12:35)
[2020-08-23] MEDS: Furosemide 20 MG/2 ML VIAL SLOW IVP SCH ×2 (05:54→15:30)
[2020-08-23] MEDS: Mometasone 100 MCG/Formoterol 5 MCG 120 PUFF INHALER INH SCH (07:30)
--- NOTE | 2020-08-23 08:08 | PDOC.HOSPP ---
- Subjective Encounter Date: 08/23/20 Encounter Time: 10:00 Subjective: Patient without complaints today. She did have a soft bowel movement yesterday. Her abdominal cramping seems a little bit better today. She is eager to get to the SNF once arranged. - Objective Vital Signs & Weight: Vital Signs (12 hours) Temp Pulse Resp BP BP Pulse Ox 08/23/20 07:39 98.4 F 67 20 165/82 H 91 L 08/23/20 04:15 97.6 F 52 L 16 124/72 93 L 08/23/20 03:54 98 08/22/20 23:30 98.2 F 67 16 131/71 97 Weight Admit Weight 250 lb Weight 257 lb 4.471 oz I&O: 08/22/20 08/23/20 08/24/20 06:59 06:59 06:59 Intake Total 1107 934 Output Total 955 1000 Balance 152 -66 Result Diagrams: 08/21/20 05:46 08/21/20 05:46 Additional Labs: Accuchecks 08/22/20 08/22/20 20:38 11:11 POC Glucose 137 H 145 H Hospitalist ROS - Review of Systems Constitutional: denies: fever, chills Respiratory: denies: cough, shortness of breath Cardiovascular: denies: chest pain, palpitations Gastrointestinal: reports: abdominal pain (Mild cramping). denies: nausea, vomiting, diarrhea, constipation - Medication Medications: Active Medications Generic Name Dose Route Start Last Admin Trade Name Freq PRN Reason Stop Dose Admin Albuterol/Ipratropium 3 ml 08/10/20 07:04 08/20/20 19:49 Ipratropium/Albuterol Sulfate 3 Ml Neb NEB 3 ml [id number] PRN Administration SOB &/or Wheezing Aspirin 81 mg 08/11/20 09:00 08/22/20 09:09 Aspirin Chewable 81 Mg Tab PO 81 mg DAILY JOSE Administration Atorvastatin Calcium 10 mg 08/10/20 21:00 08/22/20 21:35 Atorvastatin Calcium 10 Mg Tab PO 10 mg HS JOSE Administration Benzonatate 100 mg 08/11/20 14:27 08/20/20 13:21 Benzonatate 100 Mg Cap PO 100 mg TIDPRN PRN Administration Cough Carvedilol 6.25 mg 08/14/20 09:00 08/22/20 09:15 Carvedilol 6.25 Mg Tab PO 6.25 mg DAILY JOSE Administration Donepezil HCl 5 mg 08/13/20 21:00 08/22/20 21:35 Donepezil Hcl 5 Mg Tab PO 5 mg HS JOSE Administration Enoxaparin Sodium 40 mg 08/10/20 09:00 08/22/20 09:09 Enoxaparin Sodium 40 Mg/0.4 Ml Syringe SC 40 mg 0900 JOSE Administration Escitalopram Oxalate 10 mg 08/13/20 21:00 08/22/20 21:35 Escitalopram Oxalate 10 Mg Tablet PO 10 mg HS JOSE Administration Ferrous Sulfate 325 mg 08/14/20 08:00 08/22/20 09:10 Ferrous Sulfate 325 Mg Tab PO 325 mg QAM-WM JOSE Administration Furosemide 20 mg 08/18/20 06:00 08/23/20 05:54 Furosemide 20 Mg/2 Ml Vial SLOW IVP 20 mg 0600,1400 JOSE Administration Gabapentin 800 mg 08/13/20 21:00 08/22/20 21:35 Gabapentin 400 Mg Cap PO 800 mg TID JOSE Administration Hyoscyamine Sulfate 0.125 mg 08/22/20 14:43 08/22/20 22:32 Hyoscyamine Sulfate 0.125 Mg Tab PO 0.125 mg Q4H PRN Administration Abdominal cramping Ceftriaxone Sodium 1 gm/ 100 mls @ 200 mls/hr 08/18/20 17:00 08/22/20 18:01 Sodium Chloride IVPB 100 mls 1700 JOSE Administration Insulin Human Lispro 0 units 08/09/20 18:55 08/17/20 12:41 Humalog 300 Units/3 Ml Vial SC 2 unit .MODERATE SLIDING SC PRN Administration Moderate Correctional Scale Losartan Potassium 50 mg 08/14/20 09:00 08/22/20 09:10 Losartan 25 Mg Tab PO 50 mg DAILY JOSE Administration Mometasone Furoate/Formoterol Fumar 1 puff 08/10/20 18:30 08/23/20 07:30 Mometasone 100 Mcg/Formoterol 5 Mcg 120 Puff Inhaler INH 1 puff BID-RT JOSE Administration Ondansetron HCl 4 mg 08/09/20 18:55 08/22/20 13:52 Ondansetron Pf 4 Mg/2 Ml Vial IVP 4 mg Q6H PRN Administration Nausea/Vomiting Oxybutynin Chloride 10 mg 08/14/20 09:00 08/22/20 09:11 Oxybutynin 5 Mg Tab PO 10 mg DAILY JOSE Administration Pantoprazole Sodium 40 mg 08/14/20 09:00 08/22/20 09:09 Pantoprazole 40 Mg Tab PO 40 mg DAILY JOSE Administration Polyethylene Glycol 17 gm 08/11/20 09:00 08/22/20 09:12 Polyethylene Glycol 3350 17 Gm Packet PO 17 gm DAILY JOSE Administration Senna/Docusate Sodium 2 tab 08/21/20 21:00 08/22/20 21:34 Senokot S 8.6-50 Mg Tab PO 2 tab BID JOSE Administration Sodium Chloride 10 ml 08/09/20 21:00 08/22/20 21:36 Flush - Normal Saline 10 Ml Syringe IVF 10 ml Q12HR JOSE Administration Tramadol HCl 50 mg 08/14/20 12:00 08/23/20 05:53 Tramadol Hcl 50 Mg Tab PO 50 mg Q6HR JOSE Administration Tramadol HCl 50 mg 08/14/20 10:57 08/18/20 16:54 Tramadol Hcl 50 Mg Tab PO 50 mg Q6H PRN Administration Moderate to Severe Pain (6-10) Zolpidem Tartrate 10 mg 08/12/20 21:00 08/22/20 21:35 Zolpidem Tartrate 5 Mg Tab PO 10 mg HS JOSE Administration Hospitalist Exam Vitals: Vital Signs (12 hours) Temp Pulse Resp BP BP Pulse Ox 08/23/20 07:39 98.4 F 67 20 165/82 H 91 L 08/23/20 04:15 97.6 F 52 L 16 124/72 93 L 08/23/20 03:54 98 08/22/20 23:30 98.2 F 67 16 131/71 97 Weight Admit Weight 250 lb Weight 257 lb 4.471 oz General Appearance: NAD, awake alert ENT: moist mucosa Heart: RRR, no murmur, no gallops, no rubs Respiratory: CTAB, no wheezes, no rales, no ronchi Gastrointestinal: soft, non-tender, non-distended, normal bowel sounds Psychiatric: normal affect, normal behavior, A&O x 3 Hosp A/P - Plan Patient is a pleasant 70-year-old lady who was admitted to the hospital on August 09, 2020 for bowel obstruction. She was seen by general surgery service. She had NG tube inserted to intermittent suction. Acute abdomen series on August 11 showed ongoing bowel obstruction. Abdominal x-ray on August 20 showed contrast transit throughout the large bowel without dilatation. Patient received 1 unit packed RBC for anemia. On August 16 she complained of shortness of breath. Lung perfusion scan did not show any pulmonary embolism. She did not complain of any chest pain. Troponins were in the indeterminate range. Chest x-ray showed cardiomegaly without evidence of congestive heart failure. Arrangements were being made to discharge her to [facility] for further management. On August 17 she developed confusion. She fell at night but did not hit her head. She is currently improving in terms of confusion. Urinalysis is suggestive of urinary tract infection. PT and OT consults have been placed to facilitate discharge to [facility] facility when patient is clinically stable. Acute metabolic encephalopathy -Could be secondary to urinary tract infection, improved Urinary tract infection with E. coli started ceftriaxone on 08/18/2020 Culture sensitive to Rocephin Rocephin day 6, will give 4 more days of Omnicef CAD s/p CABG -Stable, patient is on aspirin and statin CHF -Stable, patient is on furosemide Type II diabetes -Continue Accu-Cheks and insulin sliding scale. Small bowel obstruction -resolved Disposition: Transfer to the [facility] once insurance approved, likely later today..
[2020-08-23] MEDS ORDERED: Ondansetron ODT 4 MG TAB PO PRN (10:00)
[2020-08-23] MEDS: Carvedilol 6.25 MG TAB PO SCH (10:34)
[2020-08-23] MEDS: Ferrous Sulfate 325 MG TAB PO SCH (10:34)
[2020-08-23] MEDS: Aspirin Chewable 81 MG TAB PO SCH (10:34)
[2020-08-23] MEDS: Gabapentin 400 MG CAP PO SCH ×2 (10:34→15:30)
[2020-08-23] MEDS: Oxybutynin 5 MG TAB PO SCH (10:35)
[2020-08-23] MEDS: Losartan 25 MG TAB PO SCH (10:35)
[2020-08-23] MEDS: Polyethylene Glycol 3350 17 GM Packet PO SCH (10:36)
[2020-08-23] MEDS: Senokot S 8.6-50 MG TAB PO SCH (10:36)
[2020-08-23] MEDS: Enoxaparin Sodium 40 MG/0.4 ML SYRINGE SC SCH (10:36)
[2020-08-23 11:11] VITALS: BP 130/63; TEMP 97.6
[2020-08-23] MEDS ORDERED: Furosemide 40 MG TAB PO SCH (14:00)
--- NOTE | 2020-08-23 16:10 | PDOC.DS.DS ---
Provider Date of Admission: 08/09/20 18:55 Date of Discharge: 08/23/20 Admitting Provider: Yu Adames MD Consultations: General Surgery (Dr. Gallegos) Primary Care Physician: Chanda Love MD Course Hospital Course: Patient is a pleasant 70-year-old lady who was admitted to the hospital on August 09, 2020 for small bowel obstruction. She was treated conservatively with NG tube to low intermittent suction. She was seen by general surgery service. NG tube was removed and patient was started on a clear liquid diet because her acute abdominal pain was resolving. She had a recurrence of the pain and acute abdominal series showed findings of partial distal small bowel obstruction which was not significantly changed from the CT exam done at the time of admission. The following day, on August 12 she had follow-up 1 view KUB x-ray, which showed contrast transit throughout the large bowel without dilatation. She was started on clear liquid diet and was having bowel movements. Patient was going to be discharged home however she had some respiratory difficulties and confusion. She had nuclear medicine perfusion scan to make sure she did not have a PE which was negative. Patient was found to have a urinary tract infection and was started on Rocephin. Her urine did grow back E. coli pansensitive. Patient did have some constipation as well and had laxatives increased. She was doing better with normal mental status, soft bowel movements, and no shortness of breath time of discharge and is being sent to half-way facility. Pertinent Studies: CT ABDOMEN AND PELVIS WITHOUT IV CONTRAST: Indications: Abdominal pain Comparison: 02-27-2020 FINDINGS: Lung bases are clear. Liver, spleen and pancreas unremarkable. Stomach and duodenum unremarkable. Adrenal glands normal. Kidneys unremarkable. There are fluid and gas filled dilated loops of proximal small bowel exhuming differential air fluid levels. The more distal ileal loops are decompressed and normal caliber. Findings are consistent with moderate grade mid to small bowel obstruction. There appears to be a transition point in the mid small bowel on the right. Moderate stool volume is seen throughout the colon. Aorta normal caliber. No free fluid. Osseous structures show degenerative and post-operative changes in the lumbar spine. IMPRESSION: Dilated proximal small bowel loops with differential air fluid levels consistent with a mid-small bowel obstruction. Small bowel follow-through: 08/11/2020 HISTORY: Small bowel obstruction FINDINGS: Mail Clerk Bills imaging demonstrates a nasogastric tube extending into the left upper quadrant. There is gaseous distention of large and small bowel on automotive heavy mechanic imaging. Immediate postadministration of contrast media demonstrates contrast within the gastric fundus. At 30 minutes there is a small amount of contrast media emptying into the duodenum. At 1 hour there has been some contrast media extension into proximal dilated small bowel loops. At 2 hour imaging there is opacification of multiple central dilated loops of small bowel. Contrast media has entered the colon at the 4 hour imaging, seen extending into the region of the distal descending colon. IMPRESSION: Contrast media reaches the colon. Extension to the colon is delayed and there is marked distention of small bowel within the abdomen/pelvis which may signify partial small bowel obstruction or severe ileus. Recommend follow-up KUB on the morning of 08/12/2020. XR Abdomen 1 View/KUB History: Ileus Comparison: Small bowel follow-through prior day Findings: Contrast is transiting throughout the colon which is not significantly dilated. Posterior lumbosacral spinal fusion hardware. Large pericardiophrenic fat pads. Right upper quadrant surgical clips. Impression: Contrast transit throughout the large bowel without dilatation. RADIONUCLIDE LUNG PERFUSION SCAN: 08/16/20 HISTORY: Shortness of breath. RADIOPHARMACEUTICAL: 5.4 millicuries technetium 99m-MAA given intravenously. FINDINGS: Correlation is made with chest radiograph of same date. Fairly homogeneous tracer distribution is seen in the lung aldridge bilaterally without pleural based wedge shaped segmental or subsegmental defects. A focal area of photopenia in the left chest is due to the AICD. IMPRESSION: No evidence of pulmonary embolism. Resuscitation Status: 08/09/20 18:48 Resuscitation Status Routine Resuscitation Status: DNAR: NO Resuscitation Discussed with: Discussed with the patient Lab Results: 08/21/20 05:46 08/21/20 05:46 Microbiology - Entire Visit 08/17/20 18:55 Urine clean catch Urine Culture - Final Escherichia coli Vitals: Vital Signs (12 hours) Temp Pulse Resp BP Pulse Ox 08/23/20 11:10 97.6 F 67 20 130/63 94 L 08/23/20 07:39 98.4 F 67 20 165/82 H 91 L 08/23/20 04:15 97.6 F 52 L 16 124/72 93 L Weight Admit Weight 250 lb Weight 257 lb 4.471 oz Physical Exam: The patient was seen and examined on the day of discharge. Problem Assessment: Acute metabolic encephalopathyresolved Urinary tract infection with E. coli CAD s/p CABG Chronic systolic congestive heart failure Type II diabetes Small bowel obstructionresolved Chronic abdominal pain Plan of Treatment: We will discharge patient to half-way facility for PT and OT. We will continue antibiotics for 4 more days of Omnicef to complete a 10-day course of antibiotics. Time Spent in discharge related activities (mins): 35 Plan Home Medications: Medication Instructions Recorded Confirmed Type Aspirin Chewable [Aspirin Chewable 81 mg PO DAILY 01/13/18 08/09/20 History Tablet] Atorvastatin Calcium 10 mg PO HS 01/13/18 08/09/20 History Donepezil HCl [Aricept] 5 mg PO HS 01/13/18 08/09/20 History metFORMIN HCl 1,000 mg PO BID- 01/13/18 08/09/20 History Oxybutynin [Ditropan] 10 mg PO DAILY 06/19/18 08/09/20 History Alendronate Sodium [Fosamax] 70 mg PO Q7D 02/27/20 08/09/20 History Escitalopram Oxalate [Lexapro] 10 mg PO HS 02/27/20 08/09/20 History Gabapentin [Neurontin] 800 mg PO TID 02/27/20 08/09/20 History Ipratropium/Albuterol Sulfate 1 puff INH DAILY 02/27/20 08/09/20 History [Combivent Respimat] Pantoprazole [Protonix] 40 mg PO DAILY 02/27/20 08/09/20 History Zolpidem Tartrate [Ambien] 1 tab PO HS 02/27/20 08/09/20 History Albuterol Sulfate [Proventil Hfa] 2 puff INH QID 04/14/20 08/09/20 History Carvedilol [Coreg] 6.25 mg PO DAILY 04/14/20 08/09/20 History Ferrous Sulfate [Iron] 325 mg PO DAILY 04/14/20 08/09/20 History Losartan Potassium [Cozaar] 50 mg PO DAILY 04/14/20 04/15/20 History Magnesium Oxide 400 mg PO DAILY 04/14/20 08/09/20 History Acetaminophen [Tylenol Suppository] 650 mg [place] Q4H PRN supp 08/23/20 Rx Benzonatate [Tessalon] 100 mg PO TIDPRN PRN cap 08/23/20 Rx Cefdinir [Omnicef] 300 mg PO BID cap 08/23/20 Rx Furosemide [Lasix] 40 mg PO 0900,1400 tab 08/23/20 Rx Guaifenesin DM 100-10 [Robitussin 15 ml PO Q4H PRN ml 08/23/20 Rx DM] Hyoscyamine Sulfate [Levsin] 0.125 mg PO Q4H PRN tab 08/23/20 Rx Ipratropium/Albuterol Sulfate 3 ml NEB [id number] PRN neb 08/23/20 Rx [DuoNeb] Mometasone/Formoterol 100/5 1 puff INH BID-RT inh 08/23/20 Rx [Dulera 100 Mcg/5 Mcg Inhaler] Nicotine [Nicoderm CQ] 14 mg TD Q24HR PRN patch 08/23/20 Rx Ondansetron [Zofran ODT] 4 mg PO Q6H PRN tab 08/23/20 Rx Polyethylene Glycol 3350 [Miralax] 17 gm PO DAILY pk 08/23/20 Rx Sennosides/Docusate Sodium 2 tab PO BID tab 08/23/20 Rx [Senokot S] traMADol HCl [Ultram] 50 mg PO Q6H PRN tab 08/23/20 Rx traMADol HCl [Ultram] 50 mg PO Q6HR tab 08/23/20 Rx Allergies: iodine Allergy (Severe, Verified 02/27/20 10:14) ANAPHYLACTIC REACTION codeine Allergy (Intermediate, Verified 02/27/20 10:14) penicillin G Allergy (Verified 02/27/20 10:14) Discharge Instructions:: USE YOUR INCENTIVE SPIROMETER 10X EVERY 4 HOURS WHILE AWAKE. USE YOUR WALKER FOR TRANSFERS AND AMBULATION. CALL MD'S OFFICE FOR QUESTIONS AND CONCERNS. Activity:: Activity as Tolerated Nourishment:: Diabetic Diet, Fluid Restriction Diet (1500 mL) Therapies:: Occupational Therapy, Physical Therapy Equipment/Supplies:: Oxygen (as needed) IV Therapy:: Not Applicable Referrals: Chanda Love MD [Primary Care Provider] - 14 Days () Disposition: NURSING HOME FACILITY Quality CORE MEASURES:: HF
[2020-08-23] MEDS ORDERED: Cefdinir 300 MG CAP PO SCH (21:00)
== END 2020-08-23 15:08 | DRG 388 ==
LOC: ERS 11:43 → ERHOLD 16:24 → OBSVTOIN 18:55 → SURG A 21:01 → 3SE 08-18 01:16
PROVIDERS: ADMIT Internal Medicine; ATTEND Emergency Medicine
PROC: 5A09457 Assistance with Respiratory Ventilation, 24-96 Consecutive Hours, Continuous Positive Airway Pressure (ICD-10-PCS; principal; 2020-08-09)
PROC: 0D9670Z Drainage of Stomach with Drainage Device, Via Natural or Artificial Opening (ICD-10-PCS; 2020-08-09)
PROC: 30233N1 Transfusion of Nonautologous Red Blood Cells into Peripheral Vein, Percutaneous Approach (ICD-10-PCS; 2020-08-14)
DX: K56.600 Partial intestinal obstruction, unspecified as to cause (principal); G93.41 Metabolic encephalopathy; I50.23 Acute on chronic systolic (congestive) heart failure; I69.351 Hemiplegia and hemiparesis following cerebral infarction affecting right dominant side; N39.0 Urinary tract infection, site not specified; Z66 Do not resuscitate; Z20.822 Contact with and (suspected) exposure to COVID-19; I11.0 Hypertensive heart disease with heart failure; I35.0 Nonrheumatic aortic (valve) stenosis; J44.9 Chronic obstructive pulmonary disease, unspecified; F32.9 Major depressive disorder, single episode, unspecified; G47.33 Obstructive sleep apnea (adult) (pediatric); H53.9 Unspecified visual disturbance; I25.10 Atherosclerotic heart disease of native coronary artery without angina pectoris; E11.9 Type 2 diabetes mellitus without complications; E78.5 Hyperlipidemia, unspecified; E78.00 Pure hypercholesterolemia, unspecified; F41.9 Anxiety disorder, unspecified; F17.210 Nicotine dependence, cigarettes, uncomplicated; I69.398 Other sequelae of cerebral infarction; I69.392 Facial weakness following cerebral infarction; I69.311 Memory deficit following cerebral infarction; Z90.49 Acquired absence of other specified parts of digestive tract; Z90.710 Acquired absence of both cervix and uterus; Z95.1 Presence of aortocoronary bypass graft; Z95.0 Presence of cardiac pacemaker; Z88.5 Allergy status to narcotic agent; Z88.0 Allergy status to penicillin; Z79.82 Long term (current) use of aspirin; Z79.52 Long term (current) use of systemic steroids; Z98.890 Other specified postprocedural states; Z79.84 Long term (current) use of oral hypoglycemic drugs; Z79.899 Other long term (current) drug therapy; Z91.041 Radiographic dye allergy status; B96.20 Unspecified Escherichia coli [E. coli] as the cause of diseases classified elsewhere; K59.00 Constipation, unspecified
CPT/HCPCS: 36415; 36416; 36430; 36600; 71045; 74018; 74022; 74176; 74250; 78451; 80048; 80053; 81001; 82550; 82553; 82805; 83690; 83735; 83880; 84100; 84484; 85025; 85379; 86850; 86900; 86901; 87077; 87086; 87186; 93005; 93010; 94640; 94660; A9540; G0378; J0360; J0696; J1650; J1815; J1885; J1940; J2270; J2405; J3010; J3475; J3480; J3490; J7620; P9016; Q9963; S0028; U0002

== ENCOUNTER 2021-08-03 14:35 | Inpatient (IN) | payer MEDICARE, OTHER ==
[2021-08-03 15:29] LABS: #Eosinphils 0.1 thou/uL (0.0-0.7); #Lymphocytes 0.8 thou/uL (1.20-3.40); #Monocytes 0.6 thou/uL (0.11-0.59); #Neutrophils 6.4 thou/uL (1.40-6.50); %Basophils 0.2 % (0.0-1.0); %Eosinophils 0.8 % (0.0-10.0); %Lymphocytes 10.2 % (21.0-51.0); %Monocytes 8.1 % (0.0-10.0); %Neutrophils 80.7 % (42.0-75.0); Mean Corpuscular HGB CONC 32.2 g/dL (32.0-36.0); Mean Corpuscular Hemoglobin 26.5 pg (27.0-31.0); Mean Corpuscular Volume 82.2 fL (78.0-98.0); Mean Platelet Volume 7.9 fL (7.4-10.4); Platelet Count 259 thou/uL (130-400); RBC Distribution Width 15.5 % (11.5-14.5); Red Blood Cell (RBC) Count 3.02 mill/uL (4.20-5.40); White Blood Cell (WBC) Count 7.9 thou/uL (4.8-10.8)
[2021-08-03] MEDS ORDERED: methylPREDNISolone Sod Succ/PF 125 MG/2 ML VIAL ONE (15:36)
[2021-08-03 15:50] LABS: ALT (SGPT) 15 U/L (8-55); AST (SGOT) 20 U/L (5-34); Albumin 3.8 g/dL (3.4-4.8); Alkaline Phosphatase 101 U/L (40-110); Anion Gap 11 mmol/L (10-20); BUN (Urea Nitrogen) 30 mg/dL (9.8-20.1); Bilirubin, Total 0.6 mg/dL (0.2-1.2); Calc. Creatinine Clearance 0 mL/min (70-130); Calcium 8.4 mg/dL (7.8-10.44); Carbon Dioxide 30 mmol/L (23-31); Chloride 98 mmol/L (98-107); Globulin 3.6 g/dL (2.4-3.5); Glucose 111 mg/dL (83-110); Potassium 3.8 mmol/L (3.5-5.1); Protein, Total 7.4 g/dL (5.8-8.1); Sodium 135 mmol/L (136-145)
[2021-08-03 17:46] LABS: Acetaminophen Less than 6.0 mcg/mL (10.0-30.0); Alcohol Less than 10 mg/dL (Less than 10); Salicylate Less than 8.0 mg/dL (15.0-30.0)
[2021-08-03 18:57] LABS: Bacteria/HPF 4+ HPF (None Seen); Bilirubin Negative (Negative); Blood, Urine 1+ (Negative); Clarity Turbid (Clear); Glucose, Urine (Dipstick) Normal (Negative); Ketone, Urine Negative (Negative); Leukocyte Negative Leu/uL (Negative); Nitrite Negative (Negative); Protein, Urine (Dipstick) 10 mg/dL (Neg-Trace); RBC/HPF 0-3 HPF (0-3); Specific Gravity, Urine 1.014 (1.002-1.036); Squamous Epithelial 0-3 HPF (0-3); Urobilinogen Normal mg/dL (Less than 2); WBC/HPF 0-3 HPF (0-3); pH, Urine 5.5 (5.0-9.0)
[2021-08-03 19:04] LABS: Amphetamine Not Detected (NotDetected); Barbiturates Screen Not Detected (NotDetected); Benzodiazepine Screen Detected (NotDetected); Cocaine Metabolite Screen Not Detected (NotDetected); Methadone Not Detected (NotDetected); Methamphetamine Not Detected (NotDetected); Opiate Screen Detected (NotDetected); Oxycodone Screen Not Detected (NotDetected); Phencyclidine (PCP) Not Detected (NotDetected); THC/Cannabinoid Screen Not Detected (NotDetected); Tricyclic Screen Not Detected (NotDetected)
[2021-08-03 19:24] LABS: CKMB 0.7 ng/mL (0-6.6)
[2021-08-03] MEDS ORDERED: Morphine 4 MG/ML VIAL ONE (20:01)
[2021-08-03] MEDS ORDERED: cefTRIAXone\\ROCEPHIN 1 GM VIAL ONE (20:12)
[2021-08-03] MEDS ORDERED: Aspirin Chewable 81 MG TAB ONE (20:12)
[2021-08-03] MEDS ORDERED: Ipratropium Bromide 2.5 ml Neb NEB PRN (20:53)
[2021-08-03] MEDS ORDERED: Guaifenesin DM 100-10/5 ML UDCUP PO PRN (20:53)
[2021-08-03] MEDS ORDERED: hydrALAZINE 20 MG/ML VIAL SLOW IVP PRN (20:56)
[2021-08-03] MEDS ORDERED: Furosemide 40 MG TAB PO SCH (22:00)
[2021-08-03] MEDS ORDERED: Gabapentin 400 MG CAP PO SCH (22:30)
[2021-08-03] MEDS: Carvedilol 6.25 MG TAB PO SCH (22:38)
[2021-08-03] MEDS: Lorazepam 1 MG TAB PO SCH (22:38)
[2021-08-03] MEDS: Zolpidem Tartrate 5 MG TAB PO PRN (22:38)
[2021-08-04] MEDS: Morphine 4 MG/ML VIAL SLOW IVP PRN ×4 (03:01→20:34)
[2021-08-04] MEDS ORDERED: Lorazepam 1 MG TAB PO SCH (03:30)
[2021-08-04 05:17] LABS: ALT (SGPT) 14 U/L (8-55); AST (SGOT) 15 U/L (5-34); Albumin 3.6 g/dL (3.4-4.8); Alkaline Phosphatase 89 U/L (40-110); Anion Gap 14 mmol/L (10-20); BUN (Urea Nitrogen) 31 mg/dL (9.8-20.1); Bilirubin, Total 0.5 mg/dL (0.2-1.2); Calc. Creatinine Clearance 70 mL/min (70-130); Calcium 8.4 mg/dL (7.8-10.44); Carbon Dioxide 27 mmol/L (23-31); Chloride 97 mmol/L (98-107); Globulin 3.4 g/dL (2.4-3.5); Glucose 139 mg/dL (83-110); Potassium 4.1 mmol/L (3.5-5.1); Sodium 134 mmol/L (136-145)
[2021-08-04 05:19] LABS: Troponin I 0.039 ng/mL (< 0.028)
[2021-08-04 05:31] LABS: Band 4 % (5-11); Hemoglobin 7.5 g/dL (12.0-16.0); Lymphocytes 7 % (21-51); MDiff Complete? YES; Mean Corpuscular HGB CONC 31.4 g/dL (32.0-36.0); Mean Corpuscular Hemoglobin 26.1 pg (27.0-31.0); Mean Corpuscular Volume 83.3 fL (78.0-98.0); Mean Platelet Volume 8.3 fL (7.4-10.4); Neutrophil 89 % (42-75); Platelet Count 240 thou/uL (130-400); RBC Distribution Width 15.2 % (11.5-14.5); Red Blood Cell (RBC) Count 2.86 mill/uL (4.20-5.40)
[2021-08-04] MEDS: Escitalopram Oxalate 20 mg Tablet PO SCH (08:49)
[2021-08-04] MEDS: Carvedilol 6.25 MG TAB PO SCH ×2 (08:49→20:34)
[2021-08-04] MEDS: Famotidine 20 MG TAB PO SCH (08:49)
[2021-08-04] MEDS: Enoxaparin Sodium 40 MG/0.4 ML SYRINGE SC SCH (08:49)
[2021-08-04] MEDS: Lorazepam 1 MG TAB PO SCH ×2 (08:50→20:34)
[2021-08-04] MEDS: predniSONE 20 MG TAB PO SCH (08:50)
[2021-08-04] MEDS ORDERED: Gabapentin 400 MG CAP PO SCH (09:00)
[2021-08-04] MEDS ORDERED: Nitroglycerin 2% Ointment 1 INCH/1 GM Packet ONE (13:38)
[2021-08-04] MEDS: Furosemide 40 MG TAB PO SCH (13:42)
[2021-08-04 15:24] LABS: SARS-CoV-2 PCR by NAA Not Detected (NotDetected)
[2021-08-04] MEDS: HumaLOG 300 UNITS/3 ML VIAL SC PRN (17:39)
[2021-08-04] MEDS: cefTRIAXone\\ROCEPHIN 1 GM in Sodium Chloride 0.9% 100 ML IVPB SCH (20:33)
[2021-08-04] MEDS: Zolpidem Tartrate 5 MG TAB PO PRN ×2 (20:34→23:27)
[2021-08-04] MEDS: Gabapentin 400 MG CAP PO SCH (20:34)
[2021-08-05] MEDS: Morphine 4 MG/ML VIAL SLOW IVP PRN (00:41)
[2021-08-05] MEDS: Escitalopram Oxalate 20 mg Tablet PO SCH (08:39)
[2021-08-05] MEDS: Carvedilol 6.25 MG TAB PO SCH ×2 (08:39→20:47)
[2021-08-05] MEDS: Enoxaparin Sodium 40 MG/0.4 ML SYRINGE SC SCH (08:39)
[2021-08-05] MEDS: Gabapentin 400 MG CAP PO SCH ×2 (08:40→20:47)
[2021-08-05] MEDS: Famotidine 20 MG TAB PO SCH (08:40)
[2021-08-05] MEDS: predniSONE 20 MG TAB PO SCH (08:41)
[2021-08-05] MEDS: Lorazepam 1 MG TAB PO SCH ×2 (08:41→20:47)
[2021-08-05] MEDS: Furosemide 40 MG TAB PO SCH (13:06)
[2021-08-05] MEDS: cefTRIAXone\\ROCEPHIN 1 GM in Sodium Chloride 0.9% 100 ML IVPB SCH (20:46)
[2021-08-05] MEDS: Zolpidem Tartrate 5 MG TAB PO PRN (20:47)
[2021-08-06] MEDS ORDERED: Ondansetron ODT 4 MG TAB PO PRN (04:56)
[2021-08-06 07:33] LABS: #Lymphocytes 1.2 thou/uL (1.20-3.40); #Monocytes 0.8 thou/uL (0.11-0.59); #Neutrophils 5.3 thou/uL (1.40-6.50); %Eosinophils 0.3 % (0.0-10.0); %Lymphocytes 15.9 % (21.0-51.0); %Monocytes 10.6 % (0.0-10.0); %Neutrophils 73.1 % (42.0-75.0); Hemoglobin 7.7 g/dL (12.0-16.0); Mean Corpuscular HGB CONC 30.7 g/dL (32.0-36.0); Mean Corpuscular Hemoglobin 25.2 pg (27.0-31.0); Mean Platelet Volume 8.6 fL (7.4-10.4); Platelet Count 244 thou/uL (130-400); RBC Distribution Width 15.5 % (11.5-14.5); Red Blood Cell (RBC) Count 3.05 mill/uL (4.20-5.40); White Blood Cell (WBC) Count 7.3 thou/uL (4.8-10.8)
[2021-08-06] MEDS: Gabapentin 400 MG CAP PO SCH ×2 (08:27→20:08)
[2021-08-06] MEDS: Carvedilol 6.25 MG TAB PO SCH ×2 (08:28→20:08)
[2021-08-06] MEDS: Enoxaparin Sodium 40 MG/0.4 ML SYRINGE SC SCH (08:28)
[2021-08-06] MEDS: predniSONE 20 MG TAB PO SCH (08:28)
[2021-08-06] MEDS: Famotidine 20 MG TAB PO SCH (08:28)
[2021-08-06] MEDS: Escitalopram Oxalate 20 mg Tablet PO SCH (08:28)
[2021-08-06] MEDS: Lorazepam 1 MG TAB PO SCH ×2 (08:28→20:08)
[2021-08-06 08:41] LABS: Chloride 95 mmol/L (98-107); Potassium 3.4 mmol/L (3.5-5.1); Sodium 132 mmol/L (136-145)
[2021-08-06 08:42] LABS: Calcium 8.5 mg/dL (7.8-10.44); Glucose 109 mg/dL (83-110)
[2021-08-06 08:43] LABS: Anion Gap 18 mmol/L (10-20); Carbon Dioxide 22 mmol/L (23-31)
[2021-08-06 08:45] LABS: Calc. Creatinine Clearance 70 mL/min (70-130)
[2021-08-06 08:46] LABS: BUN (Urea Nitrogen) 40 mg/dL (9.8-20.1)
[2021-08-06 08:47] LABS: Magnesium 2.4 mg/dL (1.6-2.6)
[2021-08-06] MEDS: Morphine 4 MG/ML VIAL SLOW IVP PRN ×2 (09:55→20:08)
[2021-08-06] MEDS: Ondansetron PF 4 MG/2 ML Vial IVP PRN (11:04)
[2021-08-06 11:58] LABS: Troponin I 0.035 ng/mL (< 0.028)
[2021-08-06] MEDS: Furosemide 40 MG TAB PO SCH (15:14)
[2021-08-06] MEDS: cefTRIAXone\\ROCEPHIN 1 GM in Sodium Chloride 0.9% 100 ML IVPB SCH (20:06)
[2021-08-06] MEDS: Zolpidem Tartrate 5 MG TAB PO PRN (20:13)
[2021-08-07] MEDS: Carvedilol 6.25 MG TAB PO SCH ×2 (10:44→20:28)
[2021-08-07] MEDS: Famotidine 20 MG TAB PO SCH (10:45)
[2021-08-07] MEDS: Gabapentin 400 MG CAP PO SCH ×2 (10:45→20:28)
[2021-08-07] MEDS: Escitalopram Oxalate 20 mg Tablet PO SCH (10:45)
[2021-08-07] MEDS: Enoxaparin Sodium 40 MG/0.4 ML SYRINGE SC SCH (10:45)
[2021-08-07] MEDS: Lorazepam 1 MG TAB PO SCH ×2 (10:46→20:29)
[2021-08-07] MEDS: predniSONE 20 MG TAB PO SCH (10:46)
[2021-08-07] MEDS: Furosemide 40 MG TAB PO SCH (13:43)
[2021-08-07] MEDS: Morphine 4 MG/ML VIAL SLOW IVP PRN ×2 (13:58→19:26)
[2021-08-07] MEDS: HumaLOG 300 UNITS/3 ML VIAL SC PRN ×2 (17:18→21:47)
[2021-08-07] MEDS: Zolpidem Tartrate 5 MG TAB PO PRN (20:29)
[2021-08-07] MEDS: cefTRIAXone\\ROCEPHIN 1 GM in Sodium Chloride 0.9% 100 ML IVPB SCH (20:30)
[2021-08-08] MEDS: Carvedilol 6.25 MG TAB PO SCH ×2 (08:52→21:53)
[2021-08-08] MEDS: Enoxaparin Sodium 40 MG/0.4 ML SYRINGE SC SCH (08:53)
[2021-08-08] MEDS: predniSONE 20 MG TAB PO SCH (08:53)
[2021-08-08] MEDS: Lorazepam 1 MG TAB PO SCH ×2 (08:54→21:53)
[2021-08-08] MEDS: Famotidine 20 MG TAB PO SCH (08:54)
[2021-08-08] MEDS: Escitalopram Oxalate 20 mg Tablet PO SCH (08:54)
[2021-08-08] MEDS: Gabapentin 400 MG CAP PO SCH ×2 (08:56→21:52)
[2021-08-08] MEDS: Furosemide 40 MG TAB PO SCH (14:29)
[2021-08-08] MEDS: Morphine 4 MG/ML VIAL SLOW IVP PRN ×3 (14:37→23:38)
[2021-08-08] MEDS: Zolpidem Tartrate 5 MG TAB PO PRN (21:53)
[2021-08-08] MEDS: cefTRIAXone\\ROCEPHIN 1 GM in Sodium Chloride 0.9% 100 ML IVPB SCH (21:54)
[2021-08-08] MEDS: Ondansetron PF 4 MG/2 ML Vial IVP PRN (22:44)
[2021-08-09] MEDS: Enoxaparin Sodium 40 MG/0.4 ML SYRINGE SC SCH (08:22)
[2021-08-09] MEDS: Gabapentin 400 MG CAP PO SCH ×2 (08:22→21:31)
[2021-08-09] MEDS: Lorazepam 1 MG TAB PO SCH ×2 (08:23→21:30)
[2021-08-09] MEDS: Carvedilol 6.25 MG TAB PO SCH ×2 (08:23→21:30)
[2021-08-09] MEDS: Escitalopram Oxalate 20 mg Tablet PO SCH (08:24)
[2021-08-09] MEDS: predniSONE 20 MG TAB PO SCH (08:24)
[2021-08-09] MEDS: Famotidine 20 MG TAB PO SCH (08:25)
[2021-08-09] MEDS ORDERED: Furosemide 40 MG/4 ML VIAL SLOW IVP SCH (12:45)
[2021-08-09] MEDS: Bisacodyl 5 MG TAB PO PRN (13:31)
[2021-08-09] MEDS: Morphine 4 MG/ML VIAL SLOW IVP PRN ×2 (13:40→22:22)
[2021-08-09] MEDS: Cefdinir 300 MG CAP PO SCH (21:30)
[2021-08-09] MEDS: Zolpidem Tartrate 5 MG TAB PO PRN (21:31)
[2021-08-10] MEDS: Zolpidem Tartrate 5 MG TAB PO PRN ×2 (01:57→22:27)
[2021-08-10] MEDS: Enoxaparin Sodium 40 MG/0.4 ML SYRINGE SC SCH (09:50)
[2021-08-10] MEDS: Gabapentin 400 MG CAP PO SCH ×2 (09:50→22:27)
[2021-08-10] MEDS: Famotidine 20 MG TAB PO SCH (09:51)
[2021-08-10] MEDS: predniSONE 20 MG TAB PO SCH (09:51)
[2021-08-10] MEDS: Lorazepam 1 MG TAB PO SCH ×2 (09:52→22:27)
[2021-08-10] MEDS: Carvedilol 6.25 MG TAB PO SCH ×2 (09:52→22:27)
[2021-08-10] MEDS: Cefdinir 300 MG CAP PO SCH ×2 (09:53→22:27)
[2021-08-10] MEDS: Escitalopram Oxalate 20 mg Tablet PO SCH (09:53)
[2021-08-10] MEDS: Furosemide 40 MG TAB PO SCH (14:38)
[2021-08-10] MEDS: HumaLOG 300 UNITS/3 ML VIAL SC PRN (18:43)
[2021-08-11 00:03] LABS: SARS-CoV-2 PCR by NAA Not Detected (NotDetected)
[2021-08-11] MEDS: predniSONE 20 MG TAB PO SCH (09:24)
[2021-08-11] MEDS: Enoxaparin Sodium 40 MG/0.4 ML SYRINGE SC SCH (09:24)
[2021-08-11] MEDS: Gabapentin 400 MG CAP PO SCH ×2 (09:25→20:13)
[2021-08-11] MEDS: Carvedilol 6.25 MG TAB PO SCH ×2 (09:25→20:12)
[2021-08-11] MEDS: Cefdinir 300 MG CAP PO SCH ×2 (09:26→20:13)
[2021-08-11] MEDS: Famotidine 20 MG TAB PO SCH (09:26)
[2021-08-11] MEDS: Lorazepam 1 MG TAB PO SCH ×2 (09:26→20:13)
[2021-08-11] MEDS: Escitalopram Oxalate 20 mg Tablet PO SCH (09:26)
[2021-08-11] MEDS: Furosemide 40 MG TAB PO SCH (13:20)
[2021-08-11] MEDS: Zolpidem Tartrate 5 MG TAB PO PRN (22:12)
[2021-08-12] MEDS: Enoxaparin Sodium 40 MG/0.4 ML SYRINGE SC SCH (08:16)
[2021-08-12] MEDS: Cefdinir 300 MG CAP PO SCH ×2 (08:17→20:32)
[2021-08-12] MEDS: Gabapentin 400 MG CAP PO SCH (08:17)
[2021-08-12] MEDS: Carvedilol 6.25 MG TAB PO SCH ×2 (08:17→20:34)
[2021-08-12] MEDS: Lorazepam 1 MG TAB PO SCH (08:17)
[2021-08-12] MEDS: predniSONE 20 MG TAB PO SCH (08:17)
[2021-08-12] MEDS: Escitalopram Oxalate 20 mg Tablet PO SCH (08:21)
[2021-08-12] MEDS: Famotidine 20 MG TAB PO SCH (08:21)
[2021-08-12 08:37] LABS: Hemoglobin 8.9 g/dL (12.0-16.0); Mean Corpuscular HGB CONC 29.8 g/dL (32.0-36.0); Mean Corpuscular Hemoglobin 24.3 pg (27.0-31.0); Mean Corpuscular Volume 81.5 fL (78.0-98.0); Mean Platelet Volume 9.6 fL (7.4-10.4); Platelet Count 274 thou/uL (130-400); RBC Distribution Width 16.5 % (11.5-14.5); Red Blood Cell (RBC) Count 3.64 mill/uL (4.20-5.40); White Blood Cell (WBC) Count 10.7 thou/uL (4.8-10.8)
[2021-08-12 08:46] LABS: ALT (SGPT) 100 U/L (8-55); AST (SGOT) 39 U/L (5-34); Albumin 3.7 g/dL (3.4-4.8); Alkaline Phosphatase 86 U/L (40-110); Anion Gap 13 mmol/L (10-20); BUN (Urea Nitrogen) 28 mg/dL (9.8-20.1); Bilirubin, Total 1.1 mg/dL (0.2-1.2); Calc. Creatinine Clearance 80 mL/min (70-130); Calcium 8.9 mg/dL (7.8-10.44); Carbon Dioxide 29 mmol/L (23-31); Chloride 99 mmol/L (98-107); Globulin 3.7 g/dL (2.4-3.5); Glucose 120 mg/dL (83-110); Potassium 4.1 mmol/L (3.5-5.1); Protein, Total 7.4 g/dL (5.8-8.1); Sodium 137 mmol/L (136-145)
[2021-08-12 09:03] LABS: Anisocytosis SLIGHT = 6-15 cells (100X) (0-5/hpf); Band 3 % (5-11); Lymphocytes 21 % (21-51); MDiff Complete? YES; Monocytes 11 % (0-10); Neutrophil 65 % (42-75); Platelet Morphology Comment Appears Adequate; Polychromasia MODERATE = 3-4 cells (100X) (0-2/hpf); Target Cells SLIGHT = 2-5 cells (100X) (0-1/hpf); Tear Drops SLIGHT = 2-5 cells (100X) (0-1/hpf)
[2021-08-12] MEDS: Furosemide 40 MG TAB PO SCH (13:45)
[2021-08-12] MEDS: HumaLOG 300 UNITS/3 ML VIAL SC PRN (16:11)
[2021-08-12] MEDS: Gabapentin 300 MG CAP PO SCH (20:31)
[2021-08-12] MEDS ORDERED: Gabapentin 400 MG CAP PO SCH (21:00)
[2021-08-13] MEDS ORDERED: Nitroglycerin 0.4 MG TAB (25 Tab Bottle) SL PRN (01:01)
[2021-08-13] MEDS ORDERED: Lidocaine 2% Viscous Solution 20 ML, Aluminum & Magnesium Hydroxide 30 ML, Donnatal Eli... SSW SCH (01:30)
[2021-08-13] MEDS ORDERED: Furosemide 40 MG/4 ML VIAL SLOW IVP SCH (01:30)
[2021-08-13 01:41] LABS: Anion Gap 11 mmol/L (10-20); BUN (Urea Nitrogen) 26 mg/dL (9.8-20.1); Calc. Creatinine Clearance 86 mL/min (70-130); Calcium 8.8 mg/dL (7.8-10.44); Carbon Dioxide 30 mmol/L (23-31); Chloride 101 mmol/L (98-107); Glucose 179 mg/dL (83-110); Phosphorus 2.9 mg/dL (2.3-4.7); Potassium 3.8 mmol/L (3.5-5.1); Sodium 138 mmol/L (136-145)
[2021-08-13 01:44] LABS: Troponin I 0.015 ng/mL (< 0.028)
[2021-08-13] MEDS: Gabapentin 300 MG CAP PO SCH ×2 (08:46→21:03)
[2021-08-13] MEDS: Enoxaparin Sodium 40 MG/0.4 ML SYRINGE SC SCH (08:46)
[2021-08-13] MEDS: predniSONE 20 MG TAB PO SCH (08:47)
[2021-08-13] MEDS: Cefdinir 300 MG CAP PO SCH ×2 (08:48→21:06)
[2021-08-13] MEDS: Bisacodyl 5 MG TAB PO PRN (08:48)
[2021-08-13] MEDS: Carvedilol 6.25 MG TAB PO SCH ×2 (08:48→21:07)
[2021-08-13] MEDS: Escitalopram Oxalate 20 mg Tablet PO SCH (08:48)
[2021-08-13] MEDS: Furosemide 20 MG TAB PO SCH ×2 (08:48→13:08)
[2021-08-13] MEDS: Famotidine 20 MG TAB PO SCH (08:48)
[2021-08-13] MEDS: Acetaminophen 325 MG TAB PO PRN ×2 (10:08→17:50)
[2021-08-13] MEDS: HumaLOG 300 UNITS/3 ML VIAL SC PRN ×2 (11:39→17:11)
[2021-08-13] MEDS ORDERED: Ketorolac Tromethamine 30 MG/ML VIAL IVP SCH (13:15)
[2021-08-14] MEDS: Acetaminophen 325 MG TAB PO PRN (00:36)
[2021-08-14] MEDS ORDERED: Gabapentin 100 MG CAP PO SCH (02:30)
[2021-08-14 03:27] LABS: Anion Gap 13 mmol/L (10-20); BUN (Urea Nitrogen) 29 mg/dL (9.8-20.1); Calc. Creatinine Clearance 72 mL/min (70-130); Calcium 8.5 mg/dL (7.8-10.44); Carbon Dioxide 27 mmol/L (23-31); Chloride 95 mmol/L (98-107); Glucose 111 mg/dL (83-110); Sodium 131 mmol/L (136-145)
[2021-08-14] MEDS: Gabapentin 300 MG CAP PO SCH ×2 (08:48→21:14)
[2021-08-14] MEDS: Bisacodyl 5 MG TAB PO PRN (08:49)
[2021-08-14] MEDS: Cefdinir 300 MG CAP PO SCH ×2 (08:49→21:12)
[2021-08-14] MEDS: Escitalopram Oxalate 20 mg Tablet PO SCH (08:49)
[2021-08-14] MEDS: Furosemide 20 MG TAB PO SCH ×2 (08:50→14:46)
[2021-08-14] MEDS: Famotidine 20 MG TAB PO SCH (08:50)
[2021-08-14] MEDS: predniSONE 20 MG TAB PO SCH (08:50)
[2021-08-14] MEDS: Enoxaparin Sodium 40 MG/0.4 ML SYRINGE SC SCH (08:51)
[2021-08-14] MEDS: Carvedilol 6.25 MG TAB PO SCH (08:51)
[2021-08-14 11:13] VITALS: BMI 40.6
[2021-08-14] MEDS ORDERED: Melatonin 3 MG TAB PO PRN (14:10)
[2021-08-14] MEDS: Carvedilol 3.125 MG TAB PO SCH (17:26)
[2021-08-15] MEDS: Gabapentin 300 MG CAP PO SCH ×2 (08:44→20:24)
[2021-08-15] MEDS: Enoxaparin Sodium 40 MG/0.4 ML SYRINGE SC SCH (08:44)
[2021-08-15] MEDS: Furosemide 20 MG TAB PO SCH ×2 (08:44→14:39)
[2021-08-15] MEDS: Cefdinir 300 MG CAP PO SCH ×2 (08:44→20:24)
[2021-08-15] MEDS: Famotidine 20 MG TAB PO SCH (08:44)
[2021-08-15] MEDS: predniSONE 20 MG TAB PO SCH (08:44)
[2021-08-15] MEDS: Escitalopram Oxalate 20 mg Tablet PO SCH (08:45)
[2021-08-15] MEDS: Carvedilol 3.125 MG TAB PO SCH ×2 (08:51→16:41)
[2021-08-15] MEDS: Acetaminophen 325 MG TAB PO PRN ×2 (14:41→20:29)
[2021-08-15] MEDS: Ondansetron PF 4 MG/2 ML Vial IVP PRN (22:47)
[2021-08-16 08:01] VITALS: TEMP 98
[2021-08-16] MEDS: Furosemide 20 MG TAB PO SCH ×2 (08:38→14:18)
[2021-08-16] MEDS: Gabapentin 300 MG CAP PO SCH (08:40)
[2021-08-16] MEDS: predniSONE 20 MG TAB PO SCH (08:40)
[2021-08-16] MEDS: Famotidine 20 MG TAB PO SCH (08:40)
[2021-08-16] MEDS: Escitalopram Oxalate 20 mg Tablet PO SCH (08:41)
[2021-08-16] MEDS: Enoxaparin Sodium 40 MG/0.4 ML SYRINGE SC SCH (08:41)
[2021-08-16] MEDS: Carvedilol 3.125 MG TAB PO SCH (08:41)
[2021-08-16 12:03] LABS: Hemoglobin A1c 5.8 % (4.0-6.0)
[2021-08-16 12:25] VITALS: BP 93/62
[2021-08-16] MEDS: HumaLOG 300 UNITS/3 ML VIAL SC PRN (12:48)
== END 2021-08-16 14:51 | disposition hospice, home (50) | DRG 291 ==
LOC: ERS 14:35 → 2NO 20:30 → T4-A 08-11 11:53
PROVIDERS: ADMIT Internal Medicine; ATTEND Internal Medicine
DX: I11.0 Hypertensive heart disease with heart failure (principal); J96.20 Acute and chronic respiratory failure, unspecified whether with hypoxia or hypercapnia; I50.23 Acute on chronic systolic (congestive) heart failure; J44.1 Chronic obstructive pulmonary disease with (acute) exacerbation; Z68.41 Body mass index [BMI] 40.0-44.9, adult; N17.9 Acute kidney failure, unspecified; Z66 Do not resuscitate; Z51.5 Encounter for palliative care; Z20.822 Contact with and (suspected) exposure to COVID-19; I25.10 Atherosclerotic heart disease of native coronary artery without angina pectoris; D63.8 Anemia in other chronic diseases classified elsewhere; F32.A Depression, unspecified; E78.2 Mixed hyperlipidemia; E11.40 Type 2 diabetes mellitus with diabetic neuropathy, unspecified; E66.01 Morbid (severe) obesity due to excess calories; I44.0 Atrioventricular block, first degree; Z99.81 Dependence on supplemental oxygen; Z88.5 Allergy status to narcotic agent; Z88.0 Allergy status to penicillin; Z91.041 Radiographic dye allergy status; Z79.84 Long term (current) use of oral hypoglycemic drugs; Z79.899 Other long term (current) drug therapy; Z79.51 Long term (current) use of inhaled steroids; Z95.1 Presence of aortocoronary bypass graft; Z90.49 Acquired absence of other specified parts of digestive tract; Z90.710 Acquired absence of both cervix and uterus; Z95.810 Presence of automatic (implantable) cardiac defibrillator
CPT/HCPCS: 36415; 36416; 51701; 71045; 80048; 80053; 80306; 80307; 81003; 81015; 82553; 83036; 83735; 83880; 84100; 84484; 85007; 85025; 85027; 93005; 93010; 94640; 96374; 96375; J0360; J0696; J1650; J1815; J1885; J1940; J2270; J2405; J2930; J3490; J7512; J7620; U0003; U0005